=== PATIENT | male | born 1940 | race Caucasian/White ===

== ENCOUNTER 2017-07-01 18:10 | Emergency (ER) | payer BC ==
[~2017-07-01] VITALS: Ht 182.9 cm; Wt 123.0 kg
[~2017-07-01 18:10] MED LIST changes: -CZR50 PO; -GABA-112 PO; -KRIL1CAP18 PO; -METO25TA3 PO; -PRED50TA PO; -SPR25 PO
[2017-07-01 18:12] VITALS: TEMP 36.5; Ht 182.9 cm; Wt 123.0 kg
[2017-07-01] MEDS ORDERED: SODIUM CHLORIDE 0.9% 1000ML 1,000 ML IV STA (18:47)
[2017-07-01] MEDS ORDERED: KETOROLAC TROMETHAMINE 30 MG/ML VIAL IV STA (18:47)
[2017-07-01] MEDS ORDERED: SODIUM CHLORIDE 0.9% 1000ML 250 ML IV STA (18:47)
--- NOTE | 2017-07-01 18:49 | EMERGENCY ROOM VISIT NOTE ---
History Report prepared by Ezekiel: Henry Cohn Under the Supervision of: Dr. Alfredo Arana M.D. First contact with patient: 18:34 Chief Complaint: BACK PAIN Stated Complaint: BACK PAIN AND SPASMS History of Present Illness The patient is a 77 year old male who presents to the Emergency Room with complaints of worsening back pain that started 4 days ago. The patient describes the pain as "severe back spasms" which are worsened by movement. He says that he has a history of back surgery, and has had chronic back pain, but the severity did not start until 4 days ago when he was reaching his arm up for an object. The patient states that the pain is more on his right side, and generally his left side of his back has been okay, but occasionally the pain goes across his back. The patient states that before the pain worsened, Tylenol would relieve the pain. Per the patient's son, the patient was seen by his primary care doctor yesterday, and had x-rays ordered, which he had done today. The patient was given a Toradol injection, and had his Gabapentin dosage and Tramadol dosage increased. He says that he felt a lot better after the injection , and felt okay through this morning until he raised his left leg trying to put his pants on. The patient states that the pain is bad now. He denies any chest pain, shortness of breath, abdominal pain, bowel problems, or urinary symptoms. He notes that he is not on Coumadin anymore. The patient has a history of kidney stones, but he says that this pain does not feel like a kidney stone. He takes Metoprolol daily. Source of History: patient, family Onset: 4 days ago Position: back (right) Symptom Intensity: severe Quality: other (spasms) Timing: worsening Modifying Factors (Worsening): movement Associated Symptoms: No chest pain, No SOB, No abdominal pain, No urinary symptoms Note: Associated symptoms: Denies bowel problems. Review of Systems See HPI for pertinent positives & negatives. A total of 10 systems reviewed and were otherwise negative. Past Medical & Surgical Medical Problems: (1) HTN (hypertension) (2) Kidney stone (3) Sleep apnea Surgical Problems: (1) Previous back surgery Old medical records were reviewed. Nurse's notes were reviewed and I agree with. Family History Family history omitted secondary to patient's advanced age. Social History Smoking Status: Former Smoker Marital Status: Housing Status: lives with family Occupation Status: retired Current/Historical Medications Scheduled Aspirin (Aspirin Ec), 81 MG PO Q2D Cholecalciferol (Vitamin D 1000 Unit), 2,000 INTER.UNIT PO DAILY Cinnamon (Cinnamon), 1,000 MG PO DAILY Coenzyme Q10 (Ubidecarenone) (Coq-10), 400 MG PO DAILY Gabapentin (Neurontin), 1-2 CAP PO TID Glucosamine Hcl-Methylsulfonyl (Glucosamine/Msm), 1 TAB PO DAILY Krill Oil (Megared [place]-3 Krill Oil 500 mg), 1 CAP PO DAILY Losartan Potassium (Losartan Potassium), 50 MG PO DAILY Metoprolol Succinate (Toprol Xl), 25 MG PO DAILY Multivitamin (Multivitamin), 1 TAB PO DAILY Omeprazole (Prilosec), 20 MG PO DAILY Prednisone (Prednisone), 50 MG PO DAILY Simvastatin (Zocor), 10 MG PO HS Spironolactone (Spironolactone), 12.5 MG PO DAILY Terazosin Hcl (Hytrin), 10 MG PO HS Tramadol Hcl (Ultram), 50 MG PO ACHS Miscellaneous Medications Cyclobenzaprine Hcl (Flexeril *), 10 MG PO Allergies Coded Allergies: Oxycodone (Verified Adverse Reaction, Mild, NAUSEA/VOMITTING, 07/01/17) Physical Exam Vital Signs Date Time Temp Pulse Resp B/P (MAP) Pulse Ox O2 Delivery O2 Flow Rate FiO2 07/01/17 21:16 62 18 138/81 97 07/01/17 19:24 56 20 131/68 97 Room Air 07/01/17 18:12 36.5 67 18 124/71 91 Room Air Physical Exam General: Well developed well nourished uncomfortable appearing older male in no acute distress, breathing comfortably on room air. Normal speech. Has significant pain with movement only. HEENT: Normal cephalic atraumatic. Pupils are equal round and reactive to light. Extraocular movements are intact. Oropharynx is pink with moist mucous membranes. No swelling of the mouth lips or tongue. Neck: Supple with a midline trachea. No meningeal signs or stiffness, no JVD or bruits. No Stridor. Chest: Clear to auscultation bilaterally. No wheezes or rhonchi. No increased work of breathing. Heart: regular rate and rhythm. Abdomen: Soft nontender, nondistended without rebound guarding or rigidity. Extremities: No cyanosis clubbing or edema. No calf tenderness or assymetry. Pain with movement of legs. Spine/Back. Right flank not significantly tender to palpation. No CVA tenderness Skin: Good turgor without rashes. Neurologic exam: Cranial nerves two through 12 are intact. Motor and sensation are intact and symmetrical throughout. Medical Decision & Procedures ER Provider Diagnostic Interpretation: CT results as stated below per my review and radiologist interpretation: LUMBAR SPINE WITHOUT HISTORY: 77 years-old Male chronic back pain for 10 years. History of prior surgery. COMPARISON: CT abdomen and pelvis of same day, lumbar spine radiographs 07/01/2017, CT abdomen and pelvis 04/28/2008 TECHNIQUE: Multiple axial CT images of the lumbar spine were obtained without IV contrast. Coronal and sagittal reformatted images were obtained from the axial data set incidentally for review. A dose lowering technique was used consistent with the principals of ALARA. FINDINGS: There is been prior posterior decompression with interbody lor and screw fixation at the L3-S1 levels. There is no evidence of hardware complication. 5 mm anterolisthesis of L4 on L5 is noted with bony fusion seen posteriorly suggesting chronic etiology. There is complete bony fusion of the vertebral bodies at L2-L3 with partial fusion at L3-L4 and L5-S1. No acute compression deformity. Intervertebral disc space narrowing is seen at the T12-L1 and L1-L2 levels. There is levoscoliosis. There is atherosclerosis of the abdominal aorta and iliac vasculature. T12-L1: Moderate intervertebral disc space narrowing and moderate facet arthropathy is seen causing mild central canal and mild left foraminal narrowing. L1-L2: Moderate intervertebral disc space narrowing and facet arthropathy is noted in conjunction with circumferential posterior disc bulge causing mild central canal, mild left and moderate right foraminal narrowing. L2-L3: Posterior spondylitic spurring with facet arthrosis is present. The central canal and foramen at this level and below are not well seen secondary to the streak artifact. Myelogram may be considered if of further clinical concern. IMPRESSION: 1. No acute fracture or dislocation of the lumbar spine. 2. Prior posterior decompression with interbody lor and screw fixation at L3-S1. No evidence of hardware complication. 3. Limited evaluation of the central canal and neuroforamen at the levels of prior surgery secondary to streak artifact and lack of intrathecal contrast. Within the limitations of the study, no severe central canal or foraminal narrowing is identified. 4. Multilevel discogenic degeneration and facet arthropathy as above. 5. Levoscoliosis. The above report was generated using voice recognition software. It may contain grammatical, syntax or spelling errors. Electronically signed by: Tony Mace M.D. 07/01/2017 8:30 PM Dictated Date/Time: 07/01/2017 8:24 PM ABD/PELVIS WITHOUT FOR STONE HISTORY: 77 years-old Male eval for stone chronic back pain for 10 years. History of kidney stones. COMPARISON: 04/28/2008 CT abdomen and pelvis TECHNIQUE: Multiple axial CT images of the abdomen and pelvis were obtained without IV contrast. A dose lowering technique was used consistent with the principals of JULIÁN. FINDINGS: There is minimal dependent bibasilar atelectasis with subpleural reticulation of the right middle lobe and inferior segment lingula. These findings have progressed from prior study suggesting scarring. There is no pneumoperitoneum. Imaged inferior cardiac chambers are within normal limits with coronary arterial calcifications present. Prior cholecystectomy. The liver, spleen, pancreas and right adrenal gland appear normal. There is a 10 x 9 mm indeterminate soft tissue attenuating lesion of the left adrenal gland which appears unchanged from 04/28/2008 suggesting benign etiology such as a lipid poor adenoma. Lobulated renal parenchyma is noted bilaterally. Areas of peripheral scarring are also seen bilaterally. There is a 4 mm nonobstructing calculus of the interpolar right kidney. No ureteral calculi or hydronephrosis identified. Urinary bladder is unremarkable. Evaluation the pelvic structures is limited secondary to streak artifact from bilateral hip arthroplasty. The prostate appears mildly enlarged. There is moderate atherosclerotic plaquing of the abdominal aorta. There is a small duodenal diverticulum. No bowel obstruction. There are a few scattered noninflamed colonic diverticula noted. The appendix is air-filled and appears to be noninflamed. Chronic tendinosis involves the hamstring attachment sites bilaterally. Prior posterior decompression with interbody lor and screw fixation at L3-S1. There is 5 mm anterolisthesis of L4 on L5 with associated bony fusion suggesting chronic etiology. There is levoscoliosis of the lumbar spine. Multilevel degenerative changes are seen throughout the spine. IMPRESSION: 1. No acute intra-abdominal or intrapelvic abnormality identified. 2. 4 mm nonobstructing calculus of the interpolar right kidney without hydronephrosis. 3. Prior decompression with posterior interbody lor and screw fixation at L3-S1. 4. Additional incidental findings as above. The above report was generated using voice recognition software. It may contain grammatical, syntax or spelling errors. Electronically signed by: Tony Mace M.D. 07/01/2017 8:21 PM Dictated Date/Time: 07/01/2017 8:13 PM Laboratory Results 07/01/17 19:13 Red Blood Count 3.68, Mean Corpuscular Volume 102.4, Mean Corpuscular Hemoglobin 35.9, Mean Corpuscular Hemoglobin Concent 35.0, Mean Platelet Volume 9.2, Neutrophils (%) (Auto) 51.7, Lymphocytes (%) (Auto) 35.2, Monocytes (%) ( Auto) 7.3, Eosinophils (%) (Auto) 5.2, Basophils (%) (Auto) 0.5, Neutrophils # ( Auto) 3.98, Lymphocytes # (Auto) 2.71, Monocytes # (Auto) 0.56, Eosinophils # ( Auto) 0.40, Basophils # (Auto) 0.04 07/01/17 19:13 Test 07/01/17 19:13 07/01/17 20:10 White Blood Count 7.70 K/uL (4.8-10.8) Red Blood Count 3.68 M/uL (4.7-6.1) Hemoglobin 13.2 g/dL (14.0-18.0) Hematocrit 37.7 % (42-52) Mean Corpuscular Volume 102.4 fL (80-100) Mean Corpuscular Hemoglobin 35.9 pg (25-34) Mean Corpuscular Hemoglobin Concent 35.0 g/dl (32-36) Platelet Count 221 K/uL (130-400) Mean Platelet Volume 9.2 fL (7.4-10.4) Neutrophils (%) (Auto) 51.7 % Lymphocytes (%) (Auto) 35.2 % Monocytes (%) (Auto) 7.3 % Eosinophils (%) (Auto) 5.2 % Basophils (%) (Auto) 0.5 % Neutrophils # (Auto) 3.98 K/uL (1.4-6.5) Lymphocytes # (Auto) 2.71 K/uL (1.2-3.4) Monocytes # (Auto) 0.56 K/uL (0.11-0.59) Eosinophils # (Auto) 0.40 K/uL (0-0.5) Basophils # (Auto) 0.04 K/uL (0-0.2) RDW Standard Deviation 47.7 fL (36.4-46.3) RDW Coefficient of Variation 12.8 % (11.5-14.5) Immature Granulocyte % (Auto) 0.1 % Immature Granulocyte # (Auto) 0.01 K/uL (0.00-0.02) Prothrombin Time 10.2 SECONDS (9.0-12.0) Prothromb Time International Ratio 1.0 (0.9-1.1) Activated Partial Thromboplast Time 27.4 SECONDS (21.0-31.0) Partial Thromboplastin Ratio 1.1 Anion Gap 6.0 mmol/L (3-11) Est Creatinine Clear Calc Drug Dose 55.9 ml/min Estimated GFR () 51.3 Estimated GFR (Non- 44.3 BUN/Creatinine Ratio 21.8 (10-20) Calcium Level 8.7 mg/dl (8.5-10.1) Total Bilirubin 0.6 mg/dl (0.2-1) Direct Bilirubin 0.1 mg/dl (0-0.2) Aspartate Amino Transf (AST/SGOT) 37 U/L (15-37) Alanine Aminotransferase (ALT/SGPT) 53 U/L (12-78) Alkaline Phosphatase 61 U/L (45-117) Total Protein 6.7 gm/dl (6.4-8.2) Albumin 3.5 gm/dl (3.4-5.0) Lipase 120 U/L (73-393) Urine Color YELLOW Urine Appearance CLEAR (CLEAR) Urine pH 5.0 (4.5-7.5) Urine Specific [place] 1.017 (1.000-1.030) Urine Protein NEG (NEG) Urine Glucose (UA) NEG (NEG) Urine Ketones NEG (NEG) Urine Occult Blood NEG (NEG) Urine Nitrite NEG (NEG) Urine Bilirubin NEG (NEG) Urine Urobilinogen NEG (NEG) Urine Leukocyte Esterase NEG (NEG) Laboratory studies as stated above per my review. Medications Administered Medications (Trade) Dose Ordered Sig/Enedelia Route Start Time Stop Time Status Last Admin Dose Admin Ketorolac Tromethamine (Toradol Inj) 30 mg NOW STAT IV 07/01/17 18:47 07/01/17 18:50 DC 07/01/17 19:20 30 MG Sodium Chloride 250 ml @ 999 mls/hr Q16M STAT IV 07/01/17 18:47 07/01/17 19:02 DC 07/01/17 19:21 999 MLS/HR Prednisone (PredniSONE TAB) 60 mg NOW STAT PO 07/01/17 20:56 07/01/17 20:58 DC 07/01/17 21:07 60 MG ED Course 1836: Past medical records reviewed. The patient was evaluated in room B9, and a complete history and physical examination were performed. 1846: Ordered NSS 1000 ml @ 100 mls/hr IV, NSS 250 ml @ 999 mls/hr IV, Toradol Inj 30 mg IV. 2055: Ordered Prednisone Tab 60 mg PO. 2056: I reevaluated the patient and he is resting comfortably, feeling better with the Toradol. The patient verbally expressed understanding and agreement of the treatment plan. The patient will be discharged. Medical Decision Differentials include, but are not limited to; muscle spasm, lumbar disc disease , fracture, kidney stone, AAA. This patient comes in as described above. He's having right-sided back pain it is definitely worse with movement. He saw his regular doctor and was doing well after receiving a shot of IV Toradol but when he then today it got worse and there was no trauma . He has no neurologic deficits. he's had back problems in the past. On exam, he has nothing to suggest cauda equina syndrome or infection. He appears uncomfortable. IV access established was given Toradol 30 mg IV and felt significantly better. He has no white count or fever to suggest infection. He has mild renal insufficiency which is about baseline for him. he has nothing to suggest UTI. CAT scan of his abdomen does not show any acute pathology which would explain his symptoms specifically is no aneurysm or dissection seen. He also has no obstructive uropathy. He does have one stone within the kidney but it's not causing a blockage and therefore not causing symptoms. Lumbar CT does not show any definite acute findings however somewhat compromised to the fact that he has hardware. The patient feels much better would like to go home and I think that this is reasonable. I will start him on a course of steroids and he was given prednisone 50 mg here as well as percent prescription for 4 more days for a short burst. He should continue to use ibuprofen and Ultram and follow-up with his regular doctor in the next 1-2 days for recheck. He was encouraged to return if: fever or chills, change in bowel or bladder function, any new problems or concerns. He was happy with plan and discharged to home. Medication Reconcilliation Current Medication List: was personally reviewed by me Blood Pressure Screening Patient's blood pressure: Normal blood pressure Impression Primary Impression: Low back pain Scribe Attestation The scribe's documentation has been prepared under my direction and personally reviewed by me in its entirety. I confirm that the note above accurately reflects all work, treatment, procedures, and medical decision making performed by me. Departure Information Dispostion Home / Self-Care Prescriptions Prednisone (Prednisone) 50 Mg Tab 50 MG PO DAILY, #4 TAB Prov: Alfredo Arana M.D. 07/01/17 Referrals No Doctor, Assigned (PCP) Olivia Rangel PA-C Patient Instructions My [facility] Additional Instructions Rest. Drink plenty of fluids. Be careful getting up and down. Continue your current anti-inflammatory/ibuprofen as well as tramadol as previously directed by your doctor Use prednisone 50 mg a day once a day for 4 more days Return if: Increasing pain, numbness or weakness, change in bowel or bladder function, any new problems or concerns. Follow-up with your doctor this week for recheck
[2017-07-01] MEDS ORDERED: KRIL1CAP18 PO (19:13)
[2017-07-01] MEDS ORDERED: GLUCTAB PO (19:13)
[2017-07-01] MEDS ORDERED: CZR50 PO (19:13)
[2017-07-01] MEDS ORDERED: METO25TA3 PO (19:13)
[2017-07-01] MEDS ORDERED: SPR25 PO (19:23)
[2017-07-01] MEDS ORDERED: GABA-112 PO (19:23)
[2017-07-01 19:27] LABS: BASO % 0.5 %; BASO ABS # 0.04 K/uL (0-0.2); COMPLETE YES; EOS % 5.2 %; HEMATOCRIT 37.7 % (42-52); IG% 0.1 %; LYMPH % 35.2 %; LYMPH ABS # 2.71 K/uL (1.2-3.4); MEAN CELL VOLUME 102.4 fL (80-100); MEAN CORPUSCULAR HEMOGLOBIN 35.9 pg (25-34); MEAN PLATELET VOLUME 9.2 fL (7.4-10.4); MONO % 7.3 %; NEUT % 51.7 %; PLATELET COUNT 221 K/uL (130-400); RED BLOOD COUNT 3.68 M/uL (4.7-6.1)
[2017-07-01 19:41] LABS: BUN/CREATININE RATIO 21.8 (10-20); CALCIUM 8.7 mg/dl (8.5-10.1); CREATININE 1.5 mg/dl (0.60-1.40); POTASSIUM 4.8 mmol/L (3.5-5.1)
[2017-07-01 19:47] LABS: PARTIAL THROMBOPLASTIN RATIO 1.1; PROTHROMBIN TIME (PATIENT) 10.2 SECONDS (9.0-12.0)
--- NOTE | 2017-07-01 20:22 | DIAGNOSTIC IMAGING REPORT ---
ABD/PELVIS WITHOUT FOR STONE HISTORY: 77 years-old Male eval for stone chronic back pain for 10 years. History of kidney stones. COMPARISON: 04/28/2008 CT abdomen and pelvis TECHNIQUE: Multiple axial CT images of the abdomen and pelvis were obtained without IV contrast. A dose lowering technique was used consistent with the principals of JULIÁN. FINDINGS: There is minimal dependent bibasilar atelectasis with subpleural reticulation of the right middle lobe and inferior segment lingula. These findings have progressed from prior study suggesting scarring. There is no pneumoperitoneum. Imaged inferior cardiac chambers are within normal limits with coronary arterial calcifications present. Prior cholecystectomy. The liver, spleen, pancreas and right adrenal gland appear normal. There is a 10 x 9 mm indeterminate soft tissue attenuating lesion of the left adrenal gland which appears unchanged from 04/28/2008 suggesting benign etiology such as a lipid poor adenoma. Lobulated renal parenchyma is noted bilaterally. Areas of peripheral scarring are also seen bilaterally. There is a 4 mm nonobstructing calculus of the interpolar right kidney. No ureteral calculi or hydronephrosis identified. Urinary bladder is unremarkable. Evaluation the pelvic structures is limited secondary to streak artifact from bilateral hip arthroplasty. The prostate appears mildly enlarged. There is moderate atherosclerotic plaquing of the abdominal aorta. There is a small duodenal diverticulum. No bowel obstruction. There are a few scattered noninflamed colonic diverticula noted. The appendix is air-filled and appears to be noninflamed. Chronic tendinosis involves the hamstring attachment sites bilaterally. Prior posterior decompression with interbody lor and screw fixation at L3-S1. There is 5 mm anterolisthesis of L4 on L5 with associated bony fusion suggesting chronic etiology. There is levoscoliosis of the lumbar spine. Multilevel degenerative changes are seen throughout the spine. IMPRESSION: 1. No acute intra-abdominal or intrapelvic abnormality identified. 2. 4 mm nonobstructing calculus of the interpolar right kidney without hydronephrosis. 3. Prior decompression with posterior interbody lor and screw fixation at L3-S1. 4. Additional incidental findings as above. The above report was generated using voice recognition software. It may contain grammatical, syntax or spelling errors. Electronically signed by: Tony Mace M.D. 07/01/2017 8:21 PM Dictated Date/Time: 07/01/2017 8:13 PM
--- NOTE | 2017-07-01 20:31 | DIAGNOSTIC IMAGING REPORT ---
LUMBAR SPINE WITHOUT HISTORY: 77 years-old Male chronic back pain for 10 years. History of prior surgery. COMPARISON: CT abdomen and pelvis of same day, lumbar spine radiographs 07/01/2017, CT abdomen and pelvis 04/28/2008 TECHNIQUE: Multiple axial CT images of the lumbar spine were obtained without IV contrast. Coronal and sagittal reformatted images were obtained from the axial data set incidentally for review. A dose lowering technique was used consistent with the principals of ALA. FINDINGS: There is been prior posterior decompression with interbody lor and screw fixation at the L3-S1 levels. There is no evidence of hardware complication. 5 mm anterolisthesis of L4 on L5 is noted with bony fusion seen posteriorly suggesting chronic etiology. There is complete bony fusion of the vertebral bodies at L2-L3 with partial fusion at L3-L4 and L5-S1. No acute compression deformity. Intervertebral disc space narrowing is seen at the T12-L1 and L1-L2 levels. There is levoscoliosis. There is atherosclerosis of the abdominal aorta and iliac vasculature. T12-L1: Moderate intervertebral disc space narrowing and moderate facet arthropathy is seen causing mild central canal and mild left foraminal narrowing. L1-L2: Moderate intervertebral disc space narrowing and facet arthropathy is noted in conjunction with circumferential posterior disc bulge causing mild central canal, mild left and moderate right foraminal narrowing. L2-L3: Posterior spondylitic spurring with facet arthrosis is present. The central canal and foramen at this level and below are not well seen secondary to the streak artifact. Myelogram may be considered if of further clinical concern. IMPRESSION: 1. No acute fracture or dislocation of the lumbar spine. 2. Prior posterior decompression with interbody lor and screw fixation at L3-S1. No evidence of hardware complication. 3. Limited evaluation of the central canal and neuroforamen at the levels of prior surgery secondary to streak artifact and lack of intrathecal contrast. Within the limitations of the study, no severe central canal or foraminal narrowing is identified. 4. Multilevel discogenic degeneration and facet arthropathy as above. 5. Levoscoliosis. The above report was generated using voice recognition software. It may contain grammatical, syntax or spelling errors. Electronically signed by: Tony Mace M.D. 07/01/2017 8:30 PM Dictated Date/Time: 07/01/2017 8:24 PM
[2017-07-01 20:49] LABS: URINE APPEARANCE CLEAR (CLEAR); URINE BILIRUBIN NEG (NEG); URINE COLOR YELLOW; URINE NITRITE NEG (NEG); URINE SPECIFIC GRAVITY 1.017 (1.000-1.030); UROBILINOGEN NEG (NEG)
[2017-07-01 20:51] LABS: MANUAL MICROSCOPIC REQUIRED? NO; REVIEW REQ? NO
[2017-07-01] MEDS ORDERED: PRED50TA PO (20:59)
[2017-07-01 21:16] VITALS: BP 138/81; PULSE 62; O2SAT 97
== END 2017-07-01 21:16 | disposition home or self-care (01) ==
LOC: C.EDB 18:11
DX: M54.5 Low back pain (principal); I10 Essential (primary) hypertension; G47.30 Sleep apnea, unspecified; Z87.891 Personal history of nicotine dependence; Z79.82 Long term (current) use of aspirin; Z79.899 Other long term (current) drug therapy

== ENCOUNTER → 2017-07-01 | Outpatient (CLI) | payer BC ==
[~2017-07-01] MED LIST: ASPI81TA28 PO; CHOL100027 PO; CINN1CAP2 PO; COEN1CAP32 PO; CZR50 PO; FERR324T PO; FISHOIL PO; FLX10 PO; GABA-112 PO; GLUCTAB PO; HYDR-3419 PO; KRIL1CAP18 PO; LISI-729 PO; METO25TA3 PO; MULT-506 PO; PRED50TA PO; PRLSR20 PO; SIMV10TA2 PO; SPR25 PO; TERA1CAP63 PO; ULT/50 PO; WARF1TAB PO
--- NOTE | 2017-07-01 18:18 | DIAGNOSTIC IMAGING REPORT ---
L-SPINE MIN 4 VIEWS ROUTINE HISTORY: Pain ACUTE LOW BACK SPINE COMPARISON: None. FINDINGS: There is no fracture. Mild levoscoliosis. Evidence for posterior laminectomy and fusion from L3 through S1. Significant degenerative disc change throughout. No evidence for subluxation. IMPRESSION: 1. Considerable degenerative disc change 2. Postoperative change consistent with a fusion from L3 through S1. 3. No evidence for compression deformity. The above report was generated using voice recognition software. It may contain grammatical, syntax or spelling errors. Electronically signed by: Quincy Salmon M.D. 07/01/2017 6:17 PM Dictated Date/Time: 07/01/2017 6:16 PM
--- NOTE | 2017-07-01 18:19 | DIAGNOSTIC IMAGING REPORT ---
THORACIC SPINE 3 VIEWS ROUTINE HISTORY: Pain ACUTE LOW BACK PAIN COMPARISON: None. FINDINGS: No evidence for compression deformity. Considerable degenerative disc change throughout. Reactive osteophytic change from the vertebral endplates throughout. Posterior elements are intact. IMPRESSION: Considerable degenerative disc change. No acute process. The above report was generated using voice recognition software. It may contain grammatical, syntax or spelling errors. Electronically signed by: Quincy Salmon M.D. 07/01/2017 6:17 PM Dictated Date/Time: 07/01/2017 6:17 PM
== END | disposition home or self-care (01) ==
LOC: C.RAD 17:23
PROVIDERS: ATTEND Physician Assistant
DX: M54.5 Low back pain (principal)

== ENCOUNTER 2021-07-03 11:31 | Inpatient (IN) ==
[2021-07-03] MEDS ORDERED: ACETAMINOPHEN 325 MG TAB PO PRN (12:35)
--- NOTE | 2021-07-03 12:58 | History & Physical Report ---
Date of Service July 03, 2021 Assessment & Plan (1) Afib: Plan: Currently rate controlled in the 70-80s HR increased to 90s while sitting up on the edge of the bed without any ectopy - CHADVASC - 3, HASBLED 3-4 - On Warfarin for his anticoagulation - Current INR 2.2 - Continue dose of 5mg daily - ECHO while in house - Continue Metoprolol and Digoxin - Follow hemodynamics and rate response - Cardiology consulted- Dr. Bennett - ECG on arrival unchanged no acute changes noted Patient has poorly tolerated atrial fibrillation by review (2) Diastolic HF (heart failure): Plan: HFpEF with EF 65% with noted elevated PAS via ECHO only. - Patient reports his dry weight around 280 pounds - No orthopnea - Daily bedside weights - BNP- 753 - Not much lower extremity edema mild pulmonary congestion on exam - Bumex 1 mg IV now and then again at 1900 tonight- Continue IV BID - Spironolactone on hold- will add back if needed - Continue ARB (3) HTN (hypertension): Plan: Currently controlled goal would be <130 with CKD, DM, HTN, HLD, CAD - Continue with ARB at this time follow renal function with diuresing (4) Hyperlipidemia: Plan: - Continue Atorvastatin 40 - Hold krill oil (5) CAD (coronary artery disease): Plan: Non obstructive mild CAD via cardiac catheterization in 2016 - Continue ASA, BB, HLD agents as above (6) GRACIE (obstructive sleep apnea): Plan: Patient reports he wears CPAP- he brought home machine, use while sleeping and or napping - He states he wears this every night - Unsure of when last sleep study was or adjustment- may benefit from updated study (7) Obesity: Plan: Due to increase intake of calories and decrease exercise - Weight loss will likely help with his overall CV mortality and current symptoms - Difficult with his dyspnea, osteoarthritis, and knee/hip replacements - This as well as afib is likely his primary offenders for his dyspnea (8) GERD (gastroesophageal reflux disease): Plan: No acute needs, patient states symptoms are controlled - Continue with PPI (9) DMII (diabetes mellitus, type 2): Plan: Hold Metformin - Start aspart sliding scale - Goal <180 (10) CKD (chronic kidney disease), stage III: Plan: Chronic stable CKD IIIa - Avoid nephrotoxic medications - Follow renal function with diuresing and hemodynamics (11) Osteoarthritis: Plan: Continue glucosamine, Flexeril PRN, and Vitamin D Admission and Anticipated Discharge Date Admission Date: July 03, 2021 History of Present Illness Primary Care Provider: Addy Arizmendi MD 81 YOM direct admit from [facility] cardiology group Dr. Bennett. Requested admission secondary to uncontrolled outpatient afib, HF, and sub-therapeutic INR. Patient with past medical history of CAD, HTN, HLD, Obesity, chronic otitis externa, CKD III, DM II, DJD lumbar, GERD, Osteoarthritis, Past Smoker, Obesity hy poventilation syndrome/GRACIE on CPAP and new onset afib on Coumadin. Patient has been in Afib since appears of May. Patient has struggled with rate control secondary to hypotension and worsening SOB, dizziness, and lower extremity edema; as well as sub-therapeutic INR. For his rate control he has titrated up his Metoprolol but as previously, his hypotension has been limiting this, he has also been placed on Digoxin previously loaded with 0.25 mg PO and down to maintenance of 0.125 mg daily. For his volume status he has had his been given 2mg BUMEX in the office on and increased his oral BUMEX this past weekend to 2mg with minimal response on his dyspnea. He reports that originally after getting the 2mg IV in the office he felt great and was down 5lbs on his scale the next morning and his dyspnea was improved, but over the past 5 days he has increased his weight to +5 pounds. He denies any orthopnea and is not hypoxic. He does endorse not following a low salt diet, but over the past 2-3 days he and his have been trying, and he moved to salt substitute. He states his dyspnea is more when he is trying to do something or with walking, not associated with any chest discomfort and he denies fevers/chills or coughing up any mucous. He has an ECHO from 03/14 while in NSR with EF 65% normal LV function with no wall motion abnormalities and normal size. RA pressure 8; PAS 41, and CO 6.9 and normal valvular function. Patient will be admitted for diuresing as needed, follow HR and rate control strategies, INR following and Cardiology consult. CXR, ECG, and ECHO ordered. COVID test is negative on admission. Allergies Allergy/AdvReac Type Severity Reaction Status Date / Time oxycodone AdvReac Mild NAUSEA/VOMI Verified 05/04/21 13:42 TTING Home Medications Medication Instructions Recorded Confirmed Type Multivitamin 1 tab PO DAILY #0 04/12/09 07/03/21 History OMEPRAZOLE (PRILOSEC) 20 mg PO DAILY #0 04/12/09 07/03/21 History Terazosin Hcl (Hytrin) 10 mg PO HS #0 04/12/09 07/03/21 History CHOLECALCIFEROL (VITAMIN D 1000 2,000 inter.unit PO DAILY #0 cap 06/10/12 07/03/21 History UNIT) Cyclobenzaprine Hcl (Flexeril *) 10 mg PO DAILY #0 tab 06/10/12 07/03/21 History ASPIRIN (ASPIRIN EC) 81 mg PO Q2D #0 04/09/13 07/03/21 History CINNAMON 1,000 mg PO DAILY #0 04/09/13 07/03/21 History COENZYME Q10 (UBIDECARENONE) 400 mg PO DAILY #0 04/09/13 07/03/21 History (COQ-10) GLUCOSAMINE HCL-METHYLSULFONYL 1 tab PO DAILY #0 07/01/17 07/03/21 History (GLUCOSAMINE/MSM) Gabapentin (Neurontin) 2 - 3 cap PO TID #0 cap 07/01/17 07/03/21 History Krill Oil (Megared [place]-3 Krill 1 cap PO DAILY #0 07/01/17 07/03/21 History Oil 500 mg) Losartan Potassium 25 mg PO DAILY #0 07/01/17 07/03/21 History Spironolactone 25 mg PO DAILY #0 07/01/17 07/03/21 History atorvastatin 80 mg tablet (Lipitor) 80 mg PO DAILY 08/10/20 07/03/21 History folic acid 800 mcg tablet 0.8 mg PO DAILY 08/10/20 07/03/21 History spironolactone 25 mg tablet 25 mg PO DAILY 08/10/20 05/04/21 History bumetanide 1 mg tablet 2 mg PO DAILY 07/03/21 07/03/21 History cetirizine 10 mg tablet (Zyrtec) 10 mg PO DAILY PRN 07/03/21 07/03/21 History digoxin 125 mcg (0.125 mg) tablet 0.125 mcg PO DAILY 07/03/21 07/03/21 History fluocinolone acetonide oil 0.01 % 1 drp OTIC (EAR) DAILY 07/03/21 07/03/21 History ear drops metformin 500 mg tablet,extended 500 mg PO DAILY 07/03/21 07/03/21 History release 24 hr metoprolol succinate 50 mg 50 mg PO DAILY 07/03/21 07/03/21 History tablet,extended release 24 hr ropinirole 1 mg tablet 1 mg PO DAILY 07/03/21 07/03/21 History warfarin 5 mg tablet 5 mg PO DAILY 07/03/21 07/03/21 History Past Med/Surg History Medical History Afib SHARA positive CAD (coronary artery disease) Carotid artery plaque CKD (chronic kidney disease), stage III Diabetic neuropathy Diastolic HF (heart failure) Diverticulosis DMII (diabetes mellitus, type 2) Elevated cholesterol GERD (gastroesophageal reflux disease) HTN (hypertension) Hyperlipidemia Kidney stone Normal colonoscopy Obesity GRACIE (obstructive sleep apnea) Osteoarthritis Otitis externa Sleep apnea Surgical History H/O bilateral hip replacements H/O laminectomy H/O total hip arthroplasty H/O total knee replacement History of ankle surgery History of back surgery History of cholecystectomy Hx of total knee arthroplasty Family History Other Coronary heart disease Diabetes Social History Smoking Status: Former smoker Hx Alcohol Use: Yes Hx Substance Use: No Preferred Language: Gabonese Communication Ability: Effective 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 Beliefs That Will Affect Care: None marital status: Current Living Situation: Alone Feels Safe at Home: Yes Safety Concerns: Feels Safe At This Time Assistive Devices: None Review of Systems Review of Systems: REVIEW OF SYSTEMS: Constitutional: No fever, sweats or chills Eyes: No diplopia, no worsening or blurred vision ENT: normal hearing, no trouble swallowing Respiratory: (+) dyspnea on exertion, cough, No sputum Cardiovascular: No chest pain, tightness or palpitations Abdomen: (+) abdominal tightness, No pain, nausea, vomiting, diarrhea or constipation Musculoskeletal: (+) chronic joint knee pain, back pain Neurologic: No weakness, numbness/tingling, or balance problems Psychiatric: No anxiety or depression Skin: No rash or itch Physical Exam Physical Exam: PHYSICAL EXAM: General: awake, alert, no apparent distress Head: Normocephalic, atraumatic ENT: PERRL, EOMI, no pharyngeal exudate, mucous membranes moist Neuro: AAO x 3, speech clear and appropriate, strength intact bilaterally 5/5, sensation intact and equal all extremities and dermatomes, no pronator drift Chest: equal rise and fall of the chest, no accessory muscle use, no heaves or thrills, scattered crackles throughout mid lobes, on room air, no orthopnea Cardiac: Regular rate and rhythm, telemetry reviewed, skin warm dry, cap refill <3 seconds, peripheral pulses +2 no JVD, no murmur, trace lower extremity edema GI: NABS x 4 quadrants, obese soft, nontender to palpation, no rebound, guarding or tenderness : Spontaneously voiding, no pain, no CVA tenderness, Extremities: Normal inspection, no peripheral edema or erythema, calfs nontender to palpation Psych: Normal mood and affect Skin: no rash or erythema Results & Data Results & Data ([facility]) Laboratory Results Abnormal lab results 07/03/21 07/03/21 07/03/21 Range/Units 12:54 13:11 13:11 RBC 3.75 L (4.7-6.1) M/uL Hgb 13.3 L (14.0-18.0) g/dL Hct 38.6 L (42-52) % MCV 102.9 H (80-100) fL MCH 35.5 H (25-34) pg RDW Std Deviation 51.0 H (36.4-46.3) fL Tate # (Auto) 0.63 H (0.11-0.59) K/uL PT 21.2 H (9.0-12.0) Seconds INR 2.2 H (0.9-1.1) Chloride (98-107) mmol/L Anion Gap (3-11) BUN (7-18) mg/dl Glucose (70-99) mg/dl POC Glucose 113 H (70-99) mg/dl Calcium (8.5-10.1) mg/dl 07/03/21 Range/Units 13:11 RBC (4.7-6.1) M/uL Hgb (14.0-18.0) g/dL Hct (42-52) % MCV (80-100) fL MCH (25-34) pg RDW Std Deviation (36.4-46.3) fL Tate # (Auto) (0.11-0.59) K/uL PT (9.0-12.0) Seconds INR (0.9-1.1) Chloride 108 H (98-107) mmol/L Anion Gap 2.0 L (3-11) BUN 23 H (7-18) mg/dl Glucose 114 H (70-99) mg/dl POC Glucose (70-99) mg/dl Calcium 8.4 L (8.5-10.1) mg/dl Diagnostic Findings Chest X-Ray 07/03/21 14:20 SINGLE VIEW CHEST CLINICAL HISTORY: Dyspnea. Pulmonary congestion. FINDINGS: An AP, portable, upright chest radiograph is compared to study dated 09/06/2015. The examination is degraded by portable technique and apical lordotic positioning. The heart is enlarged noting atherosclerotic calcification of the thoracic aorta. There is mild pulmonary vascular congestion. Scarring/atelectasis is noted at the lung bases. No airspace consolidation or large pleural effusion is identified. No pneumothorax is seen. The skeletal stru ctures are osteopenic. The bony thorax is grossly intact. Arthritic change is noted in the shoulders. IMPRESSION: Cardiomegaly with mild pulmonary vascular congestion. ACT 112: Negative or not required by law. Electronically signed by: Florentino Xavier M.D. 07/03/2021 2:54 PM Medications Administered Home Medications Multivitamin 1 tab PO DAILY #0 04/12/09 [History Confirmed 05/04/21] OMEPRAZOLE (PRILOSEC) 20 mg PO DAILY #0 04/12/09 [History Confirmed 05/04/21] Terazosin Hcl (Hytrin) 10 mg PO HS #0 04/12/09 [History Confirmed 05/04/21] CHOLECALCIFEROL (VITAMIN D 1000 UNIT) 2,000 inter.unit PO DAILY #0 cap 06/10/12 [History Confirmed 05/04/21] Cyclobenzaprine Hcl (Flexeril *) 10 mg PO #0 tab 06/10/12 [History Confirmed 05/04/21] ASPIRIN (ASPIRIN EC) 81 mg PO Q2D #0 04/09/13 [History Confirmed 05/04/21] CINNAMON 1,000 mg PO DAILY #0 04/09/13 [History Confirmed 05/04/21] COENZYME Q10 (UBIDECARENONE) (COQ-10) 400 mg PO DAILY #0 04/09/13 [History Confirmed 05/04/21] GLUCOSAMINE HCL-METHYLSULFONYL (GLUCOSAMINE/MSM) 1 tab PO DAILY #0 07/01/17 [History Confirmed 05/04/21] Gabapentin (Neurontin) 1 - 2 cap PO TID #0 cap 07/01/17 [History Confirmed 05/04/21] Krill Oil (Megared [place]-3 Krill Oil 500 mg) 1 cap PO DAILY #0 07/01/17 [History Confirmed 05/04/21] Losartan Potassium 50 mg PO DAILY #0 07/01/17 [History Confirmed 05/04/21] Spironolactone 12.5 mg PO DAILY #0 07/01/17 [History Confirmed 05/04/21] atorvastatin 80 mg tablet (Lipitor) 80 mg PO DAILY 08/10/20 [History Confirmed 05/04/21] folic acid 800 mcg tablet 0.8 mg PO DAILY 08/10/20 [History Confirmed 05/04/21] spironolactone 25 mg tablet 25 mg PO DAILY 08/10/20 [History Confirmed 05/04/21] Active Medications Acetaminophen (Acetaminophen 325 Mg Tab) 650 mg PO Q4H PRN PRN Reason: Pain or Fever Stop: 08/02/21 12:34 Bumetanide 1 mg/ Syringe 4 mls @ 4 mls/min IV BID@0900,1700 KAREN Stop: 08/02/21 18:59 ECG Additional Comments: Atrial fibrillation Low voltage QRS Inferior infarct , age undetermined Abnormal ECG When compared with ECG of 26-FEB-2013 10:25, Atrial fibrillation has replaced Sinus rhythm Inferior infarct is now Present Nonspecific T wave abnormality now evident in Inferior leads Code Status & VTE Plan Code Status CODE: FULL VTE: SCD's, Warfarin, ASA, ambulation VTE Prophylaxis Plan VTE Prophylaxis will be ordered: Yes Supervising Physician Co-Signing Physician Notes Attending addendum: I have physically seen this patient, have supervised the MARIA ALEJANDRA's activities, and agree with the H&P unless as otherwise noted. Assessment and Plan: Acute on chronic diastolic CHF/atrial fibrillation/hypertension- The patient will be admitted to telemetry for serial cardiac enzymes, serial EKG's, cardiac rhythm monitoring and a 2-D echocardiogram with Dopplers. Continue warfarin 5 mg daily, INR today 2.2, follow serial INR Continue metoprolol and digoxin Bumex 1 mg IV twice daily Hold outpatient oral Bumex 2 mg daily for now Holding spironolactone for now Continuing losartan potassium Follow serial CBC with differential and chemistry profile Consult his equities analyst Dr. Joseph Remaining orders and notations as noted PG Care Time/CCT Total # of Minutes Spent Total Time Spent with Patient: Total time spent is greater than 50% in coordination of care (as documented) at patient's floor/unit and/or counseling patient: Coding Level of Care Code 46456 Initial Inpt Care Lvl 3 Diagnoses Afib I48.91 Diastolic HF (heart failure) I50.30 HTN (hypertension) I10 Hyperlipidemia E78.5 CAD (coronary artery disease) I25.10 GRACIE (obstructive sleep apnea) G47.33 Obesity E66.9 GERD (gastroesophageal reflux disease) K21.9 DMII (diabetes mellitus, type 2) E11.9 CKD (chronic kidney disease), stage III N18.30 Osteoarthritis M19.90
[2021-07-03 13:28] LABS: Basophils # (auto) 0.03 K/uL (0-0.2); Basophils % (auto) 0.5 %; Eosinophils # (auto) 0.33 K/uL (0-0.5); Eosinophils % (auto) 5.4 %; Hematocrit (blood only) 38.6 % (42-52); Hemoglobin 13.3 g/dL (14.0-18.0); Immature Granulocytes # (auto) 0.01 K/uL (0.00-0.02); Immature Granulocytes % (auto) 0.2 %; Lymphocytes # (auto) 2.01 K/uL (1.2-3.4); Mean Corpuscular Hemoglobin 35.5 pg (25-34); Mean Corpuscular Hgb Conc 34.5 g/dL (32-36); Mean Corpuscular Volume 102.9 fL (80-100); Mean Platelet Volume 9.1 fL (7.4-10.4); Monocytes # (auto) 0.63 K/uL (0.11-0.59); Monocytes % (auto) 10.3 %; Neutrophils # (auto) 3.09 K/uL (1.4-6.5); Neutrophils % (auto) 50.6 %; Platelet Count 206 K/uL (130-400); RDW Coefficient of Variation 13.5 % (11.5-14.5); Red Blood Count 3.75 M/uL (4.7-6.1)
[2021-07-03 13:43] LABS: INR 2.2 (0.9-1.1); Prothrombin Time 21.2 Seconds (9.0-12.0)
[2021-07-03] MEDS ORDERED: BUMETANIDE 1 MG in SYRINGE 0 ML IV ONE (14:00)
[2021-07-03 14:02] LABS: BUN Creatinine Ratio 18.7 (10-20); Calcium 8.4 mg/dl (8.5-10.1); Creatinine Clr Calc Pharmacy 65.5 ml/min; Est GFR (African American) 62.8 ml/min; Est GFR (Non-African American) 54.2 ml/min; Magnesium 2.2 mg/dl (1.8-2.4); Potassium 3.9 mmol/L (3.5-5.1)
[2021-07-03] MEDS ORDERED: CARBOHYDRATES FOR HYPOGLYCEMIA PO PRN (14:19)
[2021-07-03] MEDS ORDERED: GLUCOSE 10 TABS/TUBE PO PRN (14:19)
[2021-07-03] MEDS ORDERED: DEXTROSE 50% 50 ML SYRINGE IV PRN (14:19)
[2021-07-03] MEDS ORDERED: GLUCOSE 40% GEL 15 GM TUBE PO PRN (14:19)
[2021-07-03] MEDS ORDERED: GLUCAGON FOR INJ 1 MG VIAL SQ PRN (14:19)
--- NOTE | 2021-07-03 14:56 | XRay Report ---
SINGLE VIEW CHEST CLINICAL HISTORY: Dyspnea. Pulmonary congestion. FINDINGS: An AP, portable, upright chest radiograph is compared to study dated 09/06/2015. The examin ation is degraded by portable technique and apical lordotic positioning. The heart is enlarged noting atherosclerotic calcification of the thoracic aorta. There is mild pulmonary vascular congestion. Sc arring/atelectasis is noted at the lung bases. No airspace consolidation or large pleural effusion is identified. No pneumothorax is seen. The skeletal structures are osteopenic. The bony thorax is edgardo sly intact. Arthritic change is noted in the shoulders. IMPRESSION: Cardiomegaly with mild pulmonary vascular congestion. ACT 112: Negative or not required by law. Electronically signed by: Florentino Xavier M.D. 07/03/2021 2:54 PM
[2021-07-03] MEDS ORDERED: CYCLOBENZAPRINE HCL 10 MG TAB PO PRN (15:29)
[2021-07-03] MEDS ORDERED: CETIRIZINE HCL 10 MG TABLET PO PRN (15:32)
--- NOTE | 2021-07-03 15:33 | Electrocardiogram Report ---
Test Reason : Blood Pressure : / mmHG Vent. Rate : 087 BPM Atrial Rate : 079 BPM P-R Int : 000 ms QRS Dur : 070 ms QT Int : 354 ms P-R-T Axes : 000 -05 014 degrees QTc Int : 425 ms Atrial fibrillation Low voltage QRS Abnormal ECG When compared with ECG of 26-FEB-2013 10:25, Atrial fibrillation has replaced Sinus rhythm Nonspecific T wave abnormality now evident in Inferior leads Confirmed by Stu Holt ([id number]) on 07/03/2021 3:32:48 PM Referred By: Wallace Thorne Confirmed By:Darrius Holt
[2021-07-03] MEDS: WARFARIN SOD 5 MG TAB PO SCH (16:16)
[2021-07-03] MEDS: INSULIN ASPART 100 UNITS/ML 3 ML PEN SC SCH ×2 (17:05→22:11)
--- NOTE | 2021-07-03 17:48 | XCELERA ---
[id number]
[2021-07-03] MEDS: BUMETANIDE 1 MG in SYRINGE 0 ML IV SCH (18:17)
[2021-07-03] MEDS: GABAPENTIN 100 MG CAP PO SCH (21:23)
[2021-07-03] MEDS: TERAZOSIN HCL 5 MG CAP PO SCH (21:24)
[2021-07-04 06:46] LABS: Basophils # (auto) 0.04 K/uL (0-0.2); Basophils % (auto) 0.4 %; Eosinophils # (auto) 0.36 K/uL (0-0.5); Eosinophils % (auto) 3.9 %; Hematocrit (blood only) 42.9 % (42-52); Hemoglobin 14.7 g/dL (14.0-18.0); Immature Granulocytes # (auto) 0.03 K/uL (0.00-0.02); Immature Granulocytes % (auto) 0.3 %; Lymphocytes # (auto) 2.72 K/uL (1.2-3.4); Lymphocytes % (auto) 29.5 %; Mean Corpuscular Hemoglobin 35.3 pg (25-34); Mean Corpuscular Hgb Conc 34.3 g/dL (32-36); Mean Corpuscular Volume 102.9 fL (80-100); Mean Platelet Volume 9.4 fL (7.4-10.4); Monocytes # (auto) 0.84 K/uL (0.11-0.59); Monocytes % (auto) 9.1 %; Neutrophils # (auto) 5.23 K/uL (1.4-6.5); Neutrophils % (auto) 56.8 %; Platelet Count 233 K/uL (130-400); RDW Coefficient of Variation 13.6 % (11.5-14.5); RDW Standard Deviation 51.1 fL (36.4-46.3); Red Blood Count 4.17 M/uL (4.7-6.1); White Blood Count 9.22 K/uL (4.8-10.8)
[2021-07-04 06:54] LABS: Prothrombin Time 19.3 Seconds (9.0-12.0)
[2021-07-04 07:24] LABS: BUN Creatinine Ratio 18.2 (10-20); Calcium 8.6 mg/dl (8.5-10.1); Creatinine Clr Calc Pharmacy 61.6 ml/min; Est GFR (African American) 59.3 ml/min; Est GFR (Non-African American) 51.2 ml/min; Magnesium 1.7 mg/dl (1.8-2.4); Potassium 4.1 mmol/L (3.5-5.1)
[2021-07-04] MEDS: MAGNESIUM SULFATE / D5W 1 GM/100 ML BAG IV SCH ×3 (07:45→11:38)
[2021-07-04] MEDS: BUMETANIDE 1 MG in SYRINGE 0 ML IV SCH ×2 (07:46→16:41)
[2021-07-04] MEDS: rOPINIRole HCL 1 MG TABLET PO SCH (07:47)
[2021-07-04] MEDS: METOPROLOL SUCC 50MG EXT REL TAB PO SCH (07:47)
[2021-07-04] MEDS: LOSARTAN POTASSIUM 25 MG TAB PO SCH (07:47)
[2021-07-04] MEDS: ATORVASTATIN 40 MG TAB PO SCH (07:48)
[2021-07-04] MEDS: CHOLECALCIFEROL 1,000 UNITS 25 MCG TAB PO SCH (07:48)
[2021-07-04] MEDS: PANTOprazole 40 MG TAB PO SCH (07:48)
[2021-07-04] MEDS: FOLIC ACID 400 MCG TAB PO SCH (07:49)
[2021-07-04] MEDS: GABAPENTIN 100 MG CAP PO SCH ×3 (07:49→20:43)
[2021-07-04] MEDS: INSULIN ASPART 100 UNITS/ML 3 ML PEN SC SCH ×4 (07:50→22:20)
--- NOTE | 2021-07-04 08:14 | Hospitalist Progress Note ---
Date of Service July 04, 2021 Assessment & Plan (1) Afib: Plan: - CHADVASC - 3, HASBLED 3-4 - ECG on arrival unchanged no acute changes noted - On Warfarin for his anticoagulation - Current INR 2.0 - Continue dose of 5mg daily - ECHO (07/03) showing normal LV function, mildly dilated left atrium, mild aortic valve sclerosis without stenosis, normal right ventricular systolic pressure - Continue Metoprolol succinate 50mg daily - Cardiology consulted - Will try to obtain a transesophageal echocardiogram and cardioversion this admission - Will load him with amiodarone in order to maintain sinus rhythm after his cardioversion and make it easier to get him out of A. fib especially in light of his size - Continue with IV Bumex a milligram twice daily - Stop his digoxin with the addition of amiodarone - His INR will rise and probably he will need half of his normal dose of Coumadin once we start amiodarone on a regular basis - Scheduled for SUNG cardioversion tomorrow AM (2) Diastolic HF (heart failure): Plan: HFpEF with EF 65% with noted elevated PAS via ECHO only. No orthopnea. No lower extremity edema on exam. BNP 753. - Daily weights - Monitor I&Os daily - Patient reports his dry weight around 280 pounds - Bumex 1 mg IV BID per cardio recs as above - Spironolactone on hold- will add back if needed - Continue home losartan (3) HTN (hypertension): Plan: Currently controlled goal would be <130 with CKD, DM, HTN, HLD, CAD - Continue with ARB at this time - Follow renal function with diuresing (4) Hyperlipidemia: Plan: - Continue Atorvastatin 40 - Hold krill oil (5) CAD (coronary artery disease): Plan: Non obstructive mild CAD via cardiac catheterization in 2016 - Continue ASA, BB, HLD agents as above (6) GRACIE (obstructive sleep apnea): Plan: Patient reports he wears CPAP- he brought home machine, use while sleeping and napping - Unsure of when last sleep study was or adjustment- may benefit from updated study (7) Obesity: Plan: Due to increased intake of calories and decreased exercise - Weight loss will likely help with his overall CV mortality and current symptoms - Difficult with his dyspnea, osteoarthritis, and knee/hip replacements - This as well as afib is likely his primary offenders for his dyspnea (8) GERD (gastroesophageal reflux disease): Plan: No acute needs, patient states symptoms are controlled - Continue with PPI (9) DMII (diabetes mellitus, type 2): Plan: - Hold Metformin - Continue sliding scale - Goal <180 (10) CKD (chronic kidney disease), stage III: Plan: - Avoid nephrotoxic medications - Follow renal function with diuresing and hemodynamics (11) Osteoarthritis: Plan: - Continue glucosamine, Flexeril PRN, and Vitamin D DVT ppx: anticoagulated on Coumadin Diet: DM2, NPO at midnight Dispo: PCU/Tele CODE: FULL CODE Admission and Anticipated Discharge Date Admission Date: July 03, 2021 Supervising Physician Co-Signing Physician Notes Patient seen and examined with PGY-1 Dr. Hinds. Agree with history, exam findings, assessment and plan of care as outlined. In brief, Mr. Escobedo is a 81 year old male with history of afib, HFpEF, CAD, HTN, and DM2 admitted with afib with RVR. Vital signs and nursing notes reviewed. Well appearing. Breathing comfortably on room air. Not tachycardic. Irregular rhythm. Labs and imaging reviewed. 1. Afib, rate controlled now. Continue metoprolol 50mg. Stopped digoxin and started amiodarone. Optimize lytes. Anticoagulated with Coumadin. INR 2.0. Followed as an outpatient by Dr. Bennett. Appreciate Dr. Scott recommendations. Plans for SUNG and cardioversion with Dr. Holt tomorrow morning. 2. HFpEF. In exacerbation. Continue with IV Bumex BID. Monitor I/Os. Daily weights. Dry weight is 280lbs. 3. CAD, HTN. Continue home losartan and atorvastatin. 4. DM2. Hold home metoprolol. Switch to ssi while inpatient. Dispo: pending cardioversion tomorrow AM. Subjective Patiet seen at bedside this AM. He was comfortable and denied any symptoms. Aware that he will have his SUNG cardioversion tomorrow. Updated patient's as well. Review of Systems Review of Systems: All systems reviewed & are unremarkable except as noted in Subjective Physical Exam Constitutional: WD/WN, vitals as above Respiratory: normal respiratory effort, lungs clear to auscultation Cardiovascular: RRR, no murmur, no edema Gastrointestinal (Abdomen): normal bowel sounds, soft, nontender, no hepatosplenomegaly Skin: no rashes, warm and dry Psychiatric: A+Ox3, euthymic affect Results & Data Results & Data ([facility]) Vital Signs (Past 12 Hours) Vital Signs Temp Pulse Resp BP Pulse Ox 07/04/21 07:58 36.6 C 88 18 117/77 96 07/04/21 03:25 36.4 C L 96 H 18 156/88 H 96 07/03/21 23:20 36.5 C 110 H 18 113/63 95 Resident Activity Tracking Resident Involvement: Resident Care Provided Care Provided: Adult Hospital Medicine
[2021-07-04] MEDS ORDERED: AMIODARONE IV BOLUS & DRIP IV STA (08:34)
[2021-07-04] MEDS ORDERED: STAT IV Infusion **Titration per Protocol STA (08:34)
[2021-07-04] MEDS ORDERED: 0.2 MICRON FILTER SET 1 EA IV ONE (08:45)
[2021-07-04] MEDS ORDERED: AMIODARONE / D5W 150 MG/100 ML BAG IV ONE (08:45)
--- NOTE | 2021-07-04 08:49 | Cardiology Consultation ---
Date of Consultation July 04, 2021 History of Present Illness Reason for Consultation: Acute on chronic diastolic heart failure, atrial fibrillation Attending Physician: Sue Frias DO History of Present Illness The patient has been experiencing worsening diastolic heart failure since he went into atrial fibrillation and lost his atrial kick. We have aggressively tried to diurese him and rate control him. Additionally given his weight he could not be placed on a novel oral anticoagulant and therefore had to be loaded with Coumadin. We were hoping that he could have a therapeutic INR for 3 weeks and then plan cardioversion. His heart failure has worsened to the point that he needed IV Bumex in the office last week. Even with up titration of his oral Bumex as an outpatient he continued to have worsening abdominal distention and lower extremity edema. It was therefore recommended that he come to the hospital for IV Bumex on a regular basis, close monitoring of his electrolytes, and loading with amiodarone for planned SUNG and cardioversion. He is feeling better he notes he is lost 9 pounds his abdomen is less distended. He notes he is peed all night his lower extremity edema has markedly improved as well. He can take a deep breath this morning and feels less short of breath he also notes that the mild chest discomfort and scapular discomfort that he had yesterday has also improved. He is unaware of any palpitations or fluttering. Denies any lightheadedness or dizziness. He denies any presyncope syncope. His color looks better. He notes his appetite is slightly improved. He denies any bleeding or bruising. The rest of complete review of systems is negative Allergies Allergy/AdvReac Type Severity Reaction Status Date / Time oxycodone AdvReac Mild NAUSEA/VOMI Verified 05/04/21 13:42 TTING Home Medications Medication Instructions Recorded Confirmed Type Multivitamin 1 tab PO DAILY #0 04/12/09 07/03/21 History OMEPRAZOLE (PRILOSEC) 20 mg PO DAILY #0 04/12/09 07/03/21 History Terazosin Hcl (Hytrin) 10 mg PO HS #0 04/12/09 07/03/21 History CHOLECALCIFEROL (VITAMIN D 1000 2,000 inter.unit PO DAILY #0 cap 06/10/12 07/03/21 History UNIT) Cyclobenzaprine Hcl (Flexeril *) 10 mg PO DAILY #0 tab 06/10/12 07/03/21 History ASPIRIN (ASPIRIN EC) 81 mg PO Q2D #0 04/09/13 07/03/21 History CINNAMON 1,000 mg PO DAILY #0 04/09/13 07/03/21 History COENZYME Q10 (UBIDECARENONE) 400 mg PO DAILY #0 04/09/13 07/03/21 History (COQ-10) GLUCOSAMINE HCL-METHYLSULFONYL 1 tab PO DAILY #0 07/01/17 07/03/21 History (GLUCOSAMINE/MSM) Gabapentin (Neurontin) 2 - 3 cap PO TID #0 cap 07/01/17 07/03/21 History Krill Oil (Megared [place]-3 Krill 1 cap PO DAILY #0 07/01/17 07/03/21 History Oil 500 mg) Losartan Potassium 25 mg PO DAILY #0 07/01/17 07/03/21 History Spironolactone 25 mg PO DAILY #0 07/01/17 07/03/21 History atorvastatin 80 mg tablet (Lipitor) 80 mg PO DAILY 08/10/20 07/03/21 History folic acid 800 mcg tablet 0.8 mg PO DAILY 08/10/20 07/03/21 History spironolactone 25 mg tablet 25 mg PO DAILY 08/10/20 05/04/21 History bumetanide 1 mg tablet 2 mg PO DAILY 07/03/21 07/03/21 History cetirizine 10 mg tablet (Zyrtec) 10 mg PO DAILY PRN 07/03/21 07/03/21 History digoxin 125 mcg (0.125 mg) tablet 0.125 mcg PO DAILY 07/03/21 07/03/21 History fluocinolone acetonide oil 0.01 % 1 drp OTIC (EAR) DAILY 07/03/21 07/03/21 History ear drops metformin 500 mg tablet,extended 500 mg PO DAILY 07/03/21 07/03/21 History release 24 hr metoprolol succinate 50 mg 50 mg PO DAILY 07/03/21 07/03/21 History tablet,extended release 24 hr ropinirole 1 mg tablet 1 mg PO DAILY 07/03/21 07/03/21 History warfarin 5 mg tablet 5 mg PO DAILY 07/03/21 07/03/21 History Patient History Medical History Afib SHARA positive CAD (coronary artery disease) Carotid artery plaque CKD (chronic kidney disease), stage III Diabetic neuropathy Diastolic HF (heart failure) Diverticulosis DMII (diabetes mellitus, type 2) Elevated cholesterol GERD (gastroesophageal reflux disease) HTN (hypertension) Hyperlipidemia Kidney stone Normal colonoscopy Obesity GRACIE (obstructive sleep apnea) Osteoarthritis Otitis externa Sleep apnea Surgical History H/O bilateral hip replacements H/O laminectomy H/O total hip arthroplasty H/O total knee replacement History of ankle surgery History of back surgery History of cholecystectomy Hx of total knee arthroplasty Family History Other Coronary heart disease Diabetes Social History Smoking Status: Former smoker Hx Alcohol Use: Yes Hx Substance Use: No Preferred Language: Maltese Communication Ability: Effective Wallpaper Consultant Required: No Beliefs That Will Affect Care: None marital status: Current Living Situation: Alone Feels Safe at Home: Yes Safety Concerns: Feels Safe At This Time Assistive Devices: Cane Results & Data ([facility]) Vital Signs (Past 12 Hours) Vital Signs Temp Pulse Resp BP Pulse Ox 07/04/21 07:58 36.6 C 88 18 117/77 96 07/04/21 03:25 36.4 C L 96 H 18 156/88 H 96 07/03/21 23:20 36.5 C 110 H 18 113/63 95 He is awake alert and oriented x3 he does appear mildly short of breath talking in sentences HEENT: 2+ carotid upstrokes normal to carotid bruits Lungs: Decreased breath sounds in the bases but no rales rhonchi or wheezing Heart: Irregular rate and rhythm no appreciable murmurs or rubs Abdomen: Soft chronically distended less firm nontender Extremities: No clubbing cyanosis mild bilateral lower extremity edema which is much improved Psychiatric his affect appeared appropriate IMPRESSIONS: 1. Acute on chronic diastolic heart failure worsened secondary to the loss of his atrial kick from new onset atrial fibrillation 2. Diastolic dysfunction with preserved left ventricular systolic function 3. Cardiac catheterization March 2016 with 30% proximal LAD lesion and a 40% distal LAD lesion; elevated LVEDP with top normal pulmonary artery pressures 4. Obstructive sleep apnea using BiPAP since 2008 5. Hypertension 6. New onset atrial fibrillation summer 2020 Finally his INR has become therapeutic as an outpatient with initiation of Coumadin. Given his weight he cannot be on a novel oral anticoagulant. We will try to obtain a transesophageal echocardiogram and cardioversion this admission. We will load him with amiodarone in order to maintain sinus rhythm after his cardioversion and make it easier to get him out of A. fib especially in light of his size. As discussed with the housestaff we will continue with IV Bumex a milligram twice daily. We will stop his digoxin with the addition of amiodarone. Also his INR will rise and probably he will need half of his normal dose of Coumadin once we start amiodarone on a regular basis. We discussed the need for low-salt diet and daily weights we also discussed the need for weight loss. His last echocardiogram in the office (February 2021) revealed normal biventricular size and function with indeterminate left atrial pressures and no significant valvular heart disease I will reach out to the EP service with regards to the timing of a SUNG cardioversion all this was discussed with the patient I am happy to discuss with his as well
[2021-07-04] MEDS ORDERED: AMIODARONE / D5W 360 MG/200 ML BAG IV ONE (08:55)
[2021-07-04] MEDS ORDERED: ASPIRIN 81 MG ECTAB PO SCH (09:00)
--- NOTE | 2021-07-04 14:06 | Electrocardiogram Report ---
Test Reason : Blood Pressure : / mmHG Vent. Rate : 082 BPM Atrial Rate : 076 BPM P-R Int : 000 ms QRS Dur : 076 ms QT Int : 378 ms P-R-T Axes : 000 -17 018 degrees QTc Int : 441 ms Atrial fibrillation Low voltage QRS Abnormal ECG When compared with ECG of 03-JUL-2021 13:25, No significant change was found Confirmed by Stu Holt ([id number]) on 07/04/2021 2:05:51 PM Referred By: Wallace Thorne Confirmed By:Darrius Holt
[2021-07-04] MEDS: AMIODARONE / D5W 360 MG/200 ML BAG IV SCH (14:36)
[2021-07-04] MEDS: WARFARIN SOD 5 MG TAB PO SCH (15:52)
[2021-07-04] MEDS ORDERED: DIGOXIN 0.125 MG TAB PO SCH (16:00)
[2021-07-04] MEDS: TERAZOSIN HCL 5 MG CAP PO SCH (20:43)
[2021-07-05] MEDS: AMIODARONE / D5W 360 MG/200 ML BAG IV SCH (01:58)
[2021-07-05 06:44] LABS: Basophils # (auto) 0.02 K/uL (0-0.2); Basophils % (auto) 0.3 %; Eosinophils # (auto) 0.32 K/uL (0-0.5); Eosinophils % (auto) 4.1 %; Hematocrit (blood only) 40.3 % (42-52); Hemoglobin 13.8 g/dL (14.0-18.0); Immature Granulocytes # (auto) 0.01 K/uL (0.00-0.02); Immature Granulocytes % (auto) 0.1 %; Lymphocytes # (auto) 2.08 K/uL (1.2-3.4); Lymphocytes % (auto) 26.6 %; Mean Corpuscular Hemoglobin 35.1 pg (25-34); Mean Corpuscular Hgb Conc 34.2 g/dL (32-36); Mean Corpuscular Volume 102.5 fL (80-100); Mean Platelet Volume 9.4 fL (7.4-10.4); Monocytes # (auto) 0.66 K/uL (0.11-0.59); Monocytes % (auto) 8.5 %; Neutrophils # (auto) 4.72 K/uL (1.4-6.5); Neutrophils % (auto) 60.4 %; Platelet Count 217 K/uL (130-400); RDW Coefficient of Variation 13.4 % (11.5-14.5); RDW Standard Deviation 50.8 fL (36.4-46.3); Red Blood Count 3.93 M/uL (4.7-6.1); White Blood Count 7.81 K/uL (4.8-10.8)
[2021-07-05 07:01] LABS: Calcium 8.5 mg/dl (8.5-10.1); Creatinine Clr Calc Pharmacy 60.6 ml/min; Est GFR (African American) 58.2 ml/min; Est GFR (Non-African American) 50.2 ml/min; Magnesium 2.2 mg/dl (1.8-2.4); Potassium 3.9 mmol/L (3.5-5.1)
[2021-07-05] MEDS ORDERED: LIDOCAINE 2% MPF LOCAL 5 ML VIAL INFIL ONE (07:05)
[2021-07-05] MEDS ORDERED: PROPOFOL IV EMULSION 10 MG/ML 20 ML VIAL IV ONE (07:05)
[2021-07-05] MEDS ORDERED: fentaNYL citrate 100 MCG/2 ML VIAL ONE (07:06)
--- NOTE | 2021-07-05 07:20 | Anesthesiology Consultation ---
Date of Service July 05, 2021 Assessment & Plan Chart Review Chart Review: Acceptable Risk for Surgery and Patient NOT seen in Pre Admission Testing Consults Requested none ASA ASA3 Proposed Anesthesia Anesthesia Type: MAC Risk / Benefits Reviewed With: PT / POA / Parent / Guardian, Accepts Plan and Informed Consent Obtained History Surgery Operation Date: 07/05/21 07:15 Proposed Procedures p Transesophageal Echo w/Anesthesia - Nando Holt MD Height/Weight Height: 6 ft Weight: 127.8 kg Allergies Allergy/AdvReac Type Severity Reaction Status Date / Time oxycodone AdvReac Mild NAUSEA/VOMI Verified 05/04/21 13:42 TTING Medications Home Medications Medication Instructions Recorded Confirmed Last Taken Multivitamin 1 tab PO DAILY #0 04/12/09 07/03/21 Unknown OMEPRAZOLE (PRILOSEC) 20 mg PO DAILY #0 04/12/09 07/03/21 Unknown Terazosin Hcl (Hytrin) 10 mg PO HS #0 04/12/09 07/03/21 Unknown CHOLECALCIFEROL (VITAMIN D 1000 2,000 inter.unit PO DAILY #0 cap 06/10/12 07/03/21 Unknown UNIT) Cyclobenzaprine Hcl (Flexeril *) 10 mg PO DAILY #0 tab 06/10/12 07/03/21 Unknown ASPIRIN (ASPIRIN EC) 81 mg PO Q2D #0 04/09/13 07/03/21 Unknown CINNAMON 1,000 mg PO DAILY #0 04/09/13 07/03/21 Unknown COENZYME Q10 (UBIDECARENONE) 400 mg PO DAILY #0 04/09/13 07/03/21 Unknown (COQ-10) GLUCOSAMINE HCL-METHYLSULFONYL 1 tab PO DAILY #0 07/01/17 07/03/21 Unknown (GLUCOSAMINE/MSM) Gabapentin (Neurontin) 2 - 3 cap PO TID #0 cap 07/01/17 07/03/21 Unknown Krill Oil (Megared [place]-3 Krill 1 cap PO DAILY #0 07/01/17 07/03/21 Unknown Oil 500 mg) Losartan Potassium 25 mg PO DAILY #0 07/01/17 07/03/21 Unknown Spironolactone 25 mg PO DAILY #0 07/01/17 07/03/21 Unknown atorvastatin 80 mg tablet (Lipitor) 80 mg PO DAILY 08/10/20 07/03/21 Unknown folic acid 800 mcg tablet 0.8 mg PO DAILY 08/10/20 07/03/21 Unknown spironolactone 25 mg tablet 25 mg PO DAILY 08/10/20 05/04/21 Unknown bumetanide 1 mg tablet 2 mg PO DAILY 07/03/21 07/03/21 Unknown cetirizine 10 mg tablet (Zyrtec) 10 mg PO DAILY PRN 07/03/21 07/03/21 Unknown digoxin 125 mcg (0.125 mg) tablet 0.125 mcg PO DAILY 07/03/21 07/03/21 Unknown fluocinolone acetonide oil 0.01 % 1 drp OTIC (EAR) DAILY 07/03/21 07/03/21 Unknown ear drops metformin 500 mg tablet,extended 500 mg PO DAILY 07/03/21 07/03/21 Unknown release 24 hr metoprolol succinate 50 mg 50 mg PO DAILY 07/03/21 07/03/21 Unknown tablet,extended release 24 hr ropinirole 1 mg tablet 1 mg PO DAILY 07/03/21 07/03/21 Unknown warfarin 5 mg tablet 5 mg PO DAILY 07/03/21 07/03/21 Unknown Active Medications Generic Name Dose Route Start Last Admin Trade Name Freq PRN Reason Stop Dose Admin Aspirin 81 mg 07/04/21 09:00 07/04/21 07:48 Aspirin 81 Mg Ectab PO 08/03/21 08:59 81 mg Q2D KAREN Administration Atorvastatin Calcium 80 mg 07/04/21 09:00 07/04/21 07:48 Atorvastatin 40 Mg Tab PO 08/03/21 08:59 80 mg DAILY KAREN Administration Folic Acid 800 mcg 07/04/21 09:00 07/04/21 07:49 Folic Acid 400 Mcg Tab PO 08/03/21 08:59 800 mcg DAILY KAREN Administration Gabapentin 200 mg 07/03/21 21:00 07/04/21 20:43 Gabapentin 100 Mg Cap PO 08/02/21 20:59 200 mg TID KAREN Administration Bumetanide 1 mg/ Syringe 4 mls @ 4 mls/min 07/03/21 19:00 07/04/21 16:41 IV 08/02/21 18:59 4 mls/min BID@0900,1700 KAREN Administration Amiodarone HCl/Dextrose 360 mg in 200 mls @ 16.667 mls/hr 07/04/21 15:00 07/05/21 01:58 Nexterone / D5w IV 08/03/21 14:59 0.5 mg/min .Q12H KAREN 16.7 mls/hr Administration 0.5 MG/MIN Insulin Aspart 0 units 07/03/21 16:30 07/04/21 22:20 Insulin Aspart 100 Units/Ml 3 Ml Pen SC 08/02/21 16:29 Not Given ACHS KAREN Losartan Potassium 25 mg 07/04/21 09:00 07/04/21 07:47 Losartan Potassium 25 Mg Tab PO 08/03/21 08:59 25 mg DAILY KAREN Administration Metoprolol Succinate 50 mg 07/04/21 09:00 07/04/21 07:47 Metoprolol Succ 50mg Ext Rel Tab PO 08/03/21 08:59 50 mg DAILY KAREN Administration Miscellaneous 1 ea 07/04/21 08:00 07/05/21 07:09 *Fluocinolone Acetonide Oil 0.01*Order Awaiting Action N/A 08/03/21 07:59 Not Given QS KAREN Pantoprazole Sodium 40 mg 07/04/21 09:00 07/04/21 07:48 Pantoprazole 40 Mg Tab PO 08/03/21 08:59 40 mg DAILY KAREN Administration Ropinirole HCl 1 mg 07/04/21 09:00 07/04/21 07:47 Ropinirole Hcl 1 Mg Tablet PO 08/03/21 08:59 1 mg DAILY KAREN Administration Terazosin HCl 10 mg 07/03/21 21:00 07/04/21 20:43 Terazosin Hcl 5 Mg Cap PO 08/02/21 20:59 10 mg HS KAREN Administration Vitamin D 2,000 units 07/04/21 09:00 07/04/21 07:48 Cholecalciferol 1,000 Units 25 Mcg Tab PO 08/03/21 08:59 2,000 units DAILY KAREN Administration Warfarin Sodium 5 mg 07/03/21 16:00 07/04/21 15:52 Warfarin Sod 5 Mg Tab PO 08/02/21 15:59 5 mg DAILY@1600 KAREN Administration NPO Date Last Intake of Fluids: 07/04/21 Time Last Intake of Fluids: 21:00 Date Last Intake of Solids: 07/04/21 Time Last Intake of Solids: 18:00 Past Medical History Medical History Afib SHARA positive CAD (coronary artery disease) Carotid artery plaque CKD (chronic kidney disease), stage III Diabetic neuropathy Diastolic HF (heart failure) Diverticulosis DMII (diabetes mellitus, type 2) Elevated cholesterol GERD (gastroesophageal reflux disease) HTN (hypertension) Hyperlipidemia Kidney stone Normal colonoscopy Obesity GRACIE (obstructive sleep apnea) Osteoarthritis Otitis externa Sleep apnea Exercise / Class Metabolic Activity III < 4 Walking/Shop/Light housework Past Family History Family History Other Coronary heart disease Diabetes Past Surgical History Surgical History H/O bilateral hip replacements H/O laminectomy H/O total hip arthroplasty H/O total knee replacement History of ankle surgery History of back surgery History of cholecystectomy Hx of total knee arthroplasty Past Anesthesia History No Hx of Anesthesia Complications and No Family Hx of Anesthesia Complications History of PONV No Hx of PONV and No Hx of Motion Sickness Social History Smoking Status: Former smoker Hx Alcohol Use: Yes alcohol intake frequency: holidays/special occasions only Hx Substance Use: No Physical Exam Vital Signs Last Vital Signs Temp 36.6 C 07/05/21 06:59 Pulse 88 07/05/21 06:59 Resp 20 07/05/21 06:59 BP 130/81 07/05/21 06:59 Pulse Ox 95 07/05/21 04:00 Constitutional + obese ENMT Mouth: + dentures (upper) Thyromental Distance: > or= 3.5 Finger Breadths Mallampati Class: II Neck normal visual inspection and + thick neck Respiratory normal respiratory effort Auscultation: lungs clear to auscultation bilaterally Cardiovascular Rate/Rhythm: regular rate and regular rhythm Psychiatric Orientation: alert Testing Laboratory Results 07/05/21 05:54 07/05/21 05:54 PT 19.3 Seconds (9.0-12.0) H 07/04/21 06:22 INR 2.0 (0.9-1.1) H 07/04/21 06:22 07/04/21 20:35 POC Glucose 118 H
[2021-07-05] MEDS ORDERED: BENZOCAIN/TETRACA/BUTAM SPRAY 200 APPLN/20 GM SPRY EXT ONE (07:24)
[2021-07-05] MEDS ORDERED: CANNULA ONE (07:24)
[2021-07-05 07:28] LABS: Prothrombin Time 19.2 Seconds (9.0-12.0)
--- NOTE | 2021-07-05 07:42 | Cardioversion ---
Date of Service July 05, 2021 PG Electrical Cardioversion Rp Electrical Cardioversion Report Procedure performed: Cardioversion Indication: The patient is an 81-year-old gentleman with a history of diastolic heart failure, and symptomatic sustained atrial fibrillation Staff pmo project manager: Stu Holt MD Procedure in detail: The patient was informed of the risks benefits and alternatives to the intended procedure. He understood such which proceed. He was taken to the cardiac catheterization suite holding area. A general anesthetic was administered by the Anesthesiology Service. Once appropriately anesthetized, the patient was cardioverted using 200 joules delivered in a biphasic fashion. This returned the patient to sinus rhythm. The patient tolerated procedure well, there were no immediate complications. Patient was neurologically intact subsequent to the procedure. Impression: Successful cardioversion from atrial fibrillation to normal sinus rhythm Coding Level of Care Code Cardioversion, elective Additional Codes Electrical Cardioversion Report ([id number])
--- NOTE | 2021-07-05 08:23 | Anesthesiology Progress Note ---
Date of Service July 05, 2021 Anesthesia Post Procedure Vital Signs Vital Signs: Temp Pulse Pulse Resp BP BP Pulse Ox 07/05/21 08:00 66 20 118/75 96 07/05/21 07:45 66 20 108/67 97 07/05/21 06:59 36.6 C 88 20 130/81 07/05/21 06:45 86 07/05/21 04:00 36.5 C 102 H 18 156/91 H 95 07/04/21 23:00 36.6 C 77 89 18 126/77 96 07/04/21 19:29 36.6 C 76 18 126/88 96 07/04/21 16:00 89 07/04/21 15:30 36.4 C L 92 H 18 143/85 H 92 07/04/21 12:09 36.5 C 88 18 101/69 97 07/04/21 09:35 95 H 112/68 07/04/21 09:00 125 H 124/76 Pain Intensity Medial Back: Pain Intensity: 0 Transfer of Care Handoff Completed per policy Notes Mental Status: alert / awake / arousable Patient Amnestic to Procedure: Yes Nausea / Vomiting: adequately controlled Pain: adequately controlled Airway Patency, RR, SpO2: stable & adequate BP & HR: stable & adequate Hydration State: stable & adequate Anesthetic Complications: no major complications apparent
[2021-07-05] MEDS: INSULIN ASPART 100 UNITS/ML 3 ML PEN SC SCH ×2 (08:38→11:50)
--- NOTE | 2021-07-05 08:51 | Cardiology Progress Note ---
Date of Service July 05, 2021 Assessment & Plan (1) Afib: Plan: IMPRESSIONS: 1. Acute on chronic diastolic heart failure worsened secondary to the loss of his atrial kick from new onset atrial fibrillation, s/p successful cardioversion 07/05/2021 2. Diastolic dysfunction with preserved left ventricular systolic function 3. Cardiac catheterization March 2016 with 30% proximal LAD lesion and a 40% distal LAD lesion; elevated LVEDP with top normal pulmonary artery pressures 4. Obstructive sleep apnea using BiPAP since 2008 5. Hypertension 6. New onset atrial fibrillation summer 2020 Mr. Escobedo's INR remains therapeutic. He is followed by [facility] coumadin clinic. I will let them know he has been started on amiodarone so that they can follow more closely for now. Given his weight, he cannot be on a novel oral anticoagulant. He was cardioverted successfully 07/05. He should continue with amiodarone 400 mg bid for 5 days and then change to 400 mg daily after that. His heart rate is running in the high 50s to 60s on the monitor. He can discontinue metoprolol. He has diuresed well and feels much better with some fluid off. He should continue with Bumex 1 mg daily, he can take an extra mg for weight increase of 2 lbs or more in a 24 hour. He should let us know if the weight doesn't resolve within about 3 days. He should remain on a low-salt diet with daily weights and try to lose some weight. His last echocardiogram in the office (February 2021) revealed normal biventricular size and function with indeterminate left atrial pressures and no significant valvular heart disease He should follow with the cardiology office next week. Admission and Anticipated Discharge Date Admission Date: July 03, 2021 Subjective Mr. Escobedo is feeling very well since cardioversion this morning. He is in sinus rhythm. He has no complaints. No sob, no chest pain, no lightheadedness, no palpitations. Review of Systems Review of Systems: All systems reviewed & are unremarkable except as noted in HPI & below Physical Exam Constitutional: WD/WN, vitals as above Respiratory: normal respiratory effort, lungs clear to auscultation Cardiovascular: RRR, no murmur, no edema Skin: no rashes, warm and dry Neurologic: moves all extremities and awake Psychiatric: A+Ox3, euthymic affect Results & Data ([facility]) Vital Signs (Past 12 Hours) Vital Signs Temp Pulse Pulse Resp BP BP Pulse Ox 07/05/21 08:41 65 07/05/21 08:40 64 125/77 95 07/05/21 08:25 36.5 C 67 18 123/78 91 07/05/21 08:00 66 20 118/75 96 07/05/21 07:45 66 20 108/67 97 07/05/21 06:59 36.6 C 88 20 130/81 07/05/21 06:45 86 07/05/21 04:00 36.5 C 102 H 18 156/91 H 95 07/04/21 23:00 36.6 C 77 89 18 126/77 96
[2021-07-05] MEDS ORDERED: AMIODARONE 200 MG TAB PO SCH (09:00)
--- NOTE | 2021-07-05 09:32 | Discharge Summary ---
Date of Service July 05, 2021 Admission HPI Per Admitting Provider 81 YOM direct admit from [facility] cardiology group Dr. Bennett. Requested admission secondary to uncontrolled outpatient afib, HF, and sub-therapeutic INR. Patient with past medical history of CAD, HTN, HLD, Obesity, chronic otitis externa, CKD III, DM II, DJD lumbar, GERD, Osteoarthritis, Past Smoker, Obesity hypoventilation syndrome/GRACIE on CPAP and new onset afib on Coumadin. Patient has been in Afib since appears of May. Patient has struggled with rate control secondary to hypotension and worsening SOB, dizziness, and lower extremity edema; as well as sub-therapeutic INR. For his rate control he has titrated up his Metoprolol but as previously, his hypotension has been limiting this, he has also been placed on Digoxin previously loaded with 0.25 mg PO and down to maintenance of 0.125 mg daily. For his volume status he has had his been given 2mg BUMEX in the office on and increased his oral BUMEX this past weekend to 2mg with minimal response on his dyspnea. He reports that originally after getting the 2mg IV in the office he felt great and was down 5lbs on his scale the next morning and his dyspnea was improved, but over the past 5 days he has increased his weight to +5 pounds. He denies any orthopnea and is not hypoxic. He does endorse not following a low salt diet, but over the past 2-3 days he and his have been trying, and he moved to salt substitute. He states his dyspnea is more when he is trying to do something or with walking, not associated with any chest discomfort and he denies fevers/chills or coughing up any mucous. He has an ECHO from 03/14 while in NSR with EF 65% normal LV function with no wall motion abnormalities and normal size. RA pressure 8; PAS 41, and CO 6.9 and normal valvular function. Patient will be admitted for diuresing as needed, follow HR and rate control strategies, INR following and Cardiology consult. CXR, ECG, and ECHO ordered. COVID test is negative on admission. Principal Diagnosis Afib Discharge Exam Constitutional WD/WN, vitals as above Respiratory normal respiratory effort, lungs clear to auscultation Cardiovascular RRR, no murmur, no edema Gastrointestinal (Abdomen) normal bowel sounds, soft, nontender, no hepatosplenomegaly Skin no rashes, warm and dry Psychiatric A+Ox3, euthymic affect Discharge Data Allergies Allergy/AdvReac Type Severity Reaction Status Date / Time oxycodone AdvReac Mild NAUSEA/VOMI Verified 05/04/21 13:42 TTING Consultations 07/03/21 13:47 Consult Cardiology Routine Procedures Performed Operation Date: 07/05/21 07:15 Actual Procedures p Cardioversion - Nando Holt MD s Echo Transesophageal - Nando Holt MD s Echo Color Flow - Nando Holt MD Hospital Course (1) Afib: Mr. Escobedo is an 81-year-old male with history of afib, HFpEF, CAD, HTN, and DM2 admitted with afib with RVR. - CHADVASC - 3, HASBLED 3-4 - ECG on arrival unchanged, no acute changes noted - On Warfarin for his anticoagulation - Continued dose of 5mg daily - ECHO (07/03) showing normal LV function, mildly dilated left atrium, mild aortic valve sclerosis without stenosis, normal right ventricular systolic pressure - Cardiology consulted - [facility] coumadin clinic--will let them know he has been started on amiodarone so that they can follow more closely for now - should continue with amiodarone 400 mg bid for 5 days and then change to 400 mg daily after that - can discontinue metoprolol - should continue with Bumex 1 mg daily, he can take an extra mg for weight increase of 2 lbs or more in a 24 hour - remain on a low-salt diet with daily weights and try to lose some weight. - follow with the cardiology office next week - Successfully cardioverted 07/05 - In light of starting amiodarone, ordered TSH for baseline level - TSH result was 0.925, recommend monitoring this as outpatient, either through PCP or Cardiology (2) Diastolic HF (heart failure): HFpEF with EF 65% with noted elevated PAS via ECHO only. No orthopnea. No lower extremity edema on exam. BNP 753. - Patient reports his dry weight around 280 pounds - Bumex 1 mg IV BID per cardio recs during admission - Spironolactone held - Continued home losartan (3) HTN (hypertension): Currently controlled goal would be <130 with CKD, DM, HTN, HLD, CAD - Continued with ARB during admission -Kidney function stable while diuresing and receiving ARB (4) Hyperlipidemia: - Continued Atorvastatin 40 - Held krill oil (5) CAD (coronary artery disease): Non obstructive mild CAD via cardiac catheterization in 2016 - Continued ASA, BB, HLD agents as above (6) GRACIE (obstructive sleep apnea): Patient reports he wears CPAP- he brought home machine, use while sleeping and napping - Unsure of when last sleep study was or adjustment- may benefit from updated study (7) Obesity: Due to increased intake of calories and decreased exercise - Weight loss will likely help with his overall CV mortality and current symptoms - Difficult with his dyspnea, osteoarthritis, and knee/hip replacements - This as well as afib is likely his primary offenders for his dyspnea (8) GERD (gastroesophageal reflux disease): No acute needs, patient states symptoms are controlled - Continue with PPI (9) DMII (diabetes mellitus, type 2): - Hold Metformin - Continue sliding scale - Goal <180 (10) CKD (chronic kidney disease), stage III: - Avoid nephrotoxic medications - Follow renal function with diuresing and hemodynamics (11) Osteoarthritis: - Continue glucosamine, Flexeril PRN, and Vitamin D DVT ppx: anticoagulated on Coumadin Diet: DM2, NPO at midnight Dispo: PCU/Tele CODE: FULL CODE Total Time Total Time Spent Total Time Spent (In Minutes): See attending attestation Discharge Plan Discharge Items Patient Disposition: Home - Self-Care Reason For Visit: AFIB Discharge Diagnosis: Afib Activity: Per Instructions section Non-emergency contact: Primary Care Provider and [place] Call non-emergency contact if: you have any medication questions and your symptoms worsen Follow-up/Referrals: Addy Arizmendi MD [Primary Care Provider] - 07/09/21 (appointment with dr sparks 07/09/21 at 12:50pm) Elias Bennett DO [Physician] - 07/16/21 3:50 pm (appointment with iris stevenson 07/16/21 at 3:50 pm) Diet: Carb Consistent or DM2, Heart Healthy and Low Sodium (2gm) Addtl Attending Provider Instructions: You were admitted to [facility] due to uncontrolled atrial fibrillation, that was nonresponsive to outpatient treatment. As such you were evaluated by cardiology in the hospital who recommended that you get a transesophageal cardioversion. Prior to that you were started on an IV amiodarone drip, which did help to control your heart rate somewhat. The cardioversion ultimately converted you to normal sinus rhythm. However, it is always possible that at any time he may convert back into atrial fibrillation and there is no way to know when or if this will happen. As such, you will have to continue to take some medications to control your heart rate. You will be started on oral amiodarone as below and make the changes to your medication regimen as documented. 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 You will go home on amiodarone. TAKE 400MG AMIODARONE MORNING AND NIGHT FOR 5 DAYS, THEN DECREASE TO 400 MG ONCE DAILY You can decrease your Bumex back down to 1mg daily with an extra 1 mg daily for weight increase of 2 lbs or more in 24 hours. Please call our office if your maureen ght does not return to baseline after about 3 days. Call 911 and go to the Emergency Room if: * You have tightness or pain in your chest that does not go away with rest or Nitroglycerin * You are very short of breath even with rest Call your doctor if any of the following symptoms or problems start or get worse: * Shortness of breath or difficulty breathing * Wake up at night short of breath * Chest pain * Cough * Swelling of your hands, fee, or legs * More fatigued or tired with your normal activity * Palpitations - sudden fast heart beats WEIGHT * Weigh yourself every morning after using the bathroom. * Use the same scale. * Wear the same amount of clothing. * Write your weight down on your chart. * Call your doctor if you gain more than 2-3 pounds in 1-2 days. MEDICATIONS * Use this discharge instruction sheet for instructions. * Take your medications at the time your doctor ordered. * Do not skip a dose of your medicines. * If you miss a dose of medicine, take as soon as possible, but DO NOT DOUBLE A DOSE. * Read your medicine information when you get home. * Know all of the side effects of your medicine. * Call your doctor's office if you have any side effects. * Be sure all of your doctors know what medicine and herbs you take (including cold, flu, and herbal medicine). * Pain Medicine: If you do not get relief from your pain, please call your doctor for help. Take the following with you to your follow-up doctor appointments: * Weight Chart * Medication List * List of questions Do not drink excessive alcohol, beer or wine. Pending Studies at Discharge: No Stand-Alone Forms: My [facility] [employer], Smoking Cessation Medications and DC Order Prescriptions: New amiodarone 200 mg Tablet 400 mg PO BIDM Qty: 70 RF: 3 Continued Multivitamin tablet 1 tab PO DAILY Qty: 0 RF: 0 OMEPRAZOLE (PRILOSEC) 20 MG CONTR REL CAP 20 mg PO DAILY Qty: 0 RF: 0 Terazosin Hcl (Hytrin) 10 MG capsule 10 mg PO HS Qty: 0 RF: 0 CHOLECALCIFEROL (VITAMIN D 1000 UNIT) 1,000 UNIT capsule 2,000 inter.unit PO DAILY Qty: 0 RF: 0 Cyclobenzaprine Hcl (Flexeril *) 10 MG tablet 10 mg PO DAILY Qty: 0 RF: 0 ASPIRIN (ASPIRIN EC) 81 MG tablet 81 mg PO Q2D Qty: 0 RF: 0 CINNAMON 500 MG capsule 1,000 mg PO DAILY Qty: 0 RF: 0 COENZYME Q10 (UBIDECARENONE) (COQ-10) 400 MG capsule 400 mg PO DAILY Qty: 0 RF: 0 GLUCOSAMINE HCL-METHYLSULFONYL (GLUCOSAMINE/MSM) 1 TAB tablet 1 tab PO DAILY Qty: 0 RF: 0 Krill Oil (Megared [place]-3 Krill Oil 500 mg) 1 CAP capsule 1 cap PO DAILY Qty: 0 RF: 0 Losartan Potassium 50 MG tablet 25 mg PO DAILY Qty: 0 RF: 0 Gabapentin (Neurontin) 100 MG capsule 2 - 3 cap PO TID Qty: 0 RF: 0 Spironolactone 25 MG tablet 25 mg PO DAILY Qty: 0 RF: 0 atorvastatin [Lipitor] 80 mg tablet 80 mg PO DAILY RF: 0 spironolactone 25 mg tablet 25 mg PO DAILY RF: 0 folic acid 800 mcg tablet 0.8 mg PO DAILY RF: 0 ropinirole 1 mg tablet 1 mg PO DAILY RF: 0 warfarin 5 mg tablet 5 mg PO DAILY RF: 0 metformin 500 mg tablet extended release 24 hr 500 mg PO DAILY RF: 0 fluocinolone acetonide oil 0.01 % drops 1 drp otic (ear) DAILY RF: 0 cetirizine [Zyrtec] 10 mg Tablet 10 mg PO DAILY PRN (Reason: Allergy Symptoms) RF: 0 Changed bumetanide 1 mg tablet 1 mg PO DAILY Qty: 0 RF: 0 Discontinued digoxin 125 mcg (0.125 mg) tablet 0.125 mcg PO DAILY RF: 0 metoprolol succinate 50 mg tablet extended release 24 hr 50 mg PO DAILY RF: 0 Discharge Orders: Discharge Order (Routine); Ordered 07/05/21 Ordered By: Paulo Gallego Admission Data Admit Date/Time: 07/03/21 12:13 Attending Provider: Sue Frias Admit Provider: Wallace Thorne Primary Care Provider: Addy Arizmendi Other Providers: Elias Bennett Other Interventions: Discharge Summary Assessment (RN) Last Done: 07/05/21 12:32 Supervising Physician Co-Signing Physician Notes Patient seen and examined with PGY-1 Dr. Hinds. Agree with history, exam findings, assessment and plan of care as outlined. In brief, Mr. Escobedo is a 81 year old male with history of afib, HFpEF, CAD, HTN, and DM2 admitted with afib with RVR. Vital signs and nursing notes reviewed. Well appearing. Breathing comfortably on room air. Regular rate and rhythm. Labs and imaging reviewed. 1. Afib, s/p cardioversion this morning. Now in NSR. Continue metoprolol 50mg. Stopped digoxin and started amiodarone--transitioned from amio gtt to oral amio. Optimize lytes. Anticoagulated with Coumadin. INR 2.0. Followed as an outpatient by Dr. Bennett. Appreciate Dr. Scott recommendations. 2. HFpEF. In exacerbation. transition back to oral IV bumex now that he is at his dry weight. Monitor I/Os. Daily weights. 3. CAD, HTN. Continue home losartan and atorvastatin. 4. DM2. Held home metformin. Switch to ssi while inpatient but can resume metformin on discharge. Dispo: Discharge home today. I personally spent 35 minutes discharge planning for this patient.
[2021-07-05] MEDS: BUMETANIDE 1 MG in SYRINGE 0 ML IV SCH (10:03)
[2021-07-05] MEDS: LOSARTAN POTASSIUM 25 MG TAB PO SCH (10:04)
[2021-07-05] MEDS: ATORVASTATIN 40 MG TAB PO SCH (10:04)
[2021-07-05] MEDS: GABAPENTIN 100 MG CAP PO SCH ×2 (10:04→13:39)
[2021-07-05] MEDS: PANTOprazole 40 MG TAB PO SCH (10:04)
[2021-07-05] MEDS: rOPINIRole HCL 1 MG TABLET PO SCH (10:05)
[2021-07-05] MEDS: METOPROLOL SUCC 50MG EXT REL TAB PO SCH (10:05)
[2021-07-05] MEDS: FOLIC ACID 400 MCG TAB PO SCH (10:05)
[2021-07-05] MEDS: CHOLECALCIFEROL 1,000 UNITS 25 MCG TAB PO SCH (10:05)
--- NOTE | 2021-07-05 13:22 | Electrocardiogram Report ---
Test Reason : Blood Pressure : / mmHG Vent. Rate : 088 BPM Atrial Rate : 277 BPM P-R Int : 000 ms QRS Dur : 076 ms QT Int : 384 ms P-R-T Axes : 000 -23 015 degrees QTc Int : 464 ms Atrial fibrillation Low voltage QRS Inferior infarct , age undetermined Abnormal ECG When compared with ECG of 04-JUL-2021 13:08, No significant change was found Confirmed by Stu Holt ([id number]) on 07/05/2021 1:22:20 PM Referred By: Wallace Thorne Confirmed By:Darrius Holt
--- NOTE | 2021-07-05 13:23 | Electrocardiogram Report ---
Test Reason : Blood Pressure : / mmHG Vent. Rate : 059 BPM Atrial Rate : 059 BPM P-R Int : 212 ms QRS Dur : 078 ms QT Int : 428 ms P-R-T Axes : 063 -21 026 degrees QTc Int : 423 ms Sinus bradycardia with sinus arrhythmia with 1st degree A-V block Low voltage QRS Borderline ECG When compared with ECG of 05-JUL-2021 06:22, (unconfirmed) Sinus rhythm has replaced Atrial fibrillation Vent. rate has decreased BY 29 BPM Confirmed by Stu Holt ([id number]) on 07/05/2021 1:23:18 PM Referred By: Wallace Thorne Confirmed By:Darrius Holt
--- NOTE | 2021-07-05 19:22 | XCELERA ---
[id number]
== END 2021-07-05 13:54 | disposition home or self-care (01) | DRG 291 ==
LOC: SUATTDRO 12:13 → 2E 12:13

== ENCOUNTER 2023-09-04 12:49 | Observation (INO) ==
--- NOTE | 2023-09-04 14:20 | Emergency Department Note ---
Impression & Plan Fall, Left leg pain, Ambulatory dysfunction, Multiple contusions, Abrasion of both knees, Anticoagulant long-term use ED Provider Note CHIEF COMPLAINT: Fall, knee pain HISTORY OF PRESENTING ILLNESS: This 83-year-old male patient presents to the emergency department via EMS with his and daughter for evaluation after an unwitnessed ground-level fall. The patient is complaining of left knee pain and pain in the back of his left thigh. He denies hitting his head. Denies loss of consciousness. He is on blood thinners - Eliquis. Denies any dizziness, chest pain, shortness of breath, or other symptoms prior to the fall. He states that it was a mechanical fall. He rates the discomfort as 7/10. He states that about 1 week ago he started feeling weakness in his left leg. [place] like he couldn't trust it to stand on it. Today he was hooking up a trailer to the RV when his left leg felt very weak and couldn't hold his weight and he fell down. He fell onto his hands and knees when he fell, but most of the weight of the fall went onto his bilateral knees. He states that the trailer hitch hit the center and left side of his abdomen as he was falling down. He states that he was not able to get back up after the fall and his called the ambulance. Has abrasions to his bilateral knees, but no lacerations. Last tetanus shot was 2 years ago. Having pain mostly in the left knee and the back of his left thigh. Mild pain to the right knee. Denies neck or back pain. Denies chest pain or SOB. Denies abdominal pain, nausea, or vomiting. Has a headache currently. Had dizziness initially, but that has resolved. No changes in his vision. No change in his personality. REVIEW OF SYSTEMS: See HPI for pertinent positives and pertinent negatives. ALLERGIES: Oxycodone MEDICATIONS: See below PAST MEDICAL HISTORY: See below PHYSICAL EXAM: VITALS: Vitals are noted on the nurse's note and reviewed by myself. GENERAL: No acute distress, non-diaphoretic. SKIN: Superficial abrasions to the anterior aspect of the bilateral knees. The wounds are clean without foreign bodies. No active bleeding. No other lacerations or abrasions noted. Capillary reflex less than 2 seconds. HEAD: Normocephalic. No scalp tenderness or step-offs felt. EYES: Pupils equal round and reactive to light and accommodation. Conjunctivae without injection, sclerae without icterus. Extraocular movements intact. NOSE: Patent without discharge. No sinus tenderness. No septal hematoma or bleeding. FACE: No facial bone tenderness. Full range of motion of the jaw without tenderness. MOUTH: Mucous membranes moist. Pharynx without erythema or exudate. Uvula midline. Airway patent. Tongue does not deviate. NECK: Supple without nuchal rigidity. Cervical spine is nontender. Full range of motion of the neck without tenderness. HEART: Regular rate and rhythm without murmurs gallops or rubs. LUNGS: Clear to auscultation bilaterally without wheezes, rales or rhonchi. No retractions or accessory muscle use. CHEST: No chest wall tenderness. ABDOMEN: Positive bowel sounds x 4. Normal tympanic percussion. Soft, tender to palpation in the central abdomen as well as the left side of the abdomen and left flank. No obvious masses or hepatosplenomegaly noted. No guarding or rebound tenderness. No focal right lower quadrant or left lower quadrant tenderness. MUSCULOSKELETAL: He is tender to palpation over the lower lumbar spine and paraspinal muscles. No tenderness to palpation of the thoracic spine or paraspinal muscles. He is maximally tender to palpation of the anterior aspect of the bilateral knees. Increased pain with range of motion of the bilateral knees, but range of motion is full. Tender to palpation over the posterior aspect of the mid left femur. No tenderness to palpation of the left hip. Full range of motion of the left hip without pain in the hip, but does have pain in the back of the thigh. No tenderness with pelvic rocking. Full range of motion without tenderness to palpation in all remaining extremities. Peripheral pulses 2+ and equal. NEURO: Patient was alert and oriented to person place and time. Normal mental status exam. Normal sensation to light and sharp touch. No focal neurological deficits. DIFFERENTIAL DIAGNOSIS: Differential diagnosis includes fracture, dislocation, subluxation, contusion, intra-abdominal injury, pneumothorax, intrathoracic injury, intracranial injury, neurologic, as well as other pathologies. ED COURSE AND MEDICAL DECISION MAKING: EKG: EKG was interpreted by myself as sinus bradycardia at 56 bpm with first- degree AV block, but no acute ST or T wave changes and no acute changes from his previous EKGs other than an increase in his WA interval. MEDICATIONS GIVEN: 500 mL normal saline solution bolus. Tylenol 1000 mg IV. INTERPRETATION OF LABS: I interpreted the labs with full lab results as below in the lab section of this note. Hemoglobin hematocrit are normal. Coags were normal. BUN 23, creatinine 1.6, CMP otherwise normal. High-sensitivity troponin was normal. Urinalysis negative for infection or blood. COVID was negative. INTERPRETATION OF IMAGING: Imaging studies were interpreted by myself and read by radiology as per the imaging section of this note. X-rays of the bilateral knees and left femur showed no evidence for acute fracture or dislocation, but did show soft tissue swelling and joint effusion of the knees. Chest x-ray without significant change compared to his prior chest x-rays. CT scans of the head and cervical spine showed no evidence for acute intracranial abnormality, fracture, or subluxation. CT scan of the lumbar spine without acute fracture or subluxation. CT scan of the abdomen pelvis with IV contrast with no acute traumatic process. MDM SUMMARY: I examined the patient. The patient states that he has been having some weakness in the left leg recently and lost his balance causing him to fall. He hit the left side of his abdomen on the trailer hitch and then landed on his knees and hands. Having trouble ambulating because of the pain in the left leg. An IV lock was placed and labs were drawn. The patient was given IV Tylenol with improvement of his pain. Imaging studies as above without acute abno rmalities. The patient's abrasions were cleaned and dressed by nursing staff. I had a meaningful discussion about this patient with Dr. Pompa who agrees with my assessment and the treatment plan. The patient has a walker at home to use. We attempted to get the patient out of bed and ambulate using a walker. However, he was unable to ambulate with the assistance of a walker due to pain in the left leg. The patient is not safe to be discharged home because of his ambulatory dysfunction. Therefore, I contacted the on-call hospitalist who agreed to admit the patient for further management. Please refer to their dictation for further details. The patient's care was transferred in stable condition. DIAGNOSIS: Fall on Eliquis Left leg pain with ambulatory dysfunction Multiple contusions Abrasions of the bilateral knees Past Med/Surg History Medical History Afib needs to cardioversion and had one done 07/02 SHARA positive CAD (coronary artery disease) Carotid artery plaque CKD (chronic kidney disease), stage III Diabetic neuropathy Diastolic HF (heart failure) Diverticulosis DMII (diabetes mellitus, type 2) Elevated cholesterol GERD (gastroesophageal reflux disease) History of cardioversion 07/02 HTN (hypertension) Hyperlipidemia Kidney stone hx of and passed on own Obesity GRACIE (obstructive sleep apnea) cpap Osteoarthritis Surgical History H/O bilateral hip replacements H/O laminectomy lumbar H/O total knee replacement History of ankle surgery History of back surgery History of cholecystectomy Hx of colonoscopy Hx of total knee arthroplasty left Family History Other Coronary heart disease Diabetes Social History Smoking Status: Former smoker Smoking End Date: greater than 50 years ago; Second Hand Exposure: No; Do You Dip or Chew Tobacco: No; Hx Alcohol Use: Yes Alcohol type: beer, wine and hard liquor Hx Substance Use: No Preferred Language: Uzbek Communication Ability: Effective Med Peds Required: No Beliefs That Will Affect Care: None marital status: Current Living Situation: Spouse Other Information That Helps Us Care for You: No Feels Safe at Home: Yes Safety Concerns: Feels Safe At This Time Assistive Devices: Cane, CPAP and Walker Allergies Allergies Allergy/AdvReac Type Severity Reaction Status Date / Time oxycodone AdvReac Mild NAUSEA/VOMI Verified 05/02/22 09:02 TTING Home Meds Home Medications Medication Instructions Recorded Confirmed folic acid 800 mcg tablet 0.8 mg PO DAILY 08/10/20 09/04/23 spironolactone 25 mg tablet 25 mg PO QAM 08/10/20 09/04/23 cetirizine 10 mg tablet (Zyrtec) 10 mg PO DAILY PRN Allergy Symptoms 07/03/21 09/04/23 metformin 500 mg tablet,extended 500 mg PO QAM 07/03/21 09/04/23 release 24 hr aspirin 81 mg capsule 81 mg PO Q2D 07/19/21 09/04/23 bumetanide 1 mg tablet 0.5 mg PO QAM 07/19/21 09/04/23 cholecalciferol (vitamin D3) 25 25 mcg PO DAILY 07/19/21 09/04/23 mcg (1,000 unit) chewable tablet (Vitamin D3) cinnamon bark 500 mg capsule 1,000 mg PO QAM 07/19/21 09/04/23 (Cinnamon) coenzyme Q10 10 mg capsule (Co 200 mg PO DAILY 07/19/21 09/04/23 Q-10) metoprolol succinate 25 mg 25 mg PO HS 07/19/21 09/04/23 tablet,extended release 24 hr omega-3 fatty acids 1,000 mg PO DAILY 07/19/21 09/04/23 omeprazole 20 mg capsule,delayed 20 mg PO QAM 07/19/21 09/04/23 release acetaminophen 650 mg 1,300 mg PO BID 08/05/23 09/04/23 tablet,extended release apixaban 5 mg tablet (Eliquis) 5 mg PO BID 08/05/23 09/04/23 atorvastatin 40 mg tablet 20 mg PO HS 08/05/23 09/04/23 gabapentin 600 mg tablet 600 mg PO TID 08/05/23 09/04/23 glucosamine HCl 1,500 mg tablet 1,500 mg PO QAM 08/05/23 09/04/23 krill oil 500 mg PO HS 08/05/23 09/04/23 multivitamin with iron-mineral 1 tab PO HS 08/05/23 09/04/23 ranolazine 500 mg tablet,extended 500 mg PO BID 08/05/23 09/04/23 release,12 hr sacubitril 24 mg-valsartan 26 mg 1 tab PO BID 08/05/23 09/04/23 tablet (Entresto) semaglutide 0.25 mg or 0.5 mg (2 0.5 mg subcut Q7D 08/05/23 09/04/23 mg/3 mL) subcutaneous pen injector (Ozempic) Previous Rx's Medication Instructions Recorded amiodarone 200 mg tablet 200 mg PO BIDM #60 tabs 08/06/23 Results & Data (ED) Vital Signs Vital Signs - 24 hr 09/04/23 13:28 09/04/23 15:03 Temperature 36.6 C Temperature Source Temporal Artery Scan Pulse Rate 62 Respiratory Rate 20 Respiratory Effort / Characteristics Non-Labored Spontaneous Respiratory Depth Normal Blood Pressure 101/62 Blood Pressure Mean 75 Pulse Oximetry 97 93 Oxygen Delivery Method Room Air Room Air Sepsis Recent Fever Within 48 Hours No Sepsis New/Unexplained Change in Mental Status N/A Sepsis Action Taken by Nursing No Action Required Laboratory Data 09/05/23 05:53 09/05/23 05:53 Lab Results 09/04/23 09/04/23 09/04/23 Range/Units 15:02 15:02 15:05 POC Hgb 14.6 (14.0-18.0) g/dl POC Hct 43 (42-52) % PT 11.0 (9.0-12.0) Seconds INR 1.0 (0.9-1.1) APTT 26.6 (21.0-31.0) Seconds PTT Ratio 0.9 POC Sodium 141 (135-144) mmol/L POC Potassium 4.7 (3.3-5.0) mmol/L POC Chloride 105 (101-112) mmol/L POC Total CO2 29 (24-31) mmol/L POC Anion Gap 14.0 L (16-25) mmol/L POC BUN 23 H (7-18) mg/dl POC Creatinine 1.6 H (0.6-1.3) mg/dl POC Glucose (other) 97 (70-99) mg/dl POC Ioniz Calcium Gena 1.14 (1.12-1.32) mmol/l Total Bilirubin 0.7 (0.2-1.0) mg/dl Direct Bilirubin 0.1 (0-0.2) mg/dl AST 31 (13-39) U/L ALT 33 (7-52) U/L Alkaline Phosphatase 59 (34-104) U/L Troponin I High Sens 6.1 (0-20) pg/ml Total Protein 6.7 (6.0-8.3) gm/dl Albumin 4.3 (3.4-5.0) gm/dl Urine Color Urine Appearance (Clear) Urine pH (4.5-7.5) Ur Specific [place] (1.000-1.030) Urine Protein (Negative) Urine Glucose (UA) (Negative) Urine Ketones (Negative) Urine Blood (Negative) Urine Nitrite (Negative) Urine Bilirubin (Negative) Urine Urobilinogen (Negative) Ur Leukocyte Esterase (Negative) SARS-CoV-2, RNA, NAAT (NEGATIVE) 09/04/23 09/04/23 Range/Units 15:43 16:28 POC Hgb (14.0-18.0) g/dl POC Hct (42-52) % PT (9.0-12.0) Seconds INR (0.9-1.1) APTT (21.0-31.0) Seconds PTT Ratio POC Sodium (135-144) mmol/L POC Potassium (3.3-5.0) mmol/L POC Chloride (101-112) mmol/L POC Total CO2 (24-31) mmol/L POC Anion Gap (16-25) mmol/L POC BUN (7-18) mg/dl POC Creatinine (0.6-1.3) mg/dl POC Glucose (other) (70-99) mg/dl POC Ioniz Calcium Gena (1.12-1.32) mmol/l Total Bilirubin (0.2-1.0) mg/dl Direct Bilirubin (0-0.2) mg/dl AST (13-39) U/L ALT (7-52) U/L Alkaline Phosphatase (34-104) U/L Troponin I High Sens (0-20) pg/ml Total Protein (6.0-8.3) gm/dl Albumin (3.4-5.0) gm/dl Urine Color Yellow Urine Appearance Clear (Clear) Urine pH 6.5 (4.5-7.5) Ur Specific [place] 1.015 (1.000-1.030) Urine Protein Negative (Negative) Urine Glucose (UA) Negative (Negative) Urine Ketones Negative (Negative) Urine Blood Negative (Negative) Urine Nitrite Negative (Negative) Urine Bilirubin Negative (Negative) Urine Urobilinogen Negative (Negative) Ur Leukocyte Esterase Negative (Negative) SARS-CoV-2, RNA, NAAT NEGATIVE (NEGATIVE) Administered Medications Acetaminophen (Acetaminophen 325 Mg Tab) 650 mg PO Q4H PRN PRN Reason: pain/fever Stop: 10/04/23 19:53 Last Admin: 09/05/23 12:45 Dose: 650 mg Documented By: Admin: 09/04/23 22:11 Dose: 650 mg Documented By: KEITH Amiodarone HCl (Amiodarone 200 Mg Tab) 200 mg PO BIDM [facility] Stop: 10/05/23 07:59 Last Admin: 09/05/23 09:45 Dose: 200 mg Documented By: ADAMS Apixaban (Apixaban 5 Mg Tablet) 5 mg PO BID KAREN Stop: 10/04/23 20:59 Last Admin: 09/05/23 09:46 Dose: 5 mg Documented By: Admin: 09/04/23 22:12 Dose: 5 mg Documented By: KEITH Aspirin (Aspirin 81 Mg Ectab) 81 mg PO Q2D@2100 KAREN Stop: 10/04/23 20:59 Last Admin: 09/04/23 22:12 Dose: 81 mg Documented By: KEITH Atorvastatin Calcium (Atorvastatin 20 Mg Tab) 20 mg PO HS [facility] Stop: 10/04/23 20:59 Last Admin: 09/04/23 22:12 Dose: 20 mg Documented By: KEITH Bumetanide (Bumetanide 1 Mg Tab) 0.5 mg PO QAM [facility] Stop: 10/05/23 08:59 Last Admin: 09/05/23 09:46 Dose: 0.5 mg Documented By: ADAMS Folic Acid (Folic Acid 400 Mcg Tab) 800 mcg PO DAILY KAREN Stop: 10/05/23 08:59 Last Admin: 09/05/23 09:47 Dose: 800 mcg Documented By: ADAMS Gabapentin (Gabapentin 600 Mg Tab) 600 mg PO TID KAREN Stop: 10/04/23 20:59 Last Admin: 09/05/23 14:14 Dose: 600 mg Documented By: Admin: 09/05/23 09:47 Dose: 600 mg Documented By: Admin: 09/04/23 22:12 Dose: 600 mg Documented By: KEITH Insulin Aspart (Insulin Aspart Per Unit Charge) 0 units SC ACHS KAREN Stop: 10/04/23 20:59 Last Admin: 09/05/23 12:39 Dose: 5 units Documented By: ADAMS Co-signed By: MARY Admin: 09/05/23 09:25 Dose: 2 units Documented By: ADAMS Co-signed By: MICHELLE Admin: 09/04/23 22:55 Dose: Not Given Documented By: KADIE Co-signed By: KEITH Insulin Glargine (Lantus Per Unit Charge) 12 units SQ BID KAREN Stop: 10/04/23 20:59 Last Admin: 09/05/23 09:26 Dose: 12 units Documented By: ADAMS Co-signed By: MICHELLE Admin: 09/04/23 22:54 Dose: 12 units Documented By: KADIE Co-signed By: KEITH Metoprolol Succinate (Metoprolol Succ 25mg Ext Rel Tab) 25 mg PO HS KAREN Stop: 10/04/23 20:59 Last Admin: 09/04/23 22:12 Dose: 25 mg Documented By: KEITH Pantoprazole Sodium (Pantoprazole 40 Mg Tab) 40 mg PO QAM KAREN Stop: 10/05/23 08:59 Last Admin: 09/05/23 09:47 Dose: 40 mg Documented By: ADAMS Ranolazine (Ranolazine 500 Mg Er Tab) 500 mg PO BID KAREN Stop: 10/04/23 20:59 Last Admin: 09/05/23 09:47 Dose: 500 mg Documented By: Admin: 09/04/23 22:12 Dose: 500 mg Documented By: KEITH Sacubitril/Valsartan (Valsartan/Sacubitril 26/24mg Tab) 1 tab PO BID KAREN Stop: 10/04/23 20:59 Last Admin: 09/05/23 09:47 Dose: 1 tab Documented By: Admin: 09/04/23 22:12 Dose: 1 tab Documented By: KEITH Spironolactone (Spironolactone 25 Mg Tab) 25 mg PO QAM KAREN Stop: 10/05/23 08:59 Last Admin: 09/05/23 09:47 Dose: 25 mg Documented By: ADAMS Vitamin D (Cholecalciferol 1,000 Units 25 Mcg Tab) 2,000 units PO DAILY KAREN Stop: 10/05/23 08:59 Last Admin: 09/05/23 09:47 Dose: 2,000 units Documented By: ADAMS Discontinued Medications Sodium Chloride (Nss) 500 mls @ 999 mls/hr IV .Q31M KAREN Stop: 09/04/23 15:15 Last Infusion: 09/04/23 16:07 Dose: 0 mls/hr Documented By: Admin: 09/04/23 14:58 Dose: 999 mls/hr Documented By: JANESSA Acetaminophen (Ofirmev) 1,000 mg in 100 mls @ 400 mls/hr IV NOW STA Stop: 09/04/23 14:47 Last Infusion: 09/04/23 16:07 Dose: 0 mls/hr Documented By: Admin: 09/04/23 14:58 Dose: 400 mls/hr Documented By: JANESSA Influenza Virus Vaccine (Influenza Vaccine High-Dose (Hd-Iiv4) Pf 65+ 0.7ml Syr) 0.7 ml IM .ONCE ONE Stop: 09/05/23 03:12 Last Admin: 09/05/23 09:48 Dose: Not Given Documented By: ADAMS Ioversol (Optiray 320 100ml) 92 ml IV ONCE ONE Stop: 09/04/23 16:11 Last Admin: 09/04/23 16:10 Dose: 92 ml Documented By: DANNY Imaging Data Radiologist's Impression: Femur X-Ray 09/04/23 13:35 XR femur LT 2V routine CLINICAL HISTORY: Lower Extremity Trauma. Fall. Left leg pain. COMPARISON STUDY: None. FINDINGS: No fracture or dislocation within the left femur. There is a left total hip arthroplasty and a left total knee arthroplasty. The hardware appears intact. No significant soft tissue swelling. There is a small left knee effusion. Mild vascular calcifications are present. IMPRESSION: No fracture or dislocation within the left femur. ACT 112: Negative or not required by law. Electronically signed by: Gilles Rodriguez M.D. 09/04/2023 2:21 PM Knee X-Ray 09/04/23 13:35 XR knee LT 3V HISTORY: 83 years-old Male Knee trauma, no prior imaging acute left knee pain COMPARISON: Femur radiographs of same day TECHNIQUE: 3 views of the left knee FINDINGS: Total arthroplasty with patellar resurfacing. Small joint effusion. No acute fracture, dislocation or evidence of hardware complication. There are a few corticated intra-articular loose bodies. Arterial calcifications. IMPRESSION: No acute fracture or dislocation. ACT 112: Negative or not required by law. The above report was generated using voice recognition software. It may contain grammatical, syntax or spelling errors. Electronically signed by: Kashif Mace M.D. 09/04/2023 3:04 PM Knee X-Ray 09/04/23 14:33 RIGHT KNEE 3 VIEWS CLINICAL HISTORY: Right knee injury. FINDINGS: AP, crosstable lateral, and sunrise views of the right knee are obta ined. No prior studies are available for comparison at the time of dictation. The skeletal structures are osteopenic. No acute fracture is seen. There is moderate to advanced tricompartmental degenerative joint space narrowing, greatest in the medial compartment. There are marginal osteophytes and patellar enthesophytes. Chondrocalcinosis is noted in the medial and lateral compartments. There is a small joint effusion. Medial soft tissue swelling is observed. A calcified fabella is incidentally noted. IMPRESSION: 1. Soft tissue swelling and joint effusion with no radiographic evidence of acute fracture. 2. Osteopenia with degenerative change and chondrocalcinosis as above. Electronically signed by: Florentino Xavier M.D. 09/04/2023 3:17 PM Chest X-Ray 09/04/23 14:34 XR chest 1V portable HISTORY: Fall COMPARISON: Chest 08/05/2023. FINDINGS: There are low lung volumes. No pneumothorax. No pleural effusions. Bibasilar interstitial thickening is likely chronic. This is similar to the prior study. No new focal lung consolidations to suggest a pneumonia. No evidence for pulmonary edema. The cardiac silhouette remains mildly enlarged. No acute fractures identified. Degenerative changes within the shoulders. IMPRESSION: No significant change compared to the prior study. No acute process. ACT 112: Negative or not required by law. Electronically signed by: Gilles Rodriguez M.D. 09/04/2023 3:17 PM Abdomen/Pelvis CT 09/04/23 14:[address] WITH IV CONTRAST CT DOSE: HISTORY: Fall. Trauma TECHNIQUE: Multiaxial CT images of the abdomen and pelvis were performed following the use of intravenous contrast. A dose lowering technique was utilized adhering to the principles of ALARA. COMPARISON STUDY: Abdomen and pelvis CT 07/01/2017. FINDINGS: Bibasilar interstitial thickening. This is likely chronic. There is a 3 cm bleb within the right lung base. No pneumoperitoneum. No pneumatosis. There are bilateral hip arthroplasties and L3-S1 posterior decompression and fusion. The hardware appears intact. No acute fractures identified. Prior cholecystectomy. The main portal vein is patent. The liver, pancreas, spleen, and right adrenal gland unremarkable. There is a stable 9 mm left adrenal gland nodule. [id number] cortical renal thinning/scarring persists. No hydrone phrosis. Calcified plaque within the normal caliber abdominal aorta. No retroperitoneal hematoma or lymphadenopathy. The bladder is mildly distended. No bladder wall thickening. The prostate gland is mildly enlarged. This is obscured by the metallic artifact at this location. No bowel wall thickening or obstruction. Colonic diverticulosis. No evidence for acute diverticulitis. Normal appendix. IMPRESSION: 1. No acute traumatic process within the abdomen or pelvis. 2. Additional findings as described above. ACT 112: Negative or not required by law. Electronically signed by: Gilles Rodriugez M.D. 09/04/2023 4:[address] 09/04/23 14:35 CT cervical spine wo con CLINICAL HISTORY: 83 years-old Male with Trauma. Acute neck trauma COMPARISON: Head CT of same day TECHNIQUE: Multiple axial CT images of the cervical spine were obtained without contrast. A dose lowering technique was utilized adhering to the principles of ALARA. FINDINGS: Advanced multilevel intervertebral disc space narrowing with prominent bridging osteophytosis and severe facet arthrosis. There is degenerative bony fusion at-with partial bony fusion at several levels. Multilevel central canal or neural foraminal narrowing is suboptimally evaluated by CT technique. Nuchal ligament calcifications. No acute fracture or subluxation identified. Severe degeneration of the temporal mandibular joints. No pneumothorax. Unremarkable soft tissues. Thyroid goiter. Calcified plaque in the carotid bulbs. IMPRESSION: Severe degenerative changes without acute cervical spine fracture or subluxation. ACT 112: Negative or not required by law. The above report was generated using voice recognition software. It may contain grammatical, syntax or spelling errors. Electronically signed by: Kashif Mace M.D. 09/04/2023 4:[address] 09/04/23 14:35 CT head/brain wo con CLINICAL HISTORY: 83 years-old Male with Trauma. Acute head trauma TECHNIQUE: Multiple axial CT images of the head were obtained without contrast. A dose lowering technique was utilized adhering to the principles of ALARA. COMPARISON: CT cervical spine of same day FINDINGS: No acute intracranial hemorrhage, midline shift, intracranial mass, acute territorial ischemia or abnormal extra-axial collection. Involutional changes with chronic microvascular ischemic disease. Unchanged ventricular dilation. The calvarium is intact. Chronic mucoperiosteal thickening and volume loss in the left maxillary sinus. Prior bilateral lens repair. IMPRESSION: No acute intracranial abnormality. ACT 112: Negative or not required by law. The above report was generated using voice recognition software. It may contain grammatical, syntax or spelling errors. Electronically signed by: Kashif Mace M.D. 09/04/2023 4:[address] 09/04/23 14:35 CT lumbar spine w con HISTORY: 83 years-old Male Trauma . Low back pain COMPARISON: Same day TECHNIQUE: Multiple axial CT images of the lumbar spine were obtained without the use of IV contrast. A dose lowering technique was used consistent with the principals of JULIÁN. FINDINGS: Posterior interbody rods and screw fusion hardware again noted at L3-S1. No evidence of hardware complication. Moderate to severe degenerative changes are again noted with partial bony fusion and levoscoliosis. Limited evaluation of the central canal and neural foramen by CT technique. Advanced facet arthrosis. The imaged intra-abdominal and paraspinal structures are unremarkable. Ipnqxwlo-hm-aypbnq degeneration of the SI joints. IMPRESSION: No acute fracture or subluxation identified. ACT 112: Negative or not required by law. The above report was generated using voice recognition software. It may contain grammatical, syntax or spelling errors. Electronically signed by: Kashif Mace M.D. 09/04/2023 4:33 PM Discharge Plan Visit Data Chief Complaint: Knee Injury/Pain Stated Complaint: FALL, KNEE PAIN ED Provider: [facility] ED Midlevel Provider: Raissa Fitzpatrick Discharge Problem: Fall, Left leg pain, Ambulatory dysfunction, Multiple contusions, Abrasion of both knees, Anticoagulant long-term use Patient Disposition: Admitted As Inpatient Condition: Good Discharge Instructions Interventions: ED Discharge Assessment Last Done: 09/04/23 19:54 Addendum September 05, 2023 15:06 HPI: The patient is an 82-year-old gentleman with a past medical history of paroxysmal atrial fibrillation on Eliquis, CAD, GRACIE on BiPAP, hypertension, CKD, type 2 diabetes, GERD, osteoarthritis who presents to the emergency department via EMS coming by his and daughter for evaluation of an unwitnessed ground- level fall. The patient is complaining of left knee and thigh pain. He does not feel as though he hit his head or lost consciousness. The patient is on Eliquis. The patient has been feeling weakness in his left leg where has been getting out over the past week. He was going up a trailer to his RV today and his left leg felt weak and fell to the ground onto his hands and knees. A/P: EKG demonstrates sinus bradycardia with history AV block, 56 bpm, no ectopy, no overt ST elevation or depression, QTc 403, QRS 84. I-STAT performed and H&H similar to prior. Chemistry without metabolic acidosis. Creatinine 1.6 marginally increased but approximate two recent values. LFTs are unremarkable. High-sensitivity troponin 6.1, within normal limits. UA without evidence of infection. COVID-19 RNA, JUMANA test was negative. CT of the head, C-spine, lumbar spine were negative for acute abnormality. CT of the abdomen pelvis was also negative for acute abnormalities. Plain films of bilateral knees and left femur were negative for fracture or dislocation. Chest x-ray negative for acute cardiopulmonary process or traumatic findings. Given reassuring evaluation ambulatory trial performed to ensure patient can go home safely but was unable to ambulate and therefore was referred to the hospitalist service for further management/PT OT and possible placement. I was consulted by the Advanced Practice Provider and was substantively involved in the patient's visit.This includes aspects of the HPI, MDM, diagnostic interpretations, and disposition/plan. I discussed the case with the MARIA ALEJANDRA and agree with the findings and plan as documented in MARIA ALEJANDRA Amari's note. Fall Qualifiers: Encounter type: initial encounter Qualified Code(s): W19.XXXA - Unspecified fall, initial encounter
--- NOTE | 2023-09-04 14:23 | XRay Report ---
XR femur LT 2V routine CLINICAL HISTORY: Lower Extremity Trauma. Fall. Left leg pain. COMPARISON STUDY: None. FINDINGS: No fracture or dislocation within the left femur. There is a left total hip arthroplasty an d a left total knee arthroplasty. The hardware appears intact. No significant soft tissue swelling. T here is a small left knee effusion. Mild vascular calcifications are present. IMPRESSION: No fracture or dislocation within the left femur. ACT 112: Negative or not required by law. Electronically signed by: Gilles Rodriguez M.D. 09/04/2023 2:21 PM
[2023-09-04] MEDS ORDERED: ACETAMINOPHEN 1,000 MG/100 ML VIAL IV STA (14:33)
[2023-09-04] MEDS ORDERED: SODIUM CHLORIDE 0.9% 500 ML IV SCH (14:45)
--- NOTE | 2023-09-04 15:05 | XRay Report ---
XR knee LT 3V HISTORY: 83 years-old Male Knee trauma, no prior imaging acute left knee pain COMPARISON: Femur radiographs of same day TECHNIQUE: 3 views of the left knee FINDINGS: Total arthroplasty with patellar resurfacing. Small joint effusion. No acute fracture, dislocation or evidence of hardware complication. There are a few corticated intra-articular loose bodies. Arterial calcifications. IMPRESSION: No acute fracture or dislocation. ACT 112: Negative or not required by law. The above report was generated using voice recognition software. It may contain grammatical, syntax o r spelling errors. Electronically signed by: Kashif Mace M.D. 09/04/2023 3:04 PM
[2023-09-04 15:18] LABS: iSTAT Creatinine 1.6 mg/dl (0.6-1.3); iSTAT Hemoglobin 14.6 g/dl (14.0-18.0); iSTAT Ionized Calcium 1.14 mmol/l (1.12-1.32); iSTAT Potassium 4.7 mmol/L (3.3-5.0)
--- NOTE | 2023-09-04 15:18 | XRay Report ---
RIGHT KNEE 3 VIEWS CLINICAL HISTORY: Right knee injury. FINDINGS: AP, crosstable lateral, and sunrise views of the right knee are obtained. No prior studies are available for comparison at the time of dictation. The skeletal structures are osteopenic. No acu te fracture is seen. There is moderate to advanced tricompartmental degenerative joint space narrowin g, greatest in the medial compartment. There are marginal osteophytes and patellar enthesophytes. Cho ndrocalcinosis is noted in the medial and lateral compartments. There is a small joint effusion. Medi al soft tissue swelling is observed. A calcified fabella is incidentally noted. IMPRESSION: 1. Soft tissue swelling and joint effusion with no radiographic evidence of acute fracture. 2. Osteopenia with degenerative change and chondrocalcinosis as above. Electronically signed by: Florentino Xavier M.D. 09/04/2023 3:17 PM
--- NOTE | 2023-09-04 15:19 | XRay Report ---
XR chest 1V portable HISTORY: Fall COMPARISON: Chest 08/05/2023. FINDINGS: There are low lung volumes. No pneumothorax. No pleural effusions. Bibasilar interstitial t hickening is likely chronic. This is similar to the prior study. No new focal lung consolidations to suggest a pneumonia. No evidence for pulmonary edema. The cardiac silhouette remains mildly enlarged. No acute fractures identified. Degenerative changes within the shoulders. IMPRESSION: No significant change compared to the prior study. No acute process. ACT 112: Negative or not required by law. Electronically signed by: Gilles Rodriguez M.D. 09/04/2023 3:17 PM
[2023-09-04 15:42] LABS: Albumin Level 4.3 gm/dl (3.4-5.0); Bilirubin Direct 0.1 mg/dl (0-0.2); Bilirubin,Total 0.7 mg/dl (0.2-1.0); Total Protein 6.7 gm/dl (6.0-8.3)
--- NOTE | 2023-09-04 15:43 | Electrocardiogram Report ---
Test Reason : Blood Pressure : / mmHG Vent. Rate : 056 BPM Atrial Rate : 056 BPM P-R Int : 228 ms QRS Dur : 084 ms QT Int : 454 ms P-R-T Axes : 066 -24 009 degrees QTc Int : 438 ms Sinus bradycardia with 1st degree A-V block Low voltage QRS Cannot rule out Anterior infarct (cited on or before 23-JUL-2021) Abnormal ECG When compared with ECG of 05-AUG-2023 15:13, MD interval has increased Confirmed by Channing Frias ([id number]) on 09/04/2023 3:43:07 PM Referred By: REFERRED SELF Confirmed By:Channing Frias
[2023-09-04 15:49] LABS: Troponin I High Sensitivity 6.1 pg/ml (0-20)
[2023-09-04 15:55] LABS: Partial Thromboplastin Ratio 0.9; Partial Thromboplastin Time 26.6 Seconds (21.0-31.0)
[2023-09-04] MEDS ORDERED: OPTIRAY 320 100ml IV ONE (16:10)
--- NOTE | 2023-09-04 16:17 | CT Scan Report ---
CT head/brain wo con CLINICAL HISTORY: 83 years-old Male with Trauma. Acute head trauma TECHNIQUE: Multiple axial CT images of the head were obtained without contrast. A dose lowering tech nique was utilized adhering to the principles of ALARA. COMPARISON: CT cervical spine of same day FINDINGS: No acute intracranial hemorrhage, midline shift, intracranial mass, acute territorial ischemia or abn ormal extra-axial collection. Involutional changes with chronic microvascular ischemic disease. Uncha nged ventricular dilation. The calvarium is intact. Chronic mucoperiosteal thickening and volume loss in the left maxillary sin us. Prior bilateral lens repair. IMPRESSION: No acute intracranial abnormality. ACT 112: Negative or not required by law. The above report was generated using voice recognition software. It may contain grammatical, syntax o r spelling errors. Electronically signed by: Ksahif Mace M.D. 09/04/2023 4:16 PM
--- NOTE | 2023-09-04 16:26 | CT Scan Report ---
ABDOMEN AND PELVIS CT WITH IV CONTRAST CT DOSE: HISTORY: Fall. Trauma TECHNIQUE: Multiaxial CT images of the abdomen and pelvis were performed following the use of intrave nous contrast. A dose lowering technique was utilized adhering to the principles of ALARA. COMPARISON STUDY: Abdomen and pelvis CT 07/01/2017. FINDINGS: Bibasilar interstitial thickening. This is likely chronic. There is a 3 cm bleb within the right lung base. No pneumoperitoneum. No pneumatosis. There are bilateral hip arthroplasties and L3-S 1 posterior decompression and fusion. The hardware appears intact. No acute fractures identified. Suyapa or cholecystectomy. The main portal vein is patent. The liver, pancreas, spleen, and right adrenal gl and unremarkable. There is a stable 9 mm left adrenal gland nodule. Gdlx-ch-erfcjenf cortical renal t hinning/scarring persists. No hydronephrosis. Calcified plaque within the normal caliber abdominal ao rta. No retroperitoneal hematoma or lymphadenopathy. The bladder is mildly distended. No bladder wall thickening. The prostate gland is mildly enlarged. This is obscured by the metallic artifact at this location. No bowel wall thickening or obstruction. Colonic diverticulosis. No evidence for acute div erticulitis. Normal appendix. IMPRESSION: 1. No acute traumatic process within the abdomen or pelvis. 2. Additional findings as described above. ACT 112: Negative or not required by law. Electronically signed by: Gilles Rodriguez M.D. 09/04/2023 4:25 PM
--- NOTE | 2023-09-04 16:35 | CT Scan Report ---
CT lumbar spine w con HISTORY: 83 years-old Male Trauma . Low back pain COMPARISON: Same day TECHNIQUE: Multiple axial CT images of the lumbar spine were obtained without the use of IV contrast. A dose lowering technique was used consistent with the principals of ALARA. FINDINGS: Posterior interbody rods and screw fusion hardware again noted at L3-S1. No evidence of hardware comp lication. Moderate to severe degenerative changes are again noted with partial bony fusion and levosc oliosis. Limited evaluation of the central canal and neural foramen by CT technique. Advanced facet a rthrosis. The imaged intra-abdominal and paraspinal structures are unremarkable. Arqwftur-au-vsnwsj d egeneration of the SI joints. IMPRESSION: No acute fracture or subluxation identified. ACT 112: Negative or not required by law. The above report was generated using voice recognition software. It may contain grammatical, syntax o r spelling errors. Electronically signed by: Kashif Mace M.D. 09/04/2023 4:33 PM
[2023-09-04 16:40] LABS: Appearance Urine Clear (Clear); Bilirubin Urine Negative (Negative); Blood Urine Negative (Negative); Color Urine Yellow; Glucose Urine UA Negative (Negative); Ketones Urine Negative (Negative); Leukocyte Esterase Urine Negative (Negative); Nitrite Urine Negative (Negative); Protein Urine Negative (Negative); Specific Gravity Urine 1.015 (1.000-1.030); Urobilinogen Urine Negative (Negative); pH Urine 6.5 (4.5-7.5)
--- NOTE | 2023-09-04 16:43 | CT Scan Report ---
CT cervical spine wo con CLINICAL HISTORY: 83 years-old Male with Trauma. Acute neck trauma COMPARISON: Head CT of same day TECHNIQUE: Multiple axial CT images of the cervical spine were obtained without contrast. A dose low ering technique was utilized adhering to the principles of ALARA. FINDINGS: Advanced multilevel intervertebral disc space narrowing with prominent bridging osteophytos is and severe facet arthrosis. There is degenerative bony fusion at-with partial bony fusion at sever al levels. Multilevel central canal or neural foraminal narrowing is suboptimally evaluated by CT stephanie hnique. Nuchal ligament calcifications. No acute fracture or subluxation identified. Severe degenerat ion of the temporal mandibular joints. No pneumothorax. Unremarkable soft tissues. Thyroid goiter. Calcified plaque in the carotid bulbs. IMPRESSION: Severe degenerative changes without acute cervical spine fracture or subluxation. ACT 112: Negative or not required by law. The above report was generated using voice recognition software. It may contain grammatical, syntax o r spelling errors. Electronically signed by: aKshif Mace M.D. 09/04/2023 4:42 PM
--- NOTE | 2023-09-04 18:10 | History & Physical Report ---
Date of Service September 04, 2023 Assessment & Plan (1) Fall: Plan: Unwitnessed fall, weakness CT series without acute traumatic findings, including CT head/C-spine/L-spine/abdomenpelvis. X-ray of the right knee shows soft tissue swelling or joint effusion, but no evidence of fracture. Total arthroplasty with patellar resurfacing seen on left knee x-ray. No fracture/dislocation/hardware complication is noted. Few corticated intra- articular loose bodies are noted EKG: Sinus bradycardia, first-degree AV block. Troponin is normal. Patient endorses that he has felt weaker than normal in his left knee which feels like it is slightly unstable. He has not had any dysarthria, sensory change. No history of stroke and no other strokelike symptoms No signs of metabolic encephalopathy/infection contributing to weakness at time of admission. No signs of arrhythmia PT/OT. Patient is unable to ambulate at home due to his knee giving out, is agreeable to placement. (2) Atrial fibrillation with rapid ventricular response: Plan: Sinus on admission. Continue Eliquis, amiodarone, metoprolol - No palpitations/syncope/dizziness that led to fall (3) Diastolic HF (heart failure): Plan: Continue aspirin, atorvastatin, metoprolol, Entresto, ian No signs of cardiac ischemia on admission. No clinical signs of acute heart failure or angina on admission (4) GERD (gastroesophageal reflux disease): Plan: Continue PPI (5) DMII (diabetes mellitus, type 2): Plan: Sliding scale basal bolus while inpatient, hold home antiglycemics Goal BSG [id number] (6) GRACIE (obstructive sleep apnea): Plan: CPAP nightly (7) CKD (chronic kidney disease), stage III: Plan: Trend BMP daily, baseline creatinine around1.45. Creatinine 1.6 on admission, patient received fluids and creatinine has been trended (8) CAD (coronary artery disease): Plan: Cardiac medications as noted Plan DVT prophylaxis: DOAC Diet: HH/DM2 CODE: Full Dispo: Med/Surg History of Present Illness Primary Care Provider: Olivia Rangel PA-C Mary is an 83-year-old male with a past medical history of A-fib with RVR on Eliquis, heart failure on Entresto, GERD, DM 2, CKD 3, CAD, diabetic nephropathy was brought to the ER by ambulance for an unwitnessed fall. 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 "[place] like the muscles just aren't there". No snap/pop. KNee does not luck. Feels unstable like it is going to buckle in the last week. Has neuropathy so not sure if there is any new numbness/tingling. No dysarthria. No vision change. Medical History: Reviewed Medications: Reviewed Surgical History: Reviewed Family history: Reviewed Allergies: Reviewed Social History: No tobacco. rare social etoh. no recreational drug use Code Status: DNR/DNI Allergies Allergy/AdvReac Type Severity Reaction Status Date / Time oxycodone AdvReac Mild NAUSEA/VOMI Verified 05/02/22 09:02 TTING Home Medications Medication Instructions Recorded Confirmed Type folic acid 800 mcg tablet 0.8 mg PO DAILY 08/10/20 08/05/23 History spironolactone 25 mg tablet 25 mg PO QAM 08/10/20 08/05/23 History cetirizine 10 mg tablet (Zyrtec) 10 mg PO DAILY PRN Allergy Symptoms 07/03/21 08/05/23 History metformin 500 mg tablet,extended 500 mg PO QAM 07/03/21 08/05/23 History release 24 hr aspirin 81 mg capsule 81 mg PO Q2D 07/19/21 08/05/23 History bumetanide 1 mg tablet 0.5 mg PO QAM 07/19/21 08/05/23 History cholecalciferol (vitamin D3) 25 50 mcg PO DAILY 07/19/21 08/05/23 History mcg (1,000 unit) chewable tablet (Vitamin D3) cinnamon bark 500 mg capsule 1,000 mg PO QAM 07/19/21 08/05/23 History (Cinnamon) coenzyme Q10 10 mg capsule (Co 200 mg PO DAILY 07/19/21 08/05/23 History Q-10) metoprolol succinate 25 mg 25 mg PO HS 07/19/21 08/05/23 History tablet,extended release 24 hr omega-3 fatty acids 1,000 mg PO DAILY 07/19/21 08/05/23 History omeprazole 20 mg capsule,delayed 20 mg PO QAM 07/19/21 08/05/23 History release acetaminophen 650 mg 1,300 mg PO BID 08/05/23 08/05/23 History tablet,extended release apixaban 5 mg tablet (Eliquis) 5 mg PO BID 08/05/23 08/05/23 History atorvastatin 40 mg tablet 20 mg PO HS 08/05/23 08/05/23 History gabapentin 600 mg tablet 600 mg PO TID 08/05/23 08/05/23 History glucosamine HCl 1,500 mg tablet 1,500 mg PO QAM 08/05/23 08/05/23 History krill oil 500 mg PO HS 08/05/23 08/05/23 History multivitamin with iron-mineral 1 tab PO HS 08/05/23 08/05/23 History ranolazine 500 mg tablet,extended 500 mg PO BID 08/05/23 08/05/23 History release,12 hr sacubitril 24 mg-valsartan 26 mg 1 tab PO BID 08/05/23 08/05/23 History tablet (Entresto) semaglutide 0.25 mg or 0.5 mg (2 0.5 mg subcut Q7D 08/05/23 08/05/23 History mg/3 mL) subcutaneous pen injector (Ozempic) amiodarone 200 mg tablet 200 mg PO BIDM #60 tabs 08/06/23 Rx Past Med/Surg History Medical History Afib needs to cardioversion and had one done 07/02 SHARA positive CAD (coronary artery disease) Carotid artery plaque CKD (chronic kidney disease), stage III Diabetic neuropathy Diastolic HF (heart failure) Diverticulosis DMII (diabetes mellitus, type 2) Elevated cholesterol GERD (gastroesophageal reflux disease) History of cardioversion 07/02 HTN (hypertension) Hyperlipidemia Kidney stone hx of and passed on own Obesity GRACIE (obstructive sleep apnea) cpap Osteoarthritis Surgical History H/O bilateral hip replacements H/O laminectomy lumbar H/O total knee replacement History of ankle surgery History of back surgery History of cholecystectomy Hx of colonoscopy Hx of total knee arthroplasty left Family History Other Coronary heart disease Diabetes Social History Smoking Status: Former smoker Second Hand Exposure: No; Do You Dip or Chew Tobacco: No; Hx Alcohol Use: No Hx Substance Use: No Preferred Language: Khmer Communication Ability: Effective Electrical Contacts Adjuster Required: No Beliefs That Will Affect Care: None marital status: Current Living Situation: Spouse Feels Safe at Home: Yes Assistive Devices: Cane and CPAP Physical Exam Physical Exam: General: A&Ox3. NAD. Cooperative. HEENT: Atraumatic, normocephalic. Pulm: CTAB A&P. -wheezes, -rales, -rhonchi. Symmetrical chest rise. No increased work of breathing. No respiratory distress. Cardiac: RRR, -mrg. Radial pulses intact and symmetrical. Abdominal: Nontender, nondistended, soft. BS present. Extremities: Right lower extremity with diminished but intact sensation to soft touch at baseline. Right ankle s/p fusion, limited range of motion. No erythema/warmth/tenderness. Hip flexion and ankle dorsiflexion/plantarflexion 5/5. Left lower extremity 5/5 ankle dorsiflexion/plantarflexion. Has diminished sensation due to neuropathy at baseline, sensation of soft touch is grossly intact without change. Passive range of motion is intact at the left knee without pain, patient does have significant discomfort on attempted active range of motion. Midline well-healed postsurgical scar from prior knee arthroplasty. Swelling without overt effusion of the left knee is noted. Results & Data Results & Data Vital Signs (Past 12 Hours) Vital Signs Temp Pulse Resp BP Pulse Ox O2 Del Method 09/04/23 15:03 93 Room Air 09/04/23 13:28 36.6 C 62 20 101/62 97 Room Air PG Care Time/CCT Total # of Minutes Spent Total Time Spent with Patient: Total time spent is greater than 50% in coordination of care (as documented) at patient's floor/unit and/or counseling patient: Coding Level of Care Code 91798 INT INP/OBS CARE 2/55MIN Diagnoses Fall W19.XXXA Atrial fibrillation with rapid ventricular response I48.91 Diastolic HF (heart failure) I50.30 GERD (gastroesophageal reflux disease) K21.9 DMII (diabetes mellitus, type 2) E11.9 GRACIE (obstructive sleep apnea) G47.33 CKD (chronic kidney disease), stage III N18.30 CAD (coronary artery disease) I25.10
[2023-09-04] MEDS ORDERED: GLUCOSE 40% GEL 15 GM TUBE PO PRN (18:38)
[2023-09-04] MEDS ORDERED: DEXTROSE 50% 50 ML SYRINGE IV PRN (18:38)
[2023-09-04] MEDS ORDERED: GLUCOSE 10 TAB/TUBE PO PRN (18:38)
[2023-09-04] MEDS ORDERED: CARBOHYDRATES FOR HYPOGLYCEMIA PO PRN (18:38)
[2023-09-04] MEDS ORDERED: GLUCAGON FOR INJ 1 MG VIAL SQ PRN (18:38)
[2023-09-04] MEDS ORDERED: ASPIRIN 81 MG ECTAB PO SCH (21:00)
[2023-09-04] MEDS: ACETAMINOPHEN 325 MG TAB PO PRN (22:11)
[2023-09-04] MEDS: VALSARTAN/SACUBITRIL 26/24MG TAB PO SCH (22:12)
[2023-09-04] MEDS: RANOLAZINE 500 MG ER TAB PO SCH (22:12)
[2023-09-04] MEDS: GABAPENTIN 600 MG TAB PO SCH (22:12)
[2023-09-04] MEDS: APIXABAN 5 MG TABLET PO SCH (22:12)
[2023-09-04] MEDS: METOPROLOL SUCC 25MG EXT REL TAB PO SCH (22:12)
[2023-09-04] MEDS: ATORVASTATIN 20 MG TAB PO SCH (22:12)
[2023-09-04] MEDS: LANTUS PER UNIT CHARGE SQ SCH (22:54)
[2023-09-04] MEDS: INSULIN ASPART PER UNIT CHARGE SC SCH (22:55)
[2023-09-05] MEDS ORDERED: INFLUENZA VACCINE HIGH-DOSE (HD-IIV4) PF 65+ 0.7mL SYR IM ONE (03:11)
[2023-09-05 06:56] LABS: Basophils # (auto) 0.05 K/uL (0.00-0.20); Basophils % (auto) 0.6 %; Eosinophils # (auto) 0.18 K/uL (0.00-0.50); Eosinophils % (auto) 2.1 %; Hematocrit (blood only) 39.5 % (42.0-52.0); Hemoglobin 13.7 g/dl (14.0-18.0); Immature Granulocytes # (auto) 0.03 K/uL (0.01-0.20); Immature Granulocytes % (auto) 0.3 %; Lymphocytes # (auto) 1.76 K/uL (1.20-3.40); Lymphocytes % (auto) 20.5 %; Mean Corpuscular Hgb Conc 34.7 g/dL (32.0-36.0); Mean Corpuscular Volume 103.7 fL (80.0-100.0); Mean Platelet Volume 9.4 fL (9.4-12.4); Monocytes # (auto) 0.83 K/uL (0.11-0.59); Monocytes % (auto) 9.7 %; Neutrophils # (auto) 5.73 K/uL (1.40-6.50); Neutrophils % (auto) 66.8 %; Platelet Count 240 K/uL (130-400); RDW Coefficient of Variation 12.8 % (11.5-14.5); RDW Standard Deviation 48.6 fL (36.4-46.3); Red Blood Count 3.81 M/uL (4.70-6.10); White Blood Count 8.58 K/ul (4.8-10.8)
[2023-09-05 07:32] LABS: Calcium 8.6 mg/dl (8.6-10.3); Creatinine Clr Calc Pharmacy 50.8 ml/min; Est GFR (African American) 53.5 ml/min; Est GFR (Non-African American) 46.1 ml/min; Potassium 4.5 mmol/L (3.5-5.1)
[2023-09-05] MEDS: INSULIN ASPART PER UNIT CHARGE SC SCH ×4 (09:25→20:50)
[2023-09-05] MEDS: LANTUS PER UNIT CHARGE SQ SCH ×2 (09:26→20:49)
[2023-09-05] MEDS: AMIODARONE 200 MG TAB PO SCH ×2 (09:45→16:29)
[2023-09-05] MEDS: APIXABAN 5 MG TABLET PO SCH ×2 (09:46→20:53)
[2023-09-05] MEDS: BUMETANIDE 1 MG TAB PO SCH (09:46)
[2023-09-05] MEDS: CHOLECALCIFEROL 1,000 UNITS 25 MCG TAB PO SCH (09:47)
[2023-09-05] MEDS: GABAPENTIN 600 MG TAB PO SCH ×3 (09:47→20:53)
[2023-09-05] MEDS: SPIRONOLACTONE 25 MG TAB PO SCH (09:47)
[2023-09-05] MEDS: FOLIC ACID 400 MCG TAB PO SCH (09:47)
[2023-09-05] MEDS: RANOLAZINE 500 MG ER TAB PO SCH ×2 (09:47→20:53)
[2023-09-05] MEDS: PANTOprazole 40 MG TAB PO SCH (09:47)
[2023-09-05] MEDS: VALSARTAN/SACUBITRIL 26/24MG TAB PO SCH ×2 (09:47→20:53)
[2023-09-05] MEDS: ACETAMINOPHEN 325 MG TAB PO PRN ×2 (12:45→20:52)
--- NOTE | 2023-09-05 15:46 | Hospitalist Progress Note ---
Date of Service September 05, 2023 Assessment & Plan (1) Fall: Plan: 2nd to left leg weakness/buckling of L knee/left leg "giving out" there is some subtle left hip flexion weakness but distal left leg strength seems intact he has pain in both knees much worse on left in the setting of his fall to the ground CPK wnl will obtain MRI brain - r/o CVA as cause of left leg weakness check x-rays of both hips due to hip replacement status - ensure hardware is intact if MRI brain is negative then obtain ortho consult to ensure left hip and left knee are intact, no anatomical issues causing left leg giving out, etc other possibility is that of lumbar back issues causing the left hip flexion weakness appreciate PT/OT evals of note B12 level was 400 about 1 month ago (2) Atrial fibrillation with rapid ventricular response: Plan: Sinus on admission. Continue Eliquis, amiodarone, metoprolol (3) Diastolic HF (heart failure): Plan: Compensated Continue aspirin, atorvastatin, metoprolol, Entresto, spironolactone, and bumex Last echo 2020 with preserved EF (4) GERD (gastroesophageal reflux disease): Plan: Continue PPI (5) DMII (diabetes mellitus, type 2): Plan: Sliding scale basal bolus while inpatient, hold home antiglycemics Goal BSG [id number] Controlled (6) GRACIE (obstructive sleep apnea): Plan: CPAP nightly (7) CKD (chronic kidney disease), stage III: Plan: Cr stable today BMP am baseline CrCl 40s/50s (8) CAD (coronary artery disease): Plan: as above Plan family updated at bedside observe overnight; await MRI brain and ortho eval Admission and Anticipated Discharge Date Admission Date: September 04, 2023 Subjective patient reports left leg weakness and giving out sensation for about 5-7 days he started using a cane due to the weakness the left knee would buckle at times it got so bad that he fell [place] the ground [place] he fell to the ground on both knees and had a hard time getting up he is s/p b/l hip replacements and left knee replacement - latter by Dr Vasiliy Cueto denies left arm weakness denies right arm/right leg weakness no swallowing issues no speech issues has pain in both knees since the fall / injury --- worse on left otherwise feels well does have chronic back pain in addition to the other areas listed above Review of Systems Review of Systems: cv - no chest pain pulm - no dyspnea GI - no abd pain Physical Exam Physical Exam: gen - very pleasant, NAD face - no droop HENT - MMM neck - no JVD heart - RRR, s1 s2 lungs - CTA b/l abd - soft ND BS+; mildly tender over abdominal wall; bruise present Left lower abdominal wall ext - no edema, pulses 2+ b/l neuro - strength RUE/RLE 5/5 including ankle dorsi/plantarflexion; left hip - 4/5 strength, can't tell if pain is impeding his left hip flexion; left ankle dorsi/plantarflexion near 5/5; DTRs 2-3+ b/l musculo - tender over left knee anteriorly; there is an abrasion overlying the left patella; passive ROM of left knee causes pain Results & Data Results & Data Vital Signs (Past 12 Hours) Vital Signs Temp Pulse Resp BP Pulse Ox O2 Del Method 09/05/23 07:50 Room Air 09/05/23 08:11 36.6 C 60 16 109/65 93 Room Air Laboratory Results Laboratory Results - last 48 hr 09/04/23 09/04/23 09/04/23 15:02 15:02 15:05 WBC RBC Hgb POC Hgb 14.6 Hct POC Hct 43 MCV MCH MCHC RDW Std Deviation RDW Coeff of Flavia Plt Count MPV Immature Gran % (Auto) Neut % (Auto) Lymph % (Auto) [place] % (Auto) Eos % (Auto) Baso % (Auto) Neut # (Auto) Lymph # (Auto) [place] # (Auto) Eos # (Auto) Baso # (Auto) Immature Gran # (Auto) PT 11.0 INR 1.0 APTT 26.6 PTT Ratio 0.9 POC Sodium 141 Sodium POC Potassium 4.7 Potassium POC Chloride 105 Chloride Carbon Dioxide POC Total CO2 29 Anion Gap POC Anion Gap 14.0 L POC BUN 23 H BUN Creatinine POC Creatinine 1.6 H Est Cr Clr Drug Dosing Est GFR ( Amer) Est GFR (Non-Af Amer) BUN/Creatinine Ratio Glucose POC Glucose POC Glucose (other) 97 Calcium POC Ioniz Calcium Gena 1.14 Total Bilirubin 0.7 Direct Bilirubin 0.1 AST 31 ALT 33 Alkaline Phosphatase 59 Troponin I High Sens 6.1 Total Protein 6.7 Albumin 4.3 Urine Color Urine Appearance Urine pH Ur Specific [place] Urine Protein Urine Glucose (UA) Urine Ketones Urine Blood Urine Nitrite Urine Bilirubin Urine Urobilinogen Ur Leukocyte Esterase SARS-CoV-2, RNA, NAAT 09/04/23 09/04/23 09/04/23 15:43 16:28 22:45 WBC RBC Hgb POC Hgb Hct POC Hct MCV MCH MCHC RDW Std Deviation RDW Coeff of Flavia Plt Count MPV Immature Gran % (Auto) Neut % (Auto) Lymph % (Auto) [place] % (Auto) Eos % (Auto) Baso % (Auto) Neut # (Auto) Lymph # (Auto) [place] # (Auto) Eos # (Auto) Baso # (Auto) Immature Gran # (Auto) PT INR APTT PTT Ratio POC Sodium Sodium POC Potassium Potassium POC Chloride Chloride Carbon Dioxide POC Total CO2 Anion Gap POC Anion Gap POC BUN BUN Creatinine POC Creatinine Est Cr Clr Drug Dosing Est GFR ( Amer) Est GFR (Non-Af Amer) BUN/Creatinine Ratio Glucose POC Glucose 96 POC Glucose (other) Calcium POC Ioniz Calcium Gena Total Bilirubin Direct Bilirubin AST ALT Alkaline Phosphatase Troponin I High Sens Total Protein Albumin Urine Color Yellow Urine Appearance Clear Urine pH 6.5 Ur Specific [place] 1.015 Urine Protein Negative Urine Glucose (UA) Negative Urine Ketones Negative Urine Blood Negative Urine Nitrite Negative Urine Bilirubin Negative Urine Urobilinogen Negative Ur Leukocyte Esterase Negative SARS-CoV-2, RNA, NAAT NEGATIVE 09/05/23 09/05/23 09/05/23 05:53 05:53 07:46 WBC 8.58 RBC 3.81 L Hgb 13.7 L POC Hgb Hct 39.5 L POC Hct MCV 103.7 H MCH 36.0 H MCHC 34.7 RDW Std Deviation 48.6 H RDW Coeff of Flavia 12.8 Plt Count 240 MPV 9.4 Immature Gran % (Auto) 0.3 Neut % (Auto) 66.8 Lymph % (Auto) 20.5 [place] % (Auto) 9.7 Eos % (Auto) 2.1 Baso % (Auto) 0.6 Neut # (Auto) 5.73 Lymph # (Auto) 1.76 [place] # (Auto) 0.83 H Eos # (Auto) 0.18 Baso # (Auto) 0.05 Immature Gran # (Auto) 0.03 PT INR APTT PTT Ratio POC Sodium Sodium 140 POC Potassium Potassium 4.5 POC Chloride Chloride 108 H Carbon Dioxide 26 POC Total CO2 Anion Gap 6 POC Anion Gap POC BUN BUN 21 Creatinine 1.40 POC Creatinine Est Cr Clr Drug Dosing 50.8 Est GFR ( Amer) 53.5 Est GFR (Non-Af Amer) 46.1 BUN/Creatinine Ratio 15.0 Glucose 102 H POC Glucose 102 H POC Glucose (other) Calcium 8.6 POC Ioniz Calcium Gena Total Bilirubin Direct Bilirubin AST ALT Alkaline Phosphatase Troponin I High Sens Total Protein Albumin Urine Color Urine Appearance Urine pH Ur Specific [place] Urine Protein Urine Glucose (UA) Urine Ketones Urine Blood Urine Nitrite Urine Bilirubin Urine Urobilinogen Ur Leukocyte Esterase SARS-CoV-2, RNA, NAAT 09/05/23 09/05/23 11:26 16:52 WBC RBC Hgb POC Hgb Hct POC Hct MCV MCH MCHC RDW Std Deviation RDW Coeff of Flavia Plt Count MPV Immature Gran % (Auto) Neut % (Auto) Lymph % (Auto) [place] % (Auto) Eos % (Auto) Baso % (Auto) Neut # (Auto) Lymph # (Auto) [place] # (Auto) Eos # (Auto) Baso # (Auto) Immature Gran # (Auto) PT INR APTT PTT Ratio POC Sodium Sodium POC Potassium Potassium POC Chloride Chloride Carbon Dioxide POC Total CO2 Anion Gap POC Anion Gap POC BUN BUN Creatinine POC Creatinine Est Cr Clr Drug Dosing Est GFR ( Amer) Est GFR (Non-Af Amer) BUN/Creatinine Ratio Glucose POC Glucose 111 H 108 H POC Glucose (other) Calcium POC Ioniz Calcium Gena Total Bilirubin Direct Bilirubin AST ALT Alkaline Phosphatase Troponin I High Sens Total Protein Albumin Urine Color Urine Appearance Urine pH Ur Specific [place] Urine Protein Urine Glucose (UA) Urine Ketones Urine Blood Urine Nitrite Urine Bilirubin Urine Urobilinogen Ur Leukocyte Esterase SARS-CoV-2, RNA, NAAT PG Care Time/CCT Total # of Minutes Spent Total Time Spent with Patient: Total time spent is greater than 50% in coordination of care (as documented) at patient's floor/unit and/or counseling patient: Coding Level of Care Code 77493 SUB INP/OBS CARE 3/50MIN Diagnoses Fall W19.XXXA Encounter type: initial encounter Atrial fibrillation with rapid ventricular response I48.91 Diastolic HF (heart failure) I50.30 GERD (gastroesophageal reflux disease) K21.9 DMII (diabetes mellitus, type 2) E11.9 GRACIE (obstructive sleep apnea) G47.33 CKD (chronic kidney disease), stage III N18.30 CAD (coronary artery disease) I25.10 (1) Fall Encounter type: initial encounter Qualified Code(s): W19.XXXA - Unspecified fall, initial encounter
--- NOTE | 2023-09-05 20:03 | Magnetic Resonance Report ---
MRI OF THE BRAIN WITHOUT IV CONTRAST CLINICAL HISTORY: Left lower extremity weakness COMPARISON STUDY: CT of the brain dated 09/04/2023 TECHNIQUE: MRI of the brain was performed utilizing various T1 and T2-weighted sequences in the axial , sagittal, and coronal planes. IV contrast was not administered for this examination. FINDINGS: Brain parenchyma: There is age-related involutional change noting mild subcortical and periventricula r microangiopathic disease. There is no hemorrhage or mass effect. There is no restricted diffusion t o suggest acute ischemia. Brooks-white matter differentiation is preserved. No extra-axial fluid collec tion is seen. The cerebellar tonsils are normal in configuration. Ventricles, sulci, and cisterns: Prominent secondary to involutional change. Pituitary and sella: Unremarkable. Intracranial vasculature: Normal flow voids are maintained at the skull base. Orbits: The bony orbits are grossly intact. Orbital contents are normal in appearance noting bilatera l ocular lens implants. Sinuses and mastoids: There is mild mucosal thickening within the left maxillary antrum. The remainin g paranasal sinuses and mastoid air vessels are clear. Calvarium: Unremarkable. Cervical cord: Partially visualized cervical spinal cord is normal in morphology and signal intensity . IMPRESSION: No acute intracranial abnormality. ACT 112: Negative or not required by law. Electronically signed by: Florentino Xavier M.D. 09/05/2023 8:01 PM
[2023-09-05] MEDS: METOPROLOL SUCC 25MG EXT REL TAB PO SCH (20:53)
[2023-09-05] MEDS: ATORVASTATIN 20 MG TAB PO SCH (20:53)
[2023-09-06 08:02] LABS: Basophils # (auto) 0.05 K/uL (0.00-0.20); Basophils % (auto) 0.7 %; Eosinophils # (auto) 0.24 K/uL (0.00-0.50); Eosinophils % (auto) 3.5 %; Hematocrit (blood only) 38.9 % (42.0-52.0); Hemoglobin 13.4 g/dl (14.0-18.0); Immature Granulocytes # (auto) 0.01 K/uL (0.01-0.20); Immature Granulocytes % (auto) 0.1 %; Lymphocytes # (auto) 1.96 K/uL (1.20-3.40); Lymphocytes % (auto) 28.6 %; Mean Corpuscular Hemoglobin 35.4 pg (25.0-34.0); Mean Corpuscular Hgb Conc 34.4 g/dL (32.0-36.0); Mean Corpuscular Volume 102.9 fL (80.0-100.0); Mean Platelet Volume 9.4 fL (9.4-12.4); Monocytes # (auto) 0.61 K/uL (0.11-0.59); Monocytes % (auto) 8.9 %; Neutrophils # (auto) 3.99 K/uL (1.40-6.50); Neutrophils % (auto) 58.2 %; Platelet Count 223 K/uL (130-400); RDW Coefficient of Variation 12.9 % (11.5-14.5); RDW Standard Deviation 48.6 fL (36.4-46.3); Red Blood Count 3.78 M/uL (4.70-6.10); White Blood Count 6.86 K/ul (4.8-10.8)
[2023-09-06] MEDS: VALSARTAN/SACUBITRIL 26/24MG TAB PO SCH (08:06)
[2023-09-06] MEDS: RANOLAZINE 500 MG ER TAB PO SCH (08:06)
[2023-09-06] MEDS: APIXABAN 5 MG TABLET PO SCH (08:06)
[2023-09-06] MEDS: GABAPENTIN 600 MG TAB PO SCH ×2 (08:06→13:28)
[2023-09-06] MEDS: BUMETANIDE 1 MG TAB PO SCH (08:07)
[2023-09-06] MEDS: AMIODARONE 200 MG TAB PO SCH (08:07)
[2023-09-06] MEDS: SPIRONOLACTONE 25 MG TAB PO SCH (08:08)
[2023-09-06] MEDS: FOLIC ACID 400 MCG TAB PO SCH (08:08)
[2023-09-06] MEDS: CHOLECALCIFEROL 1,000 UNITS 25 MCG TAB PO SCH (08:08)
[2023-09-06] MEDS: PANTOprazole 40 MG TAB PO SCH (08:08)
[2023-09-06 08:26] LABS: BUN Creatinine Ratio 14.5 (10-20); Calcium 8.7 mg/dl (8.6-10.3); Est GFR (African American) 51.2 ml/min; Est GFR (Non-African American) 44.2 ml/min; Potassium 4.5 mmol/L (3.5-5.1)
[2023-09-06] MEDS: LANTUS PER UNIT CHARGE SQ SCH (08:28)
[2023-09-06] MEDS: INSULIN ASPART PER UNIT CHARGE SC SCH ×2 (08:28→12:22)
--- NOTE | 2023-09-06 10:22 | XRay Report ---
XR hips DAGMAR 1v w pelvis CLINICAL HISTORY: b/l THR; fall, eval hardware TECHNIQUE: 2 views of the right hip and single frontal view of the pelvis were obtained. Comparison: Comparison is made to femur radiograph 09/04/2023 FINDINGS: There is no evidence of an acute fracture. Total hip arthoplasty hardware is seen without perihardwar e lucency or hardware fracture. The posterior spinal fixation hardware is seen. Vascular calcificatio ns are noted. IMPRESSION: No acute fracture. Bilateral total hip arthroplasty is seen. ACT 112: Negative or not required by law. Electronically signed by: Marlon Bender M.D. 09/06/2023 10:20 AM
--- NOTE | 2023-09-06 11:33 | Orthopedic Consultation ---
Date of Consultation September 06, 2023 Assessment & Plan (1) Transient left leg weakness: 83-year-old male with transient left lower extremity weakness -Weightbearing as tolerated left lower extremity -Physical therapy -Medical management -Left total hip arthroplasty and knee arthroplasty are more or less stable without complication he has painless range of motion of his hip. He notes that his strength has now improved back to baseline. He is able to straight leg raise against resistance intact and has full painless range of motion of his hip. I do not suspect that his hip hardware or knee hardware are related to his transient weakness. He does have a history of previous lumbar fusion. Conside ring his weakness has improved I would recommend conservative treatment he may otherwise follow-up with his spine surgeon as an outpatient if this were to recur. Orthopedics will sign off at this time. History of Present Illness Reason for Consultation: Left lower extremity weakness Attending Physician: Addy Evans MD History of Present Illness 83-year-old male presenting with a chief complaint of left lower extremity weakness. He reports that he has experienced some mild temporary weakness that has since improved but he had some weakness whenever he was reaching under his RV to do something and his left lower extremity gave out. He is undergoing CVA work-up. Does have a previous history of bilateral total hip arthroplasties as well as left total knee arthroplasty and lumbar fusion. Orthopedics was asked to evaluate for lower extremity weakness. Allergies Allergy/AdvReac Type Severity Reaction Status Date / Time oxycodone AdvReac Mild NAUSEA/VOMI Verified 05/02/22 09:02 TTING Home Medications Medication Instructions Recorded Confirmed Type folic acid 800 mcg tablet 0.8 mg PO DAILY 08/10/20 09/04/23 History spironolactone 25 mg tablet 25 mg PO QAM 08/10/20 09/04/23 History cetirizine 10 mg tablet (Zyrtec) 10 mg PO DAILY PRN Allergy Symptoms 07/03/21 History metformin 500 mg tablet,extended 500 mg PO QAM 07/03/21 09/04/23 History release 24 hr aspirin 81 mg capsule 81 mg PO Q2D 07/19/21 09/04/23 History bumetanide 1 mg tablet 0.5 mg PO QAM 07/19/21 09/04/23 History cholecalciferol (vitamin D3) 25 25 mcg PO DAILY 07/19/21 09/04/23 History mcg (1,000 unit) chewable tablet (Vitamin D3) cinnamon bark 500 mg capsule 1,000 mg PO QAM 07/19/21 09/04/23 History (Cinnamon) coenzyme Q10 10 mg capsule (Co 200 mg PO DAILY 07/19/21 09/04/23 History Q-10) metoprolol succinate 25 mg 25 mg PO HS 07/19/21 09/04/23 History tablet,extended release 24 hr omega-3 fatty acids 1,000 mg PO DAILY 07/19/21 09/04/23 History omeprazole 20 mg capsule,delayed 20 mg PO QAM 07/19/21 09/04/23 History release acetaminophen 650 mg 1,300 mg PO BID 08/05/23 09/04/23 History tablet,extended release apixaban 5 mg tablet (Eliquis) 5 mg PO BID 08/05/23 09/04/23 History atorvastatin 40 mg tablet 20 mg PO HS 08/05/23 09/04/23 History gabapentin 600 mg tablet 600 mg PO TID 08/05/23 09/04/23 History glucosamine HCl 1,500 mg tablet 1,500 mg PO QAM 08/05/23 09/04/23 History krill oil 500 mg PO HS 08/05/23 09/04/23 History multivitamin with iron-mineral 1 tab PO HS 08/05/23 09/04/23 History ranolazine 500 mg tablet,extended 500 mg PO BID 08/05/23 09/04/23 History release,12 hr sacubitril 24 mg-valsartan 26 mg 1 tab PO BID 08/05/23 09/04/23 History tablet (Entresto) semaglutide 0.25 mg or 0.5 mg (2 0.5 mg subcut Q7D 08/05/23 09/04/23 History mg/3 mL) subcutaneous pen injector (Ozempic) amiodarone 200 mg tablet 200 mg PO BIDM #60 tabs 08/06/23 09/04/23 Rx Patient History Medical History Afib needs to cardioversion and had one done 07/02 SHARA positive CAD (coronary artery disease) Carotid artery plaque CKD (chronic kidney disease), stage III Diabetic neuropathy Diastolic HF (heart failure) Diverticulosis DMII (diabetes mellitus, type 2) Elevated cholesterol GERD (gastroesophageal reflux disease) History of cardioversion 07/02 HTN (hypertension) Hyperlipidemia Kidney stone hx of and passed on own Obesity GRACIE (obstructive sleep apnea) cpap Osteoarthritis Surgical History H/O bilateral hip replacements H/O laminectomy lumbar H/O total knee replacement History of ankle surgery History of back surgery History of cholecystectomy Hx of colonoscopy Hx of total knee arthroplasty left Family History Other Coronary heart disease Diabetes Social History Smoking Status: Former smoker Smoking End Date: greater than 50 years ago; Second Hand Exposure: No; Do You Dip or Chew Tobacco: No; Hx Alcohol Use: Yes Alcohol type: beer, wine and hard liquor Hx Substance Use: No Preferred Language: Green[place]ic Communication Ability: Effective Photographer Required: No Beliefs That Will Affect Care: None marital status: Current Living Situation: Spouse Other Information That Helps Us Care for You: No Feels Safe at Home: Yes Safety Concerns: Feels Safe At This Time Assistive Devices: Cane, CPAP and Walker Physical Exam Constitutional: No acute distress, resting comfortably in bed Musculoskeletal: Left lower extremity -Surgical scars over left hip and left knee. There is painless range of motion of the left hip as well as the left knee. No erythema is present. -Able to straight leg raise against resistance as well as flex and extend knee. SILT- f/s/spn/dpn/t/s Fires HF/Q/TA/EHL/GSC +DP/PT Results & Data Vital Signs (Past 12 Hours) Vital Signs Temp Pulse Resp BP Pulse Ox O2 Del Method 09/06/23 08:00 Room Air 09/06/23 07:50 36.9 C 61 18 121/72 98 Room Air Diagnostic Findings Left total hip arthroplasty is in satisfactory position without fracture subsid ence or loosening
--- NOTE | 2023-09-06 14:24 | Discharge Summary ---
Date of Service September 06, 2023 Admission HPI Per Admitting Provider Mary is an 83-year-old male with a past medical history of A-fib with RVR on Eliquis, heart failure on Entresto, GERD, DM 2, CKD 3, CAD, diabetic nephropathy was brought to the ER by ambulance for an unwitnessed fall. 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 "Wren like the muscles just aren't there". No snap/pop. KNee does not luck. Feels unstable like it is going to buckle in the last week. Has neuropathy so not sure if there is any new numbness/tingling. No dysarthria. No vision change. Medical History: Reviewed Medications: Reviewed Surgical History: Reviewed Family history: Reviewed Allergies: Reviewed Social History: No tobacco. rare social etoh. no recreational drug use Code Status: DNR/DNI Discharge Exam gen - very pleasant, NAD face - no droop HENT - MMM neck - no JVD heart - RRR, s1 s2 lungs - CTA b/l abd - soft ND BS+; mildly tender over abdominal wall; bruise present Left lower abdominal wall ext - no edema, pulses 2+ b/l neuro - strength RUE/RLE 5/5 including ankle dorsi/plantarflexion; left hip - 4/5 strength, can't tell if pain is impeding his left hip flexion; left ankle dorsi/plantarflexion near 5/5; DTRs 2-3+ b/l musculo - tender over left knee anteriorly; there is an abrasion overlying the left patella; passive ROM of left knee causes pain Discharge Data Allergies Allergy/AdvReac Type Severity Reaction Status Date / Time oxycodone AdvReac Mild NAUSEA/VOMI Verified 05/02/22 09:02 TTING Consultations 09/04/23 18:19 ED Decision to Admit Stat 09/06/23 08:03 Consult Orthopedic Surgery Routine Ordered Studies 09/04/23 14:35 CT abd pelvis IV con only Stat CT cervical spine wo con Stat CT head/brain wo con Stat CT lumbar spine w con Stat 09/05/23 15:44 MR brain wo con Routine Hospital Course (1) Fall: 2nd to left leg weakness/buckling of L knee/left leg "giving out" there is some subtle left hip flexion weakness but distal left leg strength seems intact he has pain in both knees much worse on left in the setting of his fall to the ground CPK wnl will obtain MRI brain - r/o CVA as cause of left leg weakness check x-rays of both hips due to hip replacement status - ensure hardware is intact if MRI brain is negative then obtain ortho consult to ensure left hip and left knee are intact, no anatomical issues causing left leg giving out, etc other possibility is that of lumbar back issues causing the left hip flexion weakness appreciate PT/OT evals of note B12 level was 400 about 1 month ago (2) Atrial fibrillation with rapid ventricular response: Sinus on admission. Continue Eliquis, amiodarone, metoprolol (3) Diastolic HF (heart failure): Compensated Continue aspirin, atorvastatin, metoprolol, Entresto, spironolactone, and bumex Last echo 2020 with preserved EF (4) GERD (gastroesophageal reflux disease): Continue PPI (5) DMII (diabetes mellitus, type 2): Sliding scale basal bolus while inpatient, hold home antiglycemics Goal BSG [id number] Controlled (6) GRACIE (obstructive sleep apnea): CPAP nightly (7) CKD (chronic kidney disease), stage III: Cr stable today BMP am baseline CrCl 40s/50s (8) CAD (coronary artery disease): as above Plan family updated at bedside observe overnight; await MRI brain and ortho eval Home Health Attestation I certify that this patient is under my care and that I, or a physicians assistant finance director working with me, had a face to-face encounter that meets the home health [id number] encounter requirements with this patient. The encounter with the patient was in whole, or in part, for the following medical condition, which is the primary reason for home health care (list medical condition): I certify that, based on my findings, the following services are medically necessary home health services: My clinical findings support the need for the above services because: Further, I certify that my clinical findings support that this patient is homebound (i.e. absences from home require considerable and taxing effort and are for medical reasons or religion services or infrequently or of short duration when for other reasons) because: Certification for Home Health Services: Based on the above findings, I certify that this patient is confined to the home and needs intermittent long-term care, physical therapy and/or speech therapy or continues to need occupational therapy. The patient is under my care, and I have initiated the establishment of the plan of care. This patient will be followed by a physician who will periodically review the plan of care. Discharge Plan Discharge Items Patient Disposition: Home - Home Health Services Reason For Visit: FALL, WEAKNESS Discharge Diagnosis: 1. 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 fall with trauma to both knees (abrasions, contusion, etc) 3. no evidence of any hardware issues of the back, hips, or left knee 4. atrial fibrillation Activity: As commented below Activity Comment: gradually increase activities over the next week as tolerated Driving/Machine Use: Resume 3 days after discharge Non-emergency contact: Primary Care Provider and Specialist Call non-emergency contact if: you have any medication questions, your symptoms worsen and your pain is not controlled Follow-up/Referrals: Usama Devi, [Surgeon] - (if you continue to have problems with your left leg please see Dr Devi with [facility]; Dr Devi performed your back surgery in 2003) Olivia Rangel PA-C [Primary Care Provider] - (see within 1 week ) Diet: Carb Consistent or DM2 and Heart Healthy Addtl Attending Provider Instructions: Mr Escobedo, You were hospitalized at [facility] after suffering a fall at home. For several days your left leg had been feeling week and the knee felt like it was buckling/giving way. You have abrasions on your knees from the fall. You had a large battery of x-rays, CT scans, and MRIs to ensure you did not break any bones or damage the hardware in your back/hips/left knee. Fortunately we did not see any broken bones or hardware issues. Dr Kashif Palacios, orthopedics, saw you in consult and felt that the hips and left knee were ok following your fall. He agreed the hardware in these locations looked good/intact. Your brain MRI did NOT show a stroke as the cause of your left leg symptoms. In 2003 you had extensive back surgery for lumbar spine disease. Dr Parminder Devi did this procedure. It is possible that some of your recent left leg symptoms were due to your lumbar spine disease. While here your strength in the left leg improved. Your walking improved as well. If your left leg continues to give you troubles please see Dr Devi with [facility]. If you have any troubles with your left knee please see Dr Cueto with [facility]. For the abrasions on your knees simply wash with gentle soap & water. You can cover the abrasions if desired. They sell [id number] dressings at most pharmacies that resemble the dressing you have on your right knee. For knee pain you can use ice, 20-30 minutes, a few times each day - as desired. You can continue your tylenol as previous. You may use up to 3000mg in a 24- hour period safely. Finally, we are setting you up with home PT/OT. Medications - we have left all of your usual medications the same except for your spironolactone. During your stay your blood pressures were tightly controlled. Please reduce your spironolactone dose to 12.5mg (1/2 tablet ) once daily. Follow-up - see separate section Return to [facility] if - * you have recurrent falls * you have severe generalized weakness * you develop weakness in any limb * you have uncontrolled pain in any joint * any other concerns It was our pleasure to care for you! -Dr Evans Pending Studies at Discharge: No Stand-Alone Forms: My [facility], Smoking Cessation Medications and DC Order Prescriptions: Continued folic acid 800 mcg tablet 0.8 mg PO DAILY metformin 500 mg tablet extended release 24 hr 500 mg PO QAM cetirizine [Zyrtec] 10 mg Tablet 10 mg PO DAILY PRN (Reason: Allergy Symptoms) atorvastatin 40 mg tablet 20 mg PO HS gabapentin 600 mg tablet 600 mg PO TID acetaminophen 650 mg Tablet Extended Release 1,300 mg PO BID multivitamin with iron-mineral Tablet 1 tab PO HS ranolazine 500 mg tablet extended release 12 hr 500 mg PO BID glucosamine HCl 1,500 mg Tablet 1,500 mg PO QAM Eliquis 5 mg tablet 5 mg PO BID Entresto 24-26 mg tablet 1 tab PO BID krill oil 500 mg PO HS Ozempic 0.25 mg or 0.5 mg (2 mg/3 mL) pen injector 0.5 mg SUBCUT Q7D coenzyme Q10 [Co Q-10] 10 mg Capsule 200 mg PO DAILY omeprazole 20 mg Capsule,Delayed Release(Dr/Ec) 20 mg PO QAM metoprolol succinate 25 mg tablet extended release 24 hr 25 mg PO HS omega-3 fatty acids Capsule 1,000 mg PO DAILY cinnamon bark [Cinnamon] 500 mg Capsule 1,000 mg PO QAM cholecalciferol (vitamin D3) [Vitamin D3] 25 mcg (1,000 unit) Tablet,Chewable 25 mcg PO DAILY aspirin 81 mg Capsule 81 mg PO Q2D bumetanide 1 mg tablet 0.5 mg PO QAM Changed spironolactone 25 mg tablet 12.5 mg PO QAM Qty: 1 0RF amiodarone 200 mg Tablet 200 mg PO DAILY Qty: 60 0RF Krames/Other Patient Handouts: Diabetes- Measuring Glucose at Home Admission Data Admit Date/Time: 09/04/23 18:38 Attending Provider: Addy Evans Admit Provider: Zach Kimball Primary Care Provider: Olivia Rangel Other Providers: Zach Kimball ; Kashif Palacios Coding Diagnoses Fall [id number].XXXA Encounter type: initial encounter Atrial fibrillation with rapid ventricular response I48.91 Diastolic HF (heart failure) I50.30 GERD (gastroesophageal reflux disease) K21.9 DMII (diabetes mellitus, type 2) E11.9 GRACIE (obstructive sleep apnea) G47.33 CKD (chronic kidney disease), stage III N18.30 CAD (coronary artery disease) I25.10
== END 2023-09-06 14:53 | disposition home health service (06) ==
LOC: ED 12:49 → EDINP 12:49 → SUATTDRO 18:38 → 3N 19:54

== ENCOUNTER 2023-11-06 07:02 | Inpatient (IN) ==
--- NOTE | 2023-10-31 09:37 | Anesthesiology Consultation ---
Date of Service October 31, 2023 Assessment & Plan (1) Encounter for pre-operative examination: Chart Review Chart Review: Acceptable Risk for Surgery and Patient NOT seen in Pre Admission Testing - Discussed case with Dr. Chaudhry- patient can proceed as scheduled - Check BSG AM DOS - Ozempic instructions: Patient informed by PAT nursing to stop 7 days prior to surgery Patient advised by PAT nursing to check with prescriber to see if alternative diabetic management changes recommended while holding Ozempic- if so, patient to call back to PAT to update chart and discuss if any further preop medication instructions needed. Patient's last dose of Ozempic was 10/30/23- will be off Ozempic x 7 days by DOS on 10/30/23. -Infectious Disease screening: Per PAT nursing assessment on 10/30/23. No known infectious disease contacts in past 10 days or current infectious disease symptoms. No recent travel outside the country. DCCV 08/05/23= Done under MAC Patient seen by cardio 09/10/23= seen for follow up on PAF on amiodarone and diastolic CHF. Patient recently admitted the hospital with weakness in his legs. Did not have stroke. Feels related to spinal stenosis and compression on back. From a cardiac standpoint he has no chest pain or pressure. Shortness of breath is stable. No further episodes of atrial fibrillation since he was placed on amiodarone and converted. [facility] capacity was only 59% of maximal for his age. (Report not available per cardio office) He had a very hypertensive response to exercise. Cardiac cath 2016-30% pLAD lesion, 40% distal LAD lesion. Maintaining sinus rhythm with combination of beta-blockers and amiodarone. He has atrial fibrillation and loses his atrial kick that his diastolic heart failure rapidly decompensates and he feels quite poorly with faster heart rates feeling palpitations. Amiodarone seems to be maintaining sinus rhythm at this point. In hospital BP is on the low sidestopped BPH medication to reduce spironolactone. Remains on anticoagulation to reduce his risk of cardioembolic events. Otherwise he is stable. Follow-up in 3 months. History Surgery Operation Date: 11/06/23 07:45 Proposed Procedures p T9-T10 Decompression Fusion, Spinal Cord Monitoring - Usama Devi DO Height/Weight Height: 6 ft Weight: 121.109 kg Allergies Allergy/AdvReac Type Severity Reaction Status Date / Time oxycodone AdvReac Mild NAUSEA/VOMI Verified 10/30/23 14:50 TTING Medications Home Medications Medication Instructions Recorded Confirmed Last Taken folic acid 800 mcg tablet 0.8 mg PO HS 08/10/20 10/30/23 Unknown cetirizine 10 mg tablet (Zyrtec) 10 mg PO QAM PRN Allergy Symptoms 07/03/21 10/30/23 Unknown metformin 500 mg tablet,extended 500 mg PO QAM 07/03/21 10/30/23 09/04/23 release 24 hr aspirin 81 mg capsule 81 mg PO Q2D 07/19/21 10/30/23 Unknown bumetanide 1 mg tablet See Rx Instructions .Route .COMPLEX 07/19/21 10/30/23 09/04/23 cholecalciferol (vitamin D3) 25 50 mcg PO QAM 07/19/21 10/30/23 09/04/23 23:27 mcg (1,000 unit) chewable tablet (Vitamin D3) cinnamon bark 500 mg capsule 1,000 mg PO QAM 07/19/21 10/30/23 09/04/23 (Cinnamon) coenzyme Q10 10 mg capsule (Co 200 mg PO QAM 07/19/21 10/30/23 09/04/23 Q-10) omeprazole 20 mg capsule,delayed 20 mg PO QAM 07/19/21 10/30/23 09/04/23 release acetaminophen 650 mg 1,300 mg PO Q6H PRN Pain 08/05/23 10/30/23 09/04/23 tablet,extended release apixaban 5 mg tablet (Eliquis) 5 mg PO BID 08/05/23 10/30/23 09/04/23 gabapentin 600 mg tablet 600 mg PO TID 08/05/23 10/30/23 09/04/23 glucosamine HCl 1,500 mg tablet 1,500 mg PO BID 08/05/23 10/30/23 09/04/23 krill oil 500 mg PO HS 08/05/23 10/30/23 09/04/23 multivitamin with iron-mineral 1 tab PO HS 08/05/23 10/30/23 09/03/23 ranolazine 500 mg tablet,extended 500 mg PO BID 08/05/23 10/30/23 09/04/23 release,12 hr sacubitril 24 mg-valsartan 26 mg 1 tab PO BID 08/05/23 10/30/23 09/04/23 tablet (Entresto) semaglutide 0.25 mg or 0.5 mg (2 0.5 mg subcut Q7D 08/05/23 10/30/23 09/04/23 mg/3 mL) subcutaneous pen injector (Ozempic) spironolactone 25 mg tablet 12.5 mg (1/2 x 25 mg) PO QAM #1 tab 09/06/23 10/30/23 09/04/23 amiodarone 200 mg tablet 200 mg PO QAM 10/30/23 10/30/23 Unknown atorvastatin 20 mg tablet 20 mg PO HS 10/30/23 10/30/23 Unknown metoprolol succinate 50 mg 50 mg PO HS 10/30/23 10/30/23 Unknown tablet,extended release 24 hr midodrine 2.5 mg tablet 2.5 mg PO BID 10/31/23 10/31/23 Unknown Additional Notes: Patient's called in 10/31/23- states patient takes Midodrine 2.5g BID- added to med list. Patient's instructed to have him continue as prescribed Past Medical History Medical History History of recent hospitalization 09/04/23-09/06/23 [facility] for a fall History of cardioversion multiple; most recent 08/05/23 Hyperlipidemia SHARA positive Diastolic HF (heart failure) chronic diastolic HF GERD (gastroesophageal reflux disease) Diverticulosis Diabetic neuropathy DMII (diabetes mellitus, type 2) on metformin and ozempic GRACIE (obstructive sleep apnea) cpap Obesity Afib cardioversion [facility] 08/05/23; pt on medication including asa and eliquis and follows with cardio Carotid artery plaque CKD (chronic kidney disease), stage III CAD (coronary artery disease) per 08/06/23 cardio note, cath 2016: 30% proximal LAD lesion and a 40% distal LAD lesion. Elevated cholesterol HTN (hypertension) Kidney stone hx of and passed on own Past Family History Family History Other Coronary heart disease Diabetes Past Surgical History Surgical History Hx of colonoscopy Hx of total knee arthroplasty left History of cholecystectomy H/O laminectomy lumbar H/O total knee replacement History of ankle surgery History of back surgery H/O bilateral hip replacements Social History Smoking Status: Former smoker Smoking cigarettes per day: 20 Do You Dip or Chew Tobacco: No Smoking End Date: Hx Alcohol Use: No Alcohol type: beer, wine and hard liquor alcohol intake frequency: a few times a month Hx Substance Use: No substance use type: does not use Lab Results Anesthesia Preop Results Results Anesthesia Widget: WBC 7.10 K/ul (4.8-10.8) 10/30/23 Hgb 14.2 g/dl (14.0-18.0) 10/30/23 Hct 40.8 % (42.0-52.0) L 10/30/23 Plt 267 K/uL (130-400) 10/30/23 Na 140 mmol/L (136-145) 10/30/23 K 4.7 mmol/L (3.5-5.1) 10/30/23 Cl 105 mmol/L (98-107) 10/30/23 CO2 26 mmol/L (21-32) 10/30/23 BUN 27 mg/dl (6-23) H 10/30/23 Creat 1.39 mg/dl (0.6-1.4) 10/30/23 Glucose Level 81 mg/dl (70-99(Fasting)) 10/30/23 PT 10.9 Seconds (9.0-12.0) 10/30/23 PTT 29 Seconds (21-31) 10/30/23 INR 1.0 (0.9-1.1) 10/30/23 Urine Color Yellow 10/30/23 Urine Appearance Clear (Clear) 10/30/23 Urine pH 5.5 (4.5-7.5) 10/30/23 Urine Specific [place] 1.010 (1.000-1.030) 10/30/23 Urine Protein Negative (Negative) 10/30/23 Urine Glucose (UA) Negative (Negative) 10/30/23 Urine Ketones Negative (Negative) 10/30/23 Urine Blood Negative (Negative) 10/30/23 Urine Nitrite Negative (Negative) 10/30/23 Urine Bilirubin Negative (Negative) 10/30/23 Urine Urobilinogen Negative (Negative) 10/30/23 Urine Leukocyte Esterase Negative (Negative) 10/30/23 Blood Type A Negative 10/30/23 Antibody Screen NEGATIVE 10/30/23 Testing Electrocardiogram Date: 10/30/23 Sinus bradycardia at 58bpm Low voltage QRS Poor R wave progression, consider anterior NE vs lead placement vs LVH When compared to EKG Sep 04, 2023- TN interval has decreased per cardio (PRWP present since at least 2020 per record review) Chest X-Ray Date: 10/30/23 FINDINGS: PA and lateral chest radiographs are compared to study dated 09/04/2023 and correlated with chest CT dated 08/12/2010. The heart is enlarged. The pulmonary vasculature is noncongested. There is bibasilar scarring/atelectasis. No airspace consolidation or pleural effusion is identified. There is no pneumothorax. The skeletal structures are osteopenic. The bony thorax appears intact. Degenerative change is noted in the shoulders and spine. Cholecystectomy clips are seen in the upper abdomen. IMPRESSION: Cardiomegaly with no active disease in the chest. Echocardiogram Date: 10/25/21 EF: 65% LV Function: normal RWMA: + none Other Findings: + LVH (mild/concentric ) Small pericardial effusion localized to apex with echodense material Valves not fully interrogated on 2D ECHO Since prior study on 03/02/2021- there is no significant change per cardio Other Testing Brain MRI 09/05/23= No acute intracranial abnormality
[~2023-11-06 07:02] MED LIST changes: +ACETAMINOPHEN 500 MG TAB PO SCH; -ASPI81TA28 PO; -CHOL100027 PO; -CINN1CAP2 PO; -COEN1CAP32 PO; +CeleBREX 200 MG CAP PO SCH; -FERR324T PO; -FISHOIL PO; -FLX10 PO; +GABAPENTIN 300 MG CAP PO SCH; -GLUCTAB PO; -HYDR-3419 PO; -LISI-729 PO; +LR 60ML/HR IV SCH; -MULT-506 PO; -PRLSR20 PO; -SIMV10TA2 PO; -TERA1CAP63 PO; -ULT/50 PO; -WARF1TAB PO
[2023-11-06] MEDS: LR 15ML/HR IV SCH ×2 (07:56→09:09)
--- NOTE | 2023-11-06 09:53 | History & Physical Bridge Note ---
Date of Service November 06, 2023 History & Physical Bridge Note I have examined the patient, reviewed the History & Physical and in the interval since the performance of the History & Physical I have noted the following changes of clinical significance: no changes noted
--- NOTE | 2023-11-06 09:55 | History & Physical Report ---
Date of Service November 06, 2023 Assessment & Plan (1) Myelopathy concurrent with and due to spinal stenosis of thoracic region: Plan: T9-T10 decompression and fusion History of Present Illness Chief Complaint: Back pain and leg weakness Primary Care Provider: Olivia Rangel PA-C This is an 83-year-old male well-known to me the presents with decline in status and evidence of severe spinal stenosis and thoracic spine with evidence of myelopathy Allergies Allergy/AdvReac Type Severity Reaction Status Date / Time oxycodone AdvReac Mild NAUSEA/VOMI Verified 10/30/23 14:50 TTING Home Medications Medication Instructions Recorded Confirmed Type folic acid 800 mcg tablet 0.8 mg PO HS 08/10/20 11/06/23 History cetirizine 10 mg tablet (Zyrtec) 10 mg PO QAM PRN Allergy Symptoms 07/03/21 11/06/23 History metformin 500 mg tablet,extended 500 mg PO QAM 07/03/21 11/06/23 History release 24 hr aspirin 81 mg capsule 81 mg PO Q2D 07/19/21 11/06/23 History bumetanide 1 mg tablet See Rx Instructions .Route .COMPLEX 07/19/21 10/30/23 History cholecalciferol (vitamin D3) 25 50 mcg PO QAM 07/19/21 11/06/23 History mcg (1,000 unit) chewable tablet (Vitamin D3) cinnamon bark 500 mg capsule 1,000 mg PO QAM 07/19/21 11/06/23 History (Cinnamon) coenzyme Q10 10 mg capsule (Co 200 mg PO QAM 07/19/21 11/06/23 History Q-10) omeprazole 20 mg capsule,delayed 20 mg PO QAM 07/19/21 11/06/23 History release acetaminophen 650 mg 1,300 mg PO Q6H PRN Pain 08/05/23 11/06/23 History tablet,extended release apixaban 5 mg tablet (Eliquis) 5 mg PO BID 08/05/23 11/06/23 History gabapentin 600 mg tablet 600 mg PO TID 08/05/23 11/06/23 History glucosamine HCl 1,500 mg tablet 1,500 mg PO BID 08/05/23 11/06/23 History krill oil 500 mg PO HS 08/05/23 11/06/23 History multivitamin with iron-mineral 1 tab PO HS 08/05/23 11/06/23 History ranolazine 500 mg tablet,extended 500 mg PO BID 08/05/23 11/06/23 History release,12 hr sacubitril 24 mg-valsartan 26 mg 1 tab PO BID 08/05/23 11/06/23 History tablet (Entresto) semaglutide 0.25 mg or 0.5 mg (2 0.5 mg subcut Q7D 08/05/23 11/06/23 History mg/3 mL) subcutaneous pen injector (Ozempic) spironolactone 25 mg tablet 12.5 mg (1/2 x 25 mg) PO QAM #1 tab 09/06/23 11/06/23 Rx amiodarone 200 mg tablet 200 mg PO QAM 10/30/23 10/30/23 History atorvastatin 20 mg tablet 20 mg PO HS 10/30/23 11/06/23 History metoprolol succinate 50 mg 50 mg PO HS 10/30/23 11/06/23 History tablet,extended release 24 hr midodrine 2.5 mg tablet 2.5 mg PO BID 10/31/23 11/06/23 History amiodarone 200 mg tablet mg 11/06/23 History Past Med/Surg History Medical History History of recent hospitalization 09/04/23-09/06/23 [facility] for a fall History of cardioversion multiple; most recent 08/05/23 Hyperlipidemia SHARA positive Diastolic HF (heart failure) chronic diastolic HF GERD (gastroesophageal reflux disease) Diverticulosis Diabetic neuropathy DMII (diabetes mellitus, type 2) on metformin and ozempic GRACIE (obstructive sleep apnea) cpap Obesity Afib cardioversion [facility] 08/05/23; pt on medication including asa and eliquis and follows with cardio Carotid artery plaque CKD (chronic kidney disease), stage III CAD (coronary artery disease) per 08/06/23 cardio note, cath 2016: 30% proximal LAD lesion and a 40% distal LAD lesion. Elevated cholesterol HTN (hypertension) Kidney stone hx of and passed on own Surgical History Hx of colonoscopy Hx of total knee arthroplasty left History of cholecystectomy H/O laminectomy lumbar H/O total knee replacement History of ankle surgery History of back surgery H/O bilateral hip replacements Family History Other Coronary heart disease Diabetes Social History Smoking Status: Former smoker Tobacco Type: Cigarettes Cigarettes Per Day: 20; Smoking End Date: ; Second Hand Exposure: No; Do You Dip or Chew Tobacco: No; Tobacco Cessation Education Requested by Patient: No Hx Alcohol Use: No Hx Substance Use: No Preferred Language: Latvian Communication Ability: Effective Dental Laboratory Technician Required: No Beliefs That Will Affect Care: None marital status: Current Living Situation: Spouse Other Information That Helps Us Care for You: No Feels Safe at Home: Yes Safety Concerns: Feels Safe At This Time Assistive Devices: CPAP, Denture - Upper, Glasses, Hearing Aid - Bilateral, Lift Chair, Raised Toilet Seat and Walker Physical Exam Physical Exam: Patient is alert and oriented heart is regular in rhythm Lungs clear Results & Data Results & Data Vital Signs (Past 12 Hours) Vital Signs Temp Pulse Resp Pulse Ox O2 Del Method 11/06/23 07:46 36.6 C 99 Room Air 11/06/23 07:37 36.6 C 61 18 99 Room Air
[2023-11-06] MEDS ORDERED: fentaNYL citrate PF 100 MCG/2 ML VIAL ONE ×2 (10:13→11:20)
[2023-11-06] MEDS ORDERED: PROPOFOL IV EMULSION 10 MG/ML 20 ML VIAL IV ONE (10:14)
[2023-11-06] MEDS ORDERED: LIDOCAINE 2% 2 ML VIAL/AMP(20MG/ML) INFIL ONE (10:14)
[2023-11-06] MEDS ORDERED: DEXAMETHASONE SOD INJ 4 MG/ML VIAL ONE (10:14)
[2023-11-06] MEDS ORDERED: ROCURONIUM BROMIDE 10 MG/ML 5 ML VIAL IV ONE ×3 (10:14→11:58)
[2023-11-06] MEDS ORDERED: ONDANSETRON INJ 2 MG/ML 2 ML VIAL ONE (10:14)
[2023-11-06] MEDS ORDERED: ceFAZolin 330 MG/ML 1 GM VIAL ONE (10:21)
[2023-11-06] MEDS ORDERED: BUPIVACAINE/EPINEPHRINE 0.25% 1:200,000 30 ML VIAL ONE (10:21)
--- OUTSIDE RECORDS SUMMARY | 2023-11-06 12:08 | External Medical Summary | Continuity of Care Document ---
Author Name Unknown Organization [address] Address [address] [place] [address] [id number] Care Team Providers Care Money Counter Name Role Phone Olivia Rangel Primary Care Physician [phone] [id number] Date(s): 10/28/23 - 10/28/23 [facility] [address], [address] [place] [address] [phone] Encounter Diagnosis Bilateral leg weakness(Discharge Diagnosis) - 10/28/23 Cervical spinal stenosis(Discharge Diagnosis) - 10/28/23 Diabetes mellitus with polyneuropathy(Discharge Diagnosis) - 10/28/23 Hypertensive heart disease with diastolic heart failure and stage 3 chronic kidney disease(Discharge Diagnosis) - 10/28/23 Peripheral neuropathy(Discharge Diagnosis) - 10/28/23 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) - 10/28/23 Diabetes mellitus with peripheral angiopathy without gangrene(Discharge Diagnosis) - 10/28/23 Other symptoms and signs involving the musculoskeletal system(Final) - Type 2 diabetes mellitus with diabetic peripheral angiopathy without gangrene (Final) - Type 2 diabetes mellitus with diabetic polyneuropathy(Final) - Hypertensive heart and chronic kidney disease with heart failure and stage 1 through stage 4 chronic kidney disease, or unspecified chronic kidney disease (Final) - Type 2 diabetes mellitus with diabetic chronic kidney disease(Final) - Chronic kidney disease (CKD), stage III (moderate)(Discharge Diagnosis) - 10/28/23 Discharge Disposition: Home or Self Care Attending Physician: PRIETO Rangel Jessica A Referring Physician: PRIETO Rangel Jessica A Allergies, Adverse Reactions, Alerts Substance Reaction Severity Status flecainide SOB - Shortness of breath Mild Ac tive Assessment and Plan Extracted from: Title:4 month f/u Author:PRIETO Rangel, Korey Georges Date:10/28/23 1.Bilateral leg weakness Bilateral leg weakness is chronic and remains uncontrolled despite recently completing in-home PT/OT. Goalis prevention of falls and resolution of symptoms. He is seeing orthopedics as leg weakness is felt to be related to cervical spinal stenosis. He is scheduled to begin outpatient PT tomorrow for his neckand see Dr. Devi on . Encouraged to continueusing rollator walker at all times to ambulate to prevent falls. Patient is agreeable and aware. Updated CBC w/ diff, iron studies, CMP and B12 level ordered as well. He will follow- up again in 3 to 4 months for recheck. Last clinic note last labs reviewed today. 2.Cervical spinal stenosis Cervical spinal stenosis is chronic, uncontrolled and suspected to be source of bilateral leg weakness. As above in #1. Goal is resolution of symptoms. 3.Peripheral neuropathy Peripheral neuropathy is chronic and currently stable with gabapentin 600 mg, 1 tab p.o. 3 times daily. Encouraged to continue current regimen for management of pain. To use rollator walker at all times as mentioned above for prevention of falls and loss of balance. 4.Type 2 diabetes mellitus with chronic kidney disease Type 2 diabetes with peripheral angiopathy, stage III CKDand peripheral neuropathy is chronic and well controlled. Outside A1c from July 2023 was stable at 5.6%. Outside results and most recent inpatient discharge summary was reviewed today. As mentioned above, we did discuss discontinuing either his metformin or Ozempic givendiabetes is extremely well controlled, but explained that this also places him at risk for hypoglycemia, dizziness and falls. Denies having any hypoglycemic symptoms and for now he would prefer not to make any changes to his medications givenhe is otherwise feeling well. He will follow-up again in 1 to 2 months as planned and we will do full diabetic labs at that time. 5.Diabetes mellitus with peripheral angiopathy without gangrene As above in #4. 6.Diabetes mellitus with polyneuropathy As above in #3 and #4. 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 To continue current regimen and with care of cardiology. Time spent on pre-visit plannin minute on chart review Total time spent communicating with the patient: 20minutes Time spent documenting pertinent clinical information into the EMR:12 minutes Total time: 33 minutes Immunizations Given and Recorded Vaccine Date Status Refusal Reason SARS-CoV-2 (COVID-19) mRNA-1273 vaccine 03/13/22 R ecorded SARS-CoV-2 (COVID-19) mRNA-1273 vaccine 1 01/10/21 Recorded SARS-CoV-2 (COVID-19) mRNA-1273 vaccine 2 12/13/20 Recorded influenza virus vaccine, inactivated 08/24/21 Give n influenza virus vaccine, inactivated 08/03/20 Give n influenza virus vaccine, inactivated 08/10/19 Give n influenza virus vaccine, inactivated 08/10/18 Give n influenza virus vaccine, inactivated 08/08/17 Give n influenza virus vaccine, inactivated 08/30/16 Give n influenza virus vaccine, inactivated 08/30/15 Give n influenza virus vaccine, inactivated 09/22/14 Give n influenza virus vaccine, inactivated 08/11/13 Give n influenza virus vaccine, inactivated 09/21/12 Give n tetanus toxoids-diphtheria, Td (Adult) 07/19/20 Gi hermann zoster vaccine, inactivated 07/29/18 Recorded zoster vaccine, inactivated 04/10/18 Recorded pneumococcal 13-valent vaccine 09/22/14 Given tetanus/diphtheria/pertuss, acel (Tdap) 05/30/11 R ecorded zoster vaccine live 05/13/08 Recorded pneumococcal 23-valent vaccine 10/29/06 Recorded pneumococcal 23-valent vaccine 04/07/96 Recorded 1Result Comment: In [place], [facility]; [id number] 2Result Comment: in [place]; [id number] Medications amiodarone 200 mg oral tablet Start: 09/03/23 15:10:00 EDT, 1 tab, PO, Daily, Disp# 90 tab, Refills: 3, TAKE 1 TABLET BY MOUTH DAILY WITH A MEAL, Pharmacy: [facility] Start Date: 09/03/23 Status: Ordered apixaban 5 mg oral tablet Start: 09/03/23 15:11:00 EDT, 1 tab, PO, bid, Disp# 180 tab, Refills: 3, Pharmacy: [id number] Start Date: 09/03/23 Status: Ordered aspirin 81 mg oral enteric coated tablet Start: 06/15/12 9:09:00, 1 tab, PO, q48h Start Date: 06/15/12 Status: Ordered atorvastatin 20 mg oral tablet Start: 08/01/23 9:33:00 EDT, 1 tab, PO, Daily, Disp# 90 tab, Refills: 3, Pharmacy: [place] [id number] Start Date: 08/01/23 Status: Ordered bumetanide 0.5 mg oral tablet Start: 09/11/23 15:57:00 EDT, See Instructions, Disp# 180 tab, Refills: 11, 2 tab by mouth Friday, Friday, and Friday. 1 tab by mouth Friday, , Friday, and Friday, Note to Pharmacy: CANCEL 1 mg tablets, Pharmacy: [facility] Start Date: 09/11/23 Status: Ordered Cinnamon Start: 06/15/12 9:16:00, 1,000 mg =, PO, Daily Start Date: 06/15/12 Status: Ordered CoQ10 Start: 02/12/21 14:02:00 EDT, 200 mg =, PO, Daily Start Date: 02/12/21 Status: Ordered cyclobenzaprine 10 mg oral tablet Start: 07/31/22 10:17:00 EDT, See Instructions, Disp# 90 tab, Refills: 4, Take 1 tablet by mouth once daily, Pharmacy: [facility] Start Date: 07/31/22 Status: Ordered Entresto 24 mg-26 mg oral tablet Start: 04/15/23 13:49:00 EDT, 1 tab, PO, bid, Disp# 180 tab, Refills: 3, Pharmacy: [place] [id number] Start Date: 04/15/23 Status: Ordered folic acid 1 mg oral tablet Start: 09/10/23 10:59:00 EDT, 1 mg =, PO, qPM, Disp# 90 tab, Refills: 3, Pharmacy: [place] [id number] Start Date: 09/10/23 Status: Ordered FreeStyle (28G) Lancets Start: 10/07/22 16:00:00 EST, See Instructions, Disp# 100 each, Refills: 5, test glucose q AM, Pharmacy: [facility] Start Date: 10/07/22 Status: Ordered FreeStyle Lite Glucose Monitor Start: 10/07/22 16:00:00 EST, See Instructions, Disp# 1 each, test glucose qAM, Pharmacy: [facility] Start Date: 10/07/22 Status: Ordered FreeStyle Lite Test Strips 100 ct Start: 10/07/22 16:00:00 EST, See Instructions, Disp# 100 each, Refills: 5, test glucose qAM, Pharmacy: [facility] Start Date: 10/07/22 Status: Ordered gabapentin 600 mg oral tablet Start: 08/01/23 9:43:00 EDT, 1 tab, PO, tid, Disp# 270 tab, Refills: 3, Note to Pharmacy: Cancel 400 mg capsules, Pharmacy: [facility] Start Date: 08/01/23 Status: Ordered Glucosamine Chondroitin MSM Complex Start: 05/30/11 8:23:00, 1 tab/dose unkown, PO, bid, tab Start Date: 05/30/11 Status: Ordered Lidoderm 5% topical patch Start: 02/25/23 9:59:00 EDT, 3 patch, topical, Daily, Disp# 90 patch, Refills: 5, remove patches after 12 hours, Pharmacy: [facility] Start Date: 02/25/23 Stop Date: 08/24/23 Status: Ordered MegaKrill oral capsule Start: 03/14/16 14:14:00, 1 cap, PO, Daily Start Date: 03/14/16 Status: Ordered MetFORMIN (Eqv-Glucophage XR) 500 mg oral tablet, extended release Start: 08/01/23 9:43:00 EDT, See Instructions, Disp# 90 tab, Refills: 3, Take 1 tablet by mouth once daily, Pharmacy: [facility] Start Date: 08/01/23 Status: Ordered metoprolol succinate 50 mg oral tablet, extended release Start: 06/17/22 10:08:00 EDT, 1 tab, PO, Daily, Disp# 90 tab, Refills: 3, Pharmacy: [facility] Start Date: 06/17/22 Status: Ordered Metoprolol Succinate ER 50 mg oral tablet, extended release Start: 09/03/23 13:19:00 EDT, See Instructions, Disp# 90 tab, Refills: 3, Take 1 tablet by mouth once daily, Pharmacy: [facility] Start Date: 09/03/23 Status: Ordered MVI-12 Start: 05/30/11 8:23:00, 1 tab, PO, Daily Start Date: 05/30/11 Status: Ordered omeprazole 20 mg oral delayed release capsule Start: 04/15/23 11:16:00 EDT, See Instructions, Disp# 90 cap, Refills: 3, Take 1 capsule by mouth once daily, Pharmacy: [facility] Start Date: 04/15/23 Status: Ordered Ozempic (0.25 mg or 0.5 mg dose) 2 mg/3 mL subQ pen Start: 04/08/23 16:25:00 EDT, 0.5 mg, subQ, q7days, Disp# 9 mL, Refills: 3, Pharmacy: [place] [id number], Supply Start Date: 04/08/23 Stop Date: 04/02/24 Status: Ordered ranolazine 500 mg oral tablet, extended release Start: 06/02/23 15:36:00 EDT, 1 tab, PO, bid, Disp# 60 tab, Refills: 6, Pharmacy: [facility] Start Date: 06/02/23 Status: Ordered rOPINIRole 1 mg oral tablet TAKE 1 TABLET BY MOUTH ONCE DAILY Start Date: 06/27/23 Status: Ordered spironolactone 25 mg oral tablet Start: 10/10/23 16:09:00 EST, 1 tab, PO, Daily, Disp# 90 tab, Refills: 3, Pharmacy: [facility] Start Date: 10/10/23 Status: Ordered Tylenol Arthritis Extended Release 650 mg oral tablet, extended release Start: 04/10/16 11:26:00, 2 tab, PO, q8h Start Date: 04/10/16 Status: Ordered Vitamin D3 2000 intl units oral capsule Start: 06/15/12 9:14:00, 1 cap, PO, Daily Start Date: 06/15/12 Status: Ordered ZyrTEC Start: 03/14/16 14:15:00 EDT, 10 mg =, PO, Daily Start Date: 03/14/16 Status: Ordered Mental Status 10/28/23 Barriers to Learning one year Hearing de ficit Mandatory Health Literacy Documentation Yes Health Literacy Communication Barriers N ever Primary Language Malian Problem List Condition Confirmation Course Effective Dates Status H ealth Status Informant SHARA positive 1 Confirmed Active Aortic atherosclerosis 2 Confirmed Active Carotid artery plaque Confirmed Active Chronic diastolic CHF (congestive heart failure) Confirmed Active Chronic kidney disease (CKD) stage G3a/A1, moderately decreased glomerular filtration rate (GFR) between 45-59 mL/min/1.73 square meter and albuminuria creatinine ratio less than 30 mg/g Confirmed 03/19/21 Active Atherosclerotic heart disease of [place] coronary artery with other forms of angina pectoris Confirmed Active Diabetes mellitus with peripheral angiopathy without gangrene 3 Confirmed Active 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 stage 3 chronic kidney disease Discharge Diagnosis 10/28/23 Type 2 diabetes mellitus with chronic kidney disease Discharge Diagnosis 10/28/23 Bilateral leg weakness Discharge Diagnosis 10/28/23 Non-Specified Cervical spinal stenosis Discharge Diagnosis 10/28/23 Chronic kidney disease (CKD), stage III (moderate) 1 Discharge Diagnosis 10/28/23 Non-Specified 13:03 DAGO - PATRICIA Lucero Stacey Added per [employer] [facility]-OF-69/7/23 Procedures Procedure Date Related Diagnosis Body Site Status Chest x-ray 1 12/17/22 Completed KUB X-ray 2 12/17/22 Completed Chest X-ray 3 06/17/22 Completed Diabetic retinal eye exam 4 04/24/22 Completed Mohs surgery 02/18/22 Completed Shave biopsy and cauterizati on of skin 5 11/01/21 Completed Chest X-ray 6 07/03/21 Completed MRI arthrography of shoulder 7 03/26/19 Completed Shave biopsy and cauterization of skin 03/09/[address] of abdomen and pelvis 8 07/01/[address] of lumbar spine 9 07/01/17 Comp leted X-ray of spine, Lumbar 10 07/01/17 Completed X-ray of thoracic spine 11 07/01/17 Completed CEIOL - Cataract extraction and insertion of intraocular lens 12 09/11/16 Completed CPAP treatment 13 09/25/15 Complet ed Chest x-ray 14 08/30/15 Completed Cataract 15 06/15/13 Completed Abdominal aortic aneurysm screening 16 05/03/13 Completed Prosthetic total arthroplast y of right hip 04/09/13 Completed left total hip 07/03/12 Completed colonoscopy: diverticulosis 17 09/06/09 Completed L1-L5 laminectomy and Holley rods 05/24/04 Completed left knee menisectomy and ACL repair 1996 Completed cholecystectomy 1993 Completed Right thumb degloving (water -skiing), graft from abdomen 1967 Completed Left carpal tunnel release Completed Left knee Completed Left partial knee replacement Completed left TKA Completed Left ulnar nerve transposition Completed Right ankle fusion Comple minerva Shave biopsy of skin Comp leted Total replacement of right hip joint Completed vasectomy Completed [address] [place] [address] Impression: 1. Cardiomegaly and mild pulmonary edema [address] [place] [address] Impression: 1. Colonic and small bowel gas with small bowel loops measuring up to 33 mm in diameter. This may represent a mild ileus versus early/partial obstruction 31. Mild bibasilar interstital thickening which is likely chronic. 2. Mild cardiac megaly. This has slightly improved. 3. No evidencde for pulmonary edema. 4After dilation, pt was not found to have diabetic retinopathy. 5w/ ED&C 6Cardiomegaly with mild pulmonary vascular congestion. 7Right rotator cuff tendinopathy. Partial undersurface scuffing/tearing distal fibers supraspinatus tendon. Suspected partial tear of the subscapularis tendon. Biceps tendon tendinopathy. Capsular thickening and inflammation consistent with capsulitis. Subacromial/subdeltoid bursitits. Medial and lateral arch stenosis. Osteoarthritic changes at the glenohumeral joint space with diffuse degenerative fraying/tearing of the glenoid labrum. 8[facility] Impression: 1. No acute intra-abdominal or intrapelvic abnormality identified 2. 4 mm nonobstructing calculus of the interpolar right kidney without hydronephrosis 3. Prior decompression with posterior interbody lor and screw fixation at L3-S1 9[facility] Impression: 1. No acute fracture or dislocation of the lumbar spine 2. Prior posterior decompression with interbody lor and screw fixation at L3-S1. No evidence of hardware complication 3. Limited evaluation of the central canal and neuroforamen at the levels of prior surgery secondary to streak artifact and lack of intrathecal contrast. Within the limitations of the study, no severe central canal or foraminal narrowing is identified 4. Multilevel discogenic degeneration and facet arthropathy. 5. Levoscoliosis 10[facility] Impression: 1. Considerable degenerative disc changes. 2. Post operative change consistent with a fusion of L3 to S1 3. No evidence of compression deformity 11[facility] Impression: 1. Considerable degenerative disc changes 2. No acute processes 12right 13Compliance Summary 08/27/15 - 09/25/15 14No active disease in the chest 15left eye 16negative 17diverticulosis Results Laboratory List Name Date Complete Blood Count w Differential (CBC ,DIFFH) 10/28/23 Comprehensive Metabolic Panel (COMP META B PANEL) 10/28/23 Ferritin (FERRITIN) 10/28/23 Hemoglobin A1C (HEMOGLOBIN, A1C) 10/28/23 Iron Profile (IRON PROFILE) 10/28/23 Lipid Profile (LIPOPROTEINS) 10/28/23 Thyroid Stimulating Hormone (TSH) 3 Vitamin B12 Level (VITAMIN B12) 10/28/23 Most recent to oldest [Reference Range]: 1 eGFR CKD-EPI [>60 mL/min/1.73 m2] 51 mL/ min/1.73 m2 1 *LOW* (10/28/23 10:08 AM) Estimated Average Glucose 114 mg/dL 2 (10/28/23 10:08 AM) Non-HDL 53 mg/dL 3 (10/28/23 10:08 AM) Estimated CrCl 53.73 mL/min (10/28/23 10:43 AM) MPV [9.0-12.2 fL] 9.1 fL (10/28/23 10:08 AM) Immature Gran% 0.2 % (10/28/23 10:08 AM) Neut% 68.2 % (10/28/23 10:08 AM) Lymph% 21.2 % (10/28/23 10:08 AM) [place]% 8.2 % (10/28/23 10:08 AM) Baso% 0.2 % (10/28/23 10:08 AM) Eos% 2.0 % (10/28/23 10:08 AM) Immat Gran, Abs [0-0.4 K/uL] 0.02 K/uL 4 (10/28/23 10:08 AM) Neut, Abs [2.0-7.7 K/uL] 6.26 K/uL (10/28/23 10:08 AM) Lymph, Abs [1.0-3.4 K/uL] 1.95 K/uL (10/28/23 10:08 AM) [place], Abs [0-1.0 K/uL] 0.75 K/uL (10/28/23 10:08 AM) Baso, Abs [0-0.1 K/uL] 0.02 K/uL (10/28/23 10:08 AM) Eos, Abs [0-0.5 K/uL] 0.18 K/uL (10/28/23 10:08 AM) Type of Diff: AUTO *Unknown* (10/28/23 10:08 AM) RDW [11.5-14.2 %] 13.5 % (10/28/23 10:08 AM) Anion Gap [5-14 mmol/L] 7 mmol/L (10/28/23 10:08 AM) Alb [3.5-5.0 g/dL] 4.2 g/dL (10/28/23 10:08 AM) Alk Phos [38-126 unit/L] 52 unit/L (10/28/23 10:08 AM) ALT [<50 unit/L] 38 unit/L (10/28/23 10:08 AM) AST [15-46 unit/L] 38 unit/L (10/28/23 10:08 AM) B12 [211-946 pg/mL] 683 pg/mL (10/28/23 10:08 AM) BUN [7-20 mg/dL] 24 mg/dL *HI* (10/28/23 10:08 AM) Ca [8.4-10.2 mg/dL] 8.8 mg/dL (10/28/23 10:08 AM) Chol/HDL 2 (10/28/23:08 AM) Chol [125-200 mg/dL] 100 mg/dL *LOW* (10/28/23: AM) Cl- [96-107 mmol/L] 107 mmol/L (10/28/23 10:08 AM) HCO3 [22-30 mmol/L] 27 mmol/L (10/28/23 10:08 AM) Cret [0.70-1.30 mg/dL] 1.38 mg/dL *HI* (10/28/23 10:08 AM) Iron [50-158 ug/dL] 177 ug/dL *HI* (10/28/23:08 AM) Ferritin [17.9-464.0 ng/mL] 538.0 ng/mL 5 *HI* (10/28/23 10:08 AM) HbA1c [4.0-6.0 %] 5.6 % (10/28/23:08 AM) Glu [74-106 mg/dL] 88 mg/dL (10/28/23:08 AM) Hct [39-48 %] 42.8 % (10/28/23:08 AM) HDL [>35 mg/dL] 47 mg/dL (10/28/23:08 AM) Hgb [13.0-17.0 g/dL] 14.3 g/dL (10/28/23 10:08 AM) K [3.5-5.1 mmol/L] 4.7 mmol/L (10/28/23 10:08 AM) LDL Chol, Calculated [50-130 mg/dL] 34 m g/dL *LOW* (10/28/23 10:08 AM) MCH [28-33 pg] 35.8 pg *HI* (10/28/23 10:08 AM) MCHC [32-36 g/dL] 33.4 g/dL (10/28/23 10:08 AM) MCV [81-96 fL] 107.0 fL *HI* (10/28/23 10:08 AM) Na [137-145 mmol/L] 141 mmol/L (10/28/23 10:08 AM) Plts [150-350 K/uL] 253 K/uL (10/28/23 10:08 AM) RBC [4.40-5.60 M/uL] 4.00 M/uL *LOW* (10/28/23 10:08 AM) Fe Sat [14-50 %] 79 % *HI* (10/28/23 10:08 AM) T Bili [0.2-1.3 mg/dL] 0.5 mg/dL (10/28/23 10:08 AM) Total IBC [250-400 ug/dL] 224 ug/dL *LOW* (10/28/23 10:08 AM) Prot [6.3-8.2 g/dL] 7.0 g/dL (10/28/23 10:08 AM) Transferrin [200-360 mg/dL] 190 mg/dL *LOW* (10/28/23 10:08 AM) TG [<200 mg/dL] 97 mg/dL (10/28/23 10:08 AM) TSH [0.47-4.68 uIU/mL] 0.46 uIU/mL 6 *LOW* (10/28/23 10:08 AM) WBC [4.0-10.4 K/uL] 9.18 K/uL (10/28/23 10:08 AM) 1Result Comment: Testing Performed By: Dept of Pathology [facility] Isamar Perez, [place] [address] 2Result Comment: Testing Performed By: Dept of Pathology [facility] [place] [address] 3Result Comment: Testing Performed By: Dept of Pathology [facility] Isamar Perez [address] [place], [place] [address], [place] [address] 4Result Comment: Testing Performed By: Dept of Pathology [facility] Davon Lopez [place] [address] 5Result Comment: Testing Performed By: Dept of Pathology [facility] Isamar Perez [address] [place], [place] [address] [address] 6Result Comment: Testing Performed By: Dept of Pathology [facility] Isamar Perez, [address], [place] [address] Vital Signs Most recent to oldest [Reference Range]: 1 Patient Weight 123 kg (10/28/23 9:31 AM) Temperature [36.5-37.9 DegC] 36.6 DegC (10/28/23 9:31 AM) Heart Rate 68 bpm (10/28/23 9:31 AM) Respiratory Rate 20 br/min (10/28/23 9:31 AM) Blood Pressure 110/70mmHg (10/28/23 9:31 AM) Cuff Pulse Pressure 40 mmHg (10/28/23 9:31 AM) BP Location # 1 Left Arm, Manual (10/28/23 9:31 AM) Social History Social History Type Response Tobacco Former smoker, Cigar ettes, 1 per day. 14 year(s). Total pack years: 14. Started age 17 Years. Stopped age 31 Years. Smoking Status Never smoked cigaret rebeca Sex Male [facility] Note * PRIETO Rangel, Olivia Georges: PERFORM Event Display: [facility] Note Authored Date: Chief Complaint 4 month follow-up History of Present Illness Mary presents for 4-month follow-upof type 2 diabetes with history of diabetic neuropathy/peripheral angiopathy, stage III CKD, bilateral leg weakness, history of atrial fibrillation with RVRon anticoagulation, chronic diastolic heart failureand cervical spinal stenosis. Last clinic note wasreviewed today. In August2023, Mary was admitted to [facility] following an unwitnessed fallafter his legs had given out. He had a significantwork- upandwas found to have severe degenerative changeswithin his cervicaland lumbar spine. Orthopedics was consulted during admissionand weakness was potentially felt to be related to spinal stenosis. He has since completedin-homephysical and occupational therapywithout any significant benefit in his symptoms. He feels likethe PT/OT did help him gain better knowledgeofthe help to prevent falls, but otherwise strengthis unchanged. "My legs are no good. I do not have any balance at all." He can only standfor5 minuteswith the use of his rollator walker before he feels his legs are going to collapse.He did have an MRI of his cervical spinein the last month and is scheduled to seeorthopedic surgeon, Dr. Devi, at [facility] . Scheduled for outpatient PT tomorrow at [facility] for cervical spinal stenosis as well. Uses his walker at all times to ambulate. Regarding type II DM with known stage III CKD, neuropathy and microangiopathy, A1c in July 2023 was 5.6%. He does check his glucosedaily at home that runs around [id number]. Continues on metformin XR 500 mg once daily and Ozempic0.5 mg injected once daily. Hehas not had any known episodes of hypoglycemia. Glucose was documented to be well controlled when hospitalized. Peripheral neuropathyhas overall beenstable, but notes if he does forget his gabapentin his pain is much worse.Two nights ago he was unable to sleep as he had beenaway from his house for the day and forgot to takemidday dose of gabapentin. He was unable to sleep that evening due to pain. As long as he takes his medications he feels pain is well controlled. Describes both feet and lower legs as feeling "like leather." And with tingling sensation bilaterally. No open wounds. Chronic diastolic heart failurewith known history of atrial fibrillationis stable. [facility] and Ayla Molina, every 3 to 4 months. He was having worsening ofCHF sx in 2020/2021 to atrial fibrillation. Failed cardioversion w/ amiodarone and did undergo a. fib ablation at the [facility] in September 2021. Remains in sinus rhythm. Checks his weight, BP, pulse and pulse ox at home daily. Weight typicallyruns 269- 274lbs and has reached 280 lbs at the highest; improves w/ taking an additional dose of Bumex. BP is stable as above+ chronic dyspnea is unchanged, which he also attributes to being overweight.+ dizziness vs unsteady gait as above.No claudication, chest pain, palpitations, tachycardia, dizziness, lightheadedness, weakness, near syncope, syncope, nausea, vomiting, diarrhea, constipation, cough, LE edema, headaches, blurred vision, loss of vision, confusion or epistaxis. Hypertension with congestive heart failure as above is chronic. Checks BP at home that [id number]. Review of Systems ROS:All other systems negative, except HPI. Physical Exam Vitals & Measurements T:36.6C HR:68(Monitored) RR:20 BP:110/70 SpO2:97% WT:123.000kg(Dosing) WT:123kg PHQ2 Data(Data Documented on:10/28/2023 09:31) Emotional health assessment NEGATIVE General: Alert and oriented, No acute distress.Pleasant. Eye: Pupils are equal, round and reactive to light, Extraocular movements are intact, Normal conjunctiva. HENT: Normocephalic. Neck: Supple, No lymphadenopathy, No thyromegaly. Respiratory: Lungs are clear to auscultation, Respirations are non-labored, Breath sounds are equal, Symmetrical chest wall expansion. Cardiovascular: Normal rate, Regular rhythm, soft, grade I- GLADIS loudest at apex, No gallop, Good pulses equal in all extremities, Normal peripheral perfusion. Trace LE edema and brawny hyperpigmentation at distal LEs w/ dryness. Abdomen: Normoactive BS x 4. Soft, but distended. No tenderness, palpable masses or organomegaly. Lymphatics: No submandibular, anterior or posterior cervical adenopathy palpable. Musculoskeletal Unsteady gait, wide stance and ambulating w/ rollator walker. Integumentary: Warm, Grubbs, No pallor. Neurologic: Alert, Oriented, Cranial Nerves II-XII are grossly intact. Cognition and Speech: Oriented, Speech clear and coherent, Functional cognition intact. Psychiatric: Cooperative, Appropriate mood & affect, Normal judgment, Nonsuicidal. Assessment/Plan 1.Bilateral leg weakness Bilateral leg weakness is chronic and remains uncontrolled despite recently completing in-home PT/OT. Goalis prevention of falls and resolution of symptoms. He is seeing orthopedics as leg weakness is felt to be related to cervical spinal stenosis. He is scheduled to begin outpatient PT tomorrow for his neckand see Dr. Devi on . Encouraged to continueusing rollator walker at all times to ambulate to prevent falls. Patient is agreeable and aware. Updated CBC w/ diff, iron studies, CMP and B12 level ordered as well. He will follow-up again in 3 to 4 months for recheck. Last clinic note last labs reviewed today. 2.Cervical spinal stenosis Cervical spinal stenosis is chronic, uncontrolled and suspected to be source of bilateral leg weakness. As above in #1. Goal is resolution of symptoms. 3.Peripheral neuropathy Peripheral neuropathy is chronic and currently stable with gabapentin 600 mg, 1 tab p.o. 3 times daily. Encouraged to continue current regimen for management of pain. To use rollator walker at all times as mentioned above for prevention of falls and loss of balance. 4.Type 2 diabetes mellitus with chronic kidney disease Type 2 diabetes with peripheral angiopathy, stage III CKDand peripheral neuropathy is chronic andwell controlled. Outside A1c from July 2023 was stable at 5.6%. Outside results and most recent inpatient discharge summary was reviewed today. As mentioned above, we did discuss discontinuing either his metformin or Ozempic givendiabetes is extremely well controlled, but explained that this also places him at risk for hypoglycemia, dizziness and falls. Denies having any hypoglycemic symptoms and for now he would prefer not to make any changes to his medications givenhe is otherwise feeling well. He will follow-up again in 1 to 2 months as planned and we will do full diabetic labs at that time. 5.Diabetes mellitus with peripheral angiopathy without gangrene As above in #4. 6.Diabetes mellitus with polyneuropathy As above in #3 and #4. 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 To continue current regimen and with care of cardiology. Time spent on pre-visit plannin minute on chart review Total time spent communicating with the patient: 20minutes Time spent documenting pertinent clinical information into the EMR:12 minutes Total time: 33 minutes Problem List/Past Medical History Ongoing SHARA positive Aortic atherosclerosis Atherosclerotic heart disease of [place] coronary artery with other forms of angina pectoris Body mass index [BMI] 39.0-39.9, adult Carotid artery plaque Chronic diastolic CHF (congestive heart failure) Chronic kidney disease (CKD) stage G3a/A1, moderately decreased glomerular filtration rate (GFR) between 45-59 mL/min/1.73 square meter and albuminuria creatinine ratio less than 30 mg/g Diabetes mellitus with peripheral angiopathy without gangrene Diabetes mellitus with polyneuropathy Hypertensive heart disease with diastolic heart failure and stage 3 chronic kidney disease 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 MIXED HYPERLIPIDEMIA Morbid obesity PAF (paroxysmal atrial fibrillation) Type 2 diabetes mellitus with chronic kidney disease Historical Acute maxillary sinusitis AF (atrial fibrillation) Anticoagulated with warfarin Bacterial pneumonia Bronchiectasis, uncomplicated KIDNEY STONES Low TSH level GRACIE treated with BiPAP Pseudogout of wrist Right rotator cuff tear Procedure/Surgical History Chest x-ray (12/17/2022)KUB X-ray (12/17/2022)Chest X-ray (06/17/2022)Diabetic retinal eye exam (04/24/2022)Mohs surgery (02/18/2022)Shave biopsy and cauterization of skin (11/01/2021)Chest X-ray (07/03/2021)MRI arthrography of shoulder (03/26/2019)Shave biopsy and cauterization of skin (03/09/2018)X-ray of thoracic spine (07/01/2017)X- ray of spine, Lumbar (07/01/2017)CT of abdomen and pelvis (07/01/2017)CT of lumbar spine (07/01/2017)CEIOL - Cataract extraction and insertion of intraocular lens (09/11/2016)CPAP treatment (09/25/2015)Chest x-ray (08/30/2015)Cataract (06/15/2013)Abdominal aortic aneurysm screening (05/03/2013)Prosthetic total arthroplasty of right hip (04/09/2013)left total hip (07/03/2012)colonoscopy: diverticulosis (09/06/2009)L1-L5 laminectomy and Holley rods (05/24/2004)left knee menisectomy andACL repair (1996)cholecystectomy (1993)Right thumb degloving (water-skiing), graft from abdomen (1967)left TKAvasectomyRight ankle fusionLeft partial knee replacementLeft ulnar nerve transpositionLeft carpal tunnel releaseShave biopsy of skinLeft kneeTotal replacement of right hip joint Medications acetaminophen(Tylenol Arthritis Extended Release 650 mg oral tablet, extended release), 1300 mg= 2 tab, PO, q8h amiodarone(amiodarone 200 mg oral tablet), 200 mg= 1 tab, PO, Daily, 3 refills apixaban(apixaban 5 mg oral tablet), 5 mg= 1 tab, PO, bid, 3 refills aspirin(aspirin 81 mg oral enteric coated tablet), 81 mg= 1 tab, PO, q48h atorvastatin(atorvastatin 20 mg oral tablet), 20 mg= 1 tab, PO, Daily, 3 refills bumetanide(bumetanide 0.5 mg oral tablet), See Instructions, 11 refills cetirizine(ZyrTEC), 10 mg, PO, Daily cholecalciferol(Vitamin D3 2000 intl units oral capsule), 2000 Int_Unit= 1 cap, PO, Daily chondroitin/glucosamine/methylsulfonylmethane(Glucosamine Chondroitin MSM Complex), 1 tab/dose unkown, PO, bid cinnamon(Cinnamon), 1000 mg, PO, Daily cyclobenzaprine(cyclobenzaprine 10 mg oral tablet), See Instructions diabetes supplies(FreeStyle Lite Glucose Monitor), See Instructions diabetes supplies(FreeStyle (28G) Lancets), See Instructions, 5 refills diabetes supplies(FreeStyle Lite Test Strips [address]), See Instructions, 5 refills folic acid(folic acid 1 mg oral tablet), 1 mg, PO, qPM, 3 refills gabapentin(gabapentin 600 mg oral tablet), 600 mg= 1 tab, PO, tid, 3 refills lidocaine topical(Lidoderm 5% topical patch), 3 patch, topical, Daily, 5 refills metFORMIN(MetFORMIN (Eqv-Glucophage XR) 500 mg oral tablet, extended release), See Instructions, 3 refills metoprolol(metoprolol succinate 50 mg oral tablet, extended release), 50 mg= 1 tab, PO, Daily, 3 refills metoprolol(Metoprolol Succinate ER 50 mg oral tablet, extended release), See Instructions, 3 refills multivitamin(MVI-12), 1 tab, PO, Daily omega-3 polyunsaturated fatty acids(MegaKrill oral capsule), 1 cap, PO, Daily omeprazole(omeprazole 20 mg oral delayed release capsule), See Instructions, 3 refills ranolazine(ranolazine 500 mg oral tablet, extended release), 500 mg= 1 tab, PO, bid, 6 refills rOPINIRole(rOPINIRole 1 mg oral tablet) sacubitril-valsartan(Entresto 24 mg-26 mg oral tablet), 1 tab, PO, bid, 3 refills semaglutide(Ozempic (0.25 mg or 0.5 mg dose) 2 mg/3 mL subQ pen), 0.5 mg, subQ, q7days, 3 refills spironolactone(spironolactone 25 mg oral tablet), 1 tab, PO, Daily ubiquinone(CoQ10), 200 mg, PO, Daily Allergies flecainide (Mild)SOB - Shortness of breath Social History Smoking Status Never smoked cigarettes Alcohol - No Risk Use:Current Type:Beer, Wine Frequency:1-2 times per month Average drinks per episode in last year:1 Employment/School - No Risk Status:Retired Exercise - Regular exercise Duration (average number of minutes):10 Times per week:1-2 times/week Exercise type:Walking, Weight lifting, quit biking due to hip pain bilat. - Comments: does water walking when in [place] stopped temp. by hip pain Home/Environment - No Risk Lives with:Spouse Living situation:Home/Independent Home equipment:CPAP/BiPAP Alcohol abuse in household:No Substance abuse in household:No Smoker in household:No Injuries/Abuse/Neglect in household:No Feels unsafe at home:No Family/Friends available to help:Yes Financial concerns:No Nutrition/Health - Medium Risk Diet description:weight watchers Type of diet:Regular, Calorie restricted Caffeine intake amount:4 cups/coffee/day Sexual Sexually active:Yes Current partners:1 Substance Abuse - Denies Substance Abuse Tobacco - Low Risk Use:Former smoker Type:Cigarettes Tobacco use per day:1 Number of years:14 Total pack years:14 Started at age:17Years Stopped at age:31Years Family History Arthritis: Sister. Bladder cancer..: Father. CABG - Coronary artery bypass graft: Mother (Dx at 77 years). Cigarette smoker: Father. Coronary angioplasty: Sister (Dx at 68 years). Diabetes: Father and Sister. GLAUCOMA: Mother. Heart attack: Mother (Dx at 77 years), Father and Sister (Dx at 68). Heart disease: Mother. Lumbar spinal stenosis: Brother. Melanoma: Daughter. Osteoarthritis: Brother. Total knee joint prosthesis: Sister and Brother. Health Status Family Member(s) Son: History is negative Family Member(s) Relationship: Mother, Age: 90 Years, Cause: [place] Relationship: Father, Age: 90 Years, Cause: CHF Relationship: Sister, Age: 75 Years, Cause: old age Immunizations Vaccine Date Status SARS-CoV-2 (COVID-19) mRNA-1273 vaccine 03/13/2022 Recorded influenza virus vaccine, inactivated 08/24/2021 Given SARS-CoV-2 (COVID-19) mRNA-1273 vaccine 01/10/2021 Recorded Comments : In [place], [facility]; [id number] SARS-CoV-2 (COVID-19) mRNA-1273 vaccine 12/13/2020 Recorded Comments : in [place]; [id number] influenza virus vaccine, inactivated 08/03/2020 Given tetanus toxoids-diphtheria, Td (Adult) 07/19/2020 Given influenza virus vaccine, inactivated 08/10/2019 Given influenza virus vaccine, inactivated 08/10/2018 Given zoster vaccine, inactivated 07/29/2018 Recorded zoster vaccine, inactivated 04/10/2018 Recorded influenza virus vaccine, inactivated 08/08/2017 Given influenza virus vaccine, inactivated 08/30/2016 Given influenza virus vaccine, inactivated 08/30/2015 Given influenza virus vaccine, inactivated 09/22/2014 Given pneumococcal 13-valent vaccine 09/22/2014 Given influenza virus vaccine, inactivated 08/11/2013 Given influenza virus vaccine, inactivated 09/21/2012 Given tetanus/diphtheria/pertuss, acel (Tdap) 05/30/2011 Recorded zoster vaccine live 05/13/2008 Recorded pneumococcal 23-valent vaccine 10/29/2006 Recorded pneumococcal 23-valent vaccine 04/07/1996 Recorded Recommendations Health Maintenance Pending(in the next year) OverDue Falls Plan of Care due03/16/20and every 1year Medicare Annual Wellness Visit due03/20/23and every 1year Adult Influenza Vaccine due05/24/23and every 1year Due Adult COVID-19 Vaccination due10/28/23Unknown Frequency Due In Future Diabetes Management A1c not due until02/26/24and every 366day Diabetic Eye Exam not due until06/23/24and every 366day Satisfied(in the past 1 year) Satisfied Body Mass Index on02/18/23.Satisfied by CAIN Nowak Amanda Diabetes Management A1c on02/25/23.Satisfied by Contributor_system, [email or web address] Diabetes Nephropathy Management on02/25/23.Satisfied by Contributor_system, [email or web address] Lipid Screening on02/25/23.Satisfied by Contributor_system, [email or web address] Patient Care team information Care Team Personnel Name: MD Arizmendi Jonathan D Position: Physician - Family Med Member Role: Lifetime Relationship Address: Address: [address] [place] [address] Name: Chau Holt Todd Position: Pharmacist Schedule II Member Role: Pharmacy - Lifetime Address: Address: [address] [place] [address] [place] [address] Name: Chau Sanchez Francis Position: Pharmacist Schedule II Member Role: Pharmacy - Lifetime Address: Address: [facility] [address] [place] [id number] Name: Chau Frank Ann Position: Pharmacist Schedule II Member Role: Pharmacy - Lifetime Name: PRIETO Rangel, Olivia Georges Position: Physician Asst Ext - Family Med Member Role: Primary Care Provider Address: Address: [address] [place] [address], [place] [address] Care Team Related Persons Name: HARVINDER GERMAIN Address: home No Address Provided Name: ANASTACIO COONEY Address: home No Address Provided
[2023-11-06] MEDS ORDERED: SUGAMMADEX SODIUM 200 MG/2 ML VIAL IV ONE (12:17)
--- NOTE | 2023-11-06 12:30 | Operative Report ---
Post Operative Report Pre & Post Diagnosis Operation Date: 11/06/23 09:05 Pre-Op Diagnosis: Myelopathy concurrent with and due to spinal stenosis of thoracic region Post-Op Diagnosis: Myelopathy concurrent with and due to spinal stenosis of thoracic region I identified the patient and participated in the time-out.: Yes Procedure Operation Date: 11/06/23 09:05 Actual Procedures #1 decompression with bilateral medial facetectomies foraminotomies T8-T9 T9- T10. #2 posterior spinal fusion T8-T9 T9-T10. #3 placed posterior instrumentation T8-T10. #4 placement locally harvested morselized autograft in the posterior gutters. #5 placement of infuse collagen sponge, mass graft in the posterior gutters T8-T10. Surgeon Usama Devi, DO First Dyer Kaylyn Hampton Estimated Blood Loss 150 Findings See Below The patient is 6 foot tall weighing 123 kg with a BMI of 37. Patient's body habitus did contribute to significant technical difficulty required deepest retractors longer instruments in order to perform his procedure. This had at least 50% increased operative time. Specimens None Indications This is an 83-year-old male well-known to the presents with gross myelopathy and is here for surgical intervention. Description of Procedure Patient met with identified informed consent obtained. Patient was then taken to the operative suite underwent patient placed in a prone position the Chriss table top the Nathan frame. All bony prominences well-padded eyes inspected to ensure no external pressure placed upon the. This point the thoracolumbar spine was prepped and draped no sterile fashion. The assistance of fluoroscopy identified T9-T10 interspace. Sharp dissection with assistance bradycardia from down to and exposing this region. I then performed a complete laminectomy of T9 partial laminectomy of T8 to address severe central lateral recess and foraminal stenosis. Pedicle screws were then placed in T8-T9 on the right and T10 bilaterally. The left T9 pedicle was ossified unable to successfully gain adequate purchase subsequently I elected to incorporate T8 into the fusion construct. Rods were then locked into position and transverse processes of T8-T9-T10 burred to subcortically bone. Infuse collagen sponge bone mass graft leg autograft was placed in the posterior gutters. 15 round MEAGAN inserted. The incision was then closed with 1 Vicryl fascia 2-0 Vicryl subcutaneously and 4 Monocryl for final skin closure. Steri-Strips sterile dressing placed. Patient waken taken to PACU in stable condition. Please note Kaylyn Hampton was present at the entire procedure and all the patient positioning complex portions of the surgery and final skin closure. Lastly spinal cord monitoring was utilized at the procedure no changes noted. I attest to the content of the Intraoperative Record and any orders documented therein. Any exceptions are noted below.
[2023-11-06] MEDS ORDERED: NALOXONE HCL 0.4 MG/1 ML VIAL/CARP IV PRN ×2 (12:45→14:22)
[2023-11-06] MEDS ORDERED: PROMETHAZINE HCL 12.5 MG in SODIUM CHLORIDE 0.9% 50 ML IV PRN ×2 (12:45→14:22)
[2023-11-06] MEDS ORDERED: ONDANSETRON INJ 2 MG/ML 2 ML VIAL IV PRN ×2 (12:45→14:22)
[2023-11-06] MEDS ORDERED: ATROPINE SULFATE 0.1 MG/ML 10ML SYR IV PRN (12:45)
[2023-11-06] MEDS ORDERED: ePHEDrine sulfate 50 MG/ML AMP IV PRN (12:45)
[2023-11-06] MEDS ORDERED: FLUMAZENIL 0.1 MG/1 ML 10 ML VIAL IV PRN (12:45)
[2023-11-06] MEDS ORDERED: LABETALOL HCL IV 5 MG/ML 20ML IV PRN (12:45)
--- NOTE | 2023-11-06 12:54 | Fluoroscopy Report ---
INTRAOPERATIVE RADIOGRAPHS CLINICAL HISTORY: Thoracic spinal fusion. Fluoro time: 56 seconds Ka,r: 47.32 mGy FINDINGS: 2 spot fluoroscopic views of the lower thoracic spine are presented. There is postsurgical change from laminectomy and posterior fusion at 3 lower thoracic levels. The exact levels cannot be d elineated on the provided images. Interpedicular screws are present at all 3 levels. The orthopedic h ardware appears intact. IMPRESSION: Intraoperative images from thoracic spinal fusion surgery as above. Electronically signed by: Florentino Xavier M.D. 11/06/2023 12:53 PM
[2023-11-06] MEDS: fentaNYL citrate PF 100 MCG/2 ML VIAL IV PRN ×4 (13:02→13:17)
--- NOTE | 2023-11-06 13:30 | Anesthesiology Progress Note ---
Date of Service November 06, 2023 Anesthesia Post Procedure Vital Signs Vital Signs: Temp Pulse Pulse Resp BP Pulse Ox O2 Del Method 11/06/23 13:20 61 17 148/73 H 100 Nasal Cannula 11/06/23 13:10 62 17 144/78 H 95 Room Air 11/06/23 13:00 65 13 122/93 97 Room Air 11/06/23 12:53 36 C L 70 14 163/88 H 100 Oxymask 11/06/23 07:46 36.6 C 99 Room Air 11/06/23 07:37 36.6 C 61 18 99 Room Air O2 Flow Rate 11/06/23 13:20 3 11/06/23 13:10 11/06/23 13:00 11/06/23 12:53 5 11/06/23 07:46 11/06/23 07:37 Pain Intensity Upper Back: Pain Intensity: 4 Transfer of Care Handoff Completed per policy Notes Mental Status: alert / awake / arousable Patient Amnestic to Procedure: Yes Nausea / Vomiting: adequately controlled Pain: adequately controlled Airway Patency, RR, SpO2: stable & adequate BP & HR: stable & adequate Hydration State: stable & adequate Anesthetic Complications: no major complications apparent
[2023-11-06] MEDS ORDERED: CETIRIZINE HCL 10 MG TABLET PO PRN (14:22)
[2023-11-06] MEDS ORDERED: DO NOT ADMINISTER PNEUMOCOCCAL VACCINE PRN (14:22)
[2023-11-06] MEDS ORDERED: LORazepam 0.5 MG TAB PO PRN (14:22)
[2023-11-06] MEDS ORDERED: METOCLOPRAMIDE HCL INJ 5 MG/ML 2 ML VIAL IV PRN (14:22)
[2023-11-06] MEDS ORDERED: DO NOT ADMINISTER FLU VACCINE PRN (14:22)
[2023-11-06] MEDS ORDERED: hydrOXYzine HCl 25 MG TAB PO PRN (14:22)
[2023-11-06] MEDS ORDERED: ACETAMINOPHEN 1,000 MG/100 ML VIAL IV PRN (14:22)
[2023-11-06] MEDS ORDERED: bisacodyL 10 MG SUPP PR PRN (14:22)
[2023-11-06] MEDS ORDERED: ALUMINUM/MAGNESIUM SUSP 30 ML UDC PO PRN (14:22)
[2023-11-06] MEDS ORDERED: LORazepam 0.5 MG in SYRINGE 0.25 ML IV PRN (14:22)
[2023-11-06] MEDS ORDERED: SODIUM CHLORIDE 0.9% 1,000 ML IV SCH (14:22)
[2023-11-06] MEDS ORDERED: ACETAMINOPHEN 500 MG TAB PO PRN (14:22)
[2023-11-06] MEDS ORDERED: MAGNESIUM HYDROXIDE SUSP 30 ML UDC PO PRN (14:22)
[2023-11-06] MEDS ORDERED: HYDROmorphone INJ 1 MG/ML SYRINGE IV PRN (14:22)
[2023-11-06] MEDS ORDERED: PHARMACY GLYCEMIC MGMT CONSULT PRN (14:22)
[2023-11-06] MEDS ORDERED: diphenhydrAMINE Capsule 25 MG CAP PO PRN (14:22)
[2023-11-06] MEDS ORDERED: SOD PHOSPHATE/SOD BIPHOSPHATE ENEMA 132 ML BTL PR PRN (14:22)
[2023-11-06] MEDS ORDERED: FAMOTIDINE 20 MG TAB PO PRN (14:22)
[2023-11-06] MEDS ORDERED: ONDANSETRON 4 MG OD TAB PO PRN (14:22)
--- NOTE | 2023-11-06 14:58 | Pharmacy Report ---
Pharmacy Glycemic Short Note 2 - Date of Service November 06, 2023 - Glycemic Short BSG Results (Last 24 hours): 11/06/23 11/06/23 11/06/23 07:41 12:57 14:35 POC Glucose 109 H 121 H 144 H OUTPATIENT ANTIDIABETIC REGIMEN: * Ozempic 0.5mg SQ weekly (last dose 10/30) * Metformin 500mg daily * A1c 5.6% 07/2023 ASSESSMENT: * Type 2 diabetic admitted for spinal decompression/fusion * Patient is POD #0 * Dexamethasone 4mg IV given elizabeth-op; Dexamethasone 6mg IV Q AM begins tomorrow * BSGs well controlled thus far but suspected PO intake will lead to rapidly climbing BSGs given steroid/recent surgery * Will give Lantus with evening meal and also again at HS per scale * Novolog doses will be based upon wt and mod/severe stress level PLAN FOR INPATIENT GLYCEMIC CONTROL: * Hold outpatient diabetes medications * Basal insulin * Lantus 15 units SQ x1 with evening meal; 0-30 units at HS depending on BSG * Bolus insulin * NovoLog per scale ACHS or Q6hrs while NPO as well as 0200 check tonight * Goal Range: Low 110 mg/dL - High 140 mg/dL * Correction Factor: 20 mg/dL/unit * Nutritional / Prandial insulin per carb ratio of 1 unit per 5 grams CHO consumed
--- NOTE | 2023-11-06 15:10 | Orthopedic Progress Note ---
Date of Service November 06, 2023 Assessment & Plan (1) Swelling of right hand: Plan: He is swelling and ecchymosis in the thenar eminence of his right hand, consistent with a hematoma after needle insertion for spinal cord monitoring. This is likely consistent with a small vessel bleed. No large vessels are present in this area. With his lack of significant pain at rest, I do not think that this represents compartment syndrome, and therefore do not think it requires urgent surgical intervention. I would recommend elevation and icing of the swollen area. I will plan to recheck the area in a few hours to evaluate for any significant interval change. Admission and Anticipated Discharge Date Admission Date: November 06, 2023 Subjective Patient just had T9-[address] Devi under spinal cord monitoring, finished about 1.5 hours ago. Postoperatively, swelling was noted in the thenar eminence of the right hand, immediately adjacent to one of the needle puncture sites for the spinal cord monitoring. Patient states that the area is sore at rest, but not excessively painful. Physical Exam Physical Exam: Examination of the right hand reveals moderate ecchymosis and swelling in the thenar eminence, immediately surrounding the puncture site for the spinal cord monitoring. The area is tender to palpation, but he denies significant pain at rest. He does seem to be resting comfortably. Sensation is intact to light touch on the ulnar and radial borders of the tip of the thumb. Thumb is warm and well-perfused. Results & Data Vital Signs (Past 12 Hours) Vital Signs Temp Pulse Pulse Resp BP Pulse Ox O2 Del Method 11/06/23 13:31 36.3 C L 60 13 142/67 H 99 Nasal Cannula 11/06/23 13:20 61 17 148/73 H 100 Nasal Cannula 11/06/23 13:10 62 17 144/78 H 95 Room Air 11/06/23 13:00 65 13 122/93 97 Room Air 11/06/23 12:53 36 C L 70 14 163/88 H 100 Oxymask 11/06/23 07:46 36.6 C 99 Room Air 11/06/23 07:37 36.6 C 61 18 99 Room Air O2 Flow Rate 11/06/23 13:31 2 11/06/23 13:20 3 11/06/23 13:10 11/06/23 13:00 11/06/23 12:53 5 11/06/23 07:46 11/06/23 07:37
[2023-11-06] MEDS ORDERED: LANTUS PER UNIT CHARGE SC SCH ×2 (16:30→21:00)
[2023-11-06] MEDS: ASPIRIN 81 MG ECTAB PO SCH (16:45)
[2023-11-06] MEDS: GABAPENTIN 600 MG TAB PO SCH ×2 (16:45→19:54)
[2023-11-06] MEDS: INSULIN ASPART PER UNIT CHARGE SC SCH ×2 (16:45→21:38)
[2023-11-06] MEDS: MIDODRINE HCL 2.5 MG TAB PO SCH (16:48)
[2023-11-06] MEDS: HYDROCODONE/ACETAMOPHEN 5/325MG TAB PO PRN (17:15)
--- NOTE | 2023-11-06 17:56 | Critical Care Consultation ---
Date of Consultation November 06, 2023 Assessment & Plan (1) Swelling of right hand: PLAN: Neuro: Myelopathy -Postop day 0, symptomatology improved Resp: Obstructive sleep apnea -May wear home CPAP CV: History of CHF: Appears euvolemic History coronary artery disease -Continue statin, home metoprolol, home midodrine, home spironolactone, valsartan Fluids/Renal: Chronic kidney disease stage III -Tolerating p.o. 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 This includes time spent evaluating patient, direct bedside care, chart review, placing orders, interpretation of diagnostic studies, discussion with consultants, patient, and/or family members regarding treatment decisions, as well as other required patient management activities. History of Present Illness Reason for Consultation: postop Attending Physician: Usama Devi DO History of Present Illness Patient is an 83-year-old male who is postop day 0 from a decompressive spinal fusion in the T8-T10 region for myelopathy. He has a significant cardiac history for which she was cleared by cardiology history includes paroxysmal at rial fibrillation on amiodarone, cardiac cath in 2016, previously on Ozempic, diabetes and obstructive sleep apnea, chronic kidney disease stage III, hypertension. Given multiple medical complexities been asked to evaluate the patient. Allergies Allergy/AdvReac Type Severity Reaction Status Date / Time oxycodone AdvReac Mild NAUSEA/VOMI Verified 12/07/23 14:50 TTING Home Medications Medication Instructions Recorded Confirmed Type folic acid 800 mcg tablet 0.8 mg PO HS 08/10/20 11/06/23 History cetirizine 10 mg tablet (Zyrtec) 10 mg PO QAM PRN Allergy Symptoms 07/03/21 11/06/23 History metformin 500 mg tablet,extended 500 mg PO QAM 07/03/21 11/06/23 History release 24 hr aspirin 81 mg capsule 81 mg PO Q2D 07/19/21 11/06/23 History bumetanide 1 mg tablet See Rx Instructions .Route .COMPLEX 07/19/21 10/30/23 History cholecalciferol (vitamin D3) 25 50 mcg PO QAM 07/19/21 11/06/23 History mcg (1,000 unit) chewable tablet (Vitamin D3) cinnamon bark 500 mg capsule 1,000 mg PO QAM 07/19/21 11/06/23 History (Cinnamon) coenzyme Q10 10 mg capsule (Co 200 mg PO QAM 07/19/21 11/06/23 History Q-10) omeprazole 20 mg capsule,delayed 20 mg PO QAM 07/19/21 11/06/23 History release acetaminophen 650 mg 1,300 mg PO Q6H PRN Pain 08/05/23 11/06/23 History tablet,extended release apixaban 5 mg tablet (Eliquis) 5 mg PO BID 08/05/23 11/06/23 History gabapentin 600 mg tablet 600 mg PO TID 08/05/23 11/06/23 History glucosamine HCl 1,500 mg tablet 1,500 mg PO BID 08/05/23 11/06/23 History krill oil 500 mg PO HS 08/05/23 11/06/23 History multivitamin with iron-mineral 1 tab PO HS 08/05/23 11/06/23 History ranolazine 500 mg tablet,extended 500 mg PO BID 08/05/23 11/06/23 History release,12 hr sacubitril 24 mg-valsartan 26 mg 1 tab PO BID 08/05/23 11/06/23 History tablet (Entresto) semaglutide 0.25 mg or 0.5 mg (2 0.5 mg subcut Q7D 08/05/23 11/06/23 History mg/3 mL) subcutaneous pen injector (Ozempic) spironolactone 25 mg tablet 12.5 mg (1/2 x 25 mg) PO QAM #1 tab 09/06/23 11/06/23 Rx amiodarone 200 mg tablet 200 mg PO QAM 10/30/23 10/30/23 History atorvastatin 20 mg tablet 20 mg PO HS 10/30/23 11/06/23 History metoprolol succinate 50 mg 50 mg PO HS 10/30/23 11/06/23 History tablet,extended release 24 hr midodrine 2.5 mg tablet 2.5 mg PO BID 10/31/23 11/06/23 History amiodarone 200 mg tablet mg 11/06/23 History Patient History Medical History History of recent hospitalization 09/04/23-09/06/23 [facility] for a fall History of cardioversion multiple; most recent 08/05/23 Hyperlipidemia SHARA positive Diastolic HF (heart failure) chronic diastolic HF GERD (gastroesophageal reflux disease) Diverticulosis Diabetic neuropathy DMII (diabetes mellitus, type 2) on metformin and ozempic GRACIE (obstructive sleep apnea) cpap Obesity Afib cardioversion [facility] 08/05/23; pt on medication including asa and eliquis and follows with cardio Carotid artery plaque CKD (chronic kidney disease), stage III CAD (coronary artery disease) per 08/06/23 cardio note, cath 2016: 30% proximal LAD lesion and a 40% distal LAD lesion. Elevated cholesterol HTN (hypertension) Kidney stone hx of and passed on own Surgical History Hx of colonoscopy Hx of total knee arthroplasty left History of cholecystectomy H/O laminectomy lumbar H/O total knee replacement History of ankle surgery History of back surgery H/O bilateral hip replacements Family History Other Coronary heart disease Diabetes Social History Smoking Status: Former smoker Tobacco Type: Cigarettes Cigarettes Per Day: 20; Smoking End Date: ; Second Hand Exposure: No; Do You Dip or Chew Tobacco: No; Tobacco Cessation Education Requested by Patient: No Hx Alcohol Use: No Hx Substance Use: No Preferred Language: Cypriot Communication Ability: Effective Director Food And Beverage Required: No Beliefs That Will Affect Care: None marital status: Current Living Situation: Spouse Other Information That Helps Us Care for You: No Feels Safe at Home: Yes Safety Concerns: Feels Safe At This Time Assistive Devices: CPAP, Denture - Upper, Glasses, Hearing Aid - Bilateral and Walker Assistive Devices Comment: cpap, glasses, bl hearing aids, upper dentures placed at bedside with label Physical Exam Physical Exam: General: Alert. nontoxic. Skin: Warm, dry, Head: Atraumatic Ears, nose, mouth and throat: airway patent Cardiovascular: Normal peripheral perfusion Respiratory: no respiratory distress Gastrointestinal: Non distended Musculoskeletal: Right hand: Thenar eminence swollen and ecchymotic, discussed with orthopedic surgery, had needle in that area for neuro monitoring during procedure Results & Data Results & Data Vital Signs (Past 12 Hours) Vital Signs Temp Pulse Pulse Pulse Resp BP BP 11/06/23 16:00 57 L 11/06/23 15:00 58 L 12 11/06/23 14:30 58 L 16 11/06/23 14:14 60 16 148/92 H 11/06/23 13:31 36.3 C L 60 13 142/67 H 11/06/23 13:20 61 17 148/73 H 11/06/23 13:10 62 17 144/78 H 11/06/23 13:00 65 13 122/93 11/06/23 12:53 36 C L 70 14 163/88 H 11/06/23 07:46 36.6 C 11/06/23 07:37 36.6 C 61 18 Pulse Ox O2 Del Method O2 Flow Rate 11/06/23 16:00 11/06/23 15:00 97 11/06/23 14:30 95 11/06/23 14:14 93 11/06/23 13:31 99 Nasal Cannula 2 11/06/23 13:20 100 Nasal Cannula 3 11/06/23 13:10 95 Room Air 11/06/23 13:00 97 Room Air 11/06/23 12:53 100 Oxymask 5 11/06/23 07:46 99 Room Air 11/06/23 07:37 99 Room Air Critical Care Results & Data Vital Signs (Past 12 Hours) Vital Signs Temp Pulse Pulse Pulse Resp BP BP 11/06/23 16:00 57 L 11/06/23 15:00 58 L 12 11/06/23 14:30 58 L 16 11/06/23 14:14 60 16 148/92 H 11/06/23 13:31 36.3 C L 60 13 142/67 H 11/06/23 13:20 61 17 148/73 H 11/06/23 13:10 62 17 144/78 H 11/06/23 13:00 65 13 122/93 11/06/23 12:53 36 C L 70 14 163/88 H 11/06/23 07:46 36.6 C 11/06/23 07:37 36.6 C 61 18 Pulse Ox O2 Del Method O2 Flow Rate 11/06/23 16:00 11/06/23 15:00 97 11/06/23 14:30 95 11/06/23 14:14 93 11/06/23 13:31 99 Nasal Cannula 2 11/06/23 13:20 100 Nasal Cannula 3 11/06/23 13:10 95 Room Air 11/06/23 13:00 97 Room Air 11/06/23 12:53 100 Oxymask 5 11/06/23 07:46 99 Room Air 11/06/23 07:37 99 Room Air Lab & Micro Results (Past 24 Hours) No Data to Display No Data to Display No Data to Display Diagnostic Findings (Past 24 Hours) Thoracic Spine X-Ray 11/06/23 09:05 INTRAOPERATIVE RADIOGRAPHS CLINICAL HISTORY: Thoracic spinal fusion. Fluoro time: 56 seconds Ka,r: 47.32 mGy FINDINGS: 2 spot fluoroscopic views of the lower thoracic spine are presented. There is postsurgical change from laminectomy and posterior fusion at 3 lower th oracic levels. The exact levels cannot be delineated on the provided images. Interpedicular screws are present at all 3 levels. The orthopedic hardware appears intact. IMPRESSION: Intraoperative images from thoracic spinal fusion surgery as above. Electronically signed by: Florentino Xavier M.D. 11/06/2023 12:53 PM I & O Totals 24 Hours 11/05/23 11/06/23 11/07/23 06:59 06:59 06:59 Intake Total 1672.5 / 1672.5 Output Total 300 / 300 Balance 1372.5 / 1372.5 Cumulative 10/30/23 09:35 thru 11/06/23 16:58 Intake Total 1672.5 Output Total 300 Balance 1372.5 RT Ventilator Mngmt (Last Documented) Ventilator Ordered Settings Respiratory Rate 12 11/06/23 15:00 Ventilator - PT Measurements Respiratory Rate 12 Coding Level of Care Code 00202 IN/OBS CONSULT LVL 4,60M Diagnoses Swelling of right hand M79.89 Myelopathy concurrent with and due to spinal stenosis of thoracic region M48.04; G99.2 Anticoagulant long-term use Z79.01 Hyperlipidemia E78.5 Diastolic HF (heart failure) I50.30 DMII (diabetes mellitus, type 2) E11.9 GRACIE (obstructive sleep apnea) G47.33 Diabetic neuropathy E11.40 Obesity E66.9 Afib I48.91 CKD (chronic kidney disease), stage III N18.30 HTN (hypertension) I10 Time Spent (min) 40
[2023-11-06] MEDS: HYDROmorphone INJ 0.5 MG/0.5 ML SYR IV PRN (19:40)
[2023-11-06] MEDS: ceFAZolin 2000MG 2,000 MG/15 ML SYR IV SCH (19:41)
[2023-11-06] MEDS: ATORVASTATIN 20 MG TAB PO SCH (19:52)
[2023-11-06] MEDS: FOLIC ACID 400 MCG TAB PO SCH (19:53)
[2023-11-06] MEDS: DOCUSATE SODIUM/SENNA 50/8.6MG TAB PO SCH (19:53)
[2023-11-06] MEDS: METOPROLOL SUCC 50MG EXT REL TAB PO SCH (19:55)
[2023-11-06] MEDS: CEROVITE ADV FORMULA TAB PO SCH (19:55)
[2023-11-06] MEDS: RANOLAZINE 500 MG ER TAB PO SCH (19:57)
[2023-11-06] MEDS: VALSARTAN/SACUBITRIL 26/24MG TAB PO SCH (19:57)
[2023-11-07] MEDS ORDERED: INSULIN ASPART PER UNIT CHARGE SC ONE (02:00)
[2023-11-07] MEDS: ceFAZolin 2000MG 2,000 MG/15 ML SYR IV SCH (02:18)
[2023-11-07] MEDS: POLYETHYLENE (MIRALAX) 17 GM PACK PO SCH ×4 (02:24→23:13)
[2023-11-07 05:08] LABS: BUN Creatinine Ratio 20.3 (10-20); Calcium 8.2 mg/dl (8.6-10.3); Creatinine Clr Calc Pharmacy 60.2 ml/min; Est GFR (African American) 59.6 ml/min; Est GFR (Non-African American) 51.4 ml/min; Magnesium 1.8 mg/dl (1.7-2.4); Phosphorus 3.6 mg/dl (2.5-4.9); Potassium 4.5 mmol/L (3.5-5.1)
[2023-11-07 05:16] LABS: Basophils # (auto) 0.02 K/uL (0.00-0.20); Basophils % (auto) 0.2 %; Hematocrit (blood only) 37.4 % (42.0-52.0); Hemoglobin 12.5 g/dl (14.0-18.0); Immature Granulocytes # (auto) 0.06 K/uL (0.01-0.20); Immature Granulocytes % (auto) 0.5 %; Lymphocytes # (auto) 0.97 K/uL (1.20-3.40); Lymphocytes % (auto) 7.8 %; Mean Corpuscular Hemoglobin 35.3 pg (25.0-34.0); Mean Corpuscular Hgb Conc 33.4 g/dL (32.0-36.0); Mean Corpuscular Volume 105.6 fL (80.0-100.0); Mean Platelet Volume 9.6 fL (9.4-12.4); Monocytes # (auto) 1.02 K/uL (0.11-0.59); Monocytes % (auto) 8.2 %; Neutrophils # (auto) 10.37 K/uL (1.40-6.50); Neutrophils % (auto) 83.3 %; Platelet Count 275 K/uL (130-400); RDW Coefficient of Variation 13.2 % (11.5-14.5); RDW Standard Deviation 51.8 fL (36.4-46.3); Red Blood Count 3.54 M/uL (4.70-6.10); White Blood Count 12.44 K/ul (4.8-10.8)
[2023-11-07] MEDS: INSULIN ASPART PER UNIT CHARGE SC SCH ×4 (08:25→20:44)
[2023-11-07] MEDS: LANTUS PER UNIT CHARGE SC SCH ×2 (08:30→20:45)
[2023-11-07] MEDS: RANOLAZINE 500 MG ER TAB PO SCH ×2 (08:31→20:46)
[2023-11-07] MEDS: PANTOprazole 40 MG TAB PO SCH (08:31)
[2023-11-07] MEDS: VALSARTAN/SACUBITRIL 26/24MG TAB PO SCH ×2 (08:31→20:45)
[2023-11-07] MEDS: MIDODRINE HCL 2.5 MG TAB PO SCH ×2 (08:31→16:50)
[2023-11-07] MEDS: GABAPENTIN 600 MG TAB PO SCH ×3 (08:31→20:46)
[2023-11-07] MEDS: MAGNESIUM SULFATE / D5W 1 GM/100 ML BAG IV SCH ×2 (08:31→10:22)
[2023-11-07] MEDS: AMIODARONE 200 MG TAB PO SCH (08:32)
[2023-11-07] MEDS: CHOLECALCIFEROL 1,000 UNITS 25 MCG TAB PO SCH (08:32)
[2023-11-07] MEDS: SPIRONOLACTONE 12.5 MG TAB PO SCH (08:32)
[2023-11-07] MEDS: dexAMETHasone 6 MG in SYRINGE 0 ML IV SCH (08:33)
[2023-11-07] MEDS: HYDROmorphone INJ 0.5 MG/0.5 ML SYR IV PRN (09:21)
--- NOTE | 2023-11-07 10:40 | Orthopedic Progress Note ---
Date of Service November 07, 2023 Assessment & Plan (1) Myelopathy concurrent with and due to spinal stenosis of thoracic region: Plan: This time we will transfer to the orthopedic floor. Will continue with therapy as tolerated hopefully discharge home in the next few days pending his progress. Admission and Anticipated Discharge Date Admission Date: November 06, 2023 Subjective Back pain controlled leg symptoms improved Physical Exam Physical Exam: Patient is currently in bed. Is alert and oriented. Has good strength testing. Results & Data Vital Signs (Past 12 Hours) Vital Signs Temp Pulse Resp BP Pulse Ox O2 Del Method 11/07/23 10:01 127/65 11/07/23 10:01 18 11/07/23 10:00 22 11/07/23 09:00 78 18 11/07/23 08:00 72 18 93 Room Air 11/07/23 08:00 36.8 C 11/07/23 07:01 63 19 93 11/07/23 07:01 106/65 11/07/23 07:00 62 20 94 11/07/23 06:10 63 18 94 11/07/23 06:01 106/63 11/07/23 06:01 64 14 94 11/07/23 06:00 64 17 97 11/07/23 05:50 64 21 95 11/07/23 05:40 63 20 95 11/07/23 05:31 64 15 94 11/07/23 05:21 65 15 93 11/07/23 05:11 64 22 91 11/07/23 05:01 106/71 11/07/23 05:01 64 16 96 11/07/23 05:00 64 14 94 11/07/23 04:50 63 15 97 11/07/23 04:40 65 21 94 11/07/23 04:30 63 12 94 11/07/23 04:20 65 13 94 11/07/23 04:10 63 16 94 11/07/23 04:00 67 20 92 11/07/23 03:50 66 16 93 11/07/23 03:40 64 24 95 11/07/23 03:38 36.7 C 11/07/23 03:30 67 17 94 11/07/23 03:20 85 23 84 L 11/07/23 03:10 62 18 95 11/07/23 03:00 114/67 12/15/23 03:00 67 19 95 11/07/23 02:50 65 18 93 11/07/23 02:40 65 13 93 11/07/23 02:30 64 17 94 11/07/23 02:20 69 17 96 11/07/23 02:10 67 19 94 11/07/23 02:01 109/60 11/07/23 02:01 68 14 93 11/07/23 02:00 65 20 93 11/07/23 01:50 69 19 92 11/07/23 01:40 67 7 L 93 11/07/23 01:30 66 15 93 11/07/23 01:20 74 19 93 11/07/23 01:10 69 24 95 11/07/23 01:00 111/59 L 11/07/23 01:00 67 13 91 11/07/23 00:50 69 15 94 11/07/23 00:40 69 14 93 11/07/23 00:30 67 16 93 11/07/23 00:20 70 17 88 L 11/07/23 00:10 68 14 90 11/07/23 00:01 67 12 92 11/07/23 00:01 96/58 L 11/07/23 00:00 70 11 L 88 L 11/06/23 23:50 63 17 95 11/06/23 23:40 63 16 95 11/06/23 23:30 64 20 93 11/06/23 23:20 65 19 96 11/06/23 23:10 65 22 94 11/06/23 23:00 65 15 95 11/06/23 23:00 128/75 11/06/23 22:50 77 18 96
[2023-11-07] MEDS: HYDROCODONE/ACETAMOPHEN 5/325MG TAB PO PRN ×2 (11:52→17:00)
--- NOTE | 2023-11-07 11:52 | Pharmacy Report ---
Pharmacy Glycemic Short Note 2 - Date of Service November 07, 2023 - Glycemic Short BSG Results (Last 24 hours): 11/06/23 11/06/23 11/06/23 12:57 14:35 16:41 Glucose POC Glucose 121 H 144 H 126 H 11/06/23 11/07/23 11/07/23 20:30 02:15 04:01 Glucose 140 H POC Glucose 158 H 123 H 11/07/23 11/07/23 08:15 11:40 Glucose POC Glucose 136 H 152 H OUTPATIENT ANTIDIABETIC REGIMEN: * Ozempic 0.5mg SQ weekly (last dose 10/30) * Metformin 500mg daily * A1c 5.6% 07/2023 ASSESSMENT: 11/07 * BSGs well controlled over last 24 hrs * Fasting BSG 136 this AM with 30 units basal on board; will continue similar dosage today with scaled dosing * Dexamethasone 6mg IV Q AM continues * Novolog CF/CR have performed well thus far; continue and monitor post-prandial trend 11/06 * Type 2 diabetic admitted for spinal decompression/fusion * Patient is POD #0 * Dexamethasone 4mg IV given elizabeth-op; Dexamethasone 6mg IV Q AM begins tomorrow * BSGs well controlled thus far but suspected PO intake will lead to rapidly climbing BSGs given steroid/recent surgery * Will give Lantus with evening meal and also again at HS per scale * Novolog doses will be based upon wt and mod/severe stress level PLAN FOR INPATIENT GLYCEMIC CONTROL: * Hold outpatient diabetes medications * Basal insulin * Lantus 0-30 units BID per scale: 0 if BSG less than 120; 10 units if BSG 121-140; 20 units if BSG 141-220; 30 units if BSG above 220 * Bolus insulin * NovoLog per scale ACHS or Q6hrs while NPO * Goal Range: Low 110 mg/dL - High 140 mg/dL * Correction Factor: 20 mg/dL/unit * Nutritional / Prandial insulin per carb ratio of 1 unit per 5 grams CHO consumed
[2023-11-07] MEDS: FOLIC ACID 400 MCG TAB PO SCH (20:45)
[2023-11-07] MEDS: DOCUSATE SODIUM/SENNA 50/8.6MG TAB PO SCH (20:46)
[2023-11-07] MEDS: CEROVITE ADV FORMULA TAB PO SCH (20:46)
[2023-11-07] MEDS: ATORVASTATIN 20 MG TAB PO SCH (20:46)
[2023-11-07] MEDS: METOPROLOL SUCC 50MG EXT REL TAB PO SCH (20:55)
[2023-11-08] MEDS: POLYETHYLENE (MIRALAX) 17 GM PACK PO SCH ×2 (05:47→12:16)
[2023-11-08] MEDS: HYDROCODONE/ACETAMOPHEN 5/325MG TAB PO PRN ×4 (06:03→21:36)
[2023-11-08 06:43] LABS: Hematocrit (blood only) 35.7 % (42.0-52.0); Hemoglobin 11.9 g/dl (14.0-18.0); Mean Corpuscular Hemoglobin 36.2 pg (25.0-34.0); Mean Corpuscular Hgb Conc 33.3 g/dL (32.0-36.0); Mean Corpuscular Volume 108.5 fL (80.0-100.0); Mean Platelet Volume 9.5 fL (9.4-12.4); Platelet Count 246 K/uL (130-400); RDW Coefficient of Variation 13.3 % (11.5-14.5); RDW Standard Deviation 53.6 fL (36.4-46.3); Red Blood Count 3.29 M/uL (4.70-6.10); White Blood Count 13.03 K/ul (4.8-10.8)
[2023-11-08 07:36] LABS: Anion Gap 6 (3-11); BUN Creatinine Ratio 24.2 (10-20); Blood Urea Nitrogen 30 mg/dl (6-23); Calcium 8.9 mg/dl (8.6-10.3); Carbon Dioxide 27 mmol/L (21-32); Chloride 105 mmol/L (98-107); Creatinine Clr Calc Pharmacy 62.9 ml/min; Est GFR (African American) 61.9 ml/min; Est GFR (Non-African American) 53.4 ml/min; Glucose 119 mg/dl (70-99(Fasting)); Magnesium 2.5 mg/dl (1.7-2.4); Phosphorus 3.4 mg/dl (2.5-4.9); Sodium 138 mmol/L (136-145)
[2023-11-08] MEDS: VALSARTAN/SACUBITRIL 26/24MG TAB PO SCH ×2 (08:35→21:27)
[2023-11-08] MEDS: AMIODARONE 200 MG TAB PO SCH (08:35)
[2023-11-08] MEDS: RANOLAZINE 500 MG ER TAB PO SCH ×2 (08:35→21:26)
[2023-11-08] MEDS: dexAMETHasone 6 MG in SYRINGE 0 ML IV SCH (08:35)
[2023-11-08] MEDS: CHOLECALCIFEROL 1,000 UNITS 25 MCG TAB PO SCH (08:35)
[2023-11-08] MEDS: GABAPENTIN 600 MG TAB PO SCH ×3 (08:35→21:26)
[2023-11-08] MEDS: MIDODRINE HCL 2.5 MG TAB PO SCH ×2 (08:35→17:14)
[2023-11-08] MEDS: PANTOprazole 40 MG TAB PO SCH (08:35)
[2023-11-08] MEDS: SPIRONOLACTONE 12.5 MG TAB PO SCH (08:35)
[2023-11-08] MEDS: INSULIN ASPART PER UNIT CHARGE SC SCH ×4 (08:41→21:35)
[2023-11-08] MEDS: LANTUS PER UNIT CHARGE SC SCH ×2 (08:41→21:35)
--- NOTE | 2023-11-08 10:41 | Orthopedic Progress Note ---
Date of Service November 08, 2023 Assessment & Plan (1) Myelopathy concurrent with and due to spinal stenosis of thoracic region: Plan: At this time continue physical therapy monitor MEAGAN output anticipate discharge Friday to either home or rehab pending his progress. Admission and Anticipated Discharge Date Admission Date: November 06, 2023 Subjective Patient's back pain is controlled leg symptoms improved. He is tolerating physical therapy. Physical Exam Physical Exam: Patient is in his chair next to the bed. He is alert and cooperative. Is good strength testing lower extremities. Results & Data Vital Signs (Past 12 Hours) Vital Signs Temp Pulse Resp BP Pulse Ox O2 Del Method 11/08/23 09:45 Room Air 11/08/23 08:28 36.7 C 66 18 96/55 L 97 Room Air 11/07/23 23:02 Room Air
--- NOTE | 2023-11-08 16:48 | Hospitalist Consultation ---
Date of Consultation November 08, 2023 Assessment & Plan (1) Myelopathy concurrent with and due to spinal stenosis of thoracic region: Primary service (2) Anticoagulant long-term use: resume when safe per primary service. (3) DMII (diabetes mellitus, type 2): glycemic control ordered (4) Afib: Currently in sinus rhythm. Amiodarone on board. (5) CKD (chronic kidney disease), stage III: monitor renal function (6) HTN (hypertension): BP meds reorderd: entresto, spironolactone, metoprolol. History of Present Illness Reason for Consultation: medical management Attending Physician: Usama Devi DO History of Present Illness Mary is an 83-year-old male with a past medical history of A-fib with RVR on Eliquis, heart failure on Entresto, GERD, DM 2, CKD 3, CAD, diabetic nephropathy. Patient is a postop from a decompressive spinal fusion in the T8-T10 region for myelopathy performed on 11/06/23. Given his medical comorbidities, a medical consult was ordered for medical management. Allergies Allergy/AdvReac Type Severity Reaction Status Date / Time oxycodone AdvReac Mild NAUSEA/VOMI Verified 10/30/23 14:50 TTING Home Medications Medication Instructions Recorded Confirmed Type folic acid 800 mcg tablet 0.8 mg PO HS 08/10/20 11/06/23 History cetirizine 10 mg tablet (Zyrtec) 10 mg PO QAM PRN Allergy Symptoms 07/03/21 11/06/23 History metformin 500 mg tablet,extended 500 mg PO QAM 07/03/21 11/06/23 History release 24 hr aspirin 81 mg capsule 81 mg PO Q2D 07/19/21 11/06/23 History bumetanide 1 mg tablet See Rx Instructions .Route .COMPLEX 07/19/21 10/30/23 History cholecalciferol (vitamin D3) 25 50 mcg PO QAM 07/19/21 11/06/23 History mcg (1,000 unit) chewable tablet (Vitamin D3) cinnamon bark 500 mg capsule 1,000 mg PO QAM 07/19/21 11/06/23 History (Cinnamon) coenzyme Q10 10 mg capsule (Co 200 mg PO QAM 07/19/21 11/06/23 History Q-10) omeprazole 20 mg capsule,delayed 20 mg PO QAM 07/19/21 11/06/23 History release acetaminophen 650 mg 1,300 mg PO Q6H PRN Pain 08/05/23 11/06/23 History tablet,extended release apixaban 5 mg tablet (Eliquis) 5 mg PO BID 08/05/23 11/06/23 History gabapentin 600 mg tablet 600 mg PO TID 08/05/23 11/06/23 History glucosamine HCl 1,500 mg tablet 1,500 mg PO BID 08/05/23 11/06/23 History krill oil 500 mg PO HS 08/05/23 11/06/23 History multivitamin with iron-mineral 1 tab PO HS 08/05/23 11/06/23 History ranolazine 500 mg tablet,extended 500 mg PO BID 08/05/23 11/06/23 History release,12 hr sacubitril 24 mg-valsartan 26 mg 1 tab PO BID 08/05/23 11/06/23 History tablet (Entresto) semaglutide 0.25 mg or 0.5 mg (2 0.5 mg subcut Q7D 08/05/23 11/06/23 History mg/3 mL) subcutaneous pen injector (Ozempic) spironolactone 25 mg tablet 12.5 mg (1/2 x 25 mg) PO QAM #1 tab 09/06/23 11/06/23 Rx amiodarone 200 mg tablet 200 mg PO QAM 10/30/23 10/30/23 History atorvastatin 20 mg tablet 20 mg PO HS 10/30/23 11/06/23 History metoprolol succinate 50 mg 50 mg PO HS 10/30/23 11/06/23 History tablet,extended release 24 hr midodrine 2.5 mg tablet 2.5 mg PO BID 10/31/23 11/06/23 History amiodarone 200 mg tablet mg 11/06/23 History tramadol 50 mg tablet 50 mg PO Q6H PRN pain, moderate 11/07/23 Rx #30 tabs Patient History Medical History History of recent hospitalization 09/04/23-09/06/23 [facility] for a fall History of cardioversion multiple; most recent 08/05/23 Hyperlipidemia SHARA positive Diastolic HF (heart failure) chronic diastolic HF GERD (gastroesophageal reflux disease) Diverticulosis Diabetic neuropathy DMII (diabetes mellitus, type 2) on metformin and ozempic GRACIE (obstructive sleep apnea) cpap Obesity Afib cardioversion [facility] 08/05/23; pt on medication including asa and eliquis and follows with cardio Carotid artery plaque CKD (chronic kidney disease), stage III CAD (coronary artery disease) per 08/06/23 cardio note, cath 2016: 30% proximal LAD lesion and a 40% distal LAD lesion. Elevated cholesterol HTN (hypertension) Kidney stone hx of and passed on own Surgical History Hx of colonoscopy Hx of total knee arthroplasty left History of cholecystectomy H/O laminectomy lumbar H/O total knee replacement History of ankle surgery History of back surgery H/O bilateral hip replacements Family History Other Coronary heart disease Diabetes Social History Smoking Status: Former smoker Tobacco Type: Cigarettes Cigarettes Per Day: 20; Smoking End Date: ; Second Hand Exposure: No; Do You Dip or Chew Tobacco: No; Tobacco Cessation Education Requested by Patient: No Hx Alcohol Use: No Hx Substance Use: No Preferred Language: Italian Communication Ability: Effective Monorail Hooker Required: No Beliefs That Will Affect Care: None marital status: Current Living Situation: Spouse Other Information That Helps Us Care for You: No Feels Safe at Home: Yes Safety Concerns: Feels Safe At This Time Assistive Devices: Cane and Walker Assistive Devices Comment: cpap, glasses, bl hearing aids, upper dentures placed at bedside with label Review of Systems Review of Systems: All systems reviewed & are unremarkable except as noted in HPI & below Physical Exam Constitutional: WD/WN, vitals as above Eyes: PERRL, conjunctivae normal, anicteric sclerae ENMT: external ear and nose normal, oropharynx normal Neck: trachea midline, no thyromegaly Respiratory: normal respiratory effort, lungs clear to auscultation Cardiovascular: RRR, no murmur, no edema Neurologic: awake; not confused Psychiatric: A+Ox3, euthymic affect Results & Data Results & Data Vital Signs (Past 12 Hours) Vital Signs Temp Pulse Resp BP Pulse Ox O2 Del Method 11/08/23 15:31 36.6 C 60 18 111/65 96 Room Air 11/08/23 09:45 Room Air 11/08/23 08:28 36.7 C 66 18 96/55 L 97 Room Air PG Care Time/CCT Total # of Minutes Spent Total Time Spent with Patient: Total time spent is greater than 50% in coordination of care (as documented) at patient's floor/unit and/or counseling patient: Coding Level of Care Code 08732 IN/OBS CONSULT LVL 3,45M Diagnoses Myelopathy 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
--- NOTE | 2023-11-08 16:50 | Communication Note ---
Date of Service: November 07, 2023 [facility]ist [facility] on 11/07/2023. Consult was for medical management However as patient is in the ICU, the unisaw operator will be managing medical management. Consult on hold until patient is transferred out of the ICU.
[2023-11-08] MEDS: ASPIRIN 81 MG ECTAB PO SCH (17:14)
[2023-11-08] MEDS: DOCUSATE SODIUM/SENNA 50/8.6MG TAB PO SCH (21:25)
[2023-11-08] MEDS: METOPROLOL SUCC 50MG EXT REL TAB PO SCH (21:25)
[2023-11-08] MEDS: ATORVASTATIN 20 MG TAB PO SCH (21:25)
[2023-11-08] MEDS: FOLIC ACID 400 MCG TAB PO SCH (21:26)
[2023-11-08] MEDS: CEROVITE ADV FORMULA TAB PO SCH (21:27)
[2023-11-09] MEDS: HYDROCODONE/ACETAMOPHEN 5/325MG TAB PO PRN ×3 (06:01→17:58)
[2023-11-09 07:01] LABS: Hemoglobin 11.8 g/dl (14.0-18.0); Mean Corpuscular Hgb Conc 33.7 g/dL (32.0-36.0); Mean Corpuscular Volume 106.7 fL (80.0-100.0); Mean Platelet Volume 9.5 fL (9.4-12.4); Platelet Count 254 K/uL (130-400); RDW Coefficient of Variation 13.3 % (11.5-14.5); RDW Standard Deviation 52.7 fL (36.4-46.3); Red Blood Count 3.28 M/uL (4.70-6.10); White Blood Count 11.33 K/ul (4.8-10.8)
[2023-11-09 07:35] LABS: BUN Creatinine Ratio 26.7 (10-20); Calcium 8.9 mg/dl (8.6-10.3); Creatinine Clr Calc Pharmacy 67.3 ml/min; Est GFR (African American) 67.1 ml/min; Est GFR (Non-African American) 57.9 ml/min; Magnesium 2.3 mg/dl (1.7-2.4); Phosphorus 3.5 mg/dl (2.5-4.9); Potassium 4.6 mmol/L (3.5-5.1)
--- NOTE | 2023-11-09 08:16 | Orthopedic Progress Note ---
Date of Service November 09, 2023 Assessment & Plan (1) Myelopathy concurrent with and due to spinal stenosis of thoracic region: Plan: Patient is doing well status post T9-10 decompression and fusion. Organ to continue with GI DVT prophylaxis continue with physical therapy and pain control measures. Will see if he is safe for home discharge or transfer to rehab later this week. Admission and Anticipated Discharge Date Admission Date: November 06, 2023 Subjective Patient was seen bedside in room 350. He states he is doing well today. His pain is well-controlled. He has been up and walking with his walker. He is not having much in the way of pain going down the legs but the legs still do feel weak. He denies any other numbness, tingling, or paresthesias. He is tolerating p.o. well. Physical Exam Physical Exam: On exam he is alert and oriented. His lower extremity motor exam reveals no focal atrophy strength and sensation are grossly intact. His dressing is clean dry and intact. His drainage was 15 cc through his MEAGAN on his previous shift and before that was 20 cc. His abdomen soft nontender his calves are supple and nontender. Cardiovascular exam reveals no gross abnormalities. Results & Data Vital Signs (Past 12 Hours) Vital Signs Temp Pulse Resp BP Pulse Ox O2 Del Method 11/09/23 07:24 Room Air 11/09/23 07:09 36.9 C 58 L 16 113/65 96 Room Air 11/08/23 21:24 59 L 11/08/23 20:30 36.7 C 60 18 113/68 95 Room Air
[2023-11-09] MEDS: SPIRONOLACTONE 12.5 MG TAB PO SCH (08:19)
[2023-11-09] MEDS: CHOLECALCIFEROL 1,000 UNITS 25 MCG TAB PO SCH (08:19)
[2023-11-09] MEDS: PANTOprazole 40 MG TAB PO SCH (08:19)
[2023-11-09] MEDS: dexAMETHasone 6 MG in SYRINGE 0 ML IV SCH (08:19)
[2023-11-09] MEDS: VALSARTAN/SACUBITRIL 26/24MG TAB PO SCH ×2 (08:20→21:43)
[2023-11-09] MEDS: GABAPENTIN 600 MG TAB PO SCH ×3 (08:20→21:41)
[2023-11-09] MEDS: RANOLAZINE 500 MG ER TAB PO SCH ×2 (08:20→21:41)
[2023-11-09] MEDS: MIDODRINE HCL 2.5 MG TAB PO SCH ×2 (08:20→17:52)
[2023-11-09] MEDS: AMIODARONE 200 MG TAB PO SCH (08:22)
[2023-11-09] MEDS: INSULIN ASPART PER UNIT CHARGE SC SCH ×4 (08:25→21:43)
[2023-11-09] MEDS: LANTUS PER UNIT CHARGE SC SCH (08:26)
[2023-11-09] MEDS: FOLIC ACID 400 MCG TAB PO SCH (21:41)
[2023-11-09] MEDS: ATORVASTATIN 20 MG TAB PO SCH (21:42)
[2023-11-09] MEDS: CEROVITE ADV FORMULA TAB PO SCH (21:42)
[2023-11-09] MEDS: DOCUSATE SODIUM/SENNA 50/8.6MG TAB PO SCH (21:42)
[2023-11-09] MEDS: METOPROLOL SUCC 50MG EXT REL TAB PO SCH (21:42)
--- NOTE | 2023-11-09 22:47 | Hospitalist Progress Note ---
Date of Service November 09, 2023 Assessment & Plan (1) Myelopathy concurrent with and due to spinal stenosis of thoracic region: Plan: Primary service (2) Anticoagulant long-term use: Plan: resume when safe per primary service. (3) DMII (diabetes mellitus, type 2): Plan: glycemic control ordered Blood sugars controlled (4) Afib: Plan: Currently in sinus rhythm. Amiodarone on board. (5) CKD (chronic kidney disease), stage III: Plan: monitor renal function (6) HTN (hypertension): Plan: BP meds reorderd: entresto, spironolactone, metoprolol. Admission and Anticipated Discharge Date Admission Date: November 06, 2023 Subjective Patient reports no new symptoms. Review of Systems Review of Systems: All systems reviewed & are unremarkable except as noted in HPI & below Physical Exam Constitutional: WD/WN, vitals as above Eyes: PERRL, conjunctivae normal, anicteric sclerae ENMT: external ear and nose normal, oropharynx normal Neck: trachea midline, no thyromegaly Respiratory: normal respiratory effort, lungs clear to auscultation Cardiovascular: RRR, no murmur, no edema Neurologic: awake; not confused Psychiatric: A+Ox3, euthymic affect Results & Data Results & Data Vital Signs (Past 12 Hours) Vital Signs Temp Pulse Resp BP Pulse Ox O2 Del Method 11/09/23 20:12 Room Air, CPAP 11/09/23 19:01 36.4 C L 61 18 129/70 97 Room Air 11/09/23 15:38 36.4 C L 56 L 18 119/73 96 Room Air PG Care Time/CCT Total # of Minutes Spent Total Time Spent with Patient: Total time spent is greater than 50% in coordination of care (as documented) at patient's floor/unit and/or counseling patient: Coding Level of Care Code 60341 SUB INP/OBS CARE 2/35MIN Diagnoses Myelopathy 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
[2023-11-10] MEDS: HYDROCODONE/ACETAMOPHEN 5/325MG TAB PO PRN ×2 (03:09→21:05)
[2023-11-10] MEDS: MIDODRINE HCL 2.5 MG TAB PO SCH ×2 (08:30→18:09)
[2023-11-10] MEDS: AMIODARONE 200 MG TAB PO SCH (08:30)
[2023-11-10] MEDS: SPIRONOLACTONE 12.5 MG TAB PO SCH (08:31)
[2023-11-10] MEDS: PANTOprazole 40 MG TAB PO SCH (08:31)
[2023-11-10] MEDS: GABAPENTIN 600 MG TAB PO SCH ×3 (08:32→21:02)
[2023-11-10] MEDS: RANOLAZINE 500 MG ER TAB PO SCH ×2 (08:32→21:02)
[2023-11-10] MEDS: CHOLECALCIFEROL 1,000 UNITS 25 MCG TAB PO SCH (08:32)
[2023-11-10] MEDS: VALSARTAN/SACUBITRIL 26/24MG TAB PO SCH ×2 (08:32→21:03)
[2023-11-10] MEDS: INSULIN ASPART PER UNIT CHARGE SC SCH ×4 (08:41→21:05)
--- NOTE | 2023-11-10 10:12 | Pharmacy Report ---
Pharmacy Glycemic Short Note 2 - Date of Service November 10, 2023 - Glycemic Short BSG Results (Last 24 hours): 11/09/23 11/09/23 11/09/23 11:38 16:42 21:06 POC Glucose 99 77 100 H 11/10/23 11/10/23 07:11 07:41 POC Glucose 99 105 H OUTPATIENT ANTIDIABETIC REGIMEN: * Ozempic 0.5mg SQ weekly (last dose 10/30) * Metformin 500mg daily * A1c 5.6% 07/2023 ASSESSMENT: 11/10 * BSGs well controlled over last 24 hrs * 30 units SQ insulin given over last 24 hrs while tolerating a diet (and received 6mg IV dexamethasone) * Fasting BSG 105 this AM with 10 units basal on board; no further steroid ordered - will dc basal insulin and monitor fasting BSG trend * Post-prandial BSGs at goal yesterday however all BSGs were 100 or less - given the dc of steroid, will need to lessen Novolog prandial and correctional doses 11/07 * BSGs well controlled over last 24 hrs * Fasting BSG 136 this AM with 30 units basal on board; will continue similar dosage today with scaled dosing * Dexamethasone 6mg IV Q AM continues * Novolog CF/CR have performed well thus far; continue and monitor post-prandial trend 11/06 * Type 2 diabetic admitted for spinal decompression/fusion * Patient is POD #0 * Dexamethasone 4mg IV given elizabeth-op; Dexamethasone 6mg IV Q AM begins tomorrow * BSGs well controlled thus far but suspected PO intake will lead to rapidly climbing BSGs given steroid/recent surgery * Will give Lantus with evening meal and also again at HS per scale * Novolog doses will be based upon wt and mod/severe stress level PLAN FOR INPATIENT GLYCEMIC CONTROL: * Hold outpatient diabetes medications * Basal insulin * None at this time * Bolus insulin * NovoLog per scale ACHS or Q6hrs while NPO * Goal Range: Low 110 mg/dL - High 140 mg/dL * Correction Factor: 25 mg/dL/unit * Nutritional / Prandial insulin per carb ratio of 1 unit per 8 grams CHO consumed
--- NOTE | 2023-11-10 10:24 | Orthopedic Progress Note ---
Date of Service November 10, 2023 Assessment & Plan (1) Myelopathy concurrent with and due to spinal stenosis of thoracic region: Plan: This time we will continue physical therapy. Remove his MEAGAN drain today. He is cleared for rehab either today or tomorrow when a bed is available. Admission and Anticipated Discharge Date Admission Date: November 06, 2023 Subjective Patient's pain is controlled leg pain improved Physical Exam Physical Exam: On exam he was up and ambulating the halls. Skin strength testing. Peers comfortable. Results & Data Vital Signs (Past 12 Hours) Vital Signs Temp Pulse Resp BP Pulse Ox O2 Del Method 11/10/23 07:15 Room Air 11/10/23 07:13 36.4 C L 56 L 20 127/74 95 Room Air 11/10/23 06:40 36.3 C L 56 L 18 129/74 95 Room Air 11/10/23 06:30 102/65
[2023-11-10] MEDS: traMADol HCL 50 MG TABLET PO PRN (12:38)
[2023-11-10] MEDS: ASPIRIN 81 MG ECTAB PO SCH (15:41)
[2023-11-10] MEDS: CEROVITE ADV FORMULA TAB PO SCH (21:02)
[2023-11-10] MEDS: FOLIC ACID 400 MCG TAB PO SCH (21:03)
[2023-11-10] MEDS: METOPROLOL SUCC 50MG EXT REL TAB PO SCH (21:03)
[2023-11-10] MEDS: DOCUSATE SODIUM/SENNA 50/8.6MG TAB PO SCH (21:03)
[2023-11-10] MEDS: ATORVASTATIN 20 MG TAB PO SCH (21:03)
[2023-11-10] MEDS: APIXABAN 5 MG TABLET PO SCH (21:04)
--- NOTE | 2023-11-10 22:16 | Hospitalist Progress Note ---
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 (3) DMII (diabetes mellitus, type 2): Plan: glycemic control ordered Blood sugars controlled (4) Afib: Plan: Currently in sinus rhythm. Amiodarone on board. (5) CKD (chronic kidney disease), stage III: Plan: monitor renal function (6) HTN (hypertension): Plan: BP meds reorderd: entresto, spironolactone, metoprolol. Plan Medicine will sign off service Admission and Anticipated Discharge Date Admission Date: November 06, 2023 Subjective Patient reports no new symptoms. Review of Systems 2 Review of Systems: All systems reviewed & are unremarkable except as noted in HPI & below Physical Exam Constitutional: WD/WN, vitals as above Eyes: PERRL, conjunctivae normal, anicteric sclerae ENMT: external ear and nose normal, oropharynx normal Neck: trachea midline, no thyromegaly Respiratory: normal respiratory effort, lungs clear to auscultation Cardiovascular: RRR, no murmur, no edema Neurologic: awake; not confused Psychiatric: A+Ox3, euthymic affect Results & Data Results & Data Vital Signs (Past 12 Hours) Vital Signs Temp Pulse Resp BP Pulse Ox O2 Del Method 11/10/23 19:55 36.6 C 60 18 130/76 96 Room Air 11/10/23 14:39 36.3 C L 57 L 20 110/57 L 98 Room Air PG Care Time/CCT Total # of Minutes Spent Total Time Spent with Patient: Total time spent is greater than 50% in coordination of care (as documented) at patient's floor/unit and/or counseling patient: Coding Level of Care Code 44879 SUB INP/OBS CARE 2/35MIN Diagnoses Myelopathy 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
[2023-11-11 07:15] LABS: Hematocrit (blood only) 36.7 % (42.0-52.0); Hemoglobin 12.2 g/dl (14.0-18.0); Mean Corpuscular Hemoglobin 35.8 pg (25.0-34.0); Mean Corpuscular Hgb Conc 33.2 g/dL (32.0-36.0); Mean Corpuscular Volume 107.6 fL (80.0-100.0); Mean Platelet Volume 9.1 fL (9.4-12.4); Platelet Count 267 K/uL (130-400); RDW Coefficient of Variation 13.2 % (11.5-14.5); RDW Standard Deviation 51.8 fL (36.4-46.3); Red Blood Count 3.41 M/uL (4.70-6.10); White Blood Count 8.92 K/ul (4.8-10.8)
[2023-11-11 07:47] LABS: BUN Creatinine Ratio 24.2 (10-20); Calcium 8.7 mg/dl (8.6-10.3); Creatinine Clr Calc Pharmacy 62.9 ml/min; Est GFR (African American) 61.9 ml/min; Est GFR (Non-African American) 53.4 ml/min; Potassium 4.7 mmol/L (3.5-5.1)
[2023-11-11] MEDS: VALSARTAN/SACUBITRIL 26/24MG TAB PO SCH ×2 (07:54→21:03)
[2023-11-11] MEDS: GABAPENTIN 600 MG TAB PO SCH ×3 (07:54→21:05)
[2023-11-11] MEDS: RANOLAZINE 500 MG ER TAB PO SCH ×2 (07:54→21:03)
[2023-11-11] MEDS: APIXABAN 5 MG TABLET PO SCH ×2 (07:55→21:04)
[2023-11-11] MEDS: AMIODARONE 200 MG TAB PO SCH (07:55)
[2023-11-11] MEDS: PANTOprazole 40 MG TAB PO SCH (07:55)
[2023-11-11] MEDS: SPIRONOLACTONE 12.5 MG TAB PO SCH (07:55)
[2023-11-11] MEDS: CHOLECALCIFEROL 1,000 UNITS 25 MCG TAB PO SCH (07:56)
[2023-11-11] MEDS: MIDODRINE HCL 2.5 MG TAB PO SCH ×2 (07:56→16:53)
[2023-11-11] MEDS: INSULIN ASPART PER UNIT CHARGE SC SCH ×4 (09:13→21:06)
[2023-11-11] MEDS: traMADol HCL 50 MG TABLET PO PRN (11:03)
--- NOTE | 2023-11-11 12:53 | Orthopedic Progress Note ---
Date of Service November 11, 2023 Assessment & Plan Admission and Anticipated Discharge Date Admission Date: November 06, 2023 Subjective back pain is controlled is tolerating therapy. Physical Exam Physical Exam: patient patient is currently in bed. Is constricted testing. Abdomen is distended but soft. Results & Data Vital Signs (Past 12 Hours) Vital Signs Temp Pulse Resp BP Pulse Ox O2 Del Method 11/11/23 11:10 59 L 20 96/59 L 100 Room Air 11/11/23 07:20 Room Air 11/11/23 07:11 36.4 C L 59 L 14 121/75 98 Room Air
[2023-11-11] MEDS: DOCUSATE SODIUM/SENNA 50/8.6MG TAB PO SCH (21:03)
[2023-11-11] MEDS: CEROVITE ADV FORMULA TAB PO SCH (21:04)
[2023-11-11] MEDS: METOPROLOL SUCC 50MG EXT REL TAB PO SCH (21:04)
[2023-11-11] MEDS: ATORVASTATIN 20 MG TAB PO SCH (21:04)
[2023-11-11] MEDS: FOLIC ACID 400 MCG TAB PO SCH (21:04)
[2023-11-12] MEDS: CHOLECALCIFEROL 1,000 UNITS 25 MCG TAB PO SCH (08:03)
[2023-11-12] MEDS: VALSARTAN/SACUBITRIL 26/24MG TAB PO SCH (08:03)
[2023-11-12] MEDS: APIXABAN 5 MG TABLET PO SCH (08:03)
[2023-11-12] MEDS: MIDODRINE HCL 2.5 MG TAB PO SCH (08:03)
[2023-11-12] MEDS: GABAPENTIN 600 MG TAB PO SCH (08:03)
[2023-11-12] MEDS: SPIRONOLACTONE 12.5 MG TAB PO SCH (08:03)
[2023-11-12] MEDS: AMIODARONE 200 MG TAB PO SCH (08:03)
[2023-11-12] MEDS: RANOLAZINE 500 MG ER TAB PO SCH (08:03)
[2023-11-12] MEDS: PANTOprazole 40 MG TAB PO SCH (08:04)
[2023-11-12] MEDS: INSULIN ASPART PER UNIT CHARGE SC SCH ×2 (08:11→12:00)
--- NOTE | 2023-11-12 08:47 | Orthopedic Progress Note ---
Date of Service November 12, 2023 Assessment & Plan (1) Myelopathy concurrent with and due to spinal stenosis of thoracic region: Plan: Mary is postoperative day 6 status post T9-T10 decompression and fusion secondary to cord compression. He has made great progress. He is can be discharged to [facility] today. Admission and Anticipated Discharge Date Admission Date: November 06, 2023 Subjective [place] is postoperative day 6 status post T9-T10 decompression and fusion. His lower extremities feel greatly improved and much stronger with ambulation. Yesterday in physical therapy [place] 150 feet. Sometimes though he notes the longer he walks he will get some radiating pain across his upper abdomen. He had a bowel movement. Overall doing well and waiting discharge to SNF Review of Systems Review of Systems: All systems reviewed & are unremarkable except as noted in HPI & below Physical Exam Physical Exam: He sitting up in bed eating breakfast in no acute distress Alert and oriented x 3 Dressing is clean dry and intact Strength is intact bilateral lower extremities Results & Data Vital Signs (Past 12 Hours) Vital Signs Temp Pulse Resp BP Pulse Ox O2 Del Method 11/12/23 07:45 Room Air 11/12/23 07:03 36.9 C 58 L 14 112/76 96 Room Air 11/11/23 20:54 36.5 C 63 17 129/75 97 Room Air
[2023-11-12] MEDS: traMADol HCL 50 MG TABLET PO PRN (11:01)
--- NOTE | 2023-11-12 11:32 | Pharmacy Report ---
Pharmacy Glycemic Short Note 2 - Date of Service November 12, 2023 - Glycemic Short BSG Results (Last 24 hours): 11/11/23 11/11/23 11/12/23 16:40 21:02 07:49 POC Glucose 87 96 101 H OUTPATIENT ANTIDIABETIC REGIMEN: * Ozempic 0.5mg SQ weekly (last dose 10/30) * Metformin 500mg daily * A1c 5.6% 07/2023 ASSESSMENT: 11/12: * Mary received 9 units of bolus insulin yesterday * Fasting BSGs slightly below goal range without basal insulin. Continue to hold for now. * No glycemic stressors at this time. * BSGs trending down yesterday evening, loosen correction factor 11/10 * BSGs well controlled over last 24 hrs * 30 units SQ insulin given over last 24 hrs while tolerating a diet (and received 6mg IV dexamethasone) * Fasting BSG 105 this AM with 10 units basal on board; no further steroid ordered - will dc basal insulin and monitor fasting BSG trend * Post-prandial BSGs at goal yesterday however all BSGs were 100 or less - given the dc of steroid, will need to lessen Novolog prandial and correctional doses 11/07 * BSGs well controlled over last 24 hrs * Fasting BSG 136 this AM with 30 units basal on board; will continue similar dosage today with scaled dosing * Dexamethasone 6mg IV Q AM continues * Novolog CF/CR have performed well thus far; continue and monitor post-prandial trend 11/06 * Type 2 diabetic admitted for spinal decompression/fusion * Patient is POD #0 * Dexamethasone 4mg IV given elizabeth-op; Dexamethasone 6mg IV Q AM begins tomorrow * BSGs well controlled thus far but suspected PO intake will lead to rapidly climbing BSGs given steroid/recent surgery * Will give Lantus with evening meal and also again at HS per scale * Novolog doses will be based upon wt and mod/severe stress level PLAN FOR INPATIENT GLYCEMIC CONTROL: * Hold outpatient diabetes medications * Basal insulin * None at this time * Bolus insulin * NovoLog per scale ACHS or Q6hrs while NPO * Goal Range: Low 110 mg/dL - High 140 mg/dL * Correction Factor: 30 mg/dL/unit * Nutritional / Prandial insulin per carb ratio of 1 unit per 9 grams CHO consumed
== END 2023-11-12 13:21 | DRG 460 ==
LOC: ASU 07:02 → 1E 12:34 → 3W 11-07 13:51
DX: M48.04 Spinal stenosis, thoracic region; E66.9 Obesity, unspecified; Z87.891 Personal history of nicotine dependence; I13.0 Hypertensive heart and chronic kidney disease with heart failure and stage 1 through stage 4 chronic kidney disease, or unspecified chronic kidney disease; G47.33 Obstructive sleep apnea (adult) (pediatric); Z79.85 Long-term (current) use of injectable non-insulin antidiabetic drugs; G99.2 Myelopathy in diseases classified elsewhere; I48.91 Unspecified atrial fibrillation; E11.22 Type 2 diabetes mellitus with diabetic chronic kidney disease; I50.32 Chronic diastolic (congestive) heart failure; Z79.01 Long term (current) use of anticoagulants; Z79.82 Long term (current) use of aspirin; Z79.84 Long term (current) use of oral hypoglycemic drugs; E11.40 Type 2 diabetes mellitus with diabetic neuropathy, unspecified; Z88.5 Allergy status to narcotic agent; Z68.37 Body mass index [BMI] 37.0-37.9, adult; N18.30 Chronic kidney disease, stage 3 unspecified

== ENCOUNTER 2024-10-18 11:49 | Inpatient (IN) ==
--- NOTE | 2024-10-18 12:26 | Emergency Department Note ---
Impression & Plan Ambulatory dysfunction ADMIT ED Provider Note HPI: History obtained from patient, son at bedside. The patient is a 84-year-old gentleman with history of hypertension, chronic kidney disease, presents the emergency department with complaint of ambulatory dysfunction that is acute on chronic in nature. Patient states he has had issues with ambulation over the past several months but over the past week it seems to be getting worse. Patient states he feels like he does not have strength in both of his legs. Patient states he has had multiple falls over the past week. Patient states he has a history of stenosis of the thoracic region for which she was supposed to have surgery but it was canceled as he could not obtain cardiac clearance. Patient has motor and sensory function intact distally in all extremities on my exam, he denies any recent fever/chills, denies any chest pain or shortness of breath, denies any nausea or vomiting. Family at the bedside is concerned because the patient recently had to start using a wheelchair at home and they feel that he is unsafe to be at home currently. ROS: - Per HPI Differential Diagnosis: Intracranial injury to include subdural hematoma, epidural hematoma, acute on chronic ambulatory dysfunction secondary to progressive deconditioning, acute on chronic kidney injury, electrolyte abnormalities, symptomatic anemia, amongst other potential pathologies. *Outpatient medications and allergy history reviewed. 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 Lab work shows no leukocytosis, hemoglobin is stable at 10.8, platelet count is normal, CMP does not show any evidence of any critical findings. Troponin is negative. EKG per my interpretation shows sinus rhythm without any acute ischemic changes. Urinalysis does not show any evidence of infection. CT imaging of the head was obtained given the patient's reported multiple falls recently, this does not show any evidence of any acute intracranial pathology. Chest x-ray shows some mild pulmonary vascular congestion but otherwise no findings of pneumonia/focal infiltrate. On my reassessment I had an extensive discussion with the patient and his and other family members at the bedside. They do not feel the patient is safe at home given his progressive ambulatory dysfunction and multiple falls recently. They would like the patient evaluated by physical therapy and potentially to have some services at home if possible. Case management was consulted and did discuss with the family different options however given the patient's insurance product he is not a candidate for direct placement to a rehab facility at this time. Patient will require admission for PT/OT and potentially placement of inpatient physical therapy facility if recommended. Patient and his family are in agreement to this plan. Case was discussed with the on-call hospitalist, Dr. Kimball, and the patient was placed for admission in stable condition. Consultants/Discussions held with other healthcare providers: -Hospitalist, Dr. Kimball -Case management, Addis Persaud Disposition discussion held by myself with: -Patient and patient's at the bedside as well as patient's son Diagnosis: 1. 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 stenosis of thoracic region Transient left leg weakness Left leg pain (Acute) Ambulatory dysfunction (Acute) Multiple contusions (Acute) Abrasion of both knees (Acute) Anticoagulant long-term use (Acute) Fall (Acute) Right rotator cuff tear Right knee DJD Trochanteric bursitis, left hip Encounter for pre-operative examination Trochanteric bursitis of right hip Osteoarthritis Hyperlipidemia Diastolic HF (heart failure) chronic diastolic HF GERD (gastroesophageal reflux disease) Diabetic neuropathy DMII (diabetes mellitus, type 2) on metformin and ozempic GRACIE (obstructive sleep apnea) cpap Obesity Afib cardioversion [facility] 08/05/23; pt on medication including asa and eliquis and follows with cardio CKD (chronic kidney disease), stage III HTN (hypertension) (Chronic) Sleep apnea (Chronic) Medical History History of recent hospitalization History of cardioversion SHARA positive Diverticulosis Carotid artery plaque CAD (coronary artery disease) Elevated cholesterol Surgical History Hx of colonoscopy Hx of total knee arthroplasty History of cholecystectomy H/O laminectomy H/O total knee replacement History of ankle surgery History of back surgery H/O bilateral hip replacements Family History Other Coronary heart disease Diabetes Social History Smoking Status: Never smoker Tobacco Type: Cigarettes Cigarettes Per Day: 20; Second Hand Exposure: No; Do You Dip or Chew Tobacco: No; Hx Alcohol Use: No Hx Substance Use: No Preferred Language: Syriac Communication Ability: Effective Sitecore Developer Required: No Beliefs That Will Affect Care: None marital status: Current Living Situation: Spouse Feels Safe at Home: Yes Assistive Devices: Cane and Walker Allergies Allergies Allergy/AdvReac Type Severity Reaction Status Date / Time oxycodone AdvReac Mild NAUSEA/VOMI Verified 10/01/24 09:36 TTING Home Meds Home Medications Medication Instructions Recorded Confirmed folic acid 800 mcg tablet 1 mg PO HS 08/10/20 10/18/24 cetirizine 10 mg tablet (Zyrtec) 10 mg PO QAM PRN Allergy Symptoms 07/03/21 10/18/24 metformin 500 mg tablet,extended 500 mg PO QAM 07/03/21 10/18/24 release 24 hr aspirin 81 mg capsule 81 mg PO .Q OTHER DAY 07/19/21 10/18/24 bumetanide 1 mg tablet See Rx Instructions .Route .COMPLEX 07/19/21 10/18/24 cholecalciferol (vitamin D3) 25 50 mcg PO QAM 07/19/21 10/18/24 mcg (1,000 unit) chewable tablet (Vitamin D3) cinnamon bark 500 mg capsule 1,000 mg PO QAM 07/19/21 10/18/24 (Cinnamon) coenzyme Q10 10 mg capsule (Co 200 mg PO QAM 07/19/21 10/18/24 Q-10) omeprazole 20 mg capsule,delayed 20 mg PO QAM 07/19/21 10/18/24 release acetaminophen 650 mg 1,300 mg PO BID 08/05/23 10/18/24 tablet,extended release apixaban 5 mg tablet (Eliquis) 5 mg PO BID 08/05/23 10/18/24 gabapentin 600 mg tablet 600 mg PO TID 08/05/23 10/18/24 glucosamine HCl 1,500 mg tablet 1,500 mg PO BID 08/05/23 10/18/24 krill oil 500 mg PO HS 08/05/23 10/18/24 multivitamin with iron-mineral 1 tab PO HS 08/05/23 10/18/24 ranolazine 500 mg tablet,extended 500 mg PO BID 08/05/23 10/18/24 release,12 hr sacubitril 24 mg-valsartan 26 mg 1 tab PO BID 08/05/23 10/18/24 tablet (Entresto) semaglutide 0.25 mg or 0.5 mg (2 0.5 mg subcut Q7D 08/05/23 10/18/24 mg/3 mL) subcutaneous pen injector (Ozempic) amiodarone 200 mg tablet 200 mg PO QAM 10/30/23 10/18/24 atorvastatin 20 mg tablet 20 mg PO HS 10/30/23 10/18/24 metoprolol succinate 50 mg 50 mg PO HS 10/30/23 10/18/24 tablet,extended release 24 hr midodrine 2.5 mg tablet 2.5 mg PO BID 10/31/23 10/18/24 vibegron 75 mg tablet (Gemtesa) 75 mg PO PM 10/18/24 10/18/24 Previous Rx's Medication Instructions Recorded spironolactone 25 mg tablet 12.5 mg (1/2 x 25 mg) PO QAM #1 tab 09/06/23 Results & Data (ED) Vital Signs Vital Signs - 24 hr 10/18/24 11:59 10/18/24 12:39 10/18/24 12:42 Temperature 36.6 C Temperature Source Temporal Artery Scan Pulse Rate 62 62 59 L Pulse Rate [Apical] Pulse Rhythm Regular Pulse Rhythm [Apical] Pulse Strength [Apical] Respiratory Rate 20 20 Respiratory Effort / Characteristics Non-Labored Respiratory Depth Normal Blood Pressure 109/67 Blood Pressure [Right Arm] Blood Pressure Mean 81 Blood Pressure Mean [Right Arm] Blood Pressure Position [Right Arm] Pulse Oximetry 98 98 Oxygen Delivery Method Room Air Room Air Sepsis Recent Fever Within 48 Hours No Sepsis New/Unexplained Change in Mental Status No Sepsis Action Taken by Nursing No Action Required 10/18/24 14:55 Temperature 36.6 C Temperature Source Oral Pulse Rate Pulse Rate [Apical] 60 Pulse Rhythm Pulse Rhythm [Apical] Regular Pulse Strength [Apical] Normal Respiratory Rate 20 Respiratory Effort / Characteristics Non-Labored Respiratory Depth Normal Blood Pressure Blood Pressure [Right Arm] 140/72 Blood Pressure Mean Blood Pressure Mean [Right Arm] 94 Blood Pressure Position [Right Arm] Semi-fowlers Pulse Oximetry 98 Oxygen Delivery Method Room Air Sepsis Recent Fever Within 48 Hours Sepsis New/Unexplained Change in Mental Status Sepsis Action Taken by Nursing Laboratory Data 10/18/24 12:25 10/18/24 12:25 Lab Results 10/18/24 10/18/24 Range/Units 12:25 14:47 WBC 6.91 (4.8-10.8) K/ul RBC 2.89 L (4.70-6.10) M/uL Hgb 10.8 L (14.0-18.0) g/dl Hct 32.8 L (42.0-52.0) % MCV 113.5 H (80.0-100.0) fL MCH 37.4 H (25.0-34.0) pg MCHC 32.9 (32.0-36.0) g/dL RDW Std Deviation 62.3 H (36.4-46.3) fL RDW Coeff of Lfavia 14.8 H (11.5-14.5) % Plt Count 247 (130-400) K/uL MPV 9.0 L (9.4-12.4) fL Immature Gran % (Auto) 0.3 % Neut % (Auto) 65.7 % Lymph % (Auto) 19.4 % Gregory % (Auto) 10.9 % Eos % (Auto) 3.0 % Baso % (Auto) 0.7 % Neut # (Auto) 4.54 (1.40-6.50) K/uL Lymph # (Auto) 1.34 (1.20-3.40) K/uL Gregory # (Auto) 0.75 H (0.11-0.59) K/uL Eos # (Auto) 0.21 (0.00-0.50) K/uL Baso # (Auto) 0.05 (0.00-0.20) K/uL Immature Gran # (Auto) 0.02 (0.01-0.20) K/uL Macrocytosis Present PT 10.8 (9.0-12.0) Seconds INR 1.0 (0.9-1.1) Sodium 144 (136-145) mmol/L Potassium 4.7 (3.5-5.1) mmol/L Chloride 110 H (98-107) mmol/L Carbon Dioxide 26 (21-32) mmol/L Anion Gap 8 (3-11) BUN 19 (6-23) mg/dl Creatinine 1.39 (0.6-1.4) mg/dl Est Cr Clr Drug Dosing 54.0 ml/min eGFR 49.99 BUN/Creatinine Ratio 13.7 (10-20) Glucose 81 (70-99(Fasting)) mg/dl Calcium 9.0 (8.6-10.3) mg/dl Total Bilirubin 0.5 (0.2-1.0) mg/dl AST 26 (13-39) U/L ALT 25 (7-52) U/L Alkaline Phosphatase 52 (34-104) U/L Troponin I High Sens 4.8 (0-20) pg/ml Total Protein 6.5 (6.0-8.3) gm/dl Albumin 3.8 (3.4-5.0) gm/dl Globulin 2.7 (2.5-4.0) gm/dl Albumin/Globulin Ratio 1.4 (0.9-2) Urine Color Yellow Urine Appearance Clear (Clear) Urine pH 5.5 (4.5-7.5) Ur Specific [place] 1.009 (1.000-1.030) Urine Protein Negative (Negative) Urine Glucose (UA) Negative (Negative) Urine Ketones Negative (Negative) Urine Blood Negative (Negative) Urine Nitrite Negative (Negative) Urine Bilirubin Negative (Negative) Urine Urobilinogen Negative (Negative) Ur Leukocyte Esterase Negative (Negative) Imaging Data Radiologist's Impression: Chest X-Ray 10/18/24 12:23 XR chest 1V portable CLINICAL HISTORY: weakness COMPARISON STUDY: Chest radiograph November 25, 2023. Chest CT August 02, 2010. FINDINGS: There is no pneumothorax or pleural effusion. Bibasilar densities are present. There is stable cardiomegaly. There is pulmonary vascular chest without overt pulmonary edema. Osteoarthritis of the bilateral glenohumeral joints is incidentally noted. Postoperative findings within the thoracic spine are present. IMPRESSION: 1. Cardiomegaly. Pulmonary vascular congestion without overt pulmonary edema. 2. Bibasilar densities which favor atelectasis. ACT 112: Negative or not required by law. Electronically signed by: Jake Diehl M.D. 10/18/2024 12:[address] 10/18/24 12:23 EXAM: CT Head Without Intravenous Contrast INDICATION: Weakness. Multiple falls TECHNIQUE: Axial computed tomography images of the head/brain without intravenous contrast. Sagittal and/or coronal reformats are provided. Sagittal and coronal reformatted images were created and reviewed. This CT exam was performed using one or more of the following dose reduction techniques: automated exposure control, adjustment of the mA and/or kV according to patient size, and/or use of iterative reconstruction technique. COMPARISON: 09/05/2023 and 09/04/2023 FINDINGS: Limitations: None. Brain and extra-axial spaces: There is age appropriate cortical atrophy and chronic ischemic periventricular white matter hypodensity. No acute infarct, hemorrhage or mass noted. Bones/joints: No acute changes. Soft tissues: No significant abnormality noted. Vasculature: No acute abnormality noted. Sinuses: No layering fluid in the visualized portions of the paranasal sinuses. Mastoid air cells: No mastoid effusion. Orbits: No significant abnormality noted. IMPRESSION: Cerebral atrophy. No acute changes. ACT 112: Negative or not required by law. Electronically signed by Marium Benitez 10-18-2024 13:38 PM Discharge Plan Visit Data Chief Complaint: Fall Stated Complaint: NO BALANCE, FALL ON LT SIDE ED Provider: Quincy Field Discharge Problem: Ambulatory dysfunction Forms Stand Alone Forms: My [employer] Prescriptions Prescriptions: No Action folic acid 800 mcg tablet 1 mg PO HS metformin 500 mg tablet extended release 24 hr 500 mg PO QAM cetirizine [Zyrtec] 10 mg Tablet 10 mg PO QAM PRN (Reason: Allergy Symptoms) gabapentin 600 mg tablet 600 mg PO TID acetaminophen 650 mg Tablet Extended Release 1,300 mg PO BID multivitamin with iron-mineral Tablet 1 tab PO HS ranolazine 500 mg tablet extended release 12 hr 500 mg PO BID glucosamine HCl 1,500 mg Tablet 1,500 mg PO BID Eliquis 5 mg tablet 5 mg PO BID Entresto 24-26 mg tablet 1 tab PO BID krill oil 500 mg PO HS Ozempic 0.25 mg or 0.5 mg (2 mg/3 mL) pen injector 0.5 mg SUBCUT Q7D Patient Comments: takes on amiodarone 200 mg tablet 200 mg PO QAM atorvastatin 20 mg tablet 20 mg PO HS metoprolol succinate 50 mg tablet extended release 24 hr 50 mg PO HS midodrine 2.5 mg Tablet 2.5 mg PO BID coenzyme Q10 [Co Q-10] 10 mg Capsule 200 mg PO QAM omeprazole 20 mg Capsule,Delayed Release(Dr/Ec) 20 mg PO QAM cinnamon bark [Cinnamon] 500 mg Capsule 1,000 mg PO QAM cholecalciferol (vitamin D3) [Vitamin D3] 25 mcg (1,000 unit) Tablet,Chewable 50 mcg PO QAM Rx Instructions: 2000 aspirin 81 mg Capsule 81 mg PO .Q OTHER DAY bumetanide 1 mg tablet See Rx Instructions .ROUTE .COMPLEX Rx Instructions: 0.5mg on ,,Fri,Fri; 1.0mg ,W,F spironolactone 25 mg tablet 12.5 mg PO QAM Qty: 1 0RF Gemtesa 75 mg tablet 75 mg PO PM Referrals Referrals: Olivia Rangel PA-C [Primary Care Provider] -
--- NOTE | 2024-10-18 12:55 | XRay Report ---
XR chest 1V portable CLINICAL HISTORY: weakness COMPARISON STUDY: Chest radiograph November 25, 2023. Chest CT August 02, 2010. FINDINGS: There is no pneumothorax or pleural effusion. Bibasilar densities are present. There is sta ble cardiomegaly. There is pulmonary vascular chest without overt pulmonary edema. Osteoarthritis of the bilateral glenohumeral joints is incidentally noted. Postoperative findings within the thoracic s pine are present. IMPRESSION: 1. Cardiomegaly. Pulmonary vascular congestion without overt pulmonary edema. 2. Bibasilar densities which favor atelectasis. ACT 112: Negative or not required by law. Electronically signed by: Jake Diehl M.D. 10/18/2024 12:54 PM
[2024-10-18 13:20] LABS: Basophils # (auto) 0.05 K/uL (0.00-0.20); Basophils % (auto) 0.7 %; Eosinophils # (auto) 0.21 K/uL (0.00-0.50); Hematocrit (blood only) 32.8 % (42.0-52.0); Hemoglobin 10.8 g/dl (14.0-18.0); Immature Granulocytes # (auto) 0.02 K/uL (0.01-0.20); Immature Granulocytes % (auto) 0.3 %; Lymphocytes # (auto) 1.34 K/uL (1.20-3.40); Lymphocytes % (auto) 19.4 %; Mean Corpuscular Hemoglobin 37.4 pg (25.0-34.0); Mean Corpuscular Hgb Conc 32.9 g/dL (32.0-36.0); Mean Corpuscular Volume 113.5 fL (80.0-100.0); Monocytes # (auto) 0.75 K/uL (0.11-0.59); Monocytes % (auto) 10.9 %; Neutrophils # (auto) 4.54 K/uL (1.40-6.50); Neutrophils % (auto) 65.7 %; Platelet Count 247 K/uL (130-400); RDW Coefficient of Variation 14.8 % (11.5-14.5); RDW Standard Deviation 62.3 fL (36.4-46.3); Red Blood Count 2.89 M/uL (4.70-6.10); White Blood Count 6.91 K/ul (4.8-10.8)
--- NOTE | 2024-10-18 13:40 | CT Scan Report ---
EXAM: CT Head Without Intravenous Contrast INDICATION: Weakness. Multiple falls TECHNIQUE: Axial computed tomography images of the head/brain without intravenous contrast. Sagittal and/or coronal reformats are provided. Sagittal and coronal reformatted images were created and reviewed. This CT exam was performed using one or more of the following dose reduction techniques: automated exposure control, adjustment of the mA and/or kV according to patient size, and/or use of iterative reconstruction technique. COMPARISON: 09/05/2023 and 09/04/2023 FINDINGS: Limitations: None. Brain and extra-axial spaces: There is age appropriate cortical atrophy and chronic ischemic periventricular white matter hypodensity. No acute infarct, hemorrhage or mass noted. Bones/joints: No acute changes. Soft tissues: No significant abnormality noted. Vasculature: No acute abnormality noted. Sinuses: No layering fluid in the visualized portions of the paranasal sinuses. Mastoid air cells: No mastoid effusion. Orbits: No significant abnormality noted. IMPRESSION: Cerebral atrophy. No acute changes. ACT 112: Negative or not required by law. Electronically signed by Marium Benitez 10-18-2024 13:38 PM
[2024-10-18 13:42] LABS: Albumin Globulin Ratio 1.4 (0.9-2); Albumin Level 3.8 gm/dl (3.4-5.0); BUN Creatinine Ratio 13.7 (10-20); Bilirubin,Total 0.5 mg/dl (0.2-1.0); Globulin 2.7 gm/dl (2.5-4.0); Potassium 4.7 mmol/L (3.5-5.1); Total Protein 6.5 gm/dl (6.0-8.3)
[2024-10-18 13:46] LABS: Troponin I High Sensitivity 4.8 pg/ml (0-20)
[2024-10-18 13:50] LABS: Macrocytosis Present
[2024-10-18 13:51] LABS: Prothrombin Time 10.8 Seconds (9.0-12.0)
--- NOTE | 2024-10-18 14:42 | History & Physical Report ---
Date of Service October 18, 2024 Assessment & Plan (1) Ambulatory dysfunction: Plan: Ambulatory dysfunction Chronic and multifactorial. Combination of spinal disease, myelopathy, neuropathy due to both DM and age-related changes, CHF, and poor balance Minimal CHF exacerbation, and no UTI symptoms with a bland UA. No other infectious symptoms on admission DDx include worsening myelopathy, has a history of cervical, thoracic and reportedly lumbar stenosis Has had urinary retention worsened in the last week. Sensation in lower extremities is diminished to soft touch much more than normal in the last week CThead with cerebral atrophy no acute changes. No neck pain Prior thoracic MRI with moderate central canal stenosis at T1-T2, mild to multilevel central canal stenosis otherwise noted. Prior C-spine MRI 08/17: Multilevel discogenic degeneration and facet arthrosis with resultant central canal stenosis and neuroforaminal narrowing at multiple levels. Normal cervical spinal cord signal Pain control with Tylenol, tramadol, breakthrough low-dose morphine as needed. -. Reviewed with orthopedic spine. Given rapid sudden worsened strength with sensory loss in lower extremities with urinary retention agree with thoracolumbar spine MRI. He does not have under upper extremity weakness or tingling, but does have a history of multilevel cervical stenosis and disease. Cervical MRI defined. Reasonable to start steroids, Dex 10 mg given Last [facility] cardiology note reviewed. Patient was evaluated while considering this estimate Negative stress echo for ischemia 07/13/2021 at [facility], exercise capacity was only 59% for age and had a extreme hypertensive response to exercise. Patient had symptomatic paroxysmal atrial fibrillation leading to worsen diastolic heart failure with loss of atrial kick. He was ablated 09/2021 and is in sinus with maintenance. Did have a cardioversion 08/05/2023. Also with comorbid sleep apnea on BiPAP. There was a concern that he would decompensate if he has atrial fibrillation with surgery and had elevated cardiac risk for unclear benefit over whether it would improve his immediate symptoms but there was concern for progression. It was recommended that he have a second opinion at [place] which was being arranged at that time. Risks did not outweigh the benefit of pursuing operative intervention at that time however he was not necessarily precluded from surgery entirely was just noted to have increased risk of decompensation. - If surgical intervention is indicated based on MRI --> d/w [facility] cardiology for perioperative risk assessment and optimization. (2) Myelopathy concurrent with and due to spinal stenosis of thoracic region: (3) Diastolic HF (heart failure): Plan: Chronic chronic diastolic heart failure Mild acute component as patient has been more exertionally dyspneic, does have pulmonary congestion on x-ray, has had increased leg swelling in the last few days when legs are down but when legs are elevated swelling is improved, is near his dry weight, and does not have hypoxia. Does endorse some increased salt intake and took 1 extra Bumex dose on Friday Admitting EKG: Sinus bradycardia without territorial ST/T wave changes. 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 Goal BSG [id number]. Metformin held on admission. Pharmacy consulted for additional assistance in the management while on dexamethasone Plan Chronic stable issues: GRACIE: Continue BiPAP at bedtime DVT prophylaxis: SCDs, pharmacal prophylaxis held pending surgical evaluation CODE STATUS:DNR/DNI, reviewed w pt and family at bedside Disposition: Med telemetry due to mild acute on chronic CHF without hypoxia Diet: Pt last ate ~3pm. Clears. N.p.o. at midnight. If no sx indicated/anticipate --> HH/DM2 History of Present Illness Primary Care Provider: PRIETO Blank is a 84-year-old male with a history of type 2 diabetes, diastolic heart failure, hypertension, CKD, A-fib on Eliquis and amiodarone, BPH with LUTS, and spinal stenosis with known myelopathy and a past history of T8-T10 decompression and fusion a poor surgical candidate due to cardiac risk who presents with inability to ambulate and request for placement. She was seen with his son and family at bedside. Greatly WOrsened strength in the legs in the last week. Could not stand on his own and shaky despite using his walker which normally works well for him. Has had some falls although no back pain worse than his usual does ache if he sits for too long His weakness does feel worse and different than his prior thoracic stenosis pain and weakness, and seems to have abruptly worsened spite some gradually worsening strength at baseline. Normally can walk with a walker but all of a sudden in the last 5 days could not use his walker. Family went to [place] and had to come home because he couldn't walk at home and kept falling. Too weak to transfer. Was going to have thoracic decompression, with elevated risk for surgery and this was deferred. Recommended to have a second opinion from [facility] spinal surgery Dr. Harrell, is pending intake in Dec 16. Legs numbness/tingling is much worse in the last week. Requests visit with Dr. Devi. Increased SoB compared to normal last few days,. Had a little extra salt the past week, took an extra lasix 1x this last Friday. He has not had any dysuria or polyuria but does have more difficulty voiding and has a history of intermittent urinary retention Denies chest pain or chest pressure otherwise very limited exertional ability. Denies palpitations. Denies fever and chills Last [facility] cardiology note reviewed. Patient was evaluated while considering this estimate Negative stress echo for ischemia 07/13/2021 at [facility], exercise capacity was only 59% for age and had a extreme hypertensive response to exercise. Patient had symptomatic paroxysmal atrial fibrillation leading to worsen diastolic heart failure with loss of atrial kick. He was ablated 09/2021 and is in sinus with maintenance. Did have a cardioversion 08/05/2023. Also with comorbid sleep apnea on BiPAP. There was a concern that he would decompe nsate if he has atrial fibrillation with surgery and had elevated cardiac risk for unclear benefit over whether it would improve his immediate symptoms but there was concern for progression. It was recommended that he have a second opinion at [place] which was being arranged at that time. Risks did not outweigh the benefit of pursuing operative intervention at that time however he was not necessarily precluded from surgery entirely was just noted to have increased risk of decompensation. Medical History: Reviewed Medications: Reviewed Surgical History: Reviewed Family history: Reviewed Allergies: Reviewed Social History: No history of alcohol, tobacco, recreational drug use Code Status: Full code Allergies Allergy/AdvReac Type Severity Reaction Status Date / Time oxycodone AdvReac Mild NAUSEA/VOMI Verified 10/01/24 09:36 TTING Home Medications Medication Instructions Recorded Confirmed Type folic acid 800 mcg tablet 1 mg PO HS 08/10/20 10/18/24 History cetirizine 10 mg tablet (Zyrtec) 10 mg PO QAM PRN Allergy Symptoms 07/03/2109/25 History metformin 500 mg tablet,extended 500 mg PO QAM 07/03/21 10/18/24 History release 24 hr aspirin 81 mg capsule 81 mg PO .Q OTHER DAY 07/19/21 10/18/24 History bumetanide 1 mg tablet See Rx Instructions .Route .COMPLEX 07/19/21 10/18/24 History cholecalciferol (vitamin D3) 25 50 mcg PO QAM 07/19/21 10/18/24 History mcg (1,000 unit) chewable tablet (Vitamin D3) cinnamon bark 500 mg capsule 1,000 mg PO QAM 07/19/21 10/18/24 History (Cinnamon) coenzyme Q10 10 mg capsule (Co 200 mg PO QAM 07/19/21 10/18/24 History Q-10) omeprazole 20 mg capsule,delayed 20 mg PO QAM 07/19/21 10/18/24 History release acetaminophen 650 mg 1,300 mg PO BID 08/05/23 10/18/24 History tablet,extended release apixaban 5 mg tablet (Eliquis) 5 mg PO BID 08/05/23 10/18/24 History gabapentin 600 mg tablet 600 mg PO TID 08/05/23 10/18/24 History glucosamine HCl 1,500 mg tablet 1,500 mg PO BID 08/05/23 10/18/24 History krill oil 500 mg PO HS 08/05/23 10/18/24 History multivitamin with iron-mineral 1 tab PO HS 08/05/23 10/18/24 History ranolazine 500 mg tablet,extended 500 mg PO BID 08/05/23 10/18/24 History release,12 hr sacubitril 24 mg-valsartan 26 mg 1 tab PO BID 08/05/23 10/18/24 History tablet (Entresto) semaglutide 0.25 mg or 0.5 mg (2 0.5 mg subcut Q7D 08/05/23 10/18/24 History mg/3 mL) subcutaneous pen injector (Ozempic) spironolactone 25 mg tablet 12.5 mg (1/2 x 25 mg) PO QAM #1 tab 09/06/23 10/18/24 Rx amiodarone 200 mg tablet 200 mg PO QAM 10/30/23 10/18/24 History atorvastatin 20 mg tablet 20 mg PO HS 10/30/23 10/18/24 History metoprolol succinate 50 mg 50 mg PO HS 10/30/23 10/18/24 History tablet,extended release 24 hr midodrine 2.5 mg tablet 2.5 mg PO BID 10/31/23 10/18/24 History vibegron 75 mg tablet (Gemtesa) 75 mg PO PM 10/18/24 10/18/24 History Past Med/Surg History Problem List (Updated 10/18/24 @ 16:19 by Quincy Field DO) Ambulatory dysfunction (Acute) Right rotator cuff tear arthropathy Urgency incontinence BPH w urinary obs/LUTS Urinary incontinence Strain of right hip Degenerative joint disease of left wrist Swelling of right hand Myelopathy concurrent with and due to spinal stenosis of thoracic region Transient left leg weakness Left leg pain (Acute) Ambulatory dysfunction (Acute) Multiple contusions (Acute) Abrasion of both knees (Acute) Anticoagulant long-term use (Acute) Fall (Acute) Right rotator cuff tear Right knee DJD Trochanteric bursitis, left hip Encounter for pre-operative examination Trochanteric bursitis of right hip Osteoarthritis Hyperlipidemia Diastolic HF (heart failure) chronic diastolic HF GERD (gastroesophageal reflux disease) Diabetic neuropathy DMII (diabetes mellitus, type 2) on metformin and ozempic GRACIE (obstructive sleep apnea) cpap Obesity Afib cardioversion [facility] 08/05/23; pt on medication including asa and eliquis and fo llows with cardio CKD (chronic kidney disease), stage III HTN (hypertension) (Chronic) Sleep apnea (Chronic) Medical History History of recent hospitalization History of cardioversion SHARA positive Diverticulosis Carotid artery plaque CAD (coronary artery disease) Elevated cholesterol Surgical History Hx of colonoscopy Hx of total knee arthroplasty History of cholecystectomy H/O laminectomy H/O total knee replacement History of ankle surgery History of back surgery H/O bilateral hip replacements Family History Other Coronary heart disease Diabetes Social History Smoking Status: Never smoker Tobacco Type: Cigarettes Cigarettes Per Day: 20; Second Hand Exposure: No; Do You Dip or Chew Tobacco: No; Hx Alcohol Use: No Hx Substance Use: No Preferred Language: Turkmen Communication Ability: Effective Digital Marketer Required: No Beliefs That Will Affect Care: None marital status: Current Living Situation: Spouse Feels Safe at Home: Yes Assistive Devices: Cane and Walker Physical Exam Physical Exam: General: A&Ox3. NAD. Cooperative. HEENT: Atraumatic, normocephalic. Pulm: CTAB A&P. -wheezes, -rales, -rhonchi. Symmetrical chest rise. No increased work of breathing. No respiratory distress. Cardiac: RRR, +sm. Radial pulses intact and symmetrical. Abdominal: Nontender, nondistended, soft. BS present. CRANIAL NERVES: II: Pupils equal and reactive, no relative afferent pupillary defect, no VF cuts III, IV, : EOM intact, no gaze preference or deviation, no nystagmus. V: normal sensation in V1, V2, and V3 segments bilaterally VII: no asymmetry, no nasolabial fold flattening VIII: normal hearing to speech IX, X: normal palatal elevation, no uvular deviation XI: 5/5 head turn and 5/5 shoulder shrug bilaterally XII: midline tongue protrusion MOTOR: RUE: 5/5 Shoulder internal rotation, external rotation, flexion, extension, abduction, adduction 5/5 Elbow flexion/extension, wrist flexi on/extension 5/5 oil mixer strength, finger flexion/extens ion, interosseus LUE: 5/5 Shoulder internal rotation, external rotation, flexion, extension, abduction, adduction 5/5 Elbow flexion/extension, wrist flexi on/extension 5/5 oil mixer strength, finger flexion/extens ion, interosseus RLE: 4/5 to hip flexion/extension, ankle dors iflexion/plantarflexion LLE: 4-/5 to hip flexion, ankle dorsiflexion/ plantarflexion and qualitatively weaker than right REFLEXES: 2/4 patellar, bicepts, and achilles DTR without asymmetry. Bilateral flexor planter response, no Smiley's, no clonus SENSORY: - Near absent to soft touch in lower ext remities including the thigh, ankle and foot bilaterally. Station is normal soft touch in hands bilaterally. Results & Data Results & Data Vital Signs (Past 12 Hours) Vital Signs Temp Pulse Resp BP Pulse Ox O2 Del Method 10/18/24 12:42 59 L 20 98 Room Air 10/18/24 12:39 62 10/18/24 11:59 36.6 C 62 20 109/67 98 Room Air PG Care Time/CCT Total # of Minutes Spent Total Time Spent with Patient: Total time spent is greater than 50% in coordination of care (as documented) at patient's floor/unit and/or counseling patient: Coding Level of Care Code 93450 INT INP/OBS CARE 3/75MIN Diagnoses Ambulatory dysfunction R26.2 Myelopathy concurrent with and due to spinal stenosis of thoracic region M48.04; G99.2 Diastolic HF (heart failure) I50.30 CKD (chronic kidney disease), stage III N18.30 DMII (diabetes mellitus, type 2) E11.9
[2024-10-18 15:06] LABS: Appearance Urine Clear (Clear); Bilirubin Urine Negative (Negative); Blood Urine Negative (Negative); Color Urine Yellow; Glucose Urine UA Negative (Negative); Ketones Urine Negative (Negative); Leukocyte Esterase Urine Negative (Negative); Nitrite Urine Negative (Negative); Protein Urine Negative (Negative); Specific Gravity Urine 1.009 (1.000-1.030); Urobilinogen Urine Negative (Negative); pH Urine 5.5 (4.5-7.5)
--- NOTE | 2024-10-18 15:57 | Electrocardiogram Report ---
Test Reason : Blood Pressure : */* mmHG Vent. Rate : 58 BPM Atrial Rate : 58 BPM P-R Int : 206 ms QRS Dur : 82 ms QT Int : 430 ms P-R-T Axes : 67 -34 15 degrees QTcB Int : 422 ms Sinus bradycardia Left axis deviation Low voltage QRS Poor R wave progression, consider anterior UT vs. lead placement vs. LVH Abnormal ECG Confirmed by Stu Holt ([id number]) on 10/18/2024 3:57:14 PM Referred By: REFERRED SELF Confirmed By: Stu Holt
[2024-10-18] MEDS ORDERED: PHARMACY GLYCEMIC MGMT CONSULT PRN (16:40)
[2024-10-18] MEDS: DEXAMETHASONE SOD INJ 4 MG/ML VIAL IV STA (16:54)
[2024-10-18] MEDS ORDERED: GLUCAGON FOR INJ 1 MG VIAL SQ PRN ×2 (17:45→20:23)
[2024-10-18] MEDS ORDERED: CARBOHYDRATES FOR HYPOGLYCEMIA PO PRN ×2 (17:45→20:23)
[2024-10-18] MEDS ORDERED: DEXTROSE 50% 50 ML SYRINGE IV PRN ×2 (17:45→20:23)
[2024-10-18] MEDS ORDERED: GLUCOSE 10 TAB/TUBE PO PRN ×2 (17:45→20:23)
[2024-10-18] MEDS ORDERED: GLUCOSE 40% GEL 15 GM TUBE PO PRN ×2 (17:45→20:23)
--- NOTE | 2024-10-18 19:25 | Magnetic Resonance Report ---
Exam(s): MRI T SPINE Without Contrast EXAM: MR Thoracic Spine Without Intravenous Contrast CLINICAL HISTORY: Reason for exam: AoC b/l leg weakness, numbness. TECHNIQUE: Magnetic resonance images of the thoracic spine without intravenous contrast in multiple planes. COMPARISON: MRI 07/30/2024. FINDINGS: Postsurgical changes from T8-T10. No acute fracture. No discitis osteomyelitis. Normal cord signal. Multilevel degenerative disc disease with scattered facet arthropathy and ligamentous thickening. Spinal canal stenosis most pronounced at T1-T2 where it appears moderate. Foraminal stenosis most pronounced at: T1-T2 on the right where it is severe. T8-T9 where it appears moderate to severe bilaterally. T9-T10 where it appears severe bilaterally. IMPRESSION: 1. No acute abnormality. Canal stenosis most pronounced at T1-T2 where it appears moderate. No cord signal abnormality. Electronically signed by: Joseph Roche MD 10/18/24 19:24 PM
--- NOTE | 2024-10-18 19:55 | Magnetic Resonance Report ---
Exam(s): MRI L SPINE Without Contrast EXAM: MR Lumbar Spine Without Intravenous Contrast CLINICAL HISTORY: Reason for exam: acute on chronic leg weakness, numbness,+retention. TECHNIQUE: Magnetic resonance images of the lumbar spine without intravenous contrast in multiple planes. COMPARISON: CT lumbar spine 09/04/2023 FINDINGS: No cord signal abnormality within the distal cord. Multilevel postsurgical changes. No acute fracture. No discitis osteomyelitis. T12-L1: Mild canal stenosis. Mild right and no left foraminal stenosis. L1-L2: Mild canal stenosis. Moderate right and mild left foraminal stenosis. L2-3: Ankylosis. Mild narrowing of the right lateral recess. Mild bilateral foraminal stenosis. L3-4: No canal stenosis. Mild right and no significant left foraminal stenosis. L4-5: No canal stenosis. No significant right and mild to moderate left foraminal stenosis. L5-S1: No canal stenosis. Mild to moderate left and mild right foraminal stenosis. IMPRESSION: 1. No acute abnormality. No high-grade canal stenosis. Multilevel scattered foraminal stenosis. Electronically signed by: Joesph Roche MD 10/18/24 19:54 PM
[2024-10-18] MEDS ORDERED: INSULIN ASPART PER UNIT CHARGE SC SCH (20:23)
[2024-10-18] MEDS ORDERED: POLYETHYLENE (MIRALAX) 17 GM PACK PO PRN (20:23)
[2024-10-18] MEDS ORDERED: ACETAMINOPHEN 325 MG TAB PO PRN (20:23)
[2024-10-18] MEDS: INSULIN ASPART PER UNIT CHARGE SC SCH (20:26)
[2024-10-18] MEDS ORDERED: BUMETANIDE 1 MG in SYRINGE 0 ML IV ONE (20:30)
[2024-10-18] MEDS: RANOLAZINE 500 MG ER TAB PO SCH (21:24)
[2024-10-18] MEDS: VALSARTAN/SACUBITRIL 26/24MG TAB PO SCH (21:25)
[2024-10-18] MEDS: VIBEGRON 75 MG TAB PO SCH (21:25)
[2024-10-18] MEDS: METOPROLOL SUCC 50MG EXT REL TAB PO SCH (21:25)
[2024-10-18] MEDS: MIDODRINE HCL 2.5 MG TAB PO SCH (21:26)
[2024-10-18] MEDS: GABAPENTIN 600 MG TAB PO SCH (21:26)
[2024-10-18] MEDS: ATORVASTATIN 20 MG TAB PO SCH (21:26)
[2024-10-18] MEDS: FOLIC ACID 1 MG TAB PO SCH (21:27)
[2024-10-18] MEDS: MULTIVITAMIN TAB PO SCH (21:27)
[2024-10-18] MEDS: BUMETANIDE 0.5 MG in SYRINGE 0 ML IV SCH (21:28)
[2024-10-19 08:44] LABS: Hematocrit (blood only) 31.1 % (42.0-52.0); Hemoglobin 10.4 g/dl (14.0-18.0); Immature Granulocytes # (auto) 0.03 K/uL (0.01-0.20); Immature Granulocytes % (auto) 0.6 %; Lymphocytes % (auto) 13.5 %; Mean Corpuscular Hgb Conc 33.4 g/dL (32.0-36.0); Mean Corpuscular Volume 110.7 fL (80.0-100.0); Mean Platelet Volume 9.1 fL (9.4-12.4); Monocytes # (auto) 0.15 K/uL (0.11-0.59); Monocytes % (auto) 2.9 %; Neutrophils # (auto) 4.32 K/uL (1.40-6.50); Platelet Count 263 K/uL (130-400); RDW Coefficient of Variation 14.2 % (11.5-14.5); RDW Standard Deviation 57.9 fL (36.4-46.3); Red Blood Count 2.81 M/uL (4.70-6.10)
[2024-10-19] MEDS ORDERED: DEXAMETHASONE SOD INJ 4 MG/ML VIAL IV SCH (09:00)
[2024-10-19 09:04] LABS: BUN Creatinine Ratio 13.8 (10-20); Calcium 8.7 mg/dl (8.6-10.3); Creatinine Clr Calc Pharmacy 57.2 ml/min; Potassium 4.4 mmol/L (3.5-5.1)
--- NOTE | 2024-10-19 09:04 | Pharmacy Report ---
Pharmacy Glycemic Short Note 2 - Date of Service October 19, 2024 - Glycemic Short BSG Results (Last 24 hours): 10/18/24 10/18/24 10/19/24 12:25 20:29 07:45 Glucose 81 POC Glucose 128 H 155 H OUTPATIENT ANTIDIABETIC REGIMEN: * Metformin, Ozempic * Patients last A1c was 5.6% on 08/06/23 ASSESSMENT: * is a 84 M w/PMH of DMII, HF, HTN, CKD, Afib, past spinal sxs who presents with inability to ambulate/falls. * BSGs ranging from 81 to 155 since admission. * Pt was started on IV dexamethasone, so will use stress factor of 3 for patients NovoLog * Will order Lantus to provide coverage for patients steroids * Last A1c was over a year ago so will order new A1c PLAN FOR INPATIENT GLYCEMIC CONTROL: * Hold outpatient oral diabetes medications * A1c ordered with tomorrows labs * Basal insulin * Lantus 10 units this morning * Bolus insulin * NovoLog per scale ACHS or Q6hrs while NPO * Goal Range: Low 110 mg/dL - High 140 mg/dL * Correction Factor: 20 mg/dL/unit * Nutritional / Prandial insulin per carb ratio of 1 unit per 7 grams CHO consumed
[2024-10-19 09:12] LABS: Macrocytosis Present
[2024-10-19] MEDS: AMIODARONE 200 MG TAB PO SCH (09:36)
[2024-10-19] MEDS: dexAMETHasone 6 MG in SYRINGE 0 ML IV SCH (09:36)
[2024-10-19] MEDS: CETIRIZINE HCL 10 MG TABLET PO PRN (09:37)
[2024-10-19] MEDS: SPIRONOLACTONE 12.5 MG TAB PO SCH (09:37)
[2024-10-19] MEDS: PANTOprazole 40 MG TAB PO SCH (09:37)
[2024-10-19] MEDS: LANTUS PER UNIT CHARGE SC SCH (09:45)
--- NOTE | 2024-10-19 14:14 | Hospitalist Progress Note ---
Date of Service October 19, 2024 Assessment & Plan (1) Ambulatory dysfunction: Plan: Ambulatory dysfunction Chronic and multifactorial. Combination of spinal disease- moderate T1/2 spinal stenosis on MRI with myelopathy, diabetic neuropathy, deconditioning after being home without his family for a week - was only going from the recliner to the kitchen/bathroom and back --acute on chronic heart failure with worsened VILLEGAS also contributing --Dr. Devi consulted. No new findings on MRI T and L spine this admission and no indication for urgent surgical intervention. Is a high risk surgical candidate because of his comorbidities. Prior C-spine MRI 08/17: Multilevel discogenic degeneration and facet arthrosis with resultant central canal stenosis and neuroforaminal narrowing at multiple levels. Normal cervical spinal cord signal --continue PT and OT recommending rehab Pain control with Tylenol, tramadol, breakthrough low-dose morphine as needed. will stop steroids since not having much pain. Negative stress echo for ischemia 07/13/2021 at [facility], exercise capacity was only 59% for age and had a extreme hypertensive response to exercise. Patient had symptomatic paroxysmal atrial fibrillation leading to worsen diastolic heart failure with loss of atrial kick. He was ablated 09/2021 and is in sinus with maintenance. Did have a cardioversion 08/05/2023. Also with comorbid sleep apnea on BiPAP. There was a concern that he would decompensate if he has atrial fibrillation with surgery and had elevated cardiac risk for unclear benefit. Referred to [facility] for second opinion. 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 Last A1c 5.6% Continue metformin XR daily; Ozempic 0.5 mg weekly no hypoglycemia Given Ozempic treatment will defer basal insulin and add conservative SSI. Goal BSG [id number]. Metformin held on admission. Pharmacy consulted for additional assistance in the management while on dexamethasone Plan Chronic stable issues: GRACIE: Continue BiPAP at bedtime DVT prophylaxis: enoxaparin CODE STATUS:DNR/DNI, reviewed w pt and family at bedside Admission and Anticipated Discharge Date Admission Date: October 18, 2024 Subjective no significant back pain able to stand and walk few steps with OT becomes weak (knees buckle) and dyspneic when walking 20-30 feet VILLEGAS is worse than usual currently, leg edema increased as well Physical Exam 2 Physical Exam: PHYSICAL EXAMINATION Last 24h vital signs reviewed, see documentation in flowsheet General: comfortable appearing, no distress, sitting up in the chair HEENT: Normocephalic, atraumatic, pupils round and equal, sclerae anicteric, no conjunctival injection, moist mucus membranes Lungs: Normal respiratory effort. bibasilar crackles 1/third way up no wheezing Heart: Regular rate and rhythm, no murmurs. cannot see JVP Abdomen: Soft, nontender, nondistended. Bowel sounds present. Extremities: Warm, dry, well-perfused. 2+ extremity edema. Neuro: Alert and oriented x 4, face symmetric, moves 4 extremities well. observed to stand with standby assistance of OT walk few feet forward and backward with walker, does tend to lean backwards Psych: Normal affect and behavior Results & Data Results & Data Vital Signs (Past 12 Hours) Vital Signs Temp Pulse Pulse Resp BP Pulse Ox O2 Del Method 10/19/24 14:05 67 10/19/24 11:06 97.7 F 74 18 119/64 94 Room Air 10/19/24 07:16 97.7 F 68 18 115/63 94 Room Air 10/19/24 07:14 71 10/19/24 04:01 98.1 F 69 20 114/66 94 Room Air Laboratory Results 10/19/24 08:01 10/19/24 08:01 PG Care Time/CCT Total # of Minutes Spent Total Time Spent with Patient: Total time spent is greater than 50% in coordination of care (as documented) at patient's floor/unit and/or counseling patient: Coding Level of Care Code 07715 SUB INP/OBS CARE 2/35MIN Diagnoses Ambulatory dysfunction R26.2 Myelopathy concurrent with and due to spinal stenosis of thoracic region M48.04; G99.2 Diastolic HF (heart failure) I50.30 CKD (chronic kidney disease), stage III N18.30 DMII (diabetes mellitus, type 2) E11.9
--- NOTE | 2024-10-19 15:09 | Orthopedic Consultation ---
Date of Consultation October 19, 2024 Assessment & Plan (1) Myelopathy concurrent with and due to spinal stenosis of thoracic region: Updated imaging of the thoracic and lumbar spine available for review. There continues to be evidence of spinal stenosis T1-T2. I do not however appreciate any evidence of myelomalacia or signal change within the cord. I have discussed with the patient these findings. He does have known cardiac disease and is at significant risk for any surgical intervention. I do not see an indication for urgent surgical invention at this time. I would consider consultation with neurology for their input and other etiology for his decline. Patient understands agrees with this plan. History of Present Illness Reason for Consultation: Progressive loss of lower extremity strength and balance Attending Physician: Ayla Valdez MD History of Present Illness This is an 84-year-old male well-known to the presents to hospital with decline in his function over the past 2 weeks. He states he has had 2 small falls at home. But no severe trauma. He describes a decline in his balance and ability to ambulate secondary to leg weakness. He does have known peripheral neuropathy that also was contributing to his issues. Allergies Allergy/AdvReac Type Severity Reaction Status Date / Time oxycodone AdvReac Mild NAUSEA/VOMI Verified 10/01/24 09:36 TTING Home Medications Medication Instructions Recorded Confirmed Type folic acid 800 mcg tablet 1 mg PO HS 08/10/20 10/18/24 History cetirizine 10 mg tablet (Zyrtec) 10 mg PO QAM PRN Allergy Symptoms 07/03/21 History metformin 500 mg tablet,extended 500 mg PO QAM 07/03/21 10/18/24 History release 24 hr aspirin 81 mg capsule 81 mg PO .Q OTHER DAY 07/19/21 10/18/24 History bumetanide 1 mg tablet See Rx Instructions .Route .COMPLEX 07/19/21 10/18/24 History cholecalciferol (vitamin D3) 25 50 mcg PO QAM 07/19/21 10/18/24 History mcg (1,000 unit) chewable tablet (Vitamin D3) cinnamon bark 500 mg capsule 1,000 mg PO QAM 07/19/21 10/18/24 History (Cinnamon) coenzyme Q10 10 mg capsule (Co 200 mg PO QAM 07/19/21 10/18/24 History Q-10) omeprazole 20 mg capsule,delayed 20 mg PO QAM 07/19/21 10/18/24 History release acetaminophen 650 mg 1,300 mg PO BID 08/05/23 10/18/24 History tablet,extended release apixaban 5 mg tablet (Eliquis) 5 mg PO BID 08/05/23 10/18/24 History gabapentin 600 mg tablet 600 mg PO TID 08/05/23 10/18/24 History glucosamine HCl 1,500 mg tablet 1,500 mg PO BID 08/05/23 10/18/24 History krill oil 500 mg PO HS 08/05/23 10/18/24 History multivitamin with iron-mineral 1 tab PO HS 08/05/23 10/18/24 History ranolazine 500 mg tablet,extended 500 mg PO BID 08/05/23 10/18/24 History release,12 hr sacubitril 24 mg-valsartan 26 mg 1 tab PO BID 08/05/23 10/18/24 History tablet (Entresto) semaglutide 0.25 mg or 0.5 mg (2 0.5 mg subcut Q7D 08/05/23 10/18/24 History mg/3 mL) subcutaneous pen injector (Ozempic) spironolactone 25 mg tablet 12.5 mg (1/2 x 25 mg) PO QAM #1 tab 09/06/23 10/18/24 Rx amiodarone 200 mg tablet 200 mg PO QAM 10/30/23 10/18/24 History atorvastatin 20 mg tablet 20 mg PO HS 10/30/23 10/18/24 History metoprolol succinate 50 mg 50 mg PO HS 10/30/23 10/18/24 History tablet,extended release 24 hr midodrine 2.5 mg tablet 2.5 mg PO BID 10/31/23 10/18/24 History vibegron 75 mg tablet (Gemtesa) 75 mg PO PM 10/18/24 10/18/24 History Patient History Medical History History of recent hospitalization History of cardioversion SHARA positive Diverticulosis Carotid artery plaque CAD (coronary artery disease) Elevated cholesterol Surgical History Hx of colonoscopy Hx of total knee arthroplasty History of cholecystectomy H/O laminectomy H/O total knee replacement History of ankle surgery History of back surgery H/O bilateral hip replacements Family History Other Coronary heart disease Diabetes Social History Smoking Status: Former smoker Tobacco Type: Cigarettes Cigarettes Per Day: pack a day; Smoking End Date: 63 years ago (1960); Second Hand Exposure: No; Do You Dip or Chew Tobacco: No; Tobacco Cessation Education Requested by Patient: No Hx Alcohol Use: Yes Alcohol type: beer, wine and hard liquor Hx Substance Use: No Preferred Language: Tamazight Communication Ability: Effective Golf Ball Marker Required: No Beliefs That Will Affect Care: None marital status: Current Living Situation: Spouse Current Living Situation Comment: home with Other Information That Helps Us Care for You: No Feels Safe at Home: Yes Safety Concerns: Feels Safe At This Time Assistive Devices: CPAP, Glasses and Walker Physical Exam Physical Exam: On exam patient is in the chair at the bedside. He does not exhibit any upper extremity myelopathic signs. Negative Casandra sign. Excellent cervical range of motion. Good strength testing sensory intact. His lower extremities demonstrate significant loss of sensation. I am unable to elicit any clonus. He is unable to stand without assistance. Results & Data Vital Signs (Past 12 Hours) Vital Signs Temp Pulse Pulse Resp BP Pulse Ox O2 Del Method 10/19/24 14:57 37.2 C 76 18 107/60 95 Room Air 10/19/24 14:05 67 10/19/24 11:06 36.5 C 74 18 119/64 94 Room Air 10/19/24 07:16 36.5 C 68 18 115/63 94 Room Air 10/19/24 07:14 71 10/19/24 04:01 36.7 C 69 20 114/66 94 Room Air
[2024-10-19] MEDS: DICLOFENAC SOD 1% GEL 100 GM TUBE EXT PRN (22:40)
[2024-10-20 08:16] LABS: BUN Creatinine Ratio 17.7 (10-20); Calcium 9.1 mg/dl (8.6-10.3); Creatinine Clr Calc Pharmacy 50.2 ml/min; Estimated Average Glucose 88 mg/dl; Hemoglobin A1C 4.7 % (4.5-5.6); Potassium 4.4 mmol/L (3.5-5.1)
--- NOTE | 2024-10-20 10:22 | Pharmacy Report ---
Pharmacy Glycemic Short Note 2 - Date of Service October 20, 2024 - Glycemic Short BSG Results (Last 24 hours): 10/19/24 10/19/24 10/19/24 12:08 16:51 20:14 Glucose POC Glucose 136 H 133 H 157 H 10/20/24 10/20/24 07:21 08:09 Glucose 121 H POC Glucose 118 H OUTPATIENT ANTIDIABETIC REGIMEN: * Metformin, Ozempic * Patients A1c is 4.7% taken on 10/20/24. ASSESSMENT: 10/19/24: * is a 84 M w/PMH of DMII, HF, HTN, CKD, Afib, past spinal sxs who presents with inability to ambulate/falls. * BSGs ranging from 81 to 155 since admission. * Pt was started on IV dexamethasone, so will use stress factor of 3 for patients NovoLog * Will order Lantus to provide coverage for patients steroids * Last A1c was over a year ago so will order new A1c 10/20/24: * BSGs well controlled mostly in goal since yesterday, 118 this morning and lunch as well. * Dexamethasone d/emmanuel yesterday, will therefore d/c basal insulin, will also loosen NovoLog parameters. * Patients A1c came back today at 4.7 PLAN FOR INPATIENT GLYCEMIC CONTROL: * Hold outpatient oral diabetes medications * Basal insulin * Discontinued. * Bolus insulin * NovoLog per scale ACHS or Q6hrs while NPO * Goal Range: Low 110 mg/dL - High 140 mg/dL * Correction Factor: 30 mg/dL/unit * Nutritional / Prandial insulin per carb ratio of 1 unit per 10 grams CHO consumed
--- NOTE | 2024-10-20 15:30 | Hospitalist Progress Note ---
Date of Service October 20, 2024 Assessment & Plan (1) Ambulatory dysfunction: Plan: Ambulatory dysfunction Chronic and multifactorial. Combination of spinal disease- moderate T1/2 spinal stenosis on MRI with myelopathy, diabetic neuropathy, deconditioning after being home without his family for a week - was only going from the recliner to the kitchen/bathroom and back --acute on chronic heart failure with worsened VILLEGAS also contributing --Dr. Devi consulted. No new findings on MRI T and L spine this admission and no indication for urgent surgical intervention. Is a high risk surgical candidate because of his comorbidities. Prior C-spine MRI 08/17: Multilevel discogenic degeneration and facet arthrosis with resultant central canal stenosis and neuroforaminal narrowing at multiple levels. Normal cervical spinal cord signal --continue PT and OT recommending rehab Pain control with Tylenol Negative stress echo for ischemia 07/13/2021 at [facility], exercise capacity was only 59% for age and had a extreme hypertensive response to exercise. Patient had symptomatic paroxysmal atrial fibrillation leading to worsen diastolic heart failure with loss of atrial kick. He was ablated 09/2021 and is in sinus with maintenance. Did have a cardioversion 08/05/2023. Also with comorbid sleep apnea on BiPAP. There was a concern that he would decompensate if he has atrial fibrillation with surgery and had elevated cardiac risk for unclear benefit. Referred to [facility] for second opinion. 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 Last A1c 5.6% Continue metformin XR daily; Ozempic 0.5 mg weekly no hypoglycemia Pharmacy consulted - BG well controlled 10/20 Plan Chronic stable issues: GRACIE: Continue BiPAP at bedtime DVT prophylaxis: enoxaparin CODE STATUS:DNR/DNI Admission and Anticipated Discharge Date Admission Date: October 18, 2024 Subjective VILLEGAS unchanged, leg swelling improved Walking few feet with PT/OT assistance Physical Exam 2 Physical Exam: PHYSICAL EXAMINATION Last 24h vital signs reviewed, see documentation in flowsheet General: comfortable appearing, no distress, sitting EOB with grandson HEENT: Normocephalic, atraumatic, pupils round and equal, sclerae anicteric, no conjunctival injection, moist mucus membranes Lungs: Normal respiratory effort. bibasilar crackles without wheezing persist Heart: Regular rate and rhythm, no murmurs. cannot see JVP - sitting upright Abdomen: Soft, nontender, nondistended. Bowel sounds present. Extremities: Warm, dry, well-perfused. 2+ extremity edema - unchanged. Neuro: Alert and oriented x 4 but forgetful, face symmetric, moves 4 extremities well. Psych: Normal affect and behavior Results & Data Results & Data Vital Signs (Past 12 Hours) Vital Signs Temp Pulse Pulse Resp BP BP Pulse Ox 10/20/24 15:13 97.7 F 70 18 108/69 98 10/20/24 11:25 98.2 F 61 16 115/65 96 10/20/24 08:02 97.7 F 59 L 16 118/52 L 96 10/20/24 07:30 10/20/24 06:55 57 L 10/20/24 04:19 82 21 96 10/20/24 03:44 97.7 F 63 18 108/62 93 O2 Del Method FiO2 10/20/24 15:13 Room Air 10/20/24 11:25 Room Air 10/20/24 08:02 Room Air 10/20/24 07:30 Room Air 10/20/24 06:55 10/20/24 04:19 21 10/20/24 03:44 CPAP Laboratory Results 10/19/24 08:01 10/20/24 07:21 PG Care Time/CCT Total # of Minutes Spent Total Time Spent with Patient: Total time spent is greater than 50% in coordination of care (as documented) at patient's floor/unit and/or counseling patient: Coding Level of Care Code 57977 SUB INP/OBS CARE 2/35MIN Diagnoses Ambulatory dysfunction R26.2 Myelopathy concurrent with and due to spinal stenosis of thoracic region M48.04; G99.2 Diastolic HF (heart failure) I50.30 CKD (chronic kidney disease), stage III N18.30 DMII (diabetes mellitus, type 2) E11.9
[2024-10-21 05:43] LABS: BUN Creatinine Ratio 21.1 (10-20); Calcium 8.6 mg/dl (8.6-10.3); Potassium 4.4 mmol/L (3.5-5.1)
[2024-10-21] MEDS: BUMETANIDE 1 MG TAB PO SCH (10:27)
--- NOTE | 2024-10-21 12:53 | Hospitalist Progress Note ---
Date of Service October 21, 2024 Assessment & Plan (1) Ambulatory dysfunction: Plan: Ambulatory dysfunction Acute on chronic and multifactorial. Combination of spinal disease- moderate T1/2 spinal stenosis on MRI with myelopathy, diabetic neuropathy, deconditioning after being home without his family for a week - was only going from the recliner to the kitchen/bathroom and back --acute on chronic heart failure with worsened VILLEGAS also contributing --Dr. Devi consulted. No new findings on MRI T and L spine this admission and no indication for urgent surgical intervention. Is a high risk surgical candidate because of his comorbidities. Prior C-spine MRI 08/17: Multilevel discogenic degeneration and facet arthrosis with resultant central canal stenosis and neuroforaminal narrowing at multiple levels. Normal cervical spinal cord signal --continue PT and OT recommending rehab Pain control with Tylenol. Will decrease gabapentin from 600 tid to 300 tid - can contribute to unsteady gait and LE edema Negative stress echo for ischemia 07/13/2021 at [facility], exercise capacity was only 59% for age and had a extreme hypertensive response to exercise. Patient had symptomatic paroxysmal atrial fibrillation leading to worsen diastolic heart failure with loss of atrial kick. He was ablated 09/2021 and is in sinus with maintenance. Did have a cardioversion 08/05/2023. Also with comorbid sleep apnea on BiPAP. There was a concern that he would decompensate if he has atrial fibrillation with surgery and had elevated cardiac risk for unclear benefit. Referred to [facility] for second opinion. (2) Myelopathy concurrent with and due to spinal stenosis of thoracic region: Plan: see above (3) Diastolic HF (heart failure): Plan: Acute on chronic diastolic heart failure present on admission, with continued evidence of volume overload on exam - diuresed with IV bumex - BUN/Cr increased, unchanged today started bumex 2 mg po qAM. Cr 1.42 today, potassium normal - continues to have crackles on lung exam, however, I'm not completely convinced they represent pulmonary edema. no improvement on exam with diuresis thus far. 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 Last A1c 5.6% Continue metformin XR daily; Ozempic 0.5 mg weekly no hypoglycemia Pharmacy consulted - BG well controlled 10/21 Plan Chronic stable issues: GRACIE: Continue BiPAP at bedtime DVT prophylaxis: enoxaparin CODE STATUS:DNR/DNI Admission and Anticipated Discharge Date Admission Date: October 18, 2024 Subjective doing well, sitting in chair, back pain at baseline, has been up walking to bathroom VILLEGAS unchanged, leg edema similar today Physical Exam 2 Physical Exam: PHYSICAL EXAMINATION Last 24h vital signs reviewed, see documentation in flowsheet General: comfortable appearing, no distress, sitting up in chair HEENT: Normocephalic, atraumatic, pupils round and equal, sclerae anicteric, no conjunctival injection, moist mucus membranes Lungs: Normal respiratory effort. bibasilar crackles 1/3 way up unchanged no wheezing Heart: Regular rate and rhythm, no murmurs. cannot see JVP - sitting upright Abdomen: Soft, nontender, nondistended. Bowel sounds present. Extremities: Warm, dry, well-perfused. 2+ extremity edema - unchanged. Neuro: Alert and oriented x 4 but forgetful, face symmetric, moves 4 extremities well. Psych: Normal affect and behavior Results & Data Results & Data Vital Signs (Past 12 Hours) Vital Signs Temp Pulse Pulse Resp BP BP Pulse Ox 10/21/24 11:42 97.5 F L 57 L 18 109/68 98 10/21/24 07:13 97.3 F L 58 L 18 114/70 98 10/21/24 07:00 54 L 10/21/24 03:51 97.9 F 64 18 123/60 95 10/21/24 03:50 62 15 93 O2 Del Method FiO2 10/21/24 11:42 Room Air 10/21/24 07:13 Room Air 10/21/24 07:00 10/21/24 03:51 Room Air, CPAP 10/21/24 03:50 21 Laboratory Results 10/19/24 08:01 10/21/24 04:44 PG Care Time/CCT Total # of Minutes Spent Total Time Spent with Patient: Total time spent is greater than 50% in coordination of care (as documented) at patient's floor/unit and/or counseling patient: Coding Level of Care Code 77701 SUB INP/OBS CARE 2/35MIN Diagnoses Ambulatory dysfunction R26.2 Myelopathy concurrent with and due to spinal stenosis of thoracic region M48.04; G99.2 Diastolic HF (heart failure) I50.30 CKD (chronic kidney disease), stage III N18.30 DMII (diabetes mellitus, type 2) E11.9
[2024-10-21] MEDS: GABAPENTIN 300 MG CAP PO SCH (13:23)
[2024-10-21] MEDS: ENOXAPARIN INJ 40 MG/0.4 ML SYR SQ SCH (13:28)
[2024-10-22 06:41] LABS: BUN Creatinine Ratio 20.9 (10-20); Calcium 8.4 mg/dl (8.6-10.3); Creatinine Clr Calc Pharmacy 42.9 ml/min; Potassium 4.4 mmol/L (3.5-5.1)
--- NOTE | 2024-10-22 07:55 | Hospitalist Progress Note ---
Date of Service October 22, 2024 Assessment & Plan (1) Ambulatory dysfunction: Plan: 84 y/o with history of back surgeries and HFpEF admitted with inability to ambulate and heart failure exacerbation. Had been home alone for a week while and daughter visited relatives in [place]. during that time was only going back and forth between his recliner and the kitchen/bathroom. Has been evaluated for back surgery recently but deemed too high cardiac risk for surgery. Ambulatory dysfunction Acute on chronic and multifactorial. Combination of spinal disease- moderate T1/2 spinal stenosis on MRI with myelopathy, diabetic neuropathy, deconditioning after being home without his family for a week - was only going from the recliner to the kitchen/bathroom and back --acute on chronic heart failure with worsened VILLEGAS also contributing --Dr. Devi consulted. No new findings on MRI T and L spine this admission and no indication for urgent surgical intervention. Is a high risk surgical candidate because of his comorbidities. Prior C-spine MRI 08/17: Multilevel discogenic degeneration and facet arthrosis with resultant central canal stenosis and neuroforaminal narrowing at multiple levels. Normal cervical spinal cord signal --continue PT and OT recommending rehab Pain control with Tylenol. Will decrease gabapentin from 600 tid to 300 tid - can contribute to unsteady gait and LE edema Negative stress echo for ischemia 07/13/2021 at [facility], exercise capacity was only 59% for age and had a extreme hypertensive response to exercise. Patient had symptomatic paroxysmal atrial fibrillation leading to worsen diastolic heart failure with loss of atrial kick. He was ablated 09/2021 and is in sinus with maintenance. Did have a cardioversion 08/05/2023. Also with comorbid sleep apnea on BiPAP. There was a concern that he would decompensate if he has atrial fibrillation with surgery and had elevated cardiac risk for unclear benefit. Referred to [facility] for second opinion. 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 Reduce metoprolol to 25 mg HS to allow higher BP - AM BMP - daily weights/IOs - bed weights inaccurate History of A-fib, ablation in 2020 Continue Eliquis, metoprolol dose reduced because of orthostatic hypotension. amiodarone will need to be stopped because of ILD, he tolerates afib poorly, consult cardiology - has been in sinus kyara, reviewed tele bp marginal at times systolic in high 90s / mid 100s. he was orthostatic with PT - standing BP 94/61, dropped to 83/52 after ambulating short distance and was lightheaded, dyspneic and legs felt weak. may be relatively dry right now but I'm concerned that orthostatic hypotension (as well as VILLEGAS) may be playing a big role in his inability to tolerate activity/ambulation also on low dose midodrine - increased to 5 mg tid, other meds temporarily reduced/held as above (4) CKD (chronic kidney disease), stage III: Plan: Stage III CKD with neuropathy and microangiopathic Baseline creatinine approximately 1.2-1.4 -- Cr increased today see above (5) DMII (diabetes mellitus, type 2): Plan: Type II DM. Last A1c 5.6% home meds: metformin XR daily; Ozempic 0.5 mg weekly no hypoglycemia BG checks all normal recently - stop routine checks (6) Myelopathy concurrent with and due to spinal stenosis of thoracic region: Plan: see above neurology follow up for outpatient EMG (7) Orthostatic hypotension: Plan: see above Plan Chronic stable issues: GRACIE: Continue BiPAP at bedtime Iron overload - [facility]botomy at [facility], followed by Dr. Curiel Needing rehab, continue PT/OT DVT prophylaxis: enoxaparin CODE STATUS:DNR/DNI Admission and Anticipated Discharge Date Admission Date: October 18, 2024 Physical Exam 2 Physical Exam: PHYSICAL EXAMINATION Last 24h vital signs reviewed, see documentation in flowsheet General: comfortable appearing, no distress, sitting up in chair HEENT: Normocephalic, atraumatic, pupils round and equal, sclerae anicteric, no conjunctival injection, moist mucus membranes Lungs: Normal respiratory effort. bibasilar crackles 1/3 way up unchanged no wheezing Heart: Regular rate and rhythm, no murmurs. cannot see JVP - sitting upright Abdomen: Soft, nontender, nondistended. Bowel sounds present. Extremities: Warm, dry, well-perfused. 2+ extremity edema - unchanged. Neuro: Alert and oriented x 4 but forgetful, face symmetric, moves 4 extremities well. Psych: Normal affect and behavior Results & Data Results & Data Vital Signs (Past 12 Hours) Vital Signs Temp Pulse Pulse Resp BP Pulse Ox O2 Del Method 10/22/24 07:28 97.7 F 65 18 99/64 L 91 Room Air 10/22/24 07:00 55 L 10/22/24 03:40 97.7 F 56 L 18 105/61 95 Room Air 10/22/24 02:26 14 10/21/24 23:30 97.9 F 59 L 18 109/61 98 CPAP 10/21/24 23:09 56 L 15 95 10/21/24 22:21 Room Air 10/21/24 22:00 59 L 10/21/24 20:31 64 Laboratory Results 10/19/24 08:01 10/22/24 05:43 PG Care Time/CCT Total # of Minutes Spent Total Time Spent with Patient: Total time spent is greater than 50% in coordination of care (as documented) at patient's floor/unit and/or counseling patient: Coding Level of Care Code 69032 SUB INP/OBS CARE 3/50MIN Diagnoses Ambulatory dysfunction R26.2 ILD (interstitial lung disease) J84.9 Diastolic HF (heart failure) I50.30 CKD (chronic kidney disease), stage III N18.30 DMII (diabetes mellitus, type 2) E11.9 Myelopathy concurrent with and due to spinal stenosis of thoracic region M48.04; G99.2 Orthostatic hypotension I95.1
--- NOTE | 2024-10-22 12:16 | CT Scan Report ---
CT OF THE CHEST WITHOUT CONTRAST HIGH-RESOLUTION PROTOCOL CLINICAL HISTORY: dyspnea on exertion, crackles w/euvolemia, ILD? COMPARISON STUDY: Chest radiograph October 18, 2024. Chest CT August 02, 2010. TECHNIQUE: Thin cut helical axial images of the chest were obtained without IV contrast during inspir ation and expiration. Prone imaging was also performed. Coronal and sagittal reformats were viewed. A utomated exposure control was utilized for the study. A dose lowering technique was utilized adherin g to the principles of ALARA. FINDINGS: No enlarged axillary, mediastinal or hilar lymph nodes are present. There is moderate coron lyric artery calcification. The size of the heart is normal. There is no para cardial effusion. No pneu mothorax or pleural effusion is present. There is no consolidation to suggest pneumonia. There is mod erate basilar and peripheral predominant subpleural reticulation and groundglass opacities. This pers ists on prone imaging. There is no evidence for air trapping on expiration imaging. There is mild ass ociated bronchiectasis. There is no honeycombing. There are no pulmonary nodules. Central airways are patent. Visualized portions of the upper abdomen are unremarkable on unenhanced exam. The gallbladde r is surgically absent. Status post T8-T10 decompression and fusion. IMPRESSION: 1. No acute intrathoracic findings. 2. Moderate basilar and peripheral predominant subpleural reticulation and groundglass opacities cons istent with interstitial lung disease with an NSIP pattern. Mild associated bronchiectasis. No honeyc ombing. 3. No consolidation to suggest pneumonia. ACT 112: Negative or not required by law. Electronically signed by: Jake Diehl M.D. 10/22/2024 12:14 PM
[2024-10-22] MEDS: MIDODRINE HCL 2.5 MG TAB PO SCH (12:21)
--- NOTE | 2024-10-22 13:37 | Pharmacy Report ---
Pharmacy Glycemic Sign Off Nt - Date of Service October 22, 2024 - Assessment & Plan ASSESSMENT: * Pharmacy was consulted by Dr Kimball on 10/18/24 for glycemic control and to write orders per [facility] inpatient glycemic control protocol. * Major changes made by pharmacy to antidiabetic regimen include: * adding Lantus and NovoLog while on IV dexamethasone, then decreasing dosing as steroids wore off. * Patient has not required any insulin >24 hours * Last dose of IV Dexamethasone 10/19/24 PLAN FOR INPATIENT GLYCEMIC CONTROL: * Discontinue insulin, no longer needed as patient is no longer on steroids * A1c 4.7% 10/20/24 * Pharmacy is signing off of glycemic consult and will no longer be making adjustments to inpatient regimen. Please feel free to re-consult if needed. Thank you.
[2024-10-22] MEDS: METOPROLOL SUCC 25MG EXT REL TAB PO SCH (20:27)
--- NOTE | 2024-10-23 06:30 | Cardiology Consultation ---
Date of Consultation October 23, 2024 Assessment & Plan (1) Afib: (2) Anticoagulant long-term use: (3) On amiodarone therapy: (4) (HFpEF) heart failure with preserved ejection fraction: (5) CAD (coronary artery disease): Plan 1. Atrial fibrillation: He is maintaining sinus rhythm, presumably due to amiodarone, however in the past I believe he has not tolerated atrial fibrillation well. There is a concern that he will have recurrent atrial fibrillation off of amiodarone, but that will take some time to occur (due to the long half-life of amiodarone). I agree with withholding amiodarone for the time being and would defer future treatment of his atrial fibrillation to his primary cardiology service. Options at this point include trying other medications (I do not know what drugs he has been tried on) when he has recurrence, repeat ablation or creating AV block with pacemaker implantation. All of these are valid options and I would leave that up to his primary cardiology team. Nothing needs to be arranged this weekend. 2. Anticoagulation: He will need long-term anticoagulation. 3. Amiodarone: Amiodarone appears to have been very effective in controlling his arrhythmia, this is often the case but of course it is a drug associated with long-term toxicity. It is also difficult to determine whether amiodarone is the culprit as most of the conditions it can cause can also occur without amiodarone. For the time being I would agree with holding it, but will take some time for recovery if it is due to amiodarone. 4. HFpEF: At the moment he does not appear to be in heart failure, I would not alter his medical regimen. I do not see a recent echocardiogram but he may have had that as an outpatient that is not in our records. 5. Coronary disease: He has documented coronary artery disease, he is on aspirin and atorvastatin which is appropriate and I do not think this is currently an issue. History of Present Illness Reason for Consultation: Atrial fibrillation, amiodarone therapy Attending Physician: Ayla Valdez MD History of Present Illness This is an 84-year-old male who follows with Dr. Bennett at [facility] and who has a history of diabetes mellitus, hypertension, chronic kidney disease and had coronary disease identified at catheterization March 2016 but not requiring intervention. Historically he has had a preserved ejection fraction but I do not see a recent echocardiogram although he may have had 1. He has difficulty in atrial fibrillation with HFpEF and therefore attempts have been made to maintain sinus rhythm. He did have A-fib ablation in September 2021 and was in sinus rhythm for some time. He did require cardioversion on August 05, 2023 which was successful, and at least as of October 2023 had maintained sinus rhythm. I do not have recent records available to me but he was placed on amiodarone in order to control his atrial fibrillation. As I understand it he has been having worsening ambulatory dysfunction which is felt to be in part due to spinal stenosis (but he is up to be at high risk for surgery) as well as neuropathy which could also be due to diabetes and age. 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 I believe he has been on 200 mg daily for about 1 year now it was third August 05, 2023. That has been discontinued this admission. A chest CT scan was felt to be consistent with interstitial lung disease, his chest x-ray this admission suggest pulmonary vascular congestion but not pulmonary edema. At the time of my evaluation he was resting in bed, at rest he had no complaints of shortness of breath and he has not had exertional chest discomfort but does have exertional shortness of breath, even with minimal activity. He reports no recent palpitations. Allergies Allergy/AdvReac Type Severity Reaction Status Date / Time oxycodone AdvReac Mild NAUSEA/VOMI Verified 10/01/24 09:36 TTING Home Medications Medication Instructions Recorded Confirmed Type folic acid 800 mcg tablet 1 mg PO HS 08/10/20 10/18/24 History cetirizine 10 mg tablet (Zyrtec) 10 mg PO QAM PRN Allergy Symptoms 07/03/21 10/18/24 History metformin 500 mg tablet,extended 500 mg PO QAM 07/03/21 10/18/24 History release 24 hr aspirin 81 mg capsule 81 mg PO .Q OTHER DAY 07/19/21 10/18/24 History bumetanide 1 mg tablet See Rx Instructions .Route .COMPLEX 07/19/21 10/18/24 History cholecalciferol (vitamin D3) 25 50 mcg PO QAM 07/19/21 10/18/24 History mcg (1,000 unit) chewable tablet (Vitamin D3) cinnamon bark 500 mg capsule 1,000 mg PO QAM 07/19/21 10/18/24 History (Cinnamon) coenzyme Q10 10 mg capsule (Co 200 mg PO QAM 07/19/21 10/18/24 History Q-10) omeprazole 20 mg capsule,delayed 20 mg PO QAM 07/19/21 10/18/24 History release acetaminophen 650 mg 1,300 mg PO BID 08/05/23 10/18/24 History tablet,extended release apixaban 5 mg tablet (Eliquis) 5 mg PO BID 08/05/23 10/18/24 History gabapentin 600 mg tablet 600 mg PO TID 08/05/23 10/18/24 History glucosamine HCl 1,500 mg tablet 1,500 mg PO BID 08/05/23 10/18/24 History krill oil 500 mg PO HS 08/05/23 10/18/24 History multivitamin with iron-mineral 1 tab PO HS 08/05/23 10/18/24 History ranolazine 500 mg tablet,extended 500 mg PO BID 08/05/23 10/18/24 History release,12 hr sacubitril 24 mg-valsartan 26 mg 1 tab PO BID 08/05/23 10/18/24 History tablet (Entresto) semaglutide 0.25 mg or 0.5 mg (2 0.5 mg subcut Q7D 08/05/23 10/18/24 History mg/3 mL) subcutaneous pen injector (Ozempic) spironolactone 25 mg tablet 12.5 mg (1/2 x 25 mg) PO QAM #1 tab 09/06/23 10/18/24 Rx amiodarone 200 mg tablet 200 mg PO QAM 10/30/23 10/18/24 History atorvastatin 20 mg tablet 20 mg PO HS 10/30/23 10/18/24 History metoprolol succinate 50 mg 50 mg PO HS 10/30/23 10/18/24 History tablet,extended release 24 hr midodrine 2.5 mg tablet 2.5 mg PO BID 10/31/23 10/18/24 History vibegron 75 mg tablet (Gemtesa) 75 mg PO PM 10/18/24 10/18/24 History Patient History Medical History History of recent hospitalization 09/04/23-09/06/23 [facility] for a fall History of cardioversion multiple; most recent 08/05/23 SHARA positive Diverticulosis Carotid artery plaque CAD (coronary artery disease) per 08/06/23 cardio note, cath 2016: 30% proximal LAD lesion and a 40% distal LAD lesion. Elevated cholesterol Surgical History Hx of colonoscopy Hx of total knee arthroplasty left History of cholecystectomy H/O laminectomy lumbar H/O total knee replacement History of ankle surgery History of back surgery H/O bilateral hip replacements Family History Other Coronary heart disease Diabetes Social History Smoking Status: Former smoker Tobacco Type: Cigarettes Cigarettes Per Day: pack a day; Second Hand Exposure: No; Do You Dip or Chew Tobacco: No; Hx Alcohol Use: Yes Alcohol type: beer, wine and hard liquor Hx Substance Use: No Preferred Language: Haitian Communication Ability: Effective Drip Box Tender Required: No Beliefs That Will Affect Care: None marital status: Current Living Situation: Spouse Current Living Situation Comment: home with Feels Safe at Home: Yes Assistive Devices: CPAP, Glasses and Walker Review of Systems Review of Systems: All systems reviewed & are unremarkable except as noted in HPI & below Physical Exam Physical Exam: Constitutional: Alert, cooperative and in no distress. He is resting com fortably in bed. HEENT: Unremarkable Neck: No jugular venous distention, carotid pulses are normal and equal bilaterally without bruits. Pulmonary: Crackles on auscultation bilaterally. Cardiac: Regular rhythm with no murmur, gallop or rub. Abdomen: Soft, nontender with normal bowel sounds. Extremities: No edema. Neurologic: No focal findings. Skin: No rash, ecchymoses or petechiae. Results & Data Vital Signs (Past 12 Hours) Vital Signs Temp Pulse Pulse Resp BP BP Pulse Ox 10/23/24 03:58 36.5 C 61 18 105/64 97 10/22/24 23:59 10/22/24 22:35 36.6 C 59 L 18 123/65 99 10/22/24 21:45 59 L 10/22/24 19:15 36.6 C 72 18 128/70 95 O2 Del Method 10/23/24 03:58 CPAP 10/22/24 23:59 Room Air 10/22/24 22:35 Room Air 10/22/24 21:45 10/22/24 19:15 Room Air Laboratory Results Intake and Output 10/22/24 10/22/24 10/23/24 14:59 22:59 06:59 Intake Total 600 / 1200 600 / 1200 Output Total 900 / 900 Balance 600 / 300 600 / 300 -900 / 300 Intake: Oral 600 / 1200 600 / 1200 Output: Urine 900 / 900 Other: # Unmeasured Voids 1 Weight 120.4 kg Weight Measurement Method Built in [facility] Patient Weight 10/23/24 06:59 Weight 120.4 kg Diagnostic Findings Telemetry: Sinus rhythm and sinus bradycardia, no atrial fibrillation. PG Care Time/CCT Total # of Minutes Spent Total Time Spent with Patient: Total time spent is greater than 50% in coordination of care (as documented) at patient's floor/unit and/or counseling patient: Coding Level of Care Code 35958 INT INP/OBS CARE 3/75MIN Diagnoses Afib I48.91 Anticoagulant long-term use Z79.01 On amiodarone therapy Z79.899 (HFpEF) heart failure with preserved ejection fraction I50.30 CAD (coronary artery disease) I25.10
[2024-10-23 06:59] LABS: BUN Creatinine Ratio 22.9 (10-20); Calcium 8.5 mg/dl (8.6-10.3); Creatinine Clr Calc Pharmacy 51.2 ml/min; Potassium 4.7 mmol/L (3.5-5.1)
--- NOTE | 2024-10-23 07:37 | Pulmonary Consultation ---
Date of Consultation October 23, 2024 Assessment & Plan (1) (HFpEF) heart failure with preserved ejection fraction: (2) ILD (interstitial lung disease): (3) Dyspnea: Plan Impression: 84-year-old male with incidentally noted trivial ILD. The radiographic findings are not significant enough to complain the patient's symptoms and at this point time I do not think he requires additional inpatient evaluation for his radiographic abnormalities. I suspect his dyspnea is likely multifactorial due to combinations of deconditioning, obesity, potential restrictive lung disease, heart failure with preserved ejection fraction, myelopathy, and deconditioning. Recommendations: 1. Questionable ILD: At this point in time, no additional inpatient evaluation is required. I do not think the interstitial opacities identified have anything to do with his amiodarone and the risk-benefit ratio would favor continuing amiodarone and keeping him in sinus rhythm. He can continue to have serial PFTs drawn in the outpatient setting. 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 Typically, spirometry with a diffusion capacity is performed on an annual basis for patient's maintained on amiodarone so it may be useful to see if the studies have been performed previously. Outpatient complete pulmonary function test may be appropriate if the patient symptoms fail to improve. 2. Given the trivial abnormalities identified on CT scan, I do not think proceeding with any additional serological evaluation at this point time is necessary. 3. From a pulmonary standpoint, the patient may be dismissed from the hospital. We would be happy to see him back in the pulmonary clinic for additional evaluation if needed once he is medically stabilized. Thanks for the opportunity of participating the care of this patient. Feel free to contact us with questions or concerns History of Present Illness Attending Physician: Ayla Valdez MD History of Present Illness Asked by hospitalist to assist in evaluation management this patient with potential interstitial abnormalities identified on CT scan. History is obtained from discussion with the patient as well as review the electronic medical record. Patient is an 84-year-old male with a trivial prior tobacco history. He was admitted to the hospital 10/18/2024 with complaints of shortness of breath with exertion. The patient carries a diagnosis of spinal stenosis with myelopathy. His initial request was for placement. He does have atrial fibrillation and is anticoagulated on amiodarone. The patient reports that he has had shortness of breath going on for 6 to 8 months but he has noted that it has been progressive over the last several months. Was part of the workup for his shortness of breath on exertion and crackles he had a CT ILD protocol performed which revealed trivial subpleural interstitial markings. Amiodarone was discontinued and pulmonary was consulted. 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 He had no significant occupational exposures. He did keep some horses at home but did not have any real extensive exposure to them on a chronic basis. No other pets at home. He denies hot tub exposures. He has no significant rheumatologic disorders although there is positive SHARA noted in the past. He denies fevers chills night sweats or other constitutional symptoms. He does have known atrial fibrillation which has been poorly tolerated at high heart rates as well as diastolic dysfunction. The last echo we have in the chart was from 2020 which showed an EF of 65% with concentric LVH. Right ventricular was normal. There is no comment on diastolic filling parameters. Allergies Allergy/AdvReac Type Severity Reaction Status Date / Time oxycodone AdvReac Mild NAUSEA/VOMI Verified 10/01/24 09:36 TTING Home Medications Medication Instructions Recorded Confirmed Type folic acid 800 mcg tablet 1 mg PO HS 08/10/20 10/18/24 History cetirizine 10 mg tablet (Zyrtec) 10 mg PO QAM PRN Allergy Symptoms 07/03/21 10/18/24 History metformin 500 mg tablet,extended 500 mg PO QAM 07/03/21 10/18/24 History release 24 hr aspirin 81 mg capsule 81 mg PO .Q OTHER DAY 07/19/21 10/18/24 History bumetanide 1 mg tablet See Rx Instructions .Route .COMPLEX 07/19/21 10/18/24 History cholecalciferol (vitamin D3) 25 50 mcg PO QAM 07/19/21 10/18/24 History mcg (1,000 unit) chewable tablet (Vitamin D3) cinnamon bark 500 mg capsule 1,000 mg PO QAM 07/19/21 10/18/24 History (Cinnamon) coenzyme Q10 10 mg capsule (Co 200 mg PO QAM 07/19/21 10/18/24 History Q-10) omeprazole 20 mg capsule,delayed 20 mg PO QAM 07/19/21 10/18/24 History release acetaminophen 650 mg 1,300 mg PO BID 08/05/23 10/18/24 History tablet,extended release apixaban 5 mg tablet (Eliquis) 5 mg PO BID 08/05/23 10/18/24 History gabapentin 600 mg tablet 600 mg PO TID 08/05/23 10/18/24 History glucosamine HCl 1,500 mg tablet 1,500 mg PO BID 08/05/23 10/18/24 History krill oil 500 mg PO HS 08/05/23 10/18/24 History multivitamin with iron-mineral 1 tab PO HS 08/05/23 10/18/24 History ranolazine 500 mg tablet,extended 500 mg PO BID 08/05/23 10/18/24 History release,12 hr sacubitril 24 mg-valsartan 26 mg 1 tab PO BID 08/05/23 10/18/24 History tablet (Entresto) semaglutide 0.25 mg or 0.5 mg (2 0.5 mg subcut Q7D 08/05/23 10/18/24 History mg/3 mL) subcutaneous pen injector (Ozempic) spironolactone 25 mg tablet 12.5 mg (1/2 x 25 mg) PO QAM #1 tab 09/06/23 10/18/24 Rx amiodarone 200 mg tablet 200 mg PO QAM 10/30/23 10/18/24 History atorvastatin 20 mg tablet 20 mg PO HS 10/30/23 10/18/24 History metoprolol succinate 50 mg 50 mg PO HS 10/30/23 10/18/24 History tablet,extended release 24 hr midodrine 2.5 mg tablet 2.5 mg PO BID 10/31/23 10/18/24 History vibegron 75 mg tablet (Gemtesa) 75 mg PO PM 10/18/24 10/18/24 History Patient History Medical History History of recent hospitalization 09/04/23-09/06/23 [facility] for a fall History of cardioversion multiple; most recent 08/05/23 SHARA positive Diverticulosis Carotid artery plaque CAD (coronary artery disease) per 08/06/23 cardio note, cath 2016: 30% proximal LAD lesion and a 40% distal LAD lesion. Elevated cholesterol Surgical History Hx of colonoscopy Hx of total knee arthroplasty left History of cholecystectomy H/O laminectomy lumbar H/O total knee replacement History of ankle surgery History of back surgery H/O bilateral hip replacements Family History Other Coronary heart disease Diabetes Social History Smoking Status: Former smoker Tobacco Type: Cigarettes Cigarettes Per Day: pack a day; Second Hand Exposure: No; Do You Dip or Chew Tobacco: No; Hx Alcohol Use: Yes Alcohol type: beer, wine and hard liquor Hx Substance Use: No Preferred Language: Persian Communication Ability: Effective Sharepoint Analyst Required: No Beliefs That Will Affect Care: None marital status: Current Living Situation: Spouse Current Living Situation Comment: home with Feels Safe at Home: Yes Assistive Devices: CPAP, Glasses and Walker Review of Systems 2 Review of Systems: All systems reviewed & are unremarkable except as noted in Subjective Physical Exam 2 Constitutional: WD/WN, vitals as above Neck: trachea midline, no thyromegaly Respiratory: normal respiratory effort, lungs clear to auscultation Cardiovascular: RRR, no murmur, no edema Gastrointestinal (Abdomen): normal bowel sounds, soft, nontender, no hepatosplenomegaly Musculoskeletal: Extremities: extremities normal to inspection Skin: no rashes, warm and dry Neurologic: Nonfocal exam Lymphatic: no cervical lymphadenopathy Results & Data Results & Data Vital Signs (Past 12 Hours) Vital Signs Temp Pulse Pulse Resp BP BP Pulse Ox 10/23/24 07:23 59 L 10/23/24 03:58 36.5 C 61 18 105/64 97 10/22/24 23:59 10/22/24 22:35 36.6 C 59 L 18 123/65 99 10/22/24 21:45 59 L O2 Del Method 10/23/24 07:23 10/23/24 03:58 CPAP 10/22/24 23:59 Room Air 10/22/24 22:35 Room Air 10/22/24 21:45 Laboratory Results 10/19/24 08:01 10/23/24 05:58 Diagnostic Findings HRCT independently reviewed. Trivial bibasilar increased interstitial markings. PG Care Time/CCT Total # of Minutes Spent Total Time Spent with Patient: Total time spent is greater than 50% in coordination of care (as documented) at patient's floor/unit and/or counseling patient: Coding Level of Care Code 00172 INT INP/OBS CARE 3/75MIN Diagnoses (HFpEF) heart failure with preserved ejection fraction I50.30 ILD (interstitial lung disease) J84.9 Dyspnea R06.00
--- NOTE | 2024-10-23 14:01 | Hospitalist Progress Note ---
Date of Service October 23, 2024 Assessment & Plan (1) Ambulatory dysfunction: Plan: 84 y/o with history of back surgeries and HFpEF admitted with inability to ambulate and heart failure exacerbation. Had been home alone for a week while and daughter visited relatives in [place]. during that time was only going back and forth between his recliner and the kitchen/bathroom. Has been evaluated for back surgery recently but deemed too high cardiac risk for surgery. Ambulatory dysfunction Acute on chronic and multifactorial. Combination of spinal disease- moderate T1/2 spinal stenosis on MRI with myelopathy, diabetic neuropathy, deconditioning after being home without his family for a week - was only going from the recliner to the kitchen/bathroom and back --acute on chronic heart failure with worsened VILLEGAS was also contributing as well as orthostatic hypotension --Dr. Devi consulted. No new findings on MRI T and L spine this admission and no indication for urgent surgical intervention. Is a high risk surgical candidate because of his comorbidities. Prior C-spine MRI 08/17: Multilevel discogenic degeneration and facet arthrosis with resultant central canal stenosis and neuroforaminal narrowing at multiple levels. Normal cervical spinal cord signal --continue PT and OT recommending rehab Pain control with Tylenol. 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 Harris - he did not think the ILD was very significant or related to the amiodarone -outpatient pulmonary follow up with PFTs (3) Diastolic HF (heart failure): Plan: Acute on chronic diastolic heart failure present on admission, with continued evidence of volume overload on exam - diuresed with IV/po bumex - BUN/Cr increased Cr now 1.72 (baseline up to 1.4) - hold bumex, ian, entresto today. Reduce metoprolol to 25 mg HS to allow higher BP - AM BMP - daily weights/IOs - bed weights inaccurate History of A-fib, ablation in 2020 Continue Eliquis, metoprolol dose reduced because of orthostatic hypotension. amiodarone will need to be stopped because of ILD, he tolerates afib poorly, consult cardiology - has been in sinus kyara, reviewed tele - consulted cardiology, reviewed recs in Dr. 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 Last A1c 5.6% home meds: metformin XR daily; Ozempic 0.5 mg weekly no hypoglycemia BG checks all normal recently - stopped routine checks (6) Myelopathy concurrent with and due to spinal stenosis of thoracic region: Plan: see above neurology follow up for outpatient EMG (7) Orthostatic hypotension: Plan: see above Plan Chronic stable issues: GRACIE: Continue BiPAP at bedtime Iron overload - gets [facility] phlebotomy at [facility], followed by Dr. Curiel Needing rehab, continue PT/OT DVT prophylaxis: enoxaparin CODE STATUS:DNR/DNI I updated his at bedside and his son Alejandro by phone 10/23 Admission and Anticipated Discharge Date Admission Date: October 18, 2024 Subjective Mary does feel better today. Feels stronger, was not lightheaded getting up from bed to the chair Has not walked today Not short of breath at rest Physical Exam 2 Physical Exam: PHYSICAL EXAMINATION Last 24h vital signs reviewed, see documentation in flowsheet General: sitting in chair HEENT: Normocephalic, atraumatic, pupils round and equal, sclerae anicteric, no conjunctival injection, moist mucus membranes Lungs: Normal respiratory effort. bibasilar crackles, clear in apices Heart: Regular rate and rhythm, no murmurs. Abdomen: Soft, nontender, nondistended. Bowel sounds present. Extremities: Warm, dry, well-perfused. 1+ extremity edema - improved since admission Neuro: Alert and oriented x 4, face symmetric, moves 4 extremities well. Psych: Normal affect and behavior Results & Data Results & Data Vital Signs (Past 12 Hours) Vital Signs Temp Pulse Pulse Resp BP BP Pulse Ox 10/23/24 13:00 98.1 F 63 16 107/63 97 10/23/24 11:16 10/23/24 07:30 98.1 F 58 L 16 113/74 97 10/23/24 07:23 59 L 10/23/24 03:58 97.7 F 61 18 105/64 97 O2 Del Method 10/23/24 13:00 Room Air 10/23/24 11:16 Room Air 10/23/24 07:30 Room Air 10/23/24 07:23 10/23/24 03:58 CPAP Laboratory Results 10/19/24 08:01 10/23/24 05:58 PG Care Time/CCT Total # of Minutes Spent Total Time Spent with Patient: Total time spent is greater than 50% in coordination of care (as documented) at patient's floor/unit and/or counseling patient: Coding Level of Care Code 50718 SUB INP/OBS CARE 2/35MIN Diagnoses Ambulatory dysfunction R26.2 ILD (interstitial lung disease) J84.9 Diastolic HF (heart failure) I50.30 CKD (chronic kidney disease), stage III N18.30 DMII (diabetes mellitus, type 2) E11.9 Myelopathy concurrent with and due to spinal stenosis of thoracic region M48.04; G99.2 Orthostatic hypotension I95.1
[2024-10-23] MEDS: ARTIFICIAL TEARS OPB PRN (15:22)
--- NOTE | 2024-10-24 15:18 | Hospitalist Progress Note ---
Date of Service October 24, 2024 Assessment & Plan (1) Ambulatory dysfunction: Plan: 84 y/o with history of back surgeries and HFpEF admitted with inability to ambulate and heart failure exacerbation. Had been home alone for a week while and daughter visited relatives in [place]. during that time was only going back and forth between his recliner and the kitchen/bathroom. Has been evaluated for back surgery recently but deemed too high cardiac risk for surger y. Ambulatory dysfunction Acute on chronic and multifactorial. Combination of spinal disease- moderate T1/2 spinal stenosis on MRI with myelopathy, diabetic neuropathy, deconditioning after being home without his family for a week - was only going from the recliner to the kitchen/bathroom and back --acute on chronic heart failure with worsened VILLEGAS was also contributing (resolveD) as well as orthostatic hypotension - persists --Dr. Devi consulted. No new findings on MRI T and L spine this admission and no indication for urgent surgical intervention. Is a high risk surgical candidate because of his comorbidities. Prior C-spine MRI 08/17: Multilevel discogenic degeneration and facet arthrosis with resultant central canal stenosis and neuroforaminal narrowing at multiple levels. Normal cervical spinal cord signal --continue PT and OT recommending rehab Pain control with Tylenol. 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 Harris - he did not think the ILD was very significant or related to the amiodarone -outpatient pulmonary follow up with PFTs (3) Diastolic HF (heart failure): Plan: Acute on chronic diastolic heart failure present on admission, appears euvolemic after diuresis with IV and po bumex - continue metoprolol at reduced dose, hold entresto, diuretics currently held - resume oral bumex/spironolactone if BUN/Cr acceptable in AM - AM BMP - daily weights/IOs - bed weights inaccurate but seems to be apx 10 pounds down since admission History of A-fib, ablation in 2020 Continue Eliquis, metoprolol dose reduced because of orthostatic hypotension. amiodarone held because of ILD, he tolerates afib poorly - consulted cardiology, reviewed recs in Dr. 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 Last A1c 5.6% home meds: metformin XR daily; Ozempic 0.5 mg weekly no hypoglycemia BG checks all normal recently - stopped routine checks (6) Myelopathy concurrent with and due to spinal stenosis of thoracic region: Plan: see above neurology follow up for outpatient EMG (7) Orthostatic hypotension: Plan: see above Plan Chronic stable issues: GRACIE: Continue BiPAP at bedtime Iron overload - gets regular phlebotomy at cancer center, followed by Dr. Curiel Needing rehab, continue PT/OT DVT prophylaxis: enoxaparin CODE STATUS:DNR/DNI I updated his at bedside and his son Alejandro by phone 10/23 Admission and Anticipated Discharge Date Admission Date: October 18, 2024 Subjective Was extremely orthostatic and symptomatic today with PT "I almost didn't make it back to the bed" SBP was apx 85 at the time. VILLEGAS unchanged Physical Exam Physical Exam: PHYSICAL EXAMINATION Last 24h vital signs reviewed, see documentation in flowsheet General: napping in bed HEENT: Normocephalic, atraumatic, pupils round and equal, sclerae anicteric, no conjunctival injection, moist mucus membranes Lungs: Normal respiratory effort. clear anteriorly melo Heart: Regular rate and rhythm, no murmurs. Abdomen: Soft, nontender, nondistended. Bowel sounds present. Extremities: Warm, dry, well-perfused. 1+ extremity edema - slowly improving Neuro: Alert and oriented x 4, face symmetric, moves 4 extremities well. Psych: Normal affect and behavior Results & Data Results & Data Vital Signs (Past 12 Hours) Vital Signs Temp Pulse Pulse Resp BP BP Pulse Ox 10/24/24 14:51 62 10/24/24 12:00 97.9 F 58 L 16 116/71 97 10/24/24 08:55 97.5 F L 59 L 16 124/67 96 10/24/24 08:47 10/24/24 07:09 70 10/24/24 03:23 97.9 F 62 18 112/67 97 O2 Del Method 10/24/24 14:51 10/24/24 12:00 Room Air 10/24/24 08:55 Room Air 10/24/24 08:47 Room Air 10/24/24 07:09 10/24/24 03:23 CPAP PG Care Time/CCT Total # of Minutes Spent Total Time Spent with Patient: Total time spent is greater than 50% in coordination of care (as documented) at patient's floor/unit and/or counseling patient: Coding Level of Care Code 57028 SUB INP/OBS CARE 2/35MIN Diagnoses Ambulatory dysfunction R26.2 ILD (interstitial lung disease) J84.9 Diastolic HF (heart failure) I50.30 CKD (chronic kidney disease), stage III N18.30 DMII (diabetes mellitus, type 2) E11.9 Myelopathy concurrent with and due to spinal stenosis of thoracic region M48.04; G99.2 Orthostatic hypotension I95.1
[2024-10-25 08:32] LABS: BUN Creatinine Ratio 16.3 (10-20); Creatinine Clr Calc Pharmacy 54.4 ml/min; Potassium 4.5 mmol/L (3.5-5.1)
[2024-10-25] MEDS: BUMETANIDE 1 MG TAB PO SCH (10:46)
[2024-10-25 13:43] LABS: Anti Nuclear Antibody Screen NEGATIVE (NEGATIVE); Rheumatoid Factor <10 IU/mL (<14)
--- NOTE | 2024-10-25 15:36 | Hospitalist Progress Note ---
Date of Service October 25, 2024 Assessment & Plan (1) Ambulatory dysfunction: Plan: 84 y/o with history of back surgeries and HFpEF admitted with inability to ambulate and heart failure exacerbation. Had been home alone for a week while and daughter visited relatives in [place]. during that time was only going back and forth between his recliner and the kitchen/bathroom. Has been evaluated for back surgery recently but deemed too high cardiac risk for surgery. Ambulatory dysfunction Acute on chronic and multifactorial. Combination of spinal disease- moderate T1/2 spinal stenosis on MRI with myelopathy, diabetic neuropathy, deconditioning after being home without his family for a week - was only going from the recliner to the kitchen/bathroom and back --acute on chronic heart failure with worsened VILLEGAS was also contributing (resolved) as well as orthostatic hypotension - persists --Dr. Devi consulted. No new findings on MRI T and L spine this admission and no indication for urgent surgical intervention. Is a high risk surgical candidate because of his comorbidities. Prior C-spine MRI 08/17: Multilevel discogenic degeneration and facet arthrosis with resultant central canal stenosis and neuroforaminal narrowing at multiple levels. Normal cervical spinal cord signal --continue PT and OT recommending rehab Pain control with Tylenol. decreased gabapentin from 600 tid to 300 tid - can contribute to unsteady gait and LE edema - pain does not seem to have worsened with this change, consider continuing to taper if neuropathy symptoms do not flare for his orthostatic hypotension I initially decreased his metoprolol by 50% held diuretics and Entresto 10/23 did fairly well and standing BP was 113/67, resumed pm entresto 10/24 severely orthostatic, symptomatic and standing BP was 85/x - held entresto, continue midodrine 10/25 was not symptomatically orthostatic today he did feel much stronger I discussed medication changes with his international sales manager Dr. 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 Harrsi - he did not think the ILD was very significant or related to the amiodarone -outpatient pulmonary follow up with PFTs discussed amiodarone with Dr. Bennett, historically Mary has tolerated atrial fibrillation extremely poorly - basically went into florid heart failure when in A-fib, also previous ablation procedure was extremely difficult and likely would not tolerate repeated attempt. unclear whether amiodarone could be contributing to ILD but even if so the benefit of the drug may be worth the risk because he is does so badly when in A-fib and there are no other obvious alternatives. Dr. Bennett recommends continuing amiodarone at this time I did discuss this with Mary (3) Diastolic HF (heart failure): Plan: Acute on chronic diastolic heart failure present on admission, appears euvolemic after diuresis with IV and po bumex - because of severe symptomatic orthostatic hypotension we made the following adjustments which I discussed with Dr. Bennett: continue metoprolol at reduced dose, Increased midodrine, stop entresto, continue spironolactone, try using Bumex as needed - BMP reviewed his creatinine is back to his baseline of 1.3 - daily weights/IOs - bed weights inaccurate but seems to be apx 10 pounds down since admission, edema significantly improved History of A-fib, ablation in 2020 Continue Eliquis, metoprolol dose reduced, continue amiodarone as discussed above - consulted cardiology, reviewed recs in Dr. Villanueva's note 10/23 (4) CKD (chronic kidney disease), stage III: Plan: Stage III CKD Baseline creatinine approximately 1.2-1.4, laura with diuresis - Cr is back to 1.3 after holding diuretic (5) DMII (diabetes mellitus, type 2): Plan: Type II DM. Last A1c 5.6% home meds: metformin XR daily; Ozempic 0.5 mg weekly no hypoglycemia BG checks all normal recently - stopped routine checks (6) Myelopathy concurrent with and due to spinal stenosis of thoracic region: Plan: see above neurology follow up for outpatient EMG (7) Orthostatic hypotension: Plan: see above Plan Chronic stable issues: GRACIE: Continue BiPAP at bedtime Iron overload - gets regular phlebotomy at cancer center, followed by Dr. Curiel Needing rehab, continue PT/OT DVT prophylaxis: enoxaparin CODE STATUS:DNR/DNI I updated his at bedside and his son Alejandro by phone 10/23, updated his granddaughter at bedside 10/25 Admission and Anticipated Discharge Date Admission Date: October 18, 2024 Subjective Mary feels like he is doing much better today he was up walking in the room was able to get to the chair was not lightheaded he does feel stronger dyspnea on exertion unchanged from baseline Physical Exam 2 Physical Exam: PHYSICAL EXAMINATION Last 24h vital signs reviewed, see documentation in flowsheet General: awake lying in bed HEENT: Normocephalic, atraumatic, pupils round and equal, sclerae anicteric, no conjunctival injection, moist mucus membranes Lungs: Normal respiratory effort. clear anteriorly melo. has posterior crackles one third [address] way up that are fixed Heart: Regular rate and rhythm, no murmurs. Abdomen: Soft, nontender, nondistended. Bowel sounds present. Extremities: Warm, dry, well-perfused. 1+ extremity edema - significantly improved compared to admission Neuro: Alert and oriented x 4, face symmetric, moves 4 extremities well. Psych: Normal affect and behavior Results & Data Results & Data Vital Signs (Past 12 Hours) Vital Signs Temp Pulse Pulse Resp BP Pulse Ox O2 Del Method 10/25/24 15:26 97.7 F 67 18 115/75 99 Room Air 10/25/24 14:18 66 10/25/24 11:47 97.7 F 64 20 122/69 97 Room Air 10/25/24 08:27 97.3 F L 65 18 125/70 97 Room Air 10/25/24 08:05 Room Air 10/25/24 07:30 61 10/25/24 03:33 97.3 F L 65 18 113/63 97 Room Air, CPAP Laboratory Results 10/19/24 08:01 10/25/24 07:49 PG Care Time/CCT Total # of Minutes Spent Total Time Spent with Patient: Total time spent is greater than 50% in coordination of care (as documented) at patient's floor/unit and/or counseling patient: Coding Level of Care Code 23497 SUB INP/OBS CARE 2/35MIN Diagnoses Ambulatory dysfunction R26.2 ILD (interstitial lung disease) J84.9 Diastolic HF (heart failure) I50.30 CKD (chronic kidney disease), stage III N18.30 DMII (diabetes mellitus, type 2) E11.9 Myelopathy concurrent with and due to spinal stenosis of thoracic region M48.04; G99.2 Orthostatic hypotension I95.1
[2024-10-26 09:58] LABS: BUN Creatinine Ratio 13.7 (10-20); Calcium 9.1 mg/dl (8.6-10.3); Creatinine Clr Calc Pharmacy 50.5 ml/min; Potassium 4.4 mmol/L (3.5-5.1)
[2024-10-26 10:13] LABS: Thyroid Stimulating Hormone 0.107 uIu/ml (0.300-4.500)
[2024-10-26 10:48] LABS: T4 Free Thyroxine 1.63 ng/dl (0.61-1.60)
--- NOTE | 2024-10-26 15:58 | Ultrasound Report ---
US thyroid CLINICAL HISTORY: 84 years-old Male with hyperthyroidism. COMPARISON: None TECHNIQUE: Multiple real time sonographic images of the thyroid were obtained accessing gonzalez scale ap pearance and color doppler flow. FINDINGS: MEASUREMENTS: Right lobe: 4.3 x 2.5 x 2.5 cm Left lobe: 4.6 x 3.0 x 2.2 cm Isthmus: 0.6 cm PARENCHYMA: The thyroid parenchymal echotexture is mildly heterogeneous. NODULES: No discrete nodules are appreciated. IMPRESSION: Heterogeneous thyroid without discrete nodule identified. ACT 112: Negative or not required by law. The above report was generated using voice recognition software. It may contain grammatical, syntax o r spelling errors. Electronically signed by: Kashif Mace M.D. 10/26/2024 3:57 PM
--- NOTE | 2024-10-26 18:16 | Hospitalist Progress Note ---
Date of Service October 26, 2024 Assessment & Plan (1) Ambulatory dysfunction: Plan: multifactorial causes including T1/T2 spinal stenosis on MRI, diabetic neuropathy, deconditioning, acute on chronic heart failure, orthostatic hypotension thoracic spine disease - Dr. Devi was consulted, nonoperative Rx advised PT/OT for deconditioning diuresed for his acute/chronic CHF midodrine added for orthostatic hypotension B12 level wnl diabetic neuropathy - prior MD decreased his gabapentin from 600 to 300 TID - concern that the higher dose of gabapentin was contributing to gait dysfunction fortunately his neuropathy symptoms have not worsened on the lower dose of gabapentin making strides with PT/OT here but needs rehab unfortunately his insurance denied request for inpatient rehab to [facility] [place] for such as back-up plan -- likely tomorrow (2) ILD (interstitial lung disease): Plan: chest CT -- ILD in NSIP pattern mild-moderate radiographically has been on amiodarone since 07/2023 for atrial fibrillation has had a +SHARA in the past no occupational or environmental exposures pulmonary consult completed by Dr. Harris - ILD was felt to be mild at most and unlikely to be related to the amiodarone outpatient pulmonary follow up with PFTs advised prior MD discussed amiodarone with Dr. Elias Bennett - [facility] per Dr Bennett - Mr Escobedo has not tolerated his a.fib in the past previous a.fib ablation procedure was extremely difficult as well benefits of the amiodarone likely outweigh its risks further, he has few Rx alternatives for the a.fib thus, Dr. Bennett recommends continuing amiodarone at this time (3) Diastolic HF (heart failure): Plan: acute/chronic HFpEF - decompensation resolved euvolemic today on exam continue metoprolol succ at reduced dose of 25mg HS STOPPED Entresto cont aldactone cont bumex but use PRN weight gain (4) CKD (chronic kidney disease), stage III: Plan: Baseline creatinine approximately 1.2-1.4 Creatinine today 1.4 stable repeat BMP am (5) DMII (diabetes mellitus, type 2): Plan: Last A1c 5.6% home meds: metformin XR daily; Ozempic 0.5 mg weekly -- both on hold (6) Myelopathy concurrent with and due to spinal stenosis of thoracic region: Plan: 2nd to T1/T2 disease neurology follow up for outpatient EMG (7) Orthostatic hypotension: Plan: started on midodrine and titrated to 5mg TID improved orthostatics today no changes in meds today (8) Subclinical hyperthyroidism: Plan: TSH 0.107 FT4 minimally elevated thyroid u/s obtained - largely normal, no nodules informal correspondence had with [facility] - they advise no Rx at this time, f/u in endo clinic in 2 weeks will need repeat TFTs at that time (9) Afib: Plan: ablation in 2020 [address]version [address] Bennett, [facility] see #2 above re: amiodarone cont amiodarone 200mg daily cont meto succ 25mg HS resume Eliquis 5mg BID (10) CAD (coronary artery disease): Plan: cont meto succ cont Ranexa cont lipitor cont Eliquis resume aspirin at d/c (was taking 81mg QOD prior to admission) Plan GRACIE - Continue BiPAP at bedtime Iron overload - gets [facility] phlebotomy at [facility], followed by Dr. Curiel , son, and daughter updated at bedside today care d/w social work [id number] phone call completed hopeful for d/c to SNF tomorrow Admission and Anticipated Discharge Date Admission Date: October 18, 2024 Subjective tele overnight wnl patient feeling well some baseline dyspnea on exertion but otherwise breathing is ok no chest pain eating well no cough we had lengthy discussion about his thyroid functions and that he has borderline hyperthyroidism - perhaps from amiodarone also performed [id number] phone call with his insurance company today for acute rehab approval - unfortunately rehab was denied by his insurance family at bedside Review of Systems Review of Systems: CV - no chest pain pulm - no cough GI - no abd pain or N/V Physical Exam Physical Exam: gen - obese, NAD, very pleasant neck - no JVD; no thyroidmegaly mouth - MMM heart - RRR s1 s2; no murmur lungs - dry rales about 1/3-1/2 way up back b/l; no wheeze; no increased work of breathing abd - soft NT ND BS+ ext - pulses 2+ b/l, <1+ edema b/l psych - a/o x 3 Results & Data Results & Data Vital Signs (Past 12 Hours) Vital Signs Temp Pulse Pulse Resp BP BP Pulse Ox 10/26/24 15:14 36.5 C 60 20 134/76 99 10/26/24 15:00 68 10/26/24 11:39 36.5 C 79 20 122/75 94 10/26/24 08:15 36.6 C 62 20 109/67 97 10/26/24 08:06 10/26/24 08:02 36.4 C L 56 L 20 176/82 H 124/67 99 10/26/24 07:43 59 L O2 Del Method 10/26/24 15:14 Room Air 10/26/24 15:00 10/26/24 11:39 Room Air 10/26/24 08:15 Room Air 10/26/24 08:06 Room Air 10/26/24 08:02 10/26/24 07:43 Laboratory Results Laboratory Results - last 24 hr 10/25/24 10/26/24 10/26/24 19:48 07:59 08:55 Sodium 140 Potassium 4.4 Chloride 106 Carbon Dioxide 28 Anion Gap 6 BUN 20 Creatinine 1.46 H Est Cr Clr Drug Dosing 50.5 eGFR 47.13 BUN/Creatinine Ratio 13.7 Glucose 118 H POC Glucose 112 H 107 H Calcium 9.1 Vitamin B12 579 Folate > 22.30 TSH 0.107 L Free T4 1.63 H 10/26/24 10/26/24 11:50 17:11 Sodium Potassium Chloride Carbon Dioxide Anion Gap BUN Creatinine Est Cr Clr Drug Dosing eGFR BUN/Creatinine Ratio Glucose POC Glucose 96 83 Calcium Vitamin B12 Folate TSH Free T4 PG Care Time/CCT Total # of Minutes Spent Total Time Spent with Patient: Total time spent is greater than 50% in coordination of care (as documented) at patient's floor/unit and/or counseling patient: Coding Level of Care Code 71275 SUB INP/OBS CARE 3/50MIN Diagnoses Ambulatory dysfunction R26.2 ILD (interstitial lung disease) J84.9 Diastolic HF (heart failure) I50.30 CKD (chronic kidney disease), stage III N18.30 DMII (diabetes mellitus, type 2) E11.9 Myelopathy concurrent with and due to spinal stenosis of thoracic region M48.04; G99.2 Orthostatic hypotension I95.1 Subclinical hyperthyroidism E05.90 Afib I48.91 CAD (coronary artery disease) I25.10
[2024-10-26] MEDS: APIXABAN 5 MG TABLET PO SCH (20:51)
[2024-10-27 08:20] LABS: Hematocrit (blood only) 34.4 % (42.0-52.0); Hemoglobin 11.3 g/dl (14.0-18.0); Mean Corpuscular Hemoglobin 36.7 pg (25.0-34.0); Mean Corpuscular Hgb Conc 32.8 g/dL (32.0-36.0); Mean Corpuscular Volume 111.7 fL (80.0-100.0); Platelet Count 241 K/uL (130-400); RDW Coefficient of Variation 13.9 % (11.5-14.5); RDW Standard Deviation 56.8 fL (36.4-46.3); Red Blood Count 3.08 M/uL (4.70-6.10); White Blood Count 5.99 K/ul (4.8-10.8)
[2024-10-27 08:40] LABS: BUN Creatinine Ratio 14.4 (10-20); Calcium 8.7 mg/dl (8.6-10.3); Creatinine Clr Calc Pharmacy 47.9 ml/min; Potassium 4.4 mmol/L (3.5-5.1)
[2024-10-27 12:19] VITALS: BP 134/65; PULSE 61; RESP 16; TEMP 98.2; O2SAT 97
--- NOTE | 2024-10-27 12:35 | Discharge Summary ---
Discharge Summary Date of Service October 27, 2024 Principal Dx & Hospital Course #1 = Principal Diagnosis (1) Ambulatory dysfunction: multifactorial causes including T1/T2 spinal stenosis on MRI, diabetic neuropathy, deconditioning, acute on chronic heart failure, orthostatic hypotension thoracic spine disease - Dr. Devi was consulted, nonoperative Rx advised PT/OT for deconditioning diuresed for his acute/chronic CHF midodrine added for orthostatic hypotension B12 level wnl diabetic neuropathy - prior MD decreased his gabapentin from 600 to 300 TID - concern that the higher dose of gabapentin was contributing to gait dysfunction fortunately his neuropathy symptoms have not worsened on the lower dose of gabapentin making strides with PT/OT here but needs rehab unfortunately his insurance denied request for inpatient rehab to [facility] for such as back-up plan -- likely tomorrow (2) ILD (interstitial lung disease): chest CT -- ILD in NSIP pattern mild-moderate radiographically has been on amiodarone since 07/2023 for atrial fibrillation has had a +SHARA in the past no occupational or environmental exposures pulmonary consult completed by Dr. Harris - ILD was felt to be mild at most and unlikely to be related to the amiodarone outpatient pulmonary follow up with PFTs advised prior MD discussed amiodarone with Dr. Elias Bennett - [facility] per Dr Bennett - Mr Escobedo has not tolerated his a.fib in the past previous a.fib ablation procedure was extremely difficult as well benefits of the amiodarone likely outweigh its risks further, he has few Rx alternatives for the a.fib thus, Dr. Bennett recommends continuing amiodarone at this time (3) Diastolic HF (heart failure): acute/chronic HFpEF - decompensation resolved euvolemic today on exam continue metoprolol succ at reduced dose of 25mg HS STOPPED Entresto cont aldactone cont bumex but use PRN weight gain (4) CKD (chronic kidney disease), stage III: Baseline creatinine approximately 1.2-1.4 Creatinine today 1.4 stable repeat BMP am (5) DMII (diabetes mellitus, type 2): Last A1c 5.6% home meds: metformin XR daily; Ozempic 0.5 mg weekly -- both on hold (6) Myelopathy concurrent with and due to spinal stenosis of thoracic region: 2nd to T1/T2 disease neurology follow up for outpatient EMG (7) Orthostatic hypotension: started on midodrine and titrated to 5mg TID improved orthostatics today no changes in meds today (8) Subclinical hyperthyroidism: TSH 0.107 FT4 minimally elevated thyroid u/s obtained - largely normal, no nodules informal correspondence had with [facility] - they advise no Rx at this time, f/u in endo clinic in 2 weeks will need repeat TFTs at that time (9) Afib: ablation in 2020 cardioversion [address] Bennett, [facility] see #2 above re: amiodarone cont amiodarone 200mg daily cont meto succ 25mg HS resume Eliquis 5mg BID (10) CAD (coronary artery disease): cont meto succ cont Ranexa cont lipitor cont Eliquis resume aspirin at d/c (was taking 81mg QOD prior to admission) Plan GRACIE - Continue BiPAP at bedtime Iron overload - gets regular phlebotomy at cancer center, followed by Dr. Curiel , son, and daughter updated at bedside today care d/w social work [id number] phone call completed hopeful for d/c to SNF tomorrow Admission HPI Per Admitting Provider Mk is a 84-year-old male with a history of type 2 diabetes, diastolic heart failure, hypertension, CKD, A-fib on Eliquis and amiodarone, BPH with LUTS, and spinal stenosis with known myelopathy and a past history of T8-T10 decompression and fusion a poor surgical candidate due to cardiac risk who presents with inability to ambulate and request for placement. She was seen with his son and family at bedside. Greatly WOrsened strength in the legs in the last week. Could not stand on his own and shaky despite using his walker which normally works well for him. Has had some falls although no back pain worse than his usual does ache if he sits for too long His weakness does feel worse and different than his prior thoracic stenosis pain and weakness, and seems to have abruptly worsened spite some gradually worsening strength at baseline. Normally can walk with a walker but all of a sudden in the last 5 days could not use his walker. Family went to [place] and had to come home because he couldn't walk at home and kept falling. Too weak to transfer. Was going to have thoracic decompression, with elevated risk for surgery and this was deferred. Recommended to have a second opinion from [facility] spinal surgery Dr. Harrell, is pending intake in Dec 16. Legs numbness/tingling is much worse in the last week. Requests visit with Dr. Devi. Increased SoB compared to normal last few days,. Had a little extra salt the past week, took an extra lasix 1x this last Friday. He has not had any dysuria or polyuria but does have more difficulty voiding and has a history of intermittent urinary retention Denies chest pain or chest pressure otherwise very limited exertional ability. Denies palpitations. Denies fever and chills Last [facility] cardiology note reviewed. Patient was evaluated while considering this estimate Negative stress echo for ischemia 07/13/2021 at [facility], exercise capacity was only 59% for age and had a extreme hypertensive response to exercise. Patient had symptomatic paroxysmal atrial fibrillation leading to worsen diastolic heart failure with loss of atrial kick. He was ablated 09/2021 and is in sinus with maintenance. Did have a cardioversion 08/05/2023. Also with comorbid sleep apnea on BiPAP. There was a concern that he would decompensate if he has atrial fibrillation with surgery and had elevated cardiac risk for unclear benefit over whether it would improve his immediate symptoms but there was concern for progression. It was recommended that he have a second opinion at [place] which was being arranged at that time. Risks did not outweigh the benefit of pursuing operative intervention at that time however he was not necessarily precluded from surgery entirely was just noted to have increased risk of decompensation. Medical History: Reviewed Medications: Reviewed Surgical History: Reviewed Family history: Reviewed Allergies: Reviewed Social History: No history of alcohol, tobacco, recreational drug use Code Status: Full code Discharge Exam gen - obese, NAD, very pleasant neck - no JVD; no thyroidmegaly mouth - MMM heart - RRR s1 s2; no murmur lungs - dry rales about 1/3-1/2 way up back b/l; no wheeze; no increased work of breathing abd - soft NT ND BS+ ext - pulses 2+ b/l, <1+ edema b/l psych - a/o x 3 Discharge Plan Discharge Items Patient Disposition: Transfer [facility] Reason For Visit: LEG WEAKNESS, NUMBNESS Discharge Diagnosis: 1. ambulatory dysfunction / leg weakness - improving; multifactorial causes 2. orthostatic hypotension - improved 3. acute on chronic congestive heart failure - improved 4. subclinical hyperthyroidism 5. interstitial lung disease 6. thoracic spine stenosis 7. diabetes 8. diabetic neuropathy 9. chronic kidney disease stage 3 - discharge creatinine 1.5 10. sleep apnea 11. history of atrial fibrillation with ablation & cardioversion Activity: Resume your previous activity Non-emergency contact: Primary Care Provider, Specialist, Production Bow Maker and Software Maintenance Engineer Call non-emergency contact if: you have any medication questions Follow-up/Referrals: Zay Ferreira MD [Physician] - 11/11/24 10:45 am (abnormal TFTs, subclinical hyperthyroidism, chronic amiodarone use - 2 weeks) Usama Harris MD [Physician] - (1 month - f/u for ILD; needs PFTs) Elias Bennett DO [Physician] - (1-2 weeks; follow-up for CHF) Olivia Rangel PA-C [Primary Care Provider] - Diet: Carb Consistent or DM2 and Heart Healthy Fluids: 1800ml (7 cups) Addtl Attending Provider Instructions: Mr Escobedo was hospitalized for ambulatory dysfunction - thought due to a series of factors including thoracic spine stenosis, diabetic neuropathy, orthostatic hypotension, etc. In addition to weakness and walking difficulties other issues addressed while here - acute on chronic heart failure, new diagnosis of suspected interstitial lung disease, and subclinical hyperthyroidism as detected on lab studies. Hemoglobin a1c was found to be 4.7% and thus all diabetic agents were held. Glucose at time of ER presentation was 81. Midodrine was increased to 5mg three times daily due to orthostatic hypotension. In addition, his Entresto was stopped and metoprolol succinate dose was cut in half. With these measures his orthostatic hypotension improved. [facility] was consulted due to concern for developing interstitial lung disease and they want to see him in clinic to perform PFTs & other tests. With respect to the subclinical hyperthyroidism -- Dr Zay Ferreira with [facility] will see him in clinic in 2 weeks to recheck his thyroid levels and determine if treatment is needed. There is suspicion his amiodarone was the cause of the abnormal thyroid levels. Thyroid u/s did not show any nodules or mass. Congestive heart failure improved with IV/oral diuretics. Due to orthostasis, however, his bumex diuretic dose has been changed to 0.5mg daily. This may need further adjustments in the near-future. He should see Dr Elias Bennett with [facility] in the next 1-2 weeks. Thoracic spine stenosis - seen by Dr Parminder Devi - nonoperative management of the stenosis advised. Recommendations - 1. daily standing scale weights. Notify medical services coordinator of any weight gain of more than 2-3 pounds over 1-2 days. 2. repeat BMP in 4-5 days to ensure stable electrolytes/creatinine. 3. check fingerstick blood sugars at least twice daily to ensure stable glucose levels. 4. BIPAP for sleep apnea at bedtime/with naps. 5. follow-up appointments as listed in referral section. It was our pleasure to care for Mr Escobedo! Addtl Nougat Candy Maker Helper Provider Instructions: Call 911 and go to the Emergency Room if: * You have tightness or pain in your chest that does not go away with rest or Nitroglycerin * You are very short of breath even with rest Call your doctor if any of the following symptoms or problems start or get worse: * Shortness of breath or difficulty breathing * Wake up at night short of breath * Chest pain * Cough * Swelling of your hands, fee, or legs * More fatigued or tired with your normal activity * Palpitations - sudden fast heart beats WEIGHT * Weigh yourself every morning after using the bathroom. * Use the same scale. * Wear the same amount of clothing. * Write your weight down on your chart. * Call your doctor if you gain more than 2-3 pounds in 1-2 days. MEDICATIONS * Use this discharge instruction sheet for instructions. * Take your medications at the time your doctor ordered. * Do not skip a dose of your medicines. * If you miss a dose of medicine, take as soon as possible, but DO NOT DOUBLE A DOSE. * Read your medicine information when you get home. * Know all of the side effects of your medicine. * Call your doctor's office if you have any side effects. * Be sure all of your doctors know what medicine and herbs you take (including cold, flu, and herbal medicine). * Pain Medicine: If you do not get relief from your pain, please call your doctor for help. Take the following with you to your follow-up doctor appointments: * Weight Chart * Medication List * List of questions Do not drink excessive alcohol, beer or wine. Pending Studies at Discharge: No Stand-Alone Forms: My [facility] Skilled Items Patient informed of condition?: Yes DNR: Yes Discharge Level of Care: Skilled Communicable Disease: No Discharge Prognosis: Stable Lines: None Urinary Catheter: No Medications and DC Order Prescriptions: Continued folic acid 800 mcg tablet 1 mg PO HS cetirizine [Zyrtec] 10 mg Tablet 10 mg PO QAM PRN (Reason: Allergy Symptoms) acetaminophen 650 mg Tablet Extended Release 1,300 mg PO BID multivitamin with iron-mineral Tablet 1 tab PO HS ranolazine 500 mg tablet extended release 12 hr 500 mg PO BID glucosamine HCl 1,500 mg Tablet 1,500 mg PO BID Eliquis 5 mg tablet 5 mg PO BID krill oil 500 mg PO HS amiodarone 200 mg tablet 200 mg PO QAM atorvastatin 20 mg tablet 20 mg PO HS coenzyme Q10 [Co Q-10] 10 mg Capsule 200 mg PO QAM omeprazole 20 mg Capsule,Delayed Release(Dr/Ec) 20 mg PO QAM cinnamon bark [Cinnamon] 500 mg Capsule 1,000 mg PO QAM cholecalciferol (vitamin D3) [Vitamin D3] 25 mcg (1,000 unit) Tablet,Chewable 50 mcg PO QAM Rx Instructions: 2000 aspirin 81 mg Capsule 81 mg PO .Q OTHER DAY spironolactone 25 mg tablet 12.5 mg PO QAM Qty: 1 0RF Gemtesa 75 mg tablet 75 mg PO PM Changed gabapentin 600 mg tablet 300 mg PO TID Qty: 0 0RF metoprolol succinate 50 mg tablet extended release 24 hr 25 mg PO HS Qty: 0 0RF midodrine 2.5 mg Tablet 5 mg PO TID Qty: 0 0RF Rx Instructions: take at 0800, 1200, and 1700 bumetanide 1 mg tablet 0.5 mg PO QAM Qty: 30 0RF Held metformin 500 mg tablet extended release 24 hr 500 mg PO QAM Hold Instructions: hold unless your outpatient providers ask you to resume Ozempic 0.25 mg or 0.5 mg (2 mg/3 mL) pen injector 0.5 mg SUBCUT Q7D Hold Instructions: hold unless your outpatient providers ask you to resume Patient Comments: takes on Discontinued Entresto 24-26 mg tablet 1 tab PO BID Discharge Orders: Discharge Order (Routine); Ordered 10/27/24 Ordered By: Addy Lucero/Other Patient Handouts: Heart Failure: Tracking Your Weight, Coping with Heart Failure, Falls Prevent Use Cane Walker, Exercises to Prevent Falls Admission Data Admit Date/Time: 10/18/24 16:37 Attending Provider: Addy Evans Admit Provider: Zach Kimball Primary Care Provider: Olivia Rangel Other Providers: Zach Kimball; Usama Devi; [facility]; [facility], [place]; [facility]; Toby Villanueva Other Interventions: Discharge Summary Assessment (RN) Last Done: 10/27/24 11:48 Hospital Stay Data Consultations 10/18/24 14:24 ED Decision to Admit Stat 10/18/24 20:33 Consult Orthopedic Spine Surgery Routine 10/22/24 13:18 Consult Cardiology Routine 10/22/24 13:19 Consult Pulmonology Routine Diagnostic Imagining Performed 10/18/24 12:23 CT head/brain wo con Stat 10/18/24 16:37 MR lumbar spine wo con Stat MR thoracic spine wo con Urgent 10/22/24 11:23 CT chest HighRes diag wo con Routine 10/26/24 14:37 US thyroid Routine Pending Results Patient Have Any Pending Studies at Discharge: No Discharge Instructions Given to Patient (Per Discharging Provider) Mr Escobedo was hospitalized for ambulatory dysfunction - thought due to a series of factors including thoracic spine stenosis, diabetic neuropathy, orthostatic hypotension, etc. In addition to weakness and walking difficulties other issues addressed while here - acute on chronic heart failure, new diagnosis of suspected interstitial lung disease, and subclinical hyperthyroidism as detected on lab studies. Hemoglobin a1c was found to be 4.7% and thus all diabetic agents were held. Glucose at time of ER presentation was 81. Midodrine was increased to 5mg three times daily due to orthostatic hypotension. In addition, his Entresto was stopped and metoprolol succinate dose was cut in half. With these measures his orthostatic hypotension improved. [facility] was consulted due to concern for developing interstitial lung disease and they want to see him in clinic to perform PFTs & other tests. With respect to the subclinical hyperthyroidism -- Dr Zay Ferreira with [facility] will see him in clinic in 2 weeks to recheck his thyroid levels and determine if treatment is needed. There is suspicion his amiodarone was the cause of the abnormal thyroid levels. Thyroid u/s did not show any nodules or mass. Congestive heart failure improved with IV/oral diuretics. Due to orthostasis, however, his bumex diuretic dose has been changed to 0.5mg daily. This may need further adjustments in the near-future. He should see Dr Elias Bennett with [facility] in the next 1-2 weeks. Thoracic spine stenosis - seen by Dr Parminder Devi - nonoperative management of the stenosis advised. Recommendations - 1. daily standing scale weights. Notify medical services coordinator of any weight gain of more than 2-3 pounds over 1-2 days. 2. repeat BMP in 4-5 days to ensure stable electrolytes/creatinine. 3. check fingerstick blood sugars at least twice daily to ensure stable glucose levels. 4. BIPAP for sleep apnea at bedtime/with naps. 5. follow-up appointments as listed in referral section. It was our pleasure to care for Mr Escobedo! Coding Diagnoses Ambulatory dysfunction R26.2 ILD (interstitial lung disease) J84.9 Diastolic HF (heart failure) I50.30 CKD (chronic kidney disease), stage III N18.30 DMII (diabetes mellitus, type 2) E11.9 Myelopathy concurrent with and due to spinal stenosis of thoracic region M48.04; G99.2 Orthostatic hypotension I95.1 Subclinical hyperthyroidism E05.90 Afib I48.91 CAD (coronary artery disease) I25.10
== END 2024-10-27 13:14 | DRG 551 ==
LOC: ED 11:49 → 2N 16:37 → SUATTDRO 16:37 → 2N 17:59 → 2W 10-19 15:11

== ENCOUNTER 2025-11-04 13:11 | Inpatient (IN) ==
--- NOTE | 2025-11-04 13:30 | Emergency Department Note ---
Impression & Plan Shortness of breath, Afib, CAD (coronary artery disease), Chest pain ED Provider Note NAME: CARLIE GERMAIN AGE: 85 SEX: M : 1940 ARRIVES VIA: Ambulance INFORMANT: Patient ED PROVIDER(S): Aftab Bolton DO CHIEF COMPLAINT: Shortness of breath, lightheaded HPI: Patient is an 85-year-old male with a past medical history of A-fib on amiodarone and Eliquis, CHF, hyperlipidemia who presents to the ER for feeling shortness of breath and weak. Symptoms started around 7 AM this morning when he woke up. He notes he is lightheaded when he changes positions. He also had some chest pain with up moving around. No chest pain at this time. No belly pain. No nausea, vomiting or diarrhea. No dysuria, urgency or frequency. No other exacerbating or remitting factors. ADDITIONAL HISTORY OBTAINED: Per HPI Chronic Medical/Social Conditions Affecting Care: Per HPI PAST MEDICAL HISTORY:See Below PAST SURGICAL HISTORY:See Below FAMILY HISTORY:See Below SOCIAL HISTORY:See Below HOME MEDICATIONS:See Below ALLERGIES:See Below VITALS:See Below PHYSICAL EXAMINATION: GENERAL: Sitting up in bed, alert, well appearing, well nourished, no distress, non-toxic EYE EXAM: normal conjunctiva. PERRL and EOM's intact. OROPHARYNX: no exudate, no erythema, lips, buccal mucosa, and tongue normal and mucous membranes are moist NECK: supple, no nuchal rigidity, no adenopathy, non-tender LUNGS: Clear to auscultation. Normal chest wall mechanics HEART: no murmurs, S1 normal and S2 normal ABDOMEN: abdomen soft, non-tender, normo-active bowel sounds, no masses, no rebound or guarding. BACK: Back is symmetrical on inspection and there is no deformity, no midline tenderness, no CVA tenderness. UPPER EXTREMITIES: upper extremities are grossly normal. LOWER EXTREMITIES: No pitting edema. NEURO EXAM: Normal sensorium, cranial nerves II-XII intact, normal speech, no weakness of arms, no weakness of legs. No drift. Finger to nose intact. Gross sensation intact. MEDICAL DECISION MAKING: Patient is an 85-year-old male who presents to the ER for above-stated complaint. IV was established and blood work was obtained. Labs showed no significant leukocytosis. Mild anemia at 13. BMP with creatinine 1.5 which is fairly consistent with previous. LFTs bilirubin troponin was negative. Lipase normal. Patient was given aspirin upon arrival and IV fluids. Updated at bedside. He was in A-fib. Appears that he has paroxysmal A-fib as his previous EKG showed a sinus rhythm. Reviewed Dr. Johnson's note and notes that they were stopping amiodarone back in 2023. Patient notes that he is taking it now. Unclear the true cause of his symptoms but I question if this is secondary to the A-fib. Discussed case with the hospitalist at this time and will admit for the exertional chest pain and shortness of breath. Consults/Care Managements Discussions: Per [facility] Triage Nursing notes reviewed. Limited review of prior medical records performed Vital Signs: reviewed and remarkable for no significant abnormalities Differential diagnosis: Differential diagnoses includes but is not limited to pneumonia, bronchitis, COPD/Asthma exacerbation, pneumothorax, pulmonary embolism, congestive heart failure, acute coronary syndrome ER treatment provided: See below Diagnostics interpreted by me include EKG and cardiac monitoring as listed below: -Cardiac Monitoring: An order was placed for continuous cardiac monitoring. The monitor shows a rate of 88 with A-fib rhythm. -ECG: A-fib rate 88 Left axis No PVCs QTc 430 -Laboratory studies:Interpreted by me as stated above in MDM and shown below. Imaging studies: Xrays: As interpreted by me: Portable AP upright 1 view of the chest shows no focal infiltrate CTs show: CT of the head was negative Procedures: None Critical Care: None Past Med/Surg History Problem List (Updated 11/04/25 @ 17:11 by Aftab Bolton DO) Chest pain (Acute) Shortness of breath (Acute) Essential hypertension Type 2 diabetes mellitus Paroxysmal atrial fibrillation Acute on chronic diastolic CHF (congestive heart failure) Angina pectoris Biceps tendinitis of right shoulder Right rotator cuff tear arthropathy Incomplete bladder emptying Thoracic spinal stenosis Dyspnea CAD (coronary artery disease) (Acute) per 08/06/23 cardio note, cath 2016: 30% proximal LAD lesion and a 40% distal LAD lesion. 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 Ambulatory dysfunction (Acute) Anticoagulant long-term use (Acute) Hyperlipidemia Diastolic HF (heart failure) chronic diastolic HF GERD (gastroesophageal reflux disease) Diabetic neuropathy DMII (diabetes mellitus, type 2) on metformin and ozempic GRACIE (obstructive sleep apnea) cpap Afib (Acute) cardioversion [facility] 08/05/23; pt on medication including asa and eliquis and follows with cardio HTN (hypertension) (Chronic) Medical History (Updated 11/04/25 @ 17:11 by Aftab Bolton DO) Amiodarone-induced thyroiditis Cervical spinal stenosis Urinary incontinence Transient left leg weakness Trochanteric bursitis, left hip Osteoarthritis Obesity Trochanteric bursitis of right hip Kidney stone hx of and passed on own CKD (chronic kidney disease), stage III History of cardioversion multiple; most recent 08/05/23 SHARA positive Diverticulosis Carotid artery plaque Surgical History Hx of colonoscopy Hx of total knee arthroplasty left History of cholecystectomy H/O laminectomy lumbar H/O total knee replacement History of ankle surgery History of back surgery H/O bilateral hip replacements Family History Other Coronary heart disease Diabetes Social History Smoking Status: Former smoker Tobacco Type: Cigarettes Cigarettes Per Day: pack a day; Second Hand Exposure: No; Do You Dip or Chew Tobacco: No; Hx Alcohol Use: Yes Alcohol type: beer, wine and hard liquor Hx Substance Use: No Preferred Language: Ecuadorean Communication Ability: Effective 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 Security 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 Required: No Beliefs That Will Affect Care: None marital status: Current Living Situation: Spouse Current Living Situation Comment: home with Feels Safe at Home: Yes Assistive Devices: CPAP, Glasses and Walker Allergies Allergies Allergy/AdvReac Type Severity Reaction Status Date / Time flecainide Allergy Unknown ON [place] Verified 10/17/25 12:34 MED LIST oxycodone AdvReac Intermediate NAUSEA/VOMI Verified 10/17/25 12:34 TTING Home Meds Home Medications Medication Instructions Recorded Confirmed cetirizine 10 mg tablet (Zyrtec) 10 mg PO QAM Allergy Symptoms 07/03/21 11/04/25 aspirin 81 mg capsule 81 mg PO .Q OTHER DAY 07/19/21 11/04/25 cholecalciferol (vitamin D3) 25 50 mcg PO QAM 07/19/21 11/04/25 mcg (1,000 unit) chewable tablet (Vitamin D3) omeprazole 20 mg capsule,delayed 20 mg PO DAILYBB 07/19/21 11/04/25 release acetaminophen 650 mg 650 mg PO Q8H 08/05/23 11/04/25 tablet,extended release apixaban 5 mg tablet (Eliquis) 5 mg PO AMPM 08/05/23 11/04/25 ranolazine 500 mg tablet,extended 500 mg PO BID 08/05/23 11/04/25 release,12 hr amiodarone 200 mg tablet 200 mg PO QAM 10/30/23 11/04/25 atorvastatin 20 mg tablet 20 mg PO QAM 10/30/23 11/04/25 bumetanide 0.5 mg tablet 0.5 mg PO QAM 12/29/24 11/04/25 folic acid 1 mg tablet 1 mg PO QAM 12/29/24 11/04/25 gabapentin 300 mg capsule 300 mg PO TID 12/29/24 11/04/25 metoprolol succinate 25 mg 25 mg PO QAM 12/29/24 11/04/25 tablet,extended release 24 hr midodrine 5 mg tablet 5 mg PO QAM 12/29/24 11/04/25 kgwiqbypsykt-[id number] 1 tab PO QAM 12/29/24 11/04/25 tablet (Multivitamin 50 Plus tablet) sacubitril 24 mg-valsartan 26 mg 0.5 tab PO AMPM 12/29/24 11/04/25 tablet (Entresto) spironolactone 25 mg tablet 25 mg PO QAM 12/29/24 11/04/25 cyclobenzaprine 10 mg tablet 10 mg PO QAM 02/04/25 11/04/25 calcium 500 mg (as 1 tab PO BID 02/09/25 11/04/25 carbonate)-vitamin D3 5 mcg (200 unit) tablet (Oyster Shell Calcium-Vitamin D3) coQ10 (ubiquinol) 200 mg capsule 200 mg PO DAILY 02/09/25 11/04/25 diclofenac sodium 1 % topical gel 2 g topical QID 02/09/25 11/04/25 lidocaine 4 % topical patch 1 patch topical BID 02/09/25 11/04/25 metformin 500 mg tablet,extended 500 mg PO QAM 02/09/25 11/04/25 release 24 hr midodrine 2.5 mg tablet 2.5 mg PO .BID@1400 & 2000 02/09/25 11/04/25 omega-3 fatty acids 1,000 mg 1,000 mg PO DAILY 02/09/25 11/04/25 capsule oxycodone 5 mg tablet 5 mg PO Q4H PRN Pain 02/09/25 11/04/25 sennosides 8.6 mg tablet (senna) 8.6 mg PO QPM 02/09/25 11/04/25 zinc oxide 20 % topical paste 1 ea topical Q8H PRN SKIN BREAKDOWN 02/09/25 11/04/25 tamsulosin 0.4 mg capsule 0.4 mg PO QPM 11/04/25 11/04/25 Results & Data (ED) Vital Signs Vital Signs - 24 hr 11/04/25 13:18 11/04/25 13:18 11/04/25 13:18 Temperature 36.8 C Temperature Source Oral Pulse Rate 100 H Pulse Rate [Apical] 100 H Pulse Rate from SpO2 Sensor Pulse Rhythm [Apical] Irregular Pulse Strength [Apical] Respiratory Rate 18 18 Respiratory Effort / Characteristics Non-Labored Spontaneous Non-Labored Spontaneous Respiratory Depth Normal Normal Respiratory Pattern Regular Regular Blood Pressure 102/71 Blood Pressure [Left Arm] 102/71 Blood Pressure Mean 81 Blood Pressure Mean [Left Arm] 81 Blood Pressure Position [Left Arm] Pulse Oximetry 100 100 Oxygen Delivery Method Room Air Room Air Room Air Sepsis Recent Fever Within 48 Hours No Sepsis New/Unexplained Change in Mental Status No Sepsis Action Taken by Nursing No Action Required 11/04/25 13:19 11/04/25 13:26 11/04/25 15:11 Temperature Temperature Source Pulse Rate 93 H 98 H Pulse Rate [Apical] 73 Pulse Rate from SpO2 Sensor Pulse Rhythm [Apical] Regular Pulse Strength [Apical] Normal Respiratory Rate 16 14 Respiratory Effort / Characteristics Non-Labored Spontaneous Respiratory Depth Normal Respiratory Pattern Regular Blood Pressure Blood Pressure [Left Arm] 112/86 Blood Pressure Mean Blood Pressure Mean [Left Arm] 94 Blood Pressure Position [Left Arm] Lying Pulse Oximetry 97 99 Oxygen Delivery Method Room Air Room Air Sepsis Recent Fever Within 48 Hours Sepsis New/Unexplained Change in Mental Status Sepsis Action Taken by Nursing 11/04/25 16:00 Temperature Temperature Source Pulse Rate 93 H Pulse Rate [Apical] Pulse Rate from SpO2 Sensor 88 Pulse Rhythm [Apical] Pulse Strength [Apical] Respiratory Rate 18 Respiratory Effort / Characteristics Respiratory Depth Respiratory Pattern Blood Pressure 125/78 Blood Pressure [Left Arm] Blood Pressure Mean 93 Blood Pressure Mean [Left Arm] Blood Pressure Position [Left Arm] Pulse Oximetry 100 Oxygen Delivery Method Room Air Sepsis Recent Fever Within 48 Hours Sepsis New/Unexplained Change in Mental Status Sepsis Action Taken by Nursing Laboratory Data 11/04/25 13:16 11/04/25 13:16 Lab Results 11/04/25 Range/Units 13:16 WBC 7.32 (4.8-10.8) K/ul RBC 3.57 L (4.70-6.10) M/uL Hgb 13.2 L (14.0-18.0) g/dL Hct 38.6 L (42.0-52.0) % MCV 108.1 H (80.0-100.0) fL MCH 37.0 H (25.0-34.0) pg MCHC 34.2 (32.0-36.0) g/dL RDW Std Deviation 53.1 H (36.4-46.3) fL RDW Coeff of Flavia 13.2 (11.5-14.5) % Plt Count 258 (130-400) K/uL MPV 9.1 L (9.4-12.4) fL Immature Gran % (Auto) 0.3 % Neut % (Auto) 62.7 % Lymph % (Auto) 22.7 % Grimes % (Auto) 9.6 % Eos % (Auto) 3.7 % Baso % (Auto) 1.0 % Neut # (Auto) 4.60 (1.40-6.50) K/uL Lymph # (Auto) 1.66 (1.20-3.40) K/uL Grimes # (Auto) 0.70 H (0.11-0.59) K/uL Eos # (Auto) 0.27 (0.00-0.50) K/uL Baso # (Auto) 0.07 (0.00-0.20) K/uL Immature Gran # (Auto) 0.02 (0.01-0.20) K/uL Sodium 140 (136-145) mmol/L Potassium 4.5 (3.5-5.1) mmol/L Chloride 107 (98-107) mmol/L Carbon Dioxide 26 (21-32) mmol/L Anion Gap 7 (3-11) BUN 20 (6-23) mg/dl Creatinine 1.54 H (0.6-1.4) mg/dl Est Cr Clr Drug Dosing 48.1 ml/min eGFR 43.93 BUN/Creatinine Ratio 13.0 (10-20) Glucose 163 H (70-99(Fasting)) mg/dl Calcium 8.8 (8.6-10.3) mg/dl Total Bilirubin 0.5 (0.2-1.0) mg/dl AST 24 (13-39) U/L ALT 22 (7-52) U/L Alkaline Phosphatase 60 (34-104) U/L Troponin I High Sens 6.5 (0-20) pg/ml Total Protein 6.7 (6.0-8.3) gm/dl Albumin 3.8 (3.4-5.0) gm/dl Globulin 2.9 (2.5-4.0) gm/dl Albumin/Globulin Ratio 1.3 (0.9-2) Lipase 21 (11-82) U/L Administered Medications Discontinued Medications Aspirin (Aspirin Chew 324 Mg) 324 mg PO NOW STA Stop: 11/04/25 14:44 Last Admin: 11/04/25 14:48 Dose: 324 mg Documented By: GRISEL Sodium Chloride (Nss) 1,000 mls @ 999 mls/hr IV .Q1H1M ONE Stop: 11/04/25 14:26 Last Infusion: 11/04/25 15:22 Dose: Infused [place]ed By: [facility] [place]: 11/04/25 13:34 Dose: 999 mls/hr Documented By: GRISEL Imaging Data Radiologist's Impression: Chest X-Ray 11/04/25 13:26 XR chest 1V portable CLINICAL HISTORY: Chest pain, nonspecific COMPARISON STUDY: Chest radiograph October 18, 2024. Chest CT February 09, 2025. FINDINGS: Postoperative findings within the spine are partially imaged. There is no pneumothorax or pleural effusion. Basilar predominant interstitial thickening is unchanged and likely represents interstitial lung disease. Cardiomegaly is unchanged. No evidence for pulmonary edema. There is no consolidation to suggest pneumonia IMPRESSION: 1. No acute cardiopulmonary findings. 2. No change in appearance of the chest. Interstitial thickening suggestive of interstitial lung disease. ACT 112: Negative or not required by law. Electronically signed by: Jake Diehl M.D. 11/04/2025 1:[address] 11/04/25 13:26 CT SCAN OF THE BRAIN WITHOUT IV CONTRAST CLINICAL HISTORY: Lightheadedness. COMPARISON STUDY: CT of the brain dated 02/09/2025. TECHNIQUE: Unenhanced CT scan of the brain is performed from the vertex to the skull base. Images are reviewed in the axial, sagittal, coronal planes. A dose lowering technique was utilized adhering to the principles of ALARA. CT DOSE: 1100.35 mGy.cm FINDINGS: Brain parenchyma: There is age-related involutional change noting mild subcortical and periventricular microangiopathic disease. There is no hemorrhage, mass effect, or evidence of acute territorial ischemia by CT criteria. Brooks-white matter differentiation is preserved. No extra-axial fluid collection is seen. Ventricles, sulci, cisterns: Prominent secondary to involutional change. Intracranial vasculature: There is atherosclerotic calcification of the cavernous carotid and vertebral arteries. Calvarium: The skeletal structures are osteopenic. The calvarium appears intact. Arthritic change is noted in the temporomandibular joints. Sinuses and mastoids: There is mild mucosal thickening within the right sphenoid sinus. Trace mucosal thickening is noted in the ethmoid sinuses. The mastoid air cells are well pneumatized. Orbits: The bony orbits are grossly intact. There are bilateral ocular lens implants. IMPRESSION: There is no hemorrhage, mass effect, or evidence of acute territorial ischemia by CT criteria. ACT 112: Negative or not required by law. Electronically signed by: Florentino Xavier M.D. 11/04/2025 2:21 PM Discharge Plan Visit Data Chief Complaint: Weakness Stated Complaint: WEAKNESS, SOB ED Provider: Aftab Bolton Discharge Problem: Shortness of breath, Afib, CAD (coronary artery disease), Chest pain Condition: Fair Forms Stand Alone Forms: My [facility] Prescriptions Prescriptions: No Action cyclobenzaprine 10 mg tablet 10 mg PO QAM cetirizine [Zyrtec] 10 mg Tablet 10 mg PO QAM acetaminophen 650 mg Tablet Extended Release 650 mg PO Q8H ranolazine 500 mg tablet extended release 12 hr 500 mg PO BID Eliquis 5 mg tablet 5 mg PO AMPM amiodarone 200 mg tablet 200 mg PO QAM atorvastatin 20 mg tablet 20 mg PO QAM omeprazole 20 mg Capsule,Delayed Release(Dr/Ec) 20 mg PO DAILYBB cholecalciferol (vitamin D3) [Vitamin D3] 25 mcg (1,000 unit) Tablet,Chewable 50 mcg PO QAM aspirin 81 mg Capsule 81 mg PO .Q OTHER DAY sennosides [senna] 8.6 mg Tablet 8.6 mg PO QPM lidocaine 4 % Adhesive Patch,Medicated 1 patch TOPICAL BID Rx Instructions: REMOVE AT HS, FOR SHOULDER PAIN omega-3 fatty acids 1,000 mg Capsule 1,000 mg PO DAILY midodrine 2.5 mg Tablet 2.5 mg PO .BID@1400 & 2000 Rx Instructions: do not give last dose of day after 6PM or within 4 hrs of bedtime metformin 500 mg tablet extended release 24 hr 500 mg PO QAM oxycodone 5 mg Tablet 5 mg PO Q4H PRN (Reason: Pain) calcium carbonate-vitamin D3 [Oyster Shell Calcium-Vit D3] 500 mg-5 mcg (200 unit) Tablet 1 tab PO BID diclofenac sodium [Voltaren] 1 % Gel 2 g TOPICAL QID Rx Instructions: APPLY TO RIGHT SHOULDER coQ10 (ubiquinol) 200 mg Capsule 200 mg PO DAILY zinc oxide 20 % Paste 1 ea TOPICAL Q8H PRN (Reason: SKIN BREAKDOWN) tamsulosin 0.4 mg capsule 0.4 mg PO QPM metoprolol succinate 25 mg tablet extended release 24 hr 25 mg PO QAM Rx Instructions: HOLD FOR SBP <90 OR HR <55 bumetanide 0.5 mg tablet 0.5 mg PO QAM gabapentin 300 mg capsule 300 mg PO TID spironolactone 25 mg tablet 25 mg PO QAM midodrine 5 mg tablet 5 mg PO QAM folic acid 1 mg tablet 1 mg PO QAM sacubitril-valsartan [Entresto] 24-26 mg tablet 0.5 tab PO AMPM Multivitamin 50 Plus Tablet 1 tab PO QAM Referrals Referrals: Olivia Rangel PA-C [Primary Care Provider] - Discharge Problem: Afib Qualifiers: Atrial fibrillation type: unspecified Qualified Code(s): I48.91 - Unspecified atrial fibrillation CAD (coronary artery disease) Qualifiers: Coronary Disease-Associated Artery/Lesion type: unspecified vessel or lesion type [place] vs. transplanted heart: ewi[place]ayp heart Chest pain Qualifiers: Chest pain type: unspecified Qualified Code(s): R07.9 - Chest pain, unspecified
[2025-11-04] MEDS: SODIUM CHLORIDE 0.9% 1,000 ML IV ONE (13:34)
--- NOTE | 2025-11-04 13:42 | XRay Report ---
XR chest 1V portable CLINICAL HISTORY: Chest pain, nonspecific COMPARISON STUDY: Chest radiograph October 18, 2024. Chest CT February 09, 2025. FINDINGS: Postoperative findings within the spine are partially imaged. There is no pneumothorax or p leural effusion. Basilar predominant interstitial thickening is unchanged and likely represents inter stitial lung disease. Cardiomegaly is unchanged. No evidence for pulmonary edema. There is no consoli dation to suggest pneumonia IMPRESSION: 1. No acute cardiopulmonary findings. 2. No change in appearance of the chest. Interstitial thickening suggestive of interstitial lung dise ase. ACT 112: Negative or not required by law. Electronically signed by: Jake Diehl M.D. 11/04/2025 1:41 PM
[2025-11-04 13:43] LABS: Hematocrit (blood only) 38.6 % (42.0-52.0); Hemoglobin 13.2 g/dL (14.0-18.0); Immature Granulocytes # (auto) 0.02 K/uL (0.01-0.20); Immature Granulocytes % (auto) 0.3 %; Mean Corpuscular Hemoglobin 37.0 pg (25.0-34.0); Mean Corpuscular Volume 108.1 fL (80.0-100.0); Platelet Count 258 K/uL (130-400); RDW Standard Deviation 53.1 fL (36.4-46.3); Red Blood Count 3.57 M/uL (4.70-6.10); White Blood Count 7.32 K/ul (4.8-10.8)
[2025-11-04 14:00] LABS: Alanine Aminotransferase 22.0 U/L (7-52); Albumin Globulin Ratio 1.3 (0.9-2); Albumin Level 3.8 gm/dl (3.4-5.0); Alkaline Phosphatase 60.0 U/L (34-104); Anion Gap 7.0 (3-11); Bilirubin,Total 0.5 mg/dl (0.2-1.0); Blood Urea Nitrogen 20.0 mg/dl (6-23); Calcium 8.8 mg/dl (8.6-10.3); Carbon Dioxide 26.0 mmol/L (21-32); Chloride 107.0 mmol/L (98-107); Creatinine Clr Calc Pharmacy 48.1 ml/min; Globulin 2.9 gm/dl (2.5-4.0); Glucose 163.0 mg/dl (70-99(Fasting)); Lipase 21.0 U/L (11-82); Potassium 4.5 mmol/L (3.5-5.1); Sodium 140.0 mmol/L (136-145); Total Protein 6.7 gm/dl (6.0-8.3)
--- NOTE | 2025-11-04 14:23 | CT Scan Report ---
CT SCAN OF THE BRAIN WITHOUT IV CONTRAST CLINICAL HISTORY: Lightheadedness. COMPARISON STUDY: CT of the brain dated 02/09/2025. TECHNIQUE: Unenhanced CT scan of the brain is performed from the vertex to the skull base. Images are reviewed in the axial, sagittal, coronal planes. A dose lowering technique was utilized adhering to the principles of ALARA. CT DOSE: 1100.35 mGy.cm FINDINGS: Brain parenchyma: There is age-related involutional change noting mild subcortical and periventricula r microangiopathic disease. There is no hemorrhage, mass effect, or evidence of acute territorial isc hemia by CT criteria. Brooks-white matter differentiation is preserved. No extra-axial fluid collection is seen. Ventricles, sulci, cisterns: Prominent secondary to involutional change. Intracranial vasculature: There is atherosclerotic calcification of the cavernous carotid and vertebr al arteries. Calvarium: The skeletal structures are osteopenic. The calvarium appears intact. Arthritic change is noted in the temporomandibular joints. Sinuses and mastoids: There is mild mucosal thickening within the right sphenoid sinus. Trace mucosal thickening is noted in the ethmoid sinuses. The mastoid air cells are well pneumatized. Orbits: The bony orbits are grossly intact. There are bilateral ocular lens implants. IMPRESSION: There is no hemorrhage, mass effect, or evidence of acute territorial ischemia by CT yobani palma. ACT 112: Negative or not required by law. Electronically signed by: Florentino Xavier M.D. 11/04/2025 2:21 PM
[2025-11-04] MEDS: ASPIRIN CHEW 324 MG PO STA (14:48)
--- NOTE | 2025-11-04 15:49 | Electrocardiogram Report ---
Test Reason : Blood Pressure : */* mmHG Vent. Rate : 88 BPM Atrial Rate : * BPM P-R Int : * ms QRS Dur : 84 ms QT Int : 356 ms P-R-T Axes : * -41 34 degrees QTcB Int : 430 ms Atrial fibrillation with premature ventricular or aberrantly conducted complexes Left axis deviation Low voltage QRS Possible Anterolateral infarct (cited on or before 23-Jul-2021) Abnormal ECG When compared with ECG of 18-Oct-2024 12:33, Atrial fibrillation has replaced Sinus rhythm Vent. rate has increased by 30 bpm Confirmed by Toby Villanueva ([id number]) on 11/04/2025 3:49:21 PM Referred By: REFERRED SELF Confirmed By: Toby Villanueva
--- NOTE | 2025-11-04 16:29 | History & Physical Report ---
Date of Service November 04, 2025 Assessment & Plan (1) Angina pectoris: Plan: Telemetry. Topical nitrates. Continue metoprolol and Eliquis. Serial troponin enzymes. Obtain cardiac echo (2) Acute on chronic diastolic CHF (congestive heart failure): Plan: Parenteral Bumex diuresis. Raymond catheter to monitor urine output response. Cardiac echo. Continue current medical management (3) Paroxysmal atrial fibrillation: Plan: On Eliquis. Rate controlled. Telemetry. Continue amiodarone and metoprolol XL. (4) Type 2 diabetes mellitus: Plan: ADA diet. Sliding scale coverage for now. Metformin is on hold (5) Essential hypertension: Plan: Currently stable. Continue Entresto and metoprolol. Plan Will obtain OT and PT evaluations when appropriate. Disposition to be determined History of Present Illness Chief Complaint: Chest discomfort at rest, dyspnea on exertion Primary Care Provider: Olivia Rangel PA-C 85-year-old male who denies any weight gain but has noticed some dyspnea on exertion developing over the past several days. He also has intermittent chest discomfort at rest that does not radiate and is not associated with diaphoresis or exacerbation of shortness of breath. He has chronic atrial fibrillation and chronically takes Eliquis. Initial troponin is 6.5. Chest x-ray is consistent with congestive heart failure. Fortunately he is on room air. Most recent cardiac echo was from May 2024 with normal ejection fraction and evidence of diastolic dysfunction with moderate MR. This will be repeated. He denies palpitations or syncope. No recent melena or hematochezia. BNP is ordered and pending Allergies Allergy/AdvReac Type Severity Reaction Status Date / Time flecainide Allergy Unknown ON [place] Verified 10/17/25 12:34 MED LIST oxycodone AdvReac Intermediate NAUSEA/VOMI Verified 10/17/25 12:34 TTING Home Medications Medication Instructions Recorded Confirmed Type cetirizine 10 mg tablet (Zyrtec) 10 mg PO QAM Allergy Symptoms 07/03/21 11/04/25 History aspirin 81 mg capsule 81 mg PO .Q OTHER DAY 07/19/21 11/04/25 History cholecalciferol (vitamin D3) 25 50 mcg PO QAM 07/19/21 11/04/25 History mcg (1,000 unit) chewable tablet (Vitamin D3) omeprazole 20 mg capsule,delayed 20 mg PO DAILYBB 07/19/21 11/04/25 History release acetaminophen 650 mg 650 mg PO Q8H 08/05/23 11/04/25 History tablet,extended release apixaban 5 mg tablet (Eliquis) 5 mg PO AMPM 08/05/23 11/04/25 History ranolazine 500 mg tablet,extended 500 mg PO BID 08/05/23 11/04/25 History release,12 hr amiodarone 200 mg tablet 200 mg PO QAM 10/30/23 11/04/25 History atorvastatin 20 mg tablet 20 mg PO QAM 10/30/23 11/04/25 History bumetanide 0.5 mg tablet 0.5 mg PO QAM 12/29/24 11/04/25 History folic acid 1 mg tablet 1 mg PO QAM 12/29/24 11/04/25 History gabapentin 300 mg capsule 300 mg PO TID 12/29/24 11/04/25 History metoprolol succinate 25 mg 25 mg PO QAM 12/29/24 11/04/25 History tablet,extended release 24 hr midodrine 5 mg tablet 5 mg PO QAM 12/29/24 11/04/25 History advkgfzwwotf-jfawsgnn-gtspvd 1 tab PO QAM 12/29/24 11/04/25 History tablet (Multivitamin 50 Plus tablet) sacubitril 24 mg-valsartan 26 mg 0.5 tab PO AMPM 12/29/24 11/04/25 History tablet (Entresto) spironolactone 25 mg tablet 25 mg PO QAM 12/29/24 11/04/25 History cyclobenzaprine 10 mg tablet 10 mg PO QAM 02/04/25 11/04/25 History calcium 500 mg (as 1 tab PO BID 02/09/25 11/04/25 History carbonate)-vitamin D3 5 mcg (200 unit) tablet (Oyster Shell Calcium-Vitamin D3) coQ10 (ubiquinol) 200 mg capsule 200 mg PO DAILY 02/09/25 11/04/25 History diclofenac sodium 1 % topical gel 2 g topical QID 02/09/25 11/04/25 History lidocaine 4 % topical patch 1 patch topical BID 02/09/25 11/04/25 History metformin 500 mg tablet,extended 500 mg PO QAM 02/09/25 11/04/25 History release 24 hr midodrine 2.5 mg tablet 2.5 mg PO .BID@1400 & 2000 02/09/25 11/04/25 History omega-3 fatty acids 1,000 mg 1,000 mg PO DAILY 02/09/25 11/04/25 History capsule oxycodone 5 mg tablet 5 mg PO Q4H PRN Pain 02/09/25 11/04/25 History sennosides 8.6 mg tablet (senna) 8.6 mg PO QPM 02/09/25 11/04/25 History zinc oxide 20 % topical paste 1 ea topical Q8H PRN SKIN BREAKDOWN 02/09/25 11/04/25 History tamsulosin 0.4 mg capsule 0.4 mg PO QPM 11/04/25 11/04/25 History Past Med/Surg History Problem List (Updated 11/04/25 @ 16:26 by Marcos Cabrera MD) Essential hypertension Type 2 diabetes mellitus Paroxysmal atrial fibrillation Acute on chronic diastolic CHF (congestive heart failure) Angina pectoris Biceps tendinitis of right shoulder Right rotator cuff tear arthropathy Incomplete bladder emptying Thoracic spinal stenosis Dyspnea CAD (coronary artery disease) per 08/06/23 cardio note, cath 2016: 30% proximal LAD lesion and a 40% distal LAD lesion. 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 Ambulatory dysfunction (Acute) Anticoagulant long-term use (Acute) Hyperlipidemia Diastolic HF (heart failure) chronic diastolic HF GERD (gastroesophageal reflux disease) Diabetic neuropathy DMII (diabetes mellitus, type 2) on metformin and ozempic GRACIE (obstructive sleep apnea) cpap Afib cardioversion [facility] 08/05/23; pt on medication including asa and eliquis and follows with cardio HTN (hypertension) (Chronic) Medical History (Updated 11/04/25 @ 16:26 by Marcos Cabrera MD) Amiodarone-induced thyroiditis Cervical spinal stenosis Urinary incontinence Transient left leg weakness Trochanteric bursitis, left hip Osteoarthritis Obesity Trochanteric bursitis of right hip Kidney stone hx of and passed on own CKD (chronic kidney disease), stage III History of cardioversion multiple; most recent 08/05/23 SHARA positive Diverticulosis Carotid artery plaque Surgical History Hx of colonoscopy Hx of total knee arthroplasty left History of cholecystectomy H/O laminectomy lumbar H/O total knee replacement History of ankle surgery History of back surgery H/O bilateral hip replacements Family History Other Coronary heart disease Diabetes Social History Smoking Status: Former smoker Tobacco Type: Cigarettes Cigarettes Per Day: pack a day; Second Hand Exposure: No; Do You Dip or Chew Tobacco: No; Hx Alcohol Use: Yes Alcohol type: beer, wine and hard liquor Hx Substance Use: No Preferred Language: Norwegian Communication Ability: Effective Core Piler Required: No Beliefs That Will Affect Care: None marital status: Current Living Situation: Spouse Current Living Situation Comment: home with Feels Safe at Home: Yes Assistive Devices: CPAP, Glasses and Walker Review of Systems 2 Review of Systems: Constitutionalno fever or chills ENTno blurred vision, no double vision, no epistaxis, no sore throat Respiratoryno cough, no wheezing. Shortness of breath noted with exertion Cardiacno palpitations, no syncope. Nonradiating substernal chest discomfort at rest that comes and goes Padmini nausea, vomiting, diarrhea, melena, hematochezia GUno urinary retention, no urinary incontinence, no dysuria, no hematuria Musculoskeletalno joint pain, no muscle tenderness Skinno bruising, no rashes, no pruritus. Chronic venous stasis changes bilateral lower extremities below the knees without associated edema Neurono isolated weakness, no paresthesia, no weakness Psychno depression, no anxiety Physical Exam 2 Physical Exam: General-alert and oriented x3, no fever, no chills HEENT-head atraumatic and normocephalic, pupils equal and reactive to light, extraocular muscles intact Neck-no lymphadenopathy or thyromegaly, trachea midline Chest-bibasilar inspiratory rales noted. No rhonchi. No wheezing Cardiac-irregular rhythm. Controlled rate. Mormal S1 and S2 Abdomen-normal bowel sounds, no hepatosplenomegaly Extremities-brawny induration bilateral lower extremities below the knees without associated edema Neuro-cranial nerves II through XII intact, motor and sensory function within normal limits, strength symmetrical with generalized weakness, no focal deficits Psych-normal affect, normal mood Results & Data Results & Data Vital Signs (Past 12 Hours) Vital Signs Temp Pulse Pulse Resp BP BP Pulse Ox 11/04/25 15:11 73 14 112/86 99 11/04/25 13:26 98 H 16 97 11/04/25 13:19 93 H 11/04/25 13:18 100 H 18 102/71 100 11/04/25 13:18 11/04/25 13:18 36.8 C 100 H 18 102/71 100 O2 Del Method 11/04/25 15:11 Room Air 11/04/25 13:26 Room Air 11/04/25 13:19 11/04/25 13:18 Room Air 11/04/25 13:18 Room Air 11/04/25 13:18 Room Air Laboratory Results 11/04/25 13:16 11/04/25 13:16 Code Status & VTE Plan Code Status Full code PG Care Time/CCT Total # of Minutes Spent Total Time Spent with Patient: Total time spent is greater than 50% in coordination of care (as documented) at patient's floor/unit and/or counseling patient: Coding Level of Care Code 74671 INT INP/OBS CARE 3/75MIN Diagnoses Angina pectoris I20.9 Acute on chronic diastolic CHF (congestive heart failure) I50.33 Paroxysmal atrial fibrillation I48.0 Type 2 diabetes mellitus E11.9 Essential hypertension I10
[2025-11-04] MEDS: BUMETANIDE 1 MG in SYRINGE 0 ML IV ONE (17:21)
[2025-11-04] MEDS ORDERED: CARBOHYDRATES FOR HYPOGLYCEMIA PO PRN (18:10)
[2025-11-04] MEDS ORDERED: ONDANSETRON INJ 2 MG/ML 2 ML VIAL IV PRN (18:10)
[2025-11-04] MEDS ORDERED: GLUCOSE 40% GEL 15 GM TUBE PO PRN (18:10)
[2025-11-04] MEDS ORDERED: GLUCAGON FOR INJ 1 MG VIAL SQ PRN (18:10)
[2025-11-04] MEDS ORDERED: DEXTROSE 50% 50 ML SYRINGE IV PRN (18:10)
[2025-11-04] MEDS ORDERED: GLUCOSE 10 TAB/TUBE PO PRN (18:10)
[2025-11-04] MEDS ORDERED: ACETAMINOPHEN 325 MG TAB PO PRN (18:10)
[2025-11-04] MEDS: NITROGLYCERIN 2% OINTMENT 30GM TUBE EXT ONE (18:18)
[2025-11-04] MEDS: INSULIN ASPART PER UNIT CHARGE SC SCH (19:12)
[2025-11-04] MEDS: SENNA 8.6 MG TAB PO SCH (20:23)
[2025-11-04] MEDS: ASPIRIN 81 MG ECTAB PO SCH (20:24)
[2025-11-04] MEDS: VALSARTAN/SACUBITRIL 26/24MG TAB PO SCH (20:24)
[2025-11-04] MEDS: APIXABAN 5 MG TABLET PO SCH (20:25)
[2025-11-04] MEDS: GABAPENTIN 300 MG CAP PO SCH (20:25)
[2025-11-04] MEDS: MIDODRINE HCL 2.5 MG TAB PO SCH (20:25)
[2025-11-04] MEDS: TAMSULOSIN HCL 0.4 MG CAP PO SCH (20:26)
[2025-11-04] MEDS: RANOLAZINE 500 MG ER TAB PO SCH (20:27)
[2025-11-04] MEDS: REMOVE LIDODERM PATCH SCH (20:27)
[2025-11-04] MEDS: CALCIUM 600MG + VIT D 400 IU TAB PO SCH (20:27)
[2025-11-04] MEDS: NITROGLYCERIN 2% OINTMENT 30GM TUBE EXT SCH (22:32)
[2025-11-04] MEDS: COUGH DROP (SUGAR FREE) LOZ 24 LOZ/1 BOX BUCCAL PRN (23:04)
[2025-11-05 02:12] LABS: Anion Gap 8.0 (3-11); Blood Urea Nitrogen 20.0 mg/dl (6-23); Calcium 8.3 mg/dl (8.6-10.3); Carbon Dioxide 24.0 mmol/L (21-32); Chloride 108.0 mmol/L (98-107); Creatinine Clr Calc Pharmacy 46.9 ml/min; Glucose 114.0 mg/dl (70-99(Fasting)); Potassium 4.3 mmol/L (3.5-5.1); Sodium 140.0 mmol/L (136-145)
[2025-11-05] MEDS: CEROVITE ADV FORMULA TAB PO SCH (08:24)
[2025-11-05] MEDS: CHOLECALCIFEROL 25 MCG (1000 UNITS) TAB PO SCH (08:24)
[2025-11-05] MEDS: ATORVASTATIN 20 MG TAB PO SCH (08:24)
[2025-11-05] MEDS: OMEGA-3 (PURIFIED FISH OIL) 1 GM CAP PO SCH (08:24)
[2025-11-05] MEDS: MIDODRINE HCL 2.5 MG TAB PO SCH (08:24)
[2025-11-05] MEDS: BUMETANIDE 1 MG in SYRINGE 0 ML IV SCH (08:25)
[2025-11-05] MEDS: AMIODARONE 200 MG TAB PO SCH (08:25)
[2025-11-05] MEDS: CETIRIZINE HCL 10 MG TABLET PO SCH (08:25)
[2025-11-05] MEDS: METOPROLOL SUCC 25MG EXT REL TAB PO SCH (08:25)
[2025-11-05] MEDS: FOLIC ACID 1 MG TAB PO SCH (08:25)
[2025-11-05] MEDS: SPIRONOLACTONE 25 MG TAB PO SCH (08:26)
[2025-11-05] MEDS: LIDOCAINE 5% 1 PATCH TD SCH (08:26)
[2025-11-05] MEDS: ISOSORBIDE MONO EXTENDED REL 30 MG TABCR PO SCH (09:43)
--- NOTE | 2025-11-05 11:01 | Hospitalist Progress Note ---
Date of Service November 05, 2025 Assessment & Plan (1) Angina pectoris: Plan: Telemetry. Topical nitrates switched to oral isosorbide mononitrate. Continue metoprolol and Eliquis. Serial troponin enzymes are negative for acute coronary syndrome. Cardiac echo report is pending. (2) Acute on chronic diastolic CHF (congestive heart failure): Plan: Responding nicely to parenteral Bumex diuresis. Continue Raymond catheter to monitor urine output response. Cardiac echo report remains pending. Continue current medical management (3) Paroxysmal atrial fibrillation: Plan: On Eliquis. Rate controlled. Telemetry. Continue amiodarone and metoprolol XL. (4) Type 2 diabetes mellitus: Plan: ADA diet. Sliding scale coverage for now. Metformin is on hold (5) Essential hypertension: Plan: Currently stable. Continue Entresto and metoprolol. Plan Hopeful discharge to home tomorrowNovember 06 Admission and Anticipated Discharge Date Admission Date: November 04, 2025 Subjective Feeling better with Bumex diuresis. Chest x-ray will be repeated again tomorrow, November 06. Nitropaste switched to oral isosorbide mononitrate. OT and PT assessments requested. Hopefully he can go home tomorrow, November 06. His is at the bedside Review of Systems 2 Review of Systems: Constitutionalno fever or chills ENTno blurred vision, no double vision, no epistaxis, no sore throat Respiratoryno cough, no wheezing. Shortness of breath noted with exertion Cardiacno palpitations, no syncope. Nonradiating substernal chest discomfort at rest that comes and goes Padmini nausea, vomiting, diarrhea, melena, hematochezia GUno urinary retention, no urinary incontinence, no dysuria, no hematuria Musculoskeletalno joint pain, no muscle tenderness Skinno bruising, no rashes, no pruritus. Chronic venous stasis changes bilateral lower extremities below the knees without associated edema Neurono isolated weakness, no paresthesia, no weakness Psychno depression, no anxiety Physical Exam 2 Physical Exam: General-alert and oriented x3, no fever, no chills HEENT-head atraumatic and normocephalic, pupils equal and reactive to light, extraocular muscles intact Neck-no lymphadenopathy or thyromegaly, trachea midline Chest-bibasilar inspiratory rales have nearly resolved. No rhonchi. No wheezing Cardiac-irregular rhythm. Controlled rate. Mormal S1 and S2 Abdomen-normal bowel sounds, no hepatosplenomegaly Extremities-brawny induration bilateral lower extremities below the knees without associated edema Neuro-cranial nerves II through XII intact, motor and sensory function within normal limits, strength symmetrical with generalized weakness, no focal deficits Psych-normal affect, normal mood Results & Data Results & Data Vital Signs (Past 12 Hours) Vital Signs Temp Pulse Pulse Resp BP Pulse Ox O2 Del Method 11/05/25 07:46 36.6 C 67 19 117/64 96 Room Air 11/05/25 07:16 64 11/05/25 02:14 36.6 C 63 16 157/89 H 96 Room Air Laboratory Results 11/04/25 13:16 11/05/25 01:40 PG Care Time/CCT Total # of Minutes Spent Total Time Spent with Patient: Total time spent is greater than 50% in coordination of care (as documented) at patient's floor/unit and/or counseling patient: Coding Level of Care Code 94086 SUB INP/OBS CARE 3/50MIN Diagnoses Angina pectoris I20.9 Acute on chronic diastolic CHF (congestive heart failure) I50.33 Paroxysmal atrial fibrillation I48.0 Type 2 diabetes mellitus E11.9 Essential hypertension I10
--- NOTE | 2025-11-05 22:31 | XCELERA ---
[id number]
[2025-11-06 07:08] LABS: Anion Gap 9.0 (3-11); Blood Urea Nitrogen 23.0 mg/dl (6-23); Calcium 9.0 mg/dl (8.6-10.3); Carbon Dioxide 26.0 mmol/L (21-32); Chloride 104.0 mmol/L (98-107); Creatinine Clr Calc Pharmacy 50.1 ml/min; Glucose 112.0 mg/dl (70-99(Fasting)); Potassium 4.4 mmol/L (3.5-5.1); Sodium 139.0 mmol/L (136-145)
[2025-11-06 07:19] VITALS: BP 120/65; PULSE 70; RESP 19; TEMP 97.5; O2SAT 96
--- NOTE | 2025-11-06 08:57 | XRay Report ---
EXAM: XR chest 1V portable CLINICAL HISTORY: CHF TECHNIQUE: An X-ray image of the chest is obtained in AP projection. COMPARISON: A comparison with the previous CR study dated 11/04/2025. FINDINGS: Pulmonary Parenchyma: There are prominent bronchovascular markings, mainly noted in the central zones, with congested upper lung lobes. There is haziness of both lower lung lobes with suspected areas of early opacity noted mainly at the left lower lung lobe. Blunted both costophrenic angles by pleural reaction/effusion noted. Heart and Mediastinum: Heart size is enlarged. No mediastinal widening or masses. No hilar or mediastinal lymphadenopathy. Bony Thorax: Bony thorax appears intact without fractures or deformities. Cervical and lower thoracic spine internal fixation by lor and scrwes. stable. Soft Tissues: Soft tissues overlying the chest wall are unremarkable. IMPRESSION: 1. There are prominent bronchovascular markings, mainly noted in the central zones, with congested upper lung lobes. progressive course 2. There is haziness of both lower lung lobes with suspected areas of early opacity noted mainly at the left lower lung lobe with atelectasis. new findings. 3. Blunted both costophrenic angles by pleural reaction/effusion noted. new findings. 4. Cardiomegaly. stable. Electronically signed by Jarrod Corrales 11-06-2025 08:56 AM
--- NOTE | 2025-11-06 10:05 | Discharge Summary ---
Discharge Summary Date of Service November 06, 2025 Principal Dx & Hospital Course #1 = Principal Diagnosis (1) Angina pectoris: Telemetry. Topical nitrates switched to oral isosorbide mononitrate. Continue metoprolol and Eliquis. Serial troponin enzymes are negative for acute coronary syndrome. Cardiac echo report reveals mild LVH with normal ejection fraction. He also has mild aortic stenosis (2) Acute on chronic diastolic CHF (congestive heart failure): Responding nicely to parenteral Bumex diuresis. Oral Bumex dosage will be uptitrated at discharge. Raymond catheter will be discontinued at discharge. Cardiac echo report reveals mild LVH with normal ejection fraction. (3) Paroxysmal atrial fibrillation: On Eliquis. Rate controlled. Telemetry while hospitalized. Continue amiodarone and metoprolol XL. (4) Type 2 diabetes mellitus: ADA diet. Sliding scale coverage for now. Metformin is on hold. He will resume his normal diabetic management at discharge (5) Essential hypertension: Currently stable. Continue Entresto and metoprolol. Plan Home today, November 06 Admission HPI Per Admitting Provider 85-year-old male who denies any weight gain but has noticed some dyspnea on exertion developing over the past several days. He also has intermittent chest discomfort at rest that does not radiate and is not associated with diaphoresis or exacerbation of shortness of breath. He has chronic atrial fibrillation and chronically takes Eliquis. Initial troponin is 6.5. Chest x-ray is consistent with congestive heart failure. Fortunately he is on room air. Most recent cardiac echo was from May 2024 with normal ejection fraction and evidence of diastolic dysfunction with moderate MR. This will be repeated. He denies palpitations or syncope. No recent melena or hematochezia. BNP is ordered and pending Discharge Exam General-alert and oriented x3, no fever, no chills HEENT-head atraumatic and normocephalic, pupils equal and reactive to light, extraocular muscles intact Neck-no lymphadenopathy or thyromegaly, trachea midline Chest-bibasilar inspiratory rales have nearly resolved. No rhonchi. No wheezing Cardiac-irregular rhythm. Controlled rate. Mormal S1 and S2 Abdomen-normal bowel sounds, no hepatosplenomegaly Extremities-brawny induration bilateral lower extremities below the knees without associated edema Neuro-cranial nerves II through XII intact, motor and sensory function within normal limits, strength symmetrical with generalized weakness, no focal deficits Psych-normal affect, normal mood Discharge Plan Discharge Items Patient Disposition: Home - Self-Care Reason For Visit: CHF, ANGINA Discharge Diagnosis: Acute on chronic diastolic CHF, angina pectoris Condition on Discharge: Good Activity: Resume your previous activity Non-emergency contact: Primary Care Provider and Outdoor Illuminating Engineer Call non-emergency contact if: you have any medication questions and your symptoms worsen Follow-up/Referrals: Olivia Rangel PA-C [Primary Care Provider] - Diet: Carb Consistent or DM2 and Heart Healthy Addtl Attending Provider Instructions: Isosorbide mononitrate 30 mg daily has been added to your medication regimen. Bumex has been increased to 1 mg daily taken in the early afternoon after lunch. Prescriptions have been sent to your pharmacy at [facility] on [facility]. All other medications remain the same. See your primary care provider and shipping point inspector as soon as possible Pending Studies at Discharge: No Stand-Alone Forms: My [facility], Smoking Cessation Medications and DC Order Prescriptions: New isosorbide mononitrate 30 mg Tablet Extended Release 24 Hr 30 mg PO QAM Qty: 30 0RF bumetanide 1 mg tablet 1 mg PO DAILY Qty: 30 0RF Continued cyclobenzaprine 10 mg tablet 10 mg PO QAM cetirizine [Zyrtec] 10 mg Tablet 10 mg PO QAM acetaminophen 650 mg Tablet Extended Release 650 mg PO Q8H ranolazine 500 mg tablet extended release 12 hr 500 mg PO BID Eliquis 5 mg tablet 5 mg PO AMPM amiodarone 200 mg tablet 200 mg PO QAM atorvastatin 20 mg tablet 20 mg PO QAM omeprazole 20 mg Capsule,Delayed Release(Dr/Ec) 20 mg PO DAILYBB cholecalciferol (vitamin D3) [Vitamin D3] 25 mcg (1,000 unit) Tablet,Chewable 50 mcg PO QAM aspirin 81 mg Capsule 81 mg PO .Q OTHER DAY sennosides [senna] 8.6 mg Tablet 8.6 mg PO QPM lidocaine 4 % Adhesive Patch,Medicated 1 patch TOPICAL BID Rx Instructions: REMOVE AT HS, FOR SHOULDER PAIN omega-3 fatty acids 1,000 mg Capsule 1,000 mg PO DAILY midodrine 2.5 mg Tablet 2.5 mg PO .BID@1400 & 2000 Rx Instructions: do not give last dose of day after 6PM or within 4 hrs of bedtime metformin 500 mg tablet extended release 24 hr 500 mg PO QAM oxycodone 5 mg Tablet 5 mg PO Q4H PRN (Reason: Pain) calcium carbonate-vitamin D3 [Oyster Shell Calcium-Vit D3] 500 mg-5 mcg (200 unit) Tablet 1 tab PO BID diclofenac sodium [Voltaren] 1 % Gel 2 g TOPICAL QID Rx Instructions: APPLY TO RIGHT SHOULDER coQ10 (ubiquinol) 200 mg Capsule 200 mg PO DAILY zinc oxide 20 % Paste 1 ea TOPICAL Q8H PRN (Reason: SKIN BREAKDOWN) tamsulosin 0.4 mg capsule 0.4 mg PO QPM metoprolol succinate 25 mg tablet extended release 24 hr 25 mg PO QAM Rx Instructions: HOLD FOR SBP <90 OR HR <55 gabapentin 300 mg capsule 300 mg PO TID spironolactone 25 mg tablet 25 mg PO QAM midodrine 5 mg tablet 5 mg PO QAM folic acid 1 mg tablet 1 mg PO QAM sacubitril-valsartan [Entresto] 24-26 mg tablet 0.5 tab PO AMPM Multivitamin 50 Plus Tablet 1 tab PO QAM Discontinued bumetanide 0.5 mg tablet 0.5 mg PO QAM Discharge Orders: Discharge Order- CHF (Routine); Ordered 11/06/25 Ordered By: Marcos Cabrera Admission Data Admit Date/Time: 11/04/25 16:13 Attending Provider: Marcos Cabrera Admit Provider: Marcos Cabrera Primary Care Provider: Olivia Rangel Other Providers: Alexis Baker Hospital Stay Data Consultations 11/04/25 14:43 ED Decision to Admit Stat Diagnostic Imagining Performed 11/04/25 13:26 CT head/brain wo con Stat Pending Results Patient Have Any Pending Studies at Discharge: No Discharge Instructions Given to Patient (Per Discharging Provider) Isosorbide mononitrate 30 mg daily has been added to your medication regimen. Bumex has been increased to 1 mg daily taken in the early afternoon after lunch. Prescriptions have been sent to your pharmacy at [facility] on . All other medications remain the same. See your primary care provider and shipping point inspector as soon as possible Total Time Total Time Spent Total Time Spent (In Minutes): 45 minutes. Total time included patient exam, discharge planning, medication reconciliation. Coding Level of Care Code 70776 INP/OBS DISCH >30 MIN Diagnoses Angina pectoris I20.9 Acute on chronic diastolic CHF (congestive heart failure) I50.33 Paroxysmal atrial fibrillation I48.0 Type 2 diabetes mellitus E11.9 Essential hypertension I10
--- NOTE | 2025-11-09 06:27 | Electrocardiogram Report ---
Test Reason : Blood Pressure : */* mmHG Vent. Rate : 72 BPM Atrial Rate : 72 BPM P-R Int : 202 ms QRS Dur : 82 ms QT Int : 418 ms P-R-T Axes : 55 -34 15 degrees QTcB Int : 457 ms Sinus rhythm with Premature supraventricular complexes Left axis deviation Low voltage QRS Cannot rule out Anterior infarct (cited on or before 23-Jul-2021) Abnormal ECG When compared with ECG of 04-Nov-2025 13:16, Sinus rhythm has replaced Atrial fibrillation Questionable change in initial forces of Lateral leads Confirmed by Fazal Colin ([id number]) on 11/09/2025 6:27:29 AM Referred By: REFERRED SELF Confirmed By: Fazal Colin
== END 2025-11-06 10:43 | disposition home or self-care (01) | DRG 291 ==
LOC: SUATTDRO → ED 13:11 → 4W 16:13